=== PATIENT | male | born 1970 | race Caucasian/White ===

== ENCOUNTER 2024-11-19 17:53 | Emergency (ER) | payer OTHER, SELFPAY ==
[2024-11-19 17:58] VITALS: BP 179/76; PULSE 102; RESP 18; TEMP 36.9; O2SAT 97; BMI 28.5
--- NOTE | 2024-11-19 18:27 | ED.GENADULT ---
HPI - General Adult General Date Seen: 11/19/24 Chief complaint: Unspecified Complaint, Adult Stated complaint: Right tooth pain, swollen tongue nausea Time Seen by Provider: 11/19/24 18:13 History of Present Illness HPI narrative: 54-year-old male presents to the ER today with his friend with concern for dental infection from his right mandible and resulting submandibular and right cheek swelling. Patient is generally healthy. He does not have primary care and has not seen a doctor in years. He is not on any meds. He has no allergies. He does have a history of cavities and apparently had a crown or a cap on 1 of his right mandibular molars. That cap fell off last week and he started having gradual with the increasing pain in that right molar and then into the right mandible beginning about 5-7 days ago. For the past couple of days the pain has been spreading into his right cheek and underneath his chin worse on the right than on the left. Today he is also feeling like his tongue is being swollen and pushed upward. He says it hurts to swallow. He is not having any change in his voice. Although he told the triage nurse he is having trouble breathing, he is not really acutely dyspneic. He does not have a fever but does have body aches and headache. He has no history of diabetes or immunosuppression. No known facial trauma. He is not anticoagulated. Related Data Home Medications ?Medication ?Instructions ?Recorded ?Confirmed No Known Home Medications 11/19/24 11/19/24 Allergies Allergy/AdvReac Type Severity Reaction Status Date / Time No Known Drug Allergies Allergy Verified 11/19/24 19:17 Exam Narrative: Exam Narrative: Constitutional: Appears well-developed and well-nourished. Alert. Conversant. Non toxic. HENT: Head: Atraumatic. Nose: Nose normal. Mouth/Throat: Oral mucosa is clear and moist. no trismus but he does have limited mandibular its excursion and is only able to get about 2 fingers between his upper and lower incisors. Difficult to see his entire posterior oropharynx because the tongue is a little bit up in the mouth. I am able to see the supple in tissues under the tongue and they do not look obviously swollen. The gingival tissues did not show any rib clear drainable gingival abscess. He does have fillings and dental caries affecting all 3 of the molars on the right mandible, in particular the right mandibular wisdom tooth. He does have tenderness, swelling and firm induration of the skin on the right cheek around the angle of the mandible and the submandibular space but no definite fluctuance. He is less swollen and firm on the left.. Eyes: Conjunctivae normal. EOM normal. Pupils equal, round, and reactive to light. No scleral icterus. Neck: Normal range of motion. Neck supple. No tracheal deviation present. Cardiovascular: Normal rate, regular rhythm. No gallop. No friction rub. No murmur heard. Symmetric radial artery pulses Pulmonary/Chest: Effort normal. No stridor. No respiratory distress. No wheezes. No rales. No rhonchi . No tenderness. Abdominal: Soft.. No distension. No mass. No tenderness. No rebound. No guarding. Musculoskeletal: RUE: Normal range of motion. No tenderness. No deformity LUE: Normal range of motion. No tenderness. No deformity RLE: Normal range of motion. No edema. No tenderness. No deformity LLE: Normal range of motion. No edema. No tenderness. No deformity Lymph: No anterior or posterior cervical adenopathy. Because of soft tissue adipose tissue and swelling difficult to appreciate any submandibular lymphadenopathy. Neurological: Alert and oriented to person, place, and time. Normal strength. CN II-VII intact. No sensory deficit. GCS eye subscore is 4. GCS verbal subscore is 5. GCS motor subscore is 6. Normal coordination Skin: Skin is warm and dry. No rash noted. No pallor. Normal capillary refill. Psychiatric: Normal mood. Mildly anxious Const: Vital Signs, click to edit/add: Vital Signs - 24 hr 11/19/24 17:58 11/19/24 19:41 11/19/24 19:45 Temperature 98.4 F Pulse Rate 101 H 101 H Pulse Rate [Right Pulse Oximeter] 102 H Respiratory Rate 18 16 Blood Pressure [Ri ght Upper Arm] 179/76 H Pulse Oximetry 97 96 92 Oxygen Delivery Me thod Room Air Course Course ED Course: Recheck-labs came back with markedly abnormal CBC showing hemoglobin of 6.7 white count of 15.9, platelet count of 441. Labs also showed renal failure with BUN of 78 and a creatinine of 4.6. This prompted additional history. Patient has not seen a doctor probably in decades. He is not on any regular meds. He notes that he has had some dark colored, possibly bloody colored urine pretty much every day for the past year or so. No other problems with urination. He has also noted progressively worsening dyspnea on exertion for the past 2-3 months. He does not think he has had any black or bloody stools. No abdominal pain. Vital Signs Vital signs: Initial Vital Signs Temperature 98.4 F 11/19/24 17:58 Temperature Source Temporal Artery Scan 11/19/24 17:58 Pulse Rate 102 H 11/19/24 17:58 Pulse Rhythm Regular 11/19/24 17:58 Pulse Strength 3+ Normal 11/19/24 17:58 Respiratory Rate 18 11/19/24 17:58 Blood Pressure 179/76 H 11/19/24 17:58 Blood Pressure Mean 110 H 11/19/24 17:58 Blood Pressure Position Sitting 11/19/24 17:58 Pulse Oximetry 97 11/19/24 17:58 Oxygen Delivery Method Room Air 11/19/24 17:58 Vital Signs Temperature 98.4 F 11/19/24 17:58 Pulse Rate 102 H 11/19/24 17:58 Respiratory Rate 18 11/19/24 17:58 Blood Pressure 179/76 H 11/19/24 17:58 Pulse Oximetry 97 11/19/24 17:58 Oxygen Delivery Method Room Air 11/19/24 17:58 Temperature 98.4 F 11/19/24 17:58 Pulse Rate 101 H 11/19/24 19:45 Respiratory Rate 16 11/19/24 19:45 Blood Pressure 179/76 H 11/19/24 17:58 Pulse Oximetry 92 11/19/24 19:45 Oxygen Delivery Method Room Air 11/19/24 17:58 Medications Administered Medications: Generic Name Dose Route Start Last Admin Trade Name Freq PRN Reason Stop Dose Admin Hydromorphone HCl 0.5 mg 11/19/24 18:45 11/19/24 19:35 Hydromorphone 0.5 Mg/0.5 Ml Inj IVP 0.5 mg Q1H PRN Administration Pain Discontinued Medications Generic Name Dose Route Start Last Admin Trade Name Freq PRN Reason Stop Dose Admin Ampicillin Sodium/Sulbactam 100 mls @ 200 mls/hr 11/19/24 18:50 11/19/24 19:50 Sodium 3 gm/ Sodium Chloride IVPB 11/19/24 18:51 200 mls/hr ONCE ONE Administration Ondansetron HCl 4 mg 11/19/24 18:45 11/19/24 19:35 Ondansetron 2 Mg/Ml Inj IVP 11/19/24 18:46 4 mg ONCE ONE Administration Medical Decision Making MDM Narrative Medical decision making narrative: 54-year-old gentleman presenting to the ER today with concern initially for a right mandibular tooth infection with associated right facial and right submandibular tissue swelling and worsening pain. Presentation is consistent with an odontogenic infection likely from the right mandibular wisdom tooth. His face is a little bit large because of his body habitus adipose tissue but he definitely has right submandibular tenderness induration and swelling. He was started on IV Unasyn. CT scan of his neck soft tissue fortunately does not show any abscesses or drainable fluid collections. Presentation is concerning for an evolving Minesh's angina. At this point there is really not much swelling on the left and although he is feeling a little bit of upward pressure on his tongue, his airway is currently widely patent. At this point I do not think he needs immediate prophylactic intubation for airway protection. However he was started IV antibiotics. He is not febrile but he does have systemic symptoms of illness such as headache and body aches. Blood pressure is actually hypertensive. I think he will require hospitalization. At this point would recommend transfer to a facility that has ICU capabilities he needs airway management and availability of ENT/oral maxillofacial surgery in case he does have worsening abscesses under his jaw. Laboratory workup also shows leukocytosis and thrombo cytosis which are likely acute phase reactants from his infection. As a surprise he is found to be markedly anemic. Hemoglobin is 6.7. Denies any recent black or bloody stools. He does report progressively worsening dyspnea for past once with suggest this is probably a subacute chronic anemia. Based on his symptoms, I do think he likely will need a transfusion. However at this point, priority is to manage his facial/odontogenic infection. Will defer transfusion to receiving center. Labs also show renal failure with a BUN of 78 and a creatinine of 4.6. Fortunately potassium is normal. Lung sounds are clear. No signs of acute fluid overload or CHF from renal failure. Chronicity to the renal failure is not clear. He does report some abnormal colored urine for the past year so which could indicate that it is possibly chronic. Will need further workup at the receiving set. He has been taking a lot of Aleve lately. He says he has been taking 4-6 a leaves per dose several times per day for the past several days because of his dental and facial pain. Also had been on NSAIDs prior to that. I wonder if it could be contributing to possible upper GI bleed causing his anemia. Of note, the patient did receive IV contrast for his CT neck prior to us being aware of his renal failure. He received a L of crystalloid here in the ER to try to help prevent contrast nephropathy. Lab Data Labs: Lab Results 11/19/24 Range/Units 19:05 WBC 15.90 H (4.50-11.00) K/uL RBC 3.20 L (4.30-5.90) m/uL Hgb 6.7 L* (13.5-17.5) gm/dL Hct 22.3 L (37.0-53.0) % MCV 70 L (80-100) fL MCH 21 L (26-34) pg MCHC 30 L (32-36) gm/dL RDW Coeff of Michelle 17.5 H (11.5-15.5) % Plt Count 441 H (140-440) K/uL Neut % (Auto) 84.5 H (42.0-72.0) % Lymph % (Auto) 4.9 L (20-44) % [place] % (Auto) 8.4 (0.0-11.0) % Eos % (Auto) 1.1 (0.0-7.0) % Baso % (Auto) 0.2 (0.0-3.0) % Neut # (Auto) 13.40 H (1.7-7.0) K/uL Lymph # (Auto) 0.80 L (0.90-2.90) K/uL [place] # (Auto) 1.30 H (0.00-0.90) K/UL Eos # (Auto) 0.20 (0.00-0.50) K/uL Baso # (Auto) 0.00 (0.00-0.30) K/uL Abs Immat Gran (auto) 0.10 (0.00-0.30) K/uL Imm/Tot Granulo (auto) 0.9 % Sodium 140 (135-149) mmol/L Potassium 4.3 (3.6-5.1) mmol/L Chloride 107 (96-114) mmol/L Carbon Dioxide 17 L (20-32) mmol/L Anion Gap 16 H (7-15) mEq/L BUN 78 H (7-30) mg/dL Creatinine 4.6 H (0.5-1.5) mg/dL Estimated Creat Clear 20.62 Estimated GFR 15 ml/min Glucose 121 H (60-115) mg/dL Lactate 1.3 (0.5-1.9) mmol/L Calcium 8.9 (8.4-10.6) mg/dL Discharge Plan Discharge Prescriptions: No Action No Known Home Medications Follow Up/Referrals: Provider,Not a Local [Primary Care Provider] -
--- NOTE | 2024-11-19 18:45 | CRLHL7_ITS ---
For Patients: As a result of the Century Cures Act, medical imaging exams and procedure reports are released immediately into your electronic medical record. You may view this report before your referring provider. If you have questions, please contact your health care provider. Indication: Right mandibular toothache, sub mandibular and facial swelling. Technique: Contrast-enhanced CT of the neck with multiplanar reconstruction utilizing 100 cc Isovue 370 iodinated intravenous contrast. Comparison: None available. Findings: Asymmetric skin thickening of the right face and chin with diffuse infiltration of the underlying soft tissues. Streak artifact emanating from dental amalgam limits evaluation of adjacent structures. No convincing dental source of infection. No suspicious mucosal based vascular enhancement. No pathologically enlarged cervical lymph nodes. Normal parotid and submandibular glands. Unremarkable thyroid. The lung apices are clear. No aggressive osseous lesion is identified. The major vascular structures are within normal limits. The imaged intracranial structures and orbits are unremarkable. Impression: 1. Asymmetric skin thickening of the right face and chin with diffuse infiltration of the underlying soft tissues. 2. No discrete rim enhancing abscess. 3. No convincing dental source for infection, though evaluation is limited by streak artifact emanating from dental amalgam. Please note that all CT scans at this facility use dose modulation, iterative reconstruction, and/or weight-based dosing when appropriate to reduce radiation dose to as low as reasonably achievable. Dictated by Ced Alston MD @ 11/19/2024 8:00:16 PM (Electronically Signed)
[2024-11-19 19:15] LABS: Lactate* 1.3 mmol/L (0.5-1.9)
[2024-11-19 19:16] LABS: Basophils Percent Auto 0.2 % (0.0-3.0); Eosinophils Percent Auto 1.1 % (0.0-7.0); Hematocrit 22.3 % (37.0-53.0); Immature Granulocytes Pct Auto 0.9 %; Lymphocytes Percent Auto 4.9 % (20-44); Mean Corpuscular HGB Conc 30 gm/dL (32-36); Mean Corpuscular Hemoglobin 21 pg (26-34); Mean Corpuscular Volume 70 fL (80-100); Monocytes Percent Auto 8.4 % (0.0-11.0); Neutrophils Percent Auto 84.5 % (42.0-72.0); Platelet Count* 441 K/uL (140-440); RDW Coefficient of Variation % 17.5 % (11.5-15.5)
[2024-11-19 19:20] LABS: Hemoglobin* 6.7 gm/dL (13.5-17.5); Slide Review Reflex No
--- NOTE | 2024-11-19 19:22 | ED.NURSE ---
Lab called with a critical hemoglobin of 6.7. Doctor and primary nurse notified.
[2024-11-19 19:33] LABS: Chloride* 107 mmol/L (96-114); Potassium* 4.3 mmol/L (3.6-5.1); Sodium* 140 mmol/L (135-149)
[2024-11-19] MEDS: ONDANSETRON 2 MG/ML inj 4 MG IVP (19:35)
[2024-11-19] MEDS: HYDROmorphone 0.5 mg/0.5 ml inj IVP ×3 (19:35→21:34)
[2024-11-19 19:36] LABS: Anion Gap 16 mEq/L (7-15); Blood Urea Nitrogen* 78 mg/dL (7-30); Carbon Dioxide* 17 mmol/L (20-32); Creatinine* 4.6 mg/dL (0.5-1.5); Est. Creatinine Clearance* 20.62; Estimated Glomerular Filt Rate 15 ml/min
[2024-11-19 19:37] LABS: Calcium* 8.9 mg/dL (8.4-10.6); Glucose* 121 mg/dL (60-115)
[2024-11-19 19:41] VITALS: PULSE 101; O2SAT 96
[2024-11-19 19:45] VITALS: PULSE 101; RESP 16; O2SAT 92
[2024-11-19] MEDS: AMPICILLIN/SULBACTAM 3 GM in 0.9 % SODIUM CHLORIDE Mini-bag 100 ML IVPB (19:50)
[2024-11-19] MEDS: 0.9 % SODIUM CHLORIDE 1000 ml 1,000 ML IV (20:05)
[2024-11-19 20:59] LABS: Appearance Urine Cloudy (Clear); Bilirubin Urine Negative (Negative); Blood Urine 2+ (Negative); Color Urine Yellow (Yellow); Glucose Urine Negative (Negative); Ketones Urine Negative (Negative); Leukocyte Esterase Urine 3+ (Negative); Nitrite Urine Negative (Negative); Protein Urine 2+ (Negative); Specific Gravity Urine 1.015 (1.000-1.030); Urobilinogen Urine 0.2 (0.2-1.0)
[2024-11-19 21:13] LABS: WBC Urine >100 (0-5)
[2024-11-19 21:14] LABS: Bacteria Urine Moderate; Squamous Epithelial Cell Urine Few (None-Few)
[2024-11-19] MEDS: cefTRIAXone 1 GM in 0.9 % SODIUM CHLORIDE Mini-bag 100 ML IVPB (21:34)
--- OUTSIDE RECORDS SUMMARY | 2024-11-20 17:36 | XMS_ITS | Clinical Summary ---
Author Organization [facility] [employer] [facility] Address [address] [place] [id number] Care Team Providers Care Parts Facilitator Name Role Phone Unknown, Doctor Primary Care Provider Unavailabl e Allergies No known active allergies Medications No known medications Active Problems Problem Noted Date Diagnosed Date Venous insufficiency 02/11/2012 Social History Tobacco Use Types Packs/Day Years Used Date Smoking Tobacco: Never Smokeless Tobacco: Never Alcohol Use Standard Drinks/Week Comments Yes 0 (1 standard drink = 0.6 oz pur e alcohol) Sex and Gender Information Value Date Recorded Sex Assigned at Not on file Legal Sex 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 Gender Identity Not on file Sexual Orientation Not on file Obstetrics History Last Filed Vital Signs Vital Sign Reading Time Taken Comments Blood Pressure 118/82 03/29/2014 11:31 AM CDT Pulse 78 03/29/2014 11:31 AM CDT Temperature 36.5 C (97.7 F) 08/31/2013 8:30 PM CABINET ASSEMBLER Respiratory Rate 18 08/31/2013 8:45 PM CABINET ASSEMBLER Oxygen Saturation 95% 08/31/2013 8:45 PM CABINET ASSEMBLER Inhaled Oxygen Concentration - - Weight 102.5 kg (226 lb) 03/29/2014 11:31 AM CDT Height 182.9 cm (6') 08/31/2013 8:39 AM CABINET ASSEMBLER Body Mass Index 30.65 08/31/2013 8:39 AM CABINET ASSEMBLER Plan of Treatment Health Maintenance Due Date Last Done Comments Tdap 1983 Depression screening for age 12+ 1984 HIV for age 15-65 1987 BMI (ht and wt on same day) for age 18+ 1990 Hepatitis C screening for age 18-79 1990 Tetanus booster 1992 Colonoscopy through age 75 2017 Lipids for age 45-75 2017 Pneumococcal series for age 50+ (1 of 1 - PCV) 022 Zoster (shingles) series for age 50+ (1 of 2) 03/23/20 22 COVID-19 vaccine series ( - 2023- season) Influenza Vaccine (Season Ended) 2025 Medical Devices Implanted Type Area Supervisor Blood [employer]or [employer] Device Identifier Shelf Expiration Date Model / Serial / Lot Plate Hand Rt 1.7mm 6 Hole L-Plate - [id number] Implanted:Qty: 1 on 08/31/2013 at [facility] Right: [employer] [id number] / / Screw Hand 1.7x12mm [employer] Hand Slf Tppng - [id number] Implanted:Qty: 1 on 08/31/2013 at [facility] Right: [employer] [id number]# / / Screw Hand 1.7x6mm [employer] Hand Slf Tppng - [id number] Implanted:Qty: 1 on 08/31/2013 at [facility] Right: [employer] [id number]# / / Screw Hand 1.7x9mm [employer] Hand Slf Tppng - [id number] Implanted:Qty: 1 on 08/31/2013 at [facility] Right: [employer] [id number]# / / Screw Hand 1.7x13mm [employer] Hand Slf Tppng - [id number] Implanted:Qty: 1 on 08/31/2013 at [facility] Right: [employer] [id number]# / / Screw Hand 1.7x12mm [employer] Hand Slf Tppng Lock - [id number] Implanted:Qty: 1 on 08/31/2013 at [facility] Right: [employer] [id number]# / / Screw Hand 1.7x11mm [employer] Hand Slf [employer] Lock - [id number] Implanted:Qty: 1 on 08/31/2013 at [facility] Right: [employer] [id number]# / / Screw Hand 1.7x14mm [employer] Hand Slf [employer] Lock - [id number] Implanted:Qty: 1 on 08/31/2013 at [facility] Right: [employer] [id number]# / / Insurance [facility] Advance Directives * Full Code (Latest Code Status on File) Date Activated Date Inactivated Comments 08/31/2013 12:07 AM 09/01/2013 12:43 AM Care Teams Parts Facilitator Relationship Specialty Start Date End Date Unknown, Doctor . PCP - General 02/15/10
== END 2024-11-19 21:51 | disposition other institution (70) ==
PROVIDERS: Emergency Provider Emergency Medicine
DX: K04.7 Periapical abscess without sinus (principal)
CPT/HCPCS: 36415; 70491; 80048; 81001; 83605; 85025; 87086; 94761; 96365; 96366; 96375; 99284; J0295; J0696; J1171; J2405; J7030; Q9967

== ENCOUNTER 2024-11-19 21:40 | Outpatient (CLI) | payer OTHER, SELFPAY | END 2024-11-19 21:41 | disposition home or self-care (01) | LOC: AMB 11-21 12:16 | PROVIDERS: Visit Provider Student in an Organized Health Care Education/Training Program | DX: K08.9 Disorder of teeth and supporting structures, unspecified (principal) | CPT/HCPCS: A0425; A0433 ==

== ENCOUNTER 2024-12-07 14:10 | Outpatient (CLI) | payer MEDICAID, SELFPAY | END 2024-12-07 14:11 | disposition home or self-care (01) | LOC: AMB 12-08 12:40 | PROVIDERS: Visit Provider Family Medicine | DX: R07.89 Other chest pain (principal) | CPT/HCPCS: A0425; A0427 ==

== ENCOUNTER 2024-12-07 14:42 | Emergency (ER) | payer MEDICAID, SELFPAY ==
--- OUTSIDE RECORDS SUMMARY | 2024-11-19 22:36 | XMS_ITS | Encounter Summary ---
Author Organization [facility] Address [address] [place] [address] Phone Care Team Providers Care Refinish Technician Name Role Phone Unavailable Primary Care Provider Unavailabl e Reason for Visit * Reason Comments Dental Pain Hematuria Neck Problem * Auth/Cert (Routine) Specialty Diagnoses / Procedures Referred By Contbernardo t Referred To Contact MEDICINE CRITICAL CARE Diagnoses Elevated serum creatinine Neck swelling Anemia, unspecified type Hematuria, unspecified type Minesh angina tooth infection renal failure Justin Morris MD [address] [place] [address] [address] [place] [address] Phone: tel: fax: [facility] Medical ICU-3 [address] [facility] [address] [place] [address] Phone: tel: fax: Referral ID Status Reason Start Date Expiration Date Visits Re quested Visits Authorized [id number] 1 1 Encounter Details Date Type Department Care Team (Latest Contact Info) Description 11/19/2024 10:36 PM CDT - 11/23/2024 5:15 PM CDT Hospital Encounter [facility] Medical ICU-3 [address] [facility] [address] [place], [place] [address] Kelsie Tierney MD [address] [place], [place] [id number] Justin Morris MD [address] [place] [address] [address] [place], [place] [id number] Freda Clark MD [address] [place] [address] Neck swelling Discharge Disposition: Discharged to home or self care Social History Tobacco Use Types Packs/Day Years Used Date Smoking Tobacco: Never Passive Smoke Exposure: Never Smokeless Tobacco: Never Tobacco Cessation:Counseling Given: Not Answered Alcohol Use Standard Drinks/Week Comments Yes 0 (1 standard drink = 0.6 oz pur e alcohol) 1 beer/ month Humiliation, Afraid, Rape, a nd Kick questionnaire Answer Date Recorded Within the last year, have y ou been afraid of your partner or ex-partner? Patient unable to answer 11/20/2024 Within the last year, have y ou been humiliated or emotionally abused in other ways by your partner or ex-partner? Patient unable to answer 11/20/2024 Within the last year, have y ou been kicked, hit, slapped, or otherwise physically hurt by your partner or ex-partner? Patient unable to answer 11/20/2024 Within the last year, have y ou been raped or forced to have any kind of sexual activity by your partner or ex-partner? Patient unable to answer 11/20/2024 Overall Financial Resource Strain (CARDIA) Answe r Date Recorded How hard is it for you to pa y for the very basics like food, housing, medical care, and heating? Patient unable to answer 11/20/2024 Hunger Vital Sign Answer Date Recorded Within the past 12 months, y ou worried that your food would run out before you got the money to buy more. Patient unable to answer 11/20/2024 Within the past 12 months, t he food you bought just didn't last and you didn't have money to get more. Patient unable to answer 11/20/2024 PRAPARE - Transportation Answer Date Re corded In the past 12 months, has l ack of transportation kept you from medical appointments or from getting medications? Patient unable to answer 11/20/2024 In the past 12 months, has l ack of transportation kept you from meetings, work, or from getting things needed for daily living? Patient unable to answer 11/20/2024 Housing Stability Answer Date Recorded What is your housing situation today? 5 - Patien t unable to answer 11/20/2024 Sex and Gender Information Value Date Recorded Sex Assigned at Not on file Legal Sex Male 8:23 PM CDT Gender Identity Not on file Sexual Orientation Not on file documented as of this encounter Last Filed Vital Signs Vital Sign Reading Time Taken Comments Blood Pressure 184/145 11/23/2024 4:57 PM CDT Pulse 125 11/23/2024 1:00 PM CDT Temperature 36.5 C (97.7 F) 11/23/2024 4:00 PM CDT Respiratory Rate 24 11/23/2024 1:00 PM CDT Oxygen Saturation 94% 11/23/2024 1:00 PM CDT Inhaled Oxygen Concentration - - Weight 108.9 kg (240 lb 1.3 oz) 025 10:00 PM CDT Height 182.9 cm (6' 0.01) 11/20/2024 1:45 AM CD T Body Mass Index 32.55 11/20/2024 1:45 AM CDT documented in this encounter Discharge Summaries * Irena Casarez RN - 11/23/2024 5:28 PM CDT DISCHARGE NOTE D: Patient is being discharged. A: (As documented in the Discharge Planning Flowsheet) Discharge Instructions (AVS): Discharge clothing/valuables: Discharge medications: Home equipment status: Home equipment/supplies recommended: Final discharge destination: R: The patient and family understood the AVS. P: Support patient and family if they call back with questions. * Jourdan Naranjo MD - 11/23/2024 4:30 PM CDT MEDICINE DISCHARGE SUMMARY Dominick Lozoya : 1970 Sex: male Date of Admission: 11/19/2024 Date of Discharge: 11/23/2024 Disposition: Home/Self Care Primary Care Physician: No primary care provider on file. REASON FOR ADMISSION: Severe R mandibular cellulitis 2/2 odontogenic infection Concern for Minesh's angina BRIEF SUMMARY OF HOSPITALIZATION: Patient is a 54 y.o. male with unknown PMH admitted on 11/19/2024 with R neck swelling with c/f Minesh's angina and acute anemia requiring 3U RBCs. Extubated on 11/21, stable on NC and hemodynamically stable. OMFS following, no OR plans at this time, will continue medical mgmt. Discharged 11/23 with plans for outpatient follow up with OMFS and Urology. Patient will work on establishing care with a PCP closer to home ([place]). NOTE TO PCP: - Would repeat BMP to establish new Cr baseline. Would also obtain urine Pr/Cr ratio to check for ongoing proteinuria. If pt has persistent anemia or worsening Cr, would recommend referral to Nephrology - Monitor BP, likely has HTN and needs ongoing med mgmt For specifics, see recommendations by problem below. HOSPITAL COURSE BY PROBLEM: R mandible cellulitis 2/2 odontogenic infection, improving Concern for Minesh's Angina, improving Patient presented with 1 week of fever, right neck swelling and pain to OSH. Had CT neck which showed right-sided mandibular odontogenic infection tracking to the focal subcutaneous fat tissue and floor of the mouth concerning for Minesh angina but no apparent abscesses. Initially arrived to our EDon room air and appeared comfortable. Had nasopharyngoscopy that showed mild uvular and base of tongue edema but then was noted to desaturate when falling asleep this was intubated for airway protection. Otherwise, has leukocytosis, and elevated inflammatory markers but has been afebrile and hemodynamically stable during hospitalization. OMFS was consulted and recommended continuing antibiotics with no plan for interventions at this time. Extubated successfully on 11/21, breathing comfortably and stable on 3-4 L NC. - OMFS consulted, appreciate recs - s/p dental extraction on 11/23 - Follow up in clinic on 11/25 at 8AM - Abx: Augmentin BID for 7 days post discharge - Pain regimen: tylenol 975 mg TID Acute hypoxic respiratory failure, resolved Possible aspiration pneumonia/pneumonitis, resolved Likely RULA Patient was initially satting above 95% room air without tachypnea upon arrival to the ED but became hypoxic to the mid 80s while falling asleep thus was intubated due to concern of airway compromisefrom above. He had a witnessed episode of vomiting at OSH. Chest x-ray and CT chest showed possibleatelectasis with superimposed aspiration sequela; thus possible aspiration pneumonia/pneumonitis. Patient should be empirically covered with Unasyn. Patient still intermittently de-satting overnight but when awake has been stable with minimal oxygen requirements. Suspect patient likely has underlying RULA driving his hypoxia that was acutely worsened on admission in the setting of significant softtissue neck swelling. - Resp cx and legionella Ag unremarkable - Abx as above - Consider Sleep Center Referral as outpatient if pt amenable to CPAP Acute Kidney Injury, improving Suspect underlying CKD Low suspicion for MSSA UTI Patient presented with creatinine of 4.55 but unclear creatinine baseline., K has remained stable. Unable to obtain further history but patient only symptom per report is hematuria. Unclear if patient has been using nephrotoxic drugs such as NSAIDs. UA showed hematuria, positive leukocyte esterase and pyuria. Urine cx grew 10-50k MSSA. CT abdomen pelvis without signs of hydronephrosis or pyelonephritis but did show a left lower pole calyceal filling defect. Unclear if MSSA 2/2 prior colonization in the setting of possible TCC (gven filling defect on CT and chronic hematuria) vs acute bacteremia. Bcx NGTD. Urology following, plan for outpatient ureteroscopy for further evaluation. Obtained OSH records which did not show any evidence or concern for MSSA bacteremia, low suspicion at this time thus further work up with TTE not indicated. Patient should be covered for possible UTI with antibiotics from above. Suspect Acute Kidney Injury likely 2/2 prerenal etiology in the setting of acute illness but Cr improvement has plateaued since admission with robust UOP. Additionally patient continues to have metabolic acidosis without clear etiology and elevated Phos c/w CKD. Will continue to monitor but if new CKD IV, may benefit from outpatient nephrology referral for ongoing CKD care. - Recheck BMP as outpatient to evaluate for degree of CKD - Consider outpatient nephrology referral for CKD mgmt if worsening or eGFR < 20 Acute microcytic anemia requiring transfusion, stable Iron deficiency anemia Hematuria, chronic Patient presented with hemoglobin of 6.4, MCV 69. Per chart review, pt has had ongoing hematuria daily for the past 2-3 years. Took more naproxen recently due to worsening jaw/neck pain but denied any hematochezia/melena, hemoptysis or hematemesis. INR is 1.3 and patient is not known to be on bloodthinner. CT A/P this admission demonstrated possible L sided renal cast, unclear if this is may represent stone/calculus. Anemia studies were c/w iron deficiency anemia, repleted with IV iron. Etiology of acute anemia likely multifactorial in the setting of Acute Kidney Injury 2/2 NSAID use, underlying CKD, and possible blood loss anemia in the setting of ongoing hematuria and possible GIB from recent NSAID use. 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 - Start amlodipine 5 mg daily for now, up titrate as needed Methamphetamine use, recent Unclear hx of substance use, found to have UDS + for meth on admission. Pt amenable to seeing addiction medicine, provided resources but not interested in treatment at this time. Malnutrition Weight: 108.9 kg (240 lb 1.3 oz) Wt Change from Previous: 1.9 Kg Wt Change from Admit: 1.2 Kg % Wt Change from Adm: 1.11 % Long Eddy Body Wt (IBW) Male (kg): 77.62 kg CONSULTS: Addiction Medicine Urology OMFS PROCEDURES Dental Extraction Intubation PENDING TESTS RESULTS: None FOLLOW-UP: Future Appointments Date Time Provider Department Center 12/07/2024 10:00 AM Kaitlin Rubalcava APRN, COKE LOADER [facility] UROLOGY [facility] Special PHYSICAL EXAMINATION: BP 133/81 Pulse 92 Temp 36.5 ??C (97.7 ??F) (Axillary) Resp 19 Ht 1.829 m (6' 0.01) Wt 108.9 kg (240 lb 1.3 oz) SpO2 96% BMI 32.55 kg/m?? Estimated body mass index is 32.55 kg/m?? as calculated from the following: Height as of this encounter: 1.829 m (6' 0.01). Weight as of this encounter: 108.9 kg (240 lb 1.3 oz). Gen: Alert, interactive, NAD HEENT: Ongoing neck swelling R>L side, tender to palpation Neuro: Alert and oriented, answers questions appropriately, ambulating independently in hallway. CV: RRR, warm, no peripheral edema appreciated Pulm: CTAB Abd: soft ALLERGIES No Known Drug Allergies PLANNED DISCHARGE ORDERS: Medication List START taking these medications acetaminophen 325 mg tablet Commonly known as: TYLENOL Take 2 tablets (650 mg) by mouth every 6 hours as needed for Moderate Pain. amLODIPine 5 mg Tabs Commonly known as: NORVASC Take 1 tablet (5 mg) by mouth daily. amoxicillin-clavulanate 500-125 mg Tabs Commonly known as: AUGMENTIN Take 1 tablet by mouth twice daily for 14 doses. Start taking on: November 24, 2024 STOP taking these medications naproxen sodium 220 mg tablet Commonly known as: ALEVE Where to Get Your Medications These medications were sent to [facility] Discharge Pharmacy - [place] [id number] Hours: 26/01 acetaminophen 325 mg tablet amLODIPine 5 mg Tabs amoxicillin-clavulanate 500-125 mg Tabs Discharge Procedure Orders Why you were at the hospital: Order Comments: You were in the hospital severe tooth infection with neck swelling. When should I be concerned? Order Comments: Go to the Emergency Department or call 911 IF: -- your temperature is higher than 101.5 F. (taken by mouth) and lasts more than 12 hours -- you have a fever with shaking chills -- you develop worsening mouth pain or swelling Please keep the appointments that have already been made. Order Comments: -- Please keep the appointments that have already been made. -- The dental team (OMFS) will call you to schedule an appointment for follow up Future Appointments 11/25/24 8:00 AM [facility] OMFS (You will receive a from their manufacturing scheduler soon) 12/07/2024 10:00 AM Kaitlin Rubalcava APRN, C* [facility] UROLOGY [facility] Special Please schedule an appointment outside of [facility]: Order Comments: Please make an appointment to establish care with a Primary Care Provider within 2-4 week(s) of your discharge for follow up of basic labs, your kidney function. Up as tolerated activity level. Order Comments: UP TOLERATED -- Rest is an important part of healing. Save your energy by spreading out activities that make youtired. Rest as needed. -- Slowly increase your level of activity. Renal diet Order Comments: -- Avoid bananas, oranges, tomatoes, melons and potatoes. -- Limit all dairy foods to ?? cup or 4 ounces each day. -- Include a protein source with each meal. Best sources are: beef, pork, fish, chicken, turkey oreggs. -- Do not add salt to your food. Try herb and spice blends such as Mrs. Dash??. Limit foods canned and processed with salt. Choose fresh or frozen foods when you can. Discussed diagnosis and treatment plan with the patient. Patient verbalized understanding of condition and treatment plan. Planned readmission in the next 30 days: No Jourdan Naranjo MD 11/23/2024 16:50 Cosigned by Freda Clark MD at 11/23/2024 6:24 PM CDT documented in this encounter Medications at Time of Discharge amLODIPine (NORVASC) 5 mg oral TABS Take 1 tablet (5 mg) by mouth daily. 30 tablet 1 11/23/2024 5:09 PM CDT 11/23/2024 amoxicillin-clav ulanate (AUGMENTIN) 500-125 mg oral TABS Take 1 tablet by mouth twice daily for 14 doses. 14 tablet 11/23/2024 5:09 PM CDT 11/24/2024 12/01/2024 acetaminophen (TYLENOL) 325 mg oral tablet Take 2 tablets (650 mg) by mouth every 6 hours as needed for Moderate Pain. 90 tablet 11/23/2024 5:09 PM CDT 11/23/2024 12/06/2024 documented as of this encounter Progress Notes * Elio Spann MDIV - 11/23/2024 4:50 PM CDT SPIRITUAL CARE VISIT SUMMARY Dominick Lozoya : 1970 Sex: male LOS: 4 days Reason for visit: Follow Up Assessment: Pt/family uncertain/anxious/frustrated;Pt/family coping/relieved Intervention: Compassionate support Outcome: Gratitude expressed;Stress observed as lessened Notes: Pt is oriented and verbally interactive, seated on end of bed with parents present. Pt states he is preparing to discharge. All are relieved and grateful for care, recovery and now the opportunity to go home and return to life. Congratulations and encouragement provided and gratefully received. Plan: This unit sap ariba consultant to continue to monitor for pt/family support concerns. Spiritual Care Teamis available to support patient and family as needed via number [phone]. Elio Spann MDIV, 11/23/2024 4:50 PM Number: [phone] * Izabela Crawford OTR/Neela - 11/23/2024 2:05 PM CDT OT order received, chart review initiated. Pt w/ multiple tooth extractions performed this afternoon at [facility]. OT will attempted evaluation 11/24/24. SARAY Gagnon/Neela Pager: [phone] 15:06 11/23/24 * Chrissy Quesada - 11/23/2024 12:38 PM CDT 11/23/24 1237 Rapid Rounds Attendance Physician;Charge nurse;technical delivery manager;production manufacturing worker Expected Discharge Disposition Home Today we still await: Clinical stability (Has Tx orders from MICU to CARE) Chrissy Quesada RN Float Clinical Coordinator [email or web address] Available via [employer] * Jae Gross DDS - 11/23/2024 7:45 AM CDT S Progress Note Dominick Lozoya : 1970 Sex: male Assessment: 54 y/o M admitted 11/19/24 with right mandibular cellulitis likely associated with grossly carious tooth #30. No drainable fluid collection on CT. Also with anemia, hematuria, Acute Kidney Injury. Recommendations: - No acute surgical at this time - Continue IV Unasyn 3g q6h - HOB >30 - Peridex BID - Date/time Extraction of tooth #30 in OMFS clinic TBD once patient becomes more oriented Lan Gross DDS OMFS PGY1 Pager: [phone] Subjective: Patient did well overnight, no acute events. He has been recently extubated and is AAOx2. Denies uncontrolled pain. Objective: BP (!) 175/87 Pulse 81 Temp 37.1 ??C (98.7 ??F) (Axillary) Resp 20 Ht 1.829 m (6' 0.01) Wt 108.9 kg (240 lb 1.3 oz) SpO2 96% BMI 32.55 kg/m?? Physical Exam: General: WD/WN NAD Diaphorectic Neuro: CN V grossly intact bilaterally and CN VII grossly intact bilaterally HEENT: NC/AT, EOMI, PERRLA, edema that is indurated at right inferior border of the mandible. No significant erythema or draining extraoral fistula appreciable. Intraoral: oropharynx clear, uvula midline, grossly intact dentition, FOM NT/ND, swollen sublingualgland appreciable, poor OH, and grossly carious #30 with large enamel fracture & associated buccal vestibular edema. Cardiovascular: Warm and well-perfused Pulmonary: Breathing comfortably on room air Psych: Appropriate mood and affect Labs: Lab Results Component Value Date/Time WBC 20.60 (H) 11/23/2024 0510 RBC 3.56 (L) 11/23/2024 0510 HGB 7.9 (L) 11/23/2024 0510 HCT 25.5 (L) 11/23/2024 0510 PLT 338 11/23/2024 0510 MCV 71.6 (L) 11/23/2024 0510 MCH 22.2 (L) 11/23/2024 0510 MCHC 31.0 11/23/2024 0510 RDW 20.1 (H) 11/23/2024 0510 MPV 8.8 11/23/2024 0510 , Lab Results Component Value Date/Time NA 141 11/23/2024 0510 K 4.2 11/23/2024 0510 CHLORIDE 112 (H) 11/23/2024 0510 CO2 15 (L) 11/23/2024 0510 GLU 98 11/23/2024 0510 UN 68 (H) 11/23/2024 0510 CR 3.17 (H) 11/23/2024 0510 CA 8.2 (L) 11/23/2024 0510 MG 2.4 11/23/2024 0510 ALBUMIN 3.0 (L) 11/21/2024 0701 TPRO 7.1 11/21/2024 0701 ALP 75 11/21/2024 0701 ALT 13 11/21/2024 0701 AST 19 11/21/2024 0701 TBILI 0.3 11/21/2024 0701 Cosigned by Ceci Breen DDS at 12/01/2024 7:36 AM CDT * Elio Spann MDIV - 11/22/2024 3:52 PM CDT SPIRITUAL CARE VISIT SUMMARY Dominick Lozoya : 1970 Sex: male LOS: 3 days Reason for visit: Follow Up Assessment: Pt/family uncertain/anxious/frustrated Intervention: Compassionate support Outcome: Gratitude expressed;Stress observed as lessened Notes: Encounter with pt's parents who have arrived from [place], [place], are elderly with some mobility issues, and struggling to navigate the [facility] complex. Hospitality, orientation and welcoming presence provided, chair to sit at pt's bedside, reassurance and encouragement provided and gratefully received. Plan: This unit sap ariba consultant to continue to monitor for pt/family support concerns. Spiritual Care Teamis available to support patient and family as needed via number [phone]. Elio Spann MDIV, 11/22/2024 3:52 PM Number: [phone] * Kalyan Golden MD - 11/22/2024 8:46 AM CDT Urology Progress Note 11/22/2024 Subjective: No acute events overnight. Patient resting comfortably in bed when seen on morning rounds. Extubated. Exam BP 112/72 Pulse 55 Temp 35.9 ??C (96.6 ??F) (Axillary) Resp 18 Ht 1.829 m (6' 0.01) Wt 108.9 kg (240 lb 1.3 oz) SpO2 (!) 89% BMI 32.55 kg/m?? No acute distress Unlabored breathing, non rebreather mask Arnold catheter draining clear, yellow urine Labs Lab Results Component Value Date/Time CR 3.25 (H) 11/22/2024 04:52 AM CR 3.42 (H) 11/21/2024 07:01 AM CR 3.50 (H) 11/20/2024 07:09 PM CR 3.57 (H) 11/20/2024 05:11 AM WBC 14.70 (H) 11/22/2024 04:52 AM WBC 12.67 (H) 11/21/2024 07:01 AM WBC 10.47 (H) 11/20/2024 05:11 AM WBC 15.26 (H) 11/19/2024 10:45 PM HGB 7.8 (L) 11/22/2024 04:52 AM HGB 8.2 (L) 11/21/2024 07:01 AM HGB 7.7 (L) 11/20/2024 11:19 PM HGB 7.3 (L) 11/20/2024 02:09 PM Lab Results Component Value Date/Time URINECX (POS) 11/19/2024 11:30 PM 10,000 - 50,000 organisms/ml Methicillin sensitive Staphylococcus aureus (MSSA) isolated. Methicillin susceptible by PBP2a. Less than 10,000 organisms/ml mixed julio. No further work-up. Date 11/22/24 0700 - 11/23/24 0659 Shift 7329-0708 9619-7631 2423-2616 24 Hour Total INTAKE Shift Total OUTPUT Urine 200 200 Shift Total 200 200 Weight (kg) 108.9 108.9 108.9 108.9 UOP 2,225ml/8 hours Assessment/Plan 54 y.o. male with unknown PMHx admitted 11/19 for R neck swelling concerning for ludwigs angina. Urology consulted for patient reporting 1-2 years of hematuria without workup and microcytic anemia on presentation. Urine remains clear, yellow. CT findings are likely 2/2 filling defect, but there is some concern for TCC. Less likely blood clot or renal papillar necrosis. Patient will need diagnosticureteroscopy after discharge. There is no hydronephrosis or other urological pathology to explain creatinine. Cr does continue to improve. - Recommend continuing arnold catheter until patient is alert and ambulatory. Check PVR after removal. - Continue to trend creatinine. Recommend repeat non con CT if elevated to re- eval for hydronephrosis. - Follow up as scheduled for telephone visit to review upcoming surgery plan. - Will arrange for outpatient diagnosis ureteroscopy in the coming weeks. Urology will sign off at this time. Please call with questions or concerns. Seen and examined with Kaitlin Zaman, JUVENAL, COKE LOADER, 11/22/2024 8:46 AM This is a shared visit on today's date with the advanced practice provider. I have personally seen and examined the patient today. Problem: LLP filling defect I have reviewed HPI, vitals, labs and personally reviewed all imaging studies as noted above and agree with radiology reports unless otherwise stated. Summary assessment and plan: Dominick Lozoya is a 54 y.o. male with the above stated problem. Plan: - Sched for outpatient diagnostic URS Kalyan Golden MD, 11/22/2024 10:22 AM * Rowena Rojas RT - 11/21/2024 11:03 PM CDT Attempted to placed pt on Bipap for obstruction, Pt started thrashing immediately and stating that he is claustrophobic. Pt placed on 15 L non-re breather. Rowena Rojas RT, 11/21/2024 11:05 PM * Peri Hull RN - 11/21/2024 4:05 PM CDT Images from the original note were not included. . Care Management Follow-up Note Patient Name: Dominick Lozoya Date: 11/21/2024 Patient/Family Discharge Goals: Patient's Discharge Goal: MOLLY, intubated/sedated Family's Discharge Goal: MOLLY Discharge Destination Expected Discharge Date: Time: Potential Discharge within 24 Hours: Discharge plan: TBD Summary of pertinent information: Provider reached out inquiring about obtaining medical records from [facility] from 11/16/24. Spoke with Winnie from radiology . She stated there was only one image available from11/19 and she would push it over. She faxed the report over, it was forwarded to the team. Left for [facility] . Requested medical records from that visit befaxed to me at : [phone]. Will provide to the team once received. Peri Hull, RN Inpatient Clinical Coordinator [phone] Available by Peri Quiroz RN, 11/21/2024 4:05 PM * Elio Spann MDIV - 11/21/2024 2:15 PM CDT SPIRITUAL CARE VISIT SUMMARY Dominick Lozoya : 1970 Sex: male LOS: 2 days Reason for visit: Follow Up Assessment: Pt/family situation unknown/unknowable Intervention: Facilitate communication Outcome: Situation assessed Notes: Pt admitted to MICU w neck swelling and concern for Minesh's angina. Pt is not interactive, intubated;no family/friends present, in contact or known. Pt resides in [place] ([place] away). Pt has no known spiritual/orthodoxy preference/practice. Pt to remain on MICU tonight. Plan: This unit sap ariba consultant to continue to monitor for pt/family support concerns. Spiritual Care Teamis available to support patient and family as needed via number [phone]. Elio Spann MDIV, 11/21/2024 2:15 PM Number: [phone] * Freda Clark MD - 11/21/2024 2:04 PM CDT MEDICINE ICU PROGRESS NOTE - PGY 2 Dominick Lozoya : 1970 Sex: male Patient Summary: Patient is a 54 y.o. male with unknown PMH admitted on 11/19/2024 with R neck swelling and concern for Minesh angina. OMFS following, no OR plans at this time, will continue medical mgmt. Active problem list: Active Hospital Problems Diagnosis Neck swelling Anemia, unspecified type Hematuria, unspecified type Events of past 24 hours: - CT Neck with mildly increased soft tissue swelling compared to prior scan (No OR plans per OMFS) - Tolerating SBT off sedation but still not following commands - FTH MSSA in urine cx, working on clarifying if this is potentially from bacteremia Assessment and Plan: R neck swelling and pain with c/f Ludweg Angina requring intubation for concern for airway compromise Patient presented with 1 week of fever, right neck swelling and pain to OSH. Had CT neck which showed right-sided mandibular odontogenic infection tracking to the focal subcutaneous fat tissue and floor of the mouth concerning for Minesh angina but no apparent abscesses. Initially arrived to our EDon room air and appeared comfortable. Had nasopharyngoscopy that showed mild uvular and base of tongue edema but then was noted to desaturate when falling asleep this was intubated for airway protection. Has leukocytosis, and elevated inflammatory markers but has been afebrile during hospitalization. OMFS was consulted and recommended continuing antibiotics with no plan for interventions at this time. On exam, patient has right neck swelling without stridor and strong cuff leak, thus can likelybe extubated if okay from OMFS perspective. He is currently hemodynamically stable on minimal vent settings with Unasyn for antibiotics. Swelling appears to have worsened this AM so repeating CT neckto evaluate for abscess. - OMFS consulted, appreciate recs - No acute surgical intervention indicated at this time - Will consider having pt come to clinic for evaluation and possible tooth extraction pending possible extubation - HOB > 30 degrees for swelling - Abx: Unasyn 3 g q6h - Sedation: propofol ; RAAS goal 0 to -ve 1 - Daily SBT/SAT; has a cuff leak and on minimal vent settings - Pain regimen: tylenol 975 mg TID - S/p Decadron IV 8 mg Q8H x3 doses for possible airway edema Acute hypoxic respiratory failure Possible aspiration pneumonia/pneumonitis Possible RULA Patient was initially satting above 95% room air without tachypnea upon arrival to the ED but became hypoxic to the mid 80s while falling asleep thus was intubated due to concern of airway compromisefrom above. He had a witnessed episode of vomiting at OSH. Chest x-ray and CT chest showed possibleatelectasis with superimposed aspiration sequela; thus possible aspiration pneumonia/pneumonitis. Patient has been afebrile and currently on minimal vent settings (FiO2 of 30 and PEEP of 5). Patient should be empirically covered with Unasyn. - Resp cx and legionella Ag unremarkable - Abx as above which should cover aspiration pneumonia - Okay to extubate based on lung mechanics Acute Kidney Injury vs Acute on chronic kidney injury Possible MSSA UTI Patient presented with creatinine of 4.55 but unclear creatinine baseline., K has remained stable. Unable to obtain further history but patient only symptom per report is hematuria. Unclear if patient has been using nephrotoxic drugs such as NSAIDs. UA showed hematuria, positive leukocyte esterase and pyuria. Urine cx grew 10-50k MSSA. CT abdomen pelvis without signs of hydronephrosis or pyelonephritis but did show a left lower pole calyceal filling defect. Unclear if MSSA 2/2 prior colonization in the setting of possible TCC (gven filling defect on CT and chronic hematuria) vs acute bacteremia. Bcx NGTD here but unclear if pt grew MSSA on OSH Bcx. Urology following, plan for outpatient ureteroscopy for further evaluation. Will work on obtaining OSH records to clarify MSSA source as bacteremia would require further work up such as TTE to r/o endocarditis, etc. Patient should be covered for possible UTI with antibiotics from above. Suspect Acute Kidney Injury likely 2/2 prerenal etiology in the setting of acute illness, lower suspicion for ATN given robust urine output, we will continue to monitor. - Daily BMP - Avoid nephrotoxic agents - Close I/Os and monitoring - Abx as above - TTE and ID consult if MSSA UTI confirmed 2/2 bacteremia (CC and SW to work on obtaining OSH records on 520 AM) Acute microcytic anemia requiring transfusion Iron deficiency anemia Hematuria Patient presented with hemoglobin of 6.4, MCV 69. Patient reports ongoing hematuria for more than 1year but denies hematochezia/melena, hemoptysis or hematemesis; this does not appear to have been worked up in the outpatient setting so far. INR is 1.3 and patient is not known to be on blood thinner. Platelets elevated at 419. CT A/P this admission demonstrated possible L sided renal cast, unclear if this is may represent stone/calculus. Anemia studies were c/w iron deficiency anemia, given lowsuspicion for systemic infection, plan to replete with IV iron. - Transfuse if Hgb < 7 - Start Venofer 200 mcg daily x2 (Received x3 units of RBCs so should be replete with x2 additionalIV iron doses) - Urology consulted, appreciate recs - Plan for outpt ureteroscopy - Resumed VTE ppx, low suspicion for active bleeding High BP Pt with unknown PMH including HTN presented with initial BP 180/90. Could possibly be related to pain and distress vs underlying HTN. Currently normotensive on propofol. Will need to be evaulted postextubation for need of hypertensive if he is amenable. - Consider initiating antihypertensive meds when extubated ICU: DVT Prophylaxis: Resumed heparin GI Prophylaxis: famotidine Lines/dates: ETT, Arnold, PIV x3, OG Vitals: Vital Signs: Temp Av.4 ??C (97.5 ??F) Min: 36.3 ??C (97.3 ??F) Max: 36.6 ??C (97.9 ??F) Pulse Av.8 Min: 67 Max: 88 Resp Av.5 Min: 14 Max: 25 BP Min: 116/78 Max: 148/85 Intake/Output Summary (Last 24 hours) at 11/21/2024 1404 Last data filed at 11/21/2024 1200 Gross per 24 hour Intake 1802.24 ml Output 3185 ml Net -1382.76 ml Exam: Gen: intubated/sedated HEENT: Ongoing neck swelling R>L side, tender to palpation Neuro: Restless when weaning sedation, not following commands. CV: RRR, warm, no peripheral edema appreciated Pulm: CTAB Abd: soft Vent Settings: Ventilation Mode: AC;VC (Vol Ctrl) (11/21/24 0835) Resp: 23 (11/21/24 1300) Ventilator Rate: 20 breaths per minute (11/21/24 0838) Inspiratory Volume (mL): 550 mL (11/21/24837) PEEP (cmH2O): 5 cm (11/21/24837) Labs: I have reviewed today's laboratory results. Other Diagnostic Studies: I have independently viewed the radiology images. Checklist: (Remember to update daily in rounding navigator.) Jourdan Naranjo MD, 11/21/2024 2:04 PM Medicine Milestones Critical Care Staff note: Found to have a cuff leak today and was able to be extubated to nasal cannula after a successful spontaneous awakening trial. Patient continues to have tender and indurated right neck without major swelling and has strong cough. Will watch in the ICU overnight. Continues on Unasyn. Okay to stop Decadron. OMFS following peripherally and plans for future tooth extraction As possible renal cast with hematuria and elevated creatinine which has improved from yesterday. Making urine. Urology following peripherally Patient is in critical condition due to hypoxic respiratory failure, upper lip swelling. I personally spent 30 minutes of critical care time with this patient. The treatment and management included extubation, sedation, antibiotics, consults. Any time spent on separately billable procedures is not included in this time. I reviewed the resident's documentation on 11/21 and I agree with the resident's assessment and plan of care. 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 needed Decision Maker at Admission: Self Living Situation: Home Patient Identified Support System: None identified Services Receiving: Not known Complex Medical Needs: Other (see comment) Transportation Used for Discharge: TBD Safety Concerns: Other (see comment) Behavioral Health Concerns: None Patient Family Goals Patient's Discharge Goal: MOLLY, intubated/sedated Family's Discharge Goal: MOLLY Plan/Interventions Expected Discharge Disposition: Home or Self Care Patient Information Verification Verified demographic information, including SSN, Next of Kin, and Guardianship: Other (see comment) Verified PCP: Not known If post-acute placement is needed, have vaccination status needs been addressed?: Not applicable Risks for Readmission: None Summary of pertinent information: Chart review completed for completion of the coordination assessment given patient's current condition and no contacts entered per patient's wish.Admitted on 11/19 from OSH for toothache, jaw pain with concern for abscess. Patient expressed to not have contacts entered in chart. Has not been seen bymedical staff for over 20 years. Plan: Meet with patient when extubated and confirm chart information. Gather information on insurance (likely does not have - if so, notify Financial Counseling) Obtain emergency contacts or begin NOK search, depending on primary team if urgent to locate family. Coordinate with discharge planning pending medical stability and recommendations as identified. Erika Mccollum LGSW, 11/21/2024 10:38 AM * Kalyan Golden MD - 11/21/2024 7:43 AM CDT Urology Progress Note 11/21/2024 Subjective: Pt lying in bed comfortably when seen on morning rounds. Intubated/sedated, No acute urologic events overnight. Exam BP 143/74 Pulse 84 Temp 36.3 ??C (97.3 ??F) Resp 22 Ht 1.829 m (6' 0.01) Wt 108.9 kg (240 lb 1.3 oz) SpO2 95% BMI 32.55 kg/m?? No acute distress Unlabored breathing Arnold catheter draining yellow urine with small amount blood Labs Lab Results Component Value Date/Time CR 3.50 (H) 11/20/2024 07:09 PM CR 3.57 (H) 11/20/2024 05:11 AM CR 4.55 (H) 11/19/2024 10:45 PM WBC 12.67 (H) 11/21/2024 07:01 AM WBC 10.47 (H) 11/20/2024 05:11 AM WBC 15.26 (H) 11/19/2024 10:45 PM HGB 8.2 (L) 11/21/2024 07:01 AM HGB 7.7 (L) 11/20/2024 11:19 PM HGB 7.3 (L) 11/20/2024 02:09 PM HGB 6.5 (AA) 11/20/2024 08:21 AM UOP 1375 ml/8 hrs Assessment/Plan Dominick Lozoya is a 54 y.o. w unknown PMH admitted 11/19 for R neck swelling concerning for ludwigs angina. Urology consulted for patient reporting 1-2 years of hematuria without workup and microcyticanemia on presentation. Patient currently intubated and sedated in ICU, unable to obtain more history. On assessment, urine appears clear/yellow. CT findings are likely 2/2 filling defect. Some concern for TCC, will assess patient on 11/21, and once extubated will discuss ureteroscopy with patient. Less likely blood clot or renal papillar necrosis. No hydronephrosis or other urological pathology to explain creatinine. Recommendations: -continue arnold -trend creatinine, if elevated consider repeat CT to evaluate for hydronephrosis -plan for outpatient diagnostic ureteroscopy in coming weeks to further evaluate filling defect Urology will follow. Seen and examined with Edwina Parker, DIRECTOR NON PROFIT, COKE LOADER, 11/21/2024 7:43 AM This is a shared visit on today's date with the advanced practice provider. I have personally seen and examined the patient today. Problem: ureteral filling defect, no hydro I have reviewed HPI, vitals, labs and personally reviewed all imaging studies as noted above and agree with radiology reports unless otherwise stated. Summary assessment and plan: Dominick Lozoya is a 54 y.o. male with the above stated problem. Plan: - Trend creatinine - Reviewed CT - suspect filling defect, will need further evaluation with diagnostic ureteroscopy as an outpatient in coming weeks - No sign of hydronephrosis at this time, so no indication for acute intervention (stent) - Continue arnold - If Cr rises would repeat non-contrast CT to eval for development of hydronephrosis. Kalyan Golden MD, 11/21/2024 8:13 AM * Shyann Hernandez, RT - 11/21/2024 4:54 AM CDT RESPIRATORY VENT NOTE Vent Settings: AC/VC 550 mL, 20 breaths per minute 30%, PEEP 5 cm Weaning: No Breath Sounds: diminished, coarse Secretions: thin, cloudy, small Treatments: ventilator care Current ABG: Recent Labs 11/20/24 0020 11/20/24 0539 PHART 7.23* 7.42 [id number] 40 26* PO2ART 146* 137* [id number] 16* 17* [id number] 98 99 No changes made overnight. RT will continue to Monitor and provide support. Shyann Hernandez, RT, 11/21/2024 4:54 AM * Demond Monroy RT - 11/20/2024 5:17 PM CDT Respiratory Ventilator Note PRINCIPAL PROBLEM: Minesh angina Anemia, unspecified type Elevated serum creatinine Hematuria, unspecified type Neck swelling PATIENT INFORMATION Dominick Lozoya is a 54 y.o. male admitted on 11/19/2024 SHIFT REPORT/EVENTS: No changes. OXYGEN DELIVERY DEVICE $ Delivery Method (Oxygen Therapy): ventilator AIRWAY Endotracheal Tube: oral;endotracheal tube 7.5-Mahomet: 24@teeth Endotracheal Tube: oral;endotracheal tube 7.5-Cuff Status: Cuff inflated Endotracheal Tube: oral;endotracheal tube 7.5-ETT Securement: ETAD VENTILATOR SETTINGS: Vent Mode Vital Sync : A/C Vent Types Vital Sync : VC Inspiratory Volume (mL): 550 mL Exhaled Min Volume (mL): 11.2 mL Resp: 20 Ventilator Rate: 20 breaths per minute Oxygen Concentration (FiO2 %): 31 PEEP (cmH2O): 5 cm Waveform : RAMP Apnea Interval (sec): 20 sec Peak Press: 26 CM H2O Plateau Press: 18 CM H2O Compliance (mL/cm H2O): 61 mL/cm H2O P drive (cm H2O): 13 cm H2O VENTILATOR ALARM Low Min Volume (L): 5 L WEANING ASSESSMENTS: Weaning: No Breath Sounds: diminished Secretions: thin, cloudy, small Treatments: ventilator care Current ABG: Recent Labs 11/20/24 0020 11/20/24 0539 PHART 7.23* 7.42 [id number] 40 26* PO2ART 146* 137* [id number] 16* 17* [id number] 98 99 SKIN ASSESSMENT Endotracheal Tube: oral;endotracheal tube 7.5-Skin Assessment: Open area on lip BEDSIDE SAFETY Endotracheal Tube: oral;endotracheal tube 7.5-Safety Measures: manual resuscitator/mask/valve in room Will continue to monitor and provide ICU level support. Demond Monroy RT, 11/20/2024 5:17 PM * Justin Morris MD - 11/20/2024 12:39 PM CDT MEDICINE ICU PROGRESS NOTE - PGY 2 Dominick Lozoya : 1970 Sex: male Patient Summary: Patient is a 54 y.o. male with unknown PMH admitted on 11/19/2024 with R neck swelling and concern for Minesh angina. Active problem list: Active Hospital Problems Diagnosis Neck swelling Anemia, unspecified type Hematuria, unspecified type Events of past 24 hours: -Swelling appears to be worsening by visual exam; obtaining CT neck -Urology consulted for hematuria and renal cast Assessment and Plan: R neck swelling and pain with c/f Ludweg Angina requring intubation for concern for airway compromise Patient presented with 1 week of fever, right neck swelling and pain to OSH. Had CT neck which showed right-sided mandibular odontogenic infection tracking to the focal subcutaneous fat tissue and floor of the mouth concerning for Minesh angina but no apparent abscesses. Initially arrived to our EDon room air and appeared comfortable. Had nasopharyngoscopy that showed mild uvular and base of tongue edema but then was noted to desaturate when falling asleep this was intubated for airway protection. Has leukocytosis, and elevated inflammatory markers but has been afebrile during hospitalization. OMFS was consulted and recommended continuing antibiotics with no plan for interventions at this time. On exam, patient has right neck swelling without stridor and strong cuff leak, thus can likelybe extubated if okay from OMFS perspective. He is currently hemodynamically stable on minimal vent settings with Unasyn for antibiotics. Swelling appears to have worsened this AM so repeating CT neckto evaluate for abscess. - OMFS consulted, appreciate recs -Repeat CT neck with no contrast to evaluate swelling - Abx: Unasyn 3 g q6h - Sedation: propofol ; RAAS goal 0 to -ve 1 - Daily SBT/SAT; has a cuff leak and on minimal vent settings - Pain regimen: tylenol 975 mg TID Acute hypoxic respiratory failure Possible aspiration pneumonia/pneumonitis Possible RULA Patient was initially satting above 95% room air without tachypnea upon arrival to the ED but became hypoxic to the mid 80s while falling asleep thus was intubated due to concern of airway compromisefrom above. He had a witnessed episode of vomiting at OSH. Chest x-ray and CT chest showed possibleatelectasis with superimposed aspiration sequela; thus possible aspiration pneumonia/pneumonitis. Patient has been afebrile and currently on minimal vent settings (FiO2 of 30 and PEEP of 5). Patient should be empirically covered with Unasyn and will obtain respiratory cultures. - Wean down Oxygen requirements as tolerated - Follow up on respiratory culture - Abx as above which should cover aspiration pneumonia -Follow-up urine Legionella antigen - Okay to extubate based on lung mechanics Acute Kidney Injury vs Acute on chronic kidney injury Possible UTI Patient presented with creatinine of 4.55 but unclear creatinine baseline., K has remained stable. Unable to obtain further history but patient only symptom per report is hematuria. Unclear if patient has been using nephrotoxic drugs such as NSAIDs. UA showed hematuria, positive leukocyte esterase and pyuria but negative nitrites. CK WNL, so low concern for rhabdomyolysis. CT abdomen pelvis without signs of hydronephrosis or pyelonephritis. Suspect acute kidney injury versus acute on chronic kidney injury from anemia with possible underlying UTI. Patient should be covered for possible UTI with antibiotics from above. Reassuringly, his urine output is good and we will continue to monitor - Daily BMP - Avoid nephrotoxic agents - Close I/Os and monitoring - Follow up on Urine culture - Abx as above - Follow up on Urine studies Acute microcytic anemia requiring transfusion Iron deficiency anemia Hematuria Patient presented with hemoglobin of 6.4, MCV 69. Patient reports ongoing hematuria for more than 1year but denies hematochezia/melena, hemoptysis or hematemesis; this does not appear to have been worked up in the outpatient setting so far. INR is 1.3 and patient is not known to be on blood thinner. Platelets elevated at 419. CT A/P this admission demonstrated possible L sided renal cast, unclear if this is may represent stone/calculus. Anemia studies were c/w iron deficiency anemia. - BID hgb checks - Transfuse to goal Hgb >7 - Urology consulted, appreciate recs - OP colonoscopy - Follow-up on iron studies, B12, RBC folate and reticulocyte count - Hold Vte ppx High BP Pt with unknown PMH including HTN presented with initial BP 180/90. Could possibly be related to pain and distress vs underlying HTN. Currently normotensive on propofol. Will need to be evaulted postextubation for need of hypertensive if he is amenable. - Consider initiating antihypertensive meds when extubated ICU: DVT Prophylaxis: held for bleeding GI Prophylaxis: famotidine Lines/dates: ETT, Arnold's catheter, PIV x2 Vitals: Vital Signs: Temp Av.4 ??C (97.5 ??F) Min: 36.1 ??C (97 ??F) Max: 36.7 ??C (98.1 ??F) Pulse Av.9 Min: 74 Max: 111 Resp Av.4 Min: 11 Max: 28 BP Min: 121/64 Max: 187/96 Intake/Output Summary (Last 24 hours) at 11/20/2024 1240 Last data filed at 11/20/2024 1200 Gross per 24 hour Intake 1418 ml Output 2800 ml Net -1382 ml Exam: Gen: intubated/sedated HEENT: neck swelling R>L side Neuro: sedated CV: RRR, warm, peripheral edema appreciated Pulm: CTAB Abd: soft Vent Settings: Ventilation Mode: AC;VC (Vol Ctrl) (11/20/24 1046) Resp: 20 (11/20/24 1142) Ventilator Rate: 20 breaths per minute (11/20/24 1046) Inspiratory Volume (mL): 550 mL (11/20/24 1046) PEEP (cmH2O): 5 cm (11/20/24 1046) Labs: I have reviewed today's laboratory results. Other Diagnostic Studies: I have independently viewed the radiology images. MD Checklist: (Remember to update daily in rounding navigator.) Mateus Rice MD, 11/20/2024 12:40 PM FACULTY NOTE I saw and evaluated the patient on the date of the resident's note. I discussed with the resident and agree with the resident???s findings and plan documented in the resident???s note from above. Anyrevisions by me are documented. Justin Morris MD, 11/20/2024 4:47 PM * Robinson Hernandez MDIV - 11/20/2024 10:36 AM CDT SPIRITUAL CARE VISIT SUMMARY Dominick Lozoya : 1970 Sex: male LOS: 1 day Reason for visit: Referral Assessment: Pt/family situation unknown/unknowable Intervention: Facilitate communication Outcome: Situation assessed Notes: Initial visit with pt per admission to hospital via stab room. Pt is intubated. Consulted with pt's nurse who reports pt has had no visitors/phone calls. Left card in pt's room with [place] contactinfo for future visitors. No contacts listed in demos. Plan: Spiritual Care Team is available to support patient and family as needed via number [phone]. Robinson Hernandez MDIV, 11/20/2024 10:36 AM Number: [phone] * Flora Garcia DDS - 11/20/2024 9:07 AM CDT OMFS Progress Note 11/20/2024 Dominick Lozyoa : 1970 Sex: male ASSESSMENT: 54 y.o. male admitted on 11/19/2024 with right submandibular cellulitis, likely associated with tooth #30. No fluid collection on CT. Also with anemia, hematuria, and Acute Kidney Injury. PLAN: - Per report, swelling appears to be worse. Repeat CT Neck is recommended before considering extubation. - Pending possible extubation, we will consider having him come to our clinic for a dental radiograph and possible tooth extraction. - Continue Unasyn 3g q6h - HOB elevated >30 deg as able for swelling - Peridex rinse BID Please do not hesitate to contact the oral surgery resident on-call with questions. Flora Garcia, ENMA, 11/20/2024 9:08 AM Oral & Maxillofacial Surgery Resident SUBJECTIVE Interval History Intubated and sedated overnight. Hgb 5.2, received two units pRBC. Continues to have right submandibular swelling. Medications: Current Facility-Administered Medications Medication Dose Route Frequency Provider Last Rate Last Admin Vasques Agitation Sedation Scale (RASS) Goal Does not apply continuous Almasri, Talal N, MBBS propofol 10 mg/mL Infusion 1-80 mcg/kg/min (Order-Specific) Intravenous continuous Almasri, Talal N, MBBS 36 mL/hr at 11/20/24 0906 60 mcg/kg/min at 11/20/24 0906 And propofol (DIPRIVAN) 10 mg/mL BOLUS from infusion 50 mg 0.5 mg/kg (Order- Specific) Intravenous bolusfrom infusion Almasri, Talal N, MBBS ampicillin-sulbactam (UNASYN) 3 g in NaCl 0.9% 100 mL IVPB 3 g Intravenous q6h Almasri, Talal N, MBBS Infusion completed at 11/20/24 0847 acetaminophen (TYLENOL) tablet 975 mg 975 mg Oral tid Almasri, Talal N, MBBS 975 mg at 11/20/24 0741 dexmedetomidine (PRECEDEX) 400 mcg in NaCl 0.9% 100 mL infusion (premixed) 0.1- 1.5 mcg/kg/hr Intravenous continuous Almasri, Talal N, MBBS VTE prophylaxis contraindicated Does not apply protocol Almasri, Talal N, MBBS famotidine (PF) (PEPCID) 10 mg/mL injection 20 mg 20 mg IV Push q24h Almfrancori Talal N, MBBS 20 mg at 11/20/24 0102 Allergies: No Known Drug Allergies OBJECTIVE BP 128/67 Pulse 75 Temp 36.4 ??C (97.5 ??F) Resp 20 Ht 1.829 m (6' 0.01) Wt 107 kg (235 lb 14.3 oz) SpO2 98% BMI 31.99 kg/m?? Physical Exam: Constitutional: Intubated and sedated. HEENT: Firm edema at right inferior border of mandible. Overlying skin is of normal temperature andcolor. Edema at right mandibular buccal vestibule, firm. Tooth #30 with large fracture, missing coronal structure. Right FOM edema which is soft. Neck: Right submandibular edema. Cardiovascular: Warm, regular rate. Pulmonary: Intubated, on vent Neurologic: Sedated. Skin: Mildly diaphoretic. Labs: Lab Results Component Value Date/Time WBC 10.47 (H) 11/20/2024 0511 RBC 2.19 (L) 11/20/2024 0511 HGB 6.5 (AA) 11/20/2024 0821 HCT 15.6 (L) 11/20/2024 0511 PLT 337 11/20/2024 0511 MCV 71.2 (L) 11/20/2024 0511 MCH 21.5 (L) 11/20/2024 05 MCHC 30.1 (L) 11/20/2024 05 RDW 18.6 (H) 11/20/2024 05 MPV 8.6 11/20/2024 0511 , Lab Results Component Value Date/Time NA 139 11/20/2024 0511 K 4.3 11/20/2024 0511 CHLORIDE 111 (H) 11/20/2024 0511 CO2 15 (L) 11/20/2024 0511 GLU 99 11/20/2024 0511 UN 72 (H) 11/20/2024 0511 CR 3.57 (H) 11/20/2024 0511 CA 7.4 (L) 11/20/2024 05 MG 2.2 11/20/2024 0511 ALBUMIN 3.2 (L) 11/19/20242244 TPRO 7.3 11/19/20242244 ALP 65 11/19/20242244 ALT 11 11/19/2024 224 AST 15 11/19/20242244 TBILI 0.2 11/19/20242244 Cosigned by Ceci Breen DDS at 12/05/2024 2:21 PM CDT * Chivo Renee RT - 11/19/2024 11:20 PM CDT Pt orally intubated with 7.5 ETT initial ETT placement confirmed by + end tidal co2 and BS bilaterally. ETT secured at 24cm at teeth. Pt will be transported to [facility] ICU documented in this encounter H&P Notes * Justin Morris MD - 11/20/2024 2:07 AM CDT MEDICINE ICU ADMISSION - PGY 3 Dominick Lozoya : 1970 Sex: male Patient Summary: Patient is a 54 y.o. male with unknown PMH admitted on 11/19/2024 with R neck swelling and concern for Ledweg angina. Active problem list: Active Hospital Problems Diagnosis Neck swelling Anemia, unspecified type Hematuria, unspecified type Assessment and Plan: R neck swelling and pain with c/f Ludweg Angina requring intubation for concern for airway compromise Patient presented with 1 week of fever, right neck swelling and pain to OSH. Had CT neck which showed right-sided mandibular odontogenic infection tracking to the focal subcutaneous fat tissue and floor of the mouth concerning for Minesh angina but no apparent abscesses. Initially arrived to our EDon room air and appeared comfortable. Had nasopharyngoscopy that showed mild uvular and base of tongue edema but then was noted to desaturate when falling asleep this was intubated for airway protection. Has leukocytosis, and elevated inflammatory markers but has been afebrile during hospitalization. OMFS was consulted and recommended continuing antibiotics with no plan for interventions at this time. On exam, patient has right neck swelling without stridor and strong cuff leak, thus can likelybe extubated if okay from OMFS perspective. He is currently hemodynamically stable on minimal vent settings with Unasyn for antibiotics. - OMFS consulted, appreciate recs - Abx: Unasyn 3 g q6h - Sedation: propofol ; RAAS goal 0 to -ve 1 - Daily SBT/SAT; has a cuff leak and on minimal vent settings. Okay to extubate if neuroexam allowsit and okay from OMFS perspective - Pain regimen: tylenol 975 mg TID Acute hypoxic respiratory failure Possible aspiration pneumonia/pneumonitis Possible RULA Patient was initially satting above 95% room air without tachypnea upon arrival to the ED but became hypoxic to the mid 80s while falling asleep thus was intubated due to concern of airway compromisefrom above. He had a witnessed episode of vomiting at OSH. Chest x-ray and CT chest showed possibleatelectasis with superimposed aspiration sequela; thus possible aspiration pneumonia/pneumonitis. Patient has been afebrile and currently on minimal vent settings (FiO2 of 30 and PEEP of 5). Patient should be empirically covered with Unasyn and will obtain respiratory cultures. - Wean down Oxygen requirements as tolerated - Follow up on respiratory culture - Abx as above which should cover aspiration pneumonia -Follow-up urine Legionella antigen - Okay to extubate based on lung mechanics Acute microcytic anemia requiring transfusion Hematuria Patient presented with hemoglobin of 6.4, MCV 69. Patient reports ongoing hematuria for more than 1year but denies hematochezia/melena, hemoptysis or hematemesis. INR is 1.3 and patient is not knownto be on blood thinner. Platelets elevated at 419. Unclear if patient is a smoker but would likely b enefit from urology evaluation inpatient versus outpatient. He received transfusion with 1 unit of blood. Plan to obtain further iron studies and anemia workup. - Transfuse to goal Hgb >7 - Consider Urology consult IP vs OP referral - OP colonoscopy - Follow-up on iron studies, B12, RBC folate and reticulocyte count - Hold Vte ppx Acute Kidney Injury vs Acute on chronic kidney injury Possible UTI Patient presented with creatinine of 4.55 but unclear creatinine baseline. K WNL at 4.3 and bicarb of 15. Unable to obtain further history but patient only symptom per report is hematuria. Unclear ifpatient has been using nephrotoxic drugs such as NSAIDs. UA showed hematuria, positive leukocyte esterase and pyuria but negative nitrites. CK WNL, so low concern for rhabdomyolysis. CT abdomen pelvis without signs of hydronephrosis or pyelonephritis. Suspect acute kidney injury versus acute on chronic kidney injury from anemia with possible underlying UTI. Patient should be covered for possible UTI with antibiotics from above. Reassuringly, his urine output is good and we will continue to monitor - Daily BMP - Avoid nephrotoxic agents - Close I/Os and monitoring - Follow up on Urine culture - Abx as above - Follow up on Urine studies High BP Pt with unknown PMH including HTN presented with initial BP 180/90. Could possibly be related to pain and distress vs underlying HTN. Currently normotensive on propofol. Will need to be evaulted postextubation for need of hypertensive if he is amenable. - Consider antihypertensive if pt is hypertensive ICU: DVT Prophylaxis: C/I due to bleeding and possible procedure GI Prophylaxis: IV famotidine x2 Lines/dates: ETT, Arnold's catheter, PIV x2 Chief Complaint: R neck swelling with concern for Ludweg angina History of Present Illness: Patient is a 54 y.o. male with unknown PMH admitted on 11/19/2024 with R neck swelling and concern for Ledweg angina. Patient initially presented to an outside hospital complaining of 1 week of right neck swelling, pain and fever with CT showing concern of low-grade angina thus transferred to [facility] for further evaluation. Received 1 L of fluid, ampicillin and ceftriaxone at outside hospital. ED course: Patient initially hypertensive but otherwise afebrile, normal heart rate and on room airsatting well. Underwent nasopharyngoscopy in the ED that showed mild uvular edema, but became hypoxic thus intubated for airway protection. Hemoglobin is low at 6.4 thus was transfused. Has creatinine of 4.55. Lactate WNL. L FTs unremarkable CT CAP with possible aspiration pneumonia/pneumonitis butotherwise unremarkable Medical History: Unable to obtain from family/other source and the patient being intubated Unable to obtain from family/other source and the patient being intubated Psychosocial History: Unable to obtain history from family/other source and the patient condition: intubated. Family History: Unable to obtain history from family/other source and the patient condition: intubated. Medications: Medications Prior to Admission Medication Sig naproxen sodium (ALEVE) 220 mg oral tablet Take 1 tablet (220 mg) by mouth every 12 hours as needed(pain). Allergies: No Known Drug Allergies Review of systems: Unable to obtain from family/other source and the patient being intubated Physical Exam: Physical Exam Vitals reviewed. Constitutional: Interventions: He is sedated and intubated. HENT: Head: Normocephalic and atraumatic. Eyes: Extraocular Movements: Extraocular movements intact. Pupils: Pupils are equal, round, and reactive to light. Neck: Trachea: Trachea normal. Comments: R neck swelling without overlying skin changes Cardiovascular: Rate and Rhythm: Normal rate and regular rhythm. Pulses: Normal pulses. Heart sounds: Normal heart sounds. No murmur heard. Pulmonary: Effort: Pulmonary effort is normal. No respiratory distress. He is intubated. Breath sounds: Normal breath sounds. No wheezing. Abdominal: General: Abdomen is flat. Bowel sounds are normal. Palpations: Abdomen is soft. Tenderness: There is no abdominal tenderness. Musculoskeletal: Cervical back: Edema present. Right lower leg: No edema. Left lower leg: No edema. Neurological: Comments: Intubated and sedated. No clonus while pt is sedated Psychiatric: Comments: Intubated and sedated. Intake/Output Summary (Last 24 hours) at 11/20/2024 0208 Last data filed at 11/20/2024 0000 Gross per 24 hour Intake -- Output 1000 ml Net -1000 ml Estimated body mass index is 31.99 kg/m?? as calculated from the following: Height as of this encounter: 1.829 m (6' 0.01). Weight as of this encounter: 107 kg (235 lb 14.3 oz). Vent Settings: Ventilation Mode: AC;VC (Vol Ctrl) (11/20/243) Resp: 15 (11/20/24 0128) Ventilator Rate: 15 breaths per minute (11/20/243) Inspiratory Volume (mL): 550 mL (11/20/243) PEEP (cmH2O): 8 cm (11/20/243) Labs: I have reviewed all the admission laboratory results. I have reviewed today's laboratory results. Other Diagnostic Studies: I have independently viewed the radiology images. I have independently viewed the EKG. Primary care physician: No primary care provider on file. Attending Physician: Justin Morris MD Almasri, Talal N, MBBS, 11/20/2024 2:08 AM FACULTY NOTE I saw and evaluated the patient on the date of the resident's note. I discussed with the resident and agree with the resident???s findings and plan documented in the resident???s note from above. Anyrevisions by me are documented. #1. 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 Since that time his swelling submandibularly has increased significantly per the resident. We are treating with Unasyn. I think it would be good to have OMFS come back and reevaluate him given the progression. I would not extubate him todayuntil things start to improve. Role of glucocorticoids is unclear we can ask OMFS. Unless they are contraindicated I would favor a short course as long as he is being treated with antibiotics. #2. Renal insufficiency acute versus chronic versus acute on chronic-urine output has been excellent and creatinine is coming down. #3. History of hematuria and iron deficiency anemia-this is longstanding. He definitely needs a workup. Urology has been consulted but it is not emergent. Patient is in critical condition due to acute respiratory failure, upper airway obstruction, Ludewig's angina, acute renal failure. I personally spent 30 minutes of critical care time with this patient. The treatment and management included ventilator, antibiotic, continuous sedative management. Any time spent on separately billable procedures is not included in this time. I reviewed the resident's documentation on today and I agree with the resident's assessment and plan of care. Justin Morris MD, 11/20/2024 4:28 PM documented in this encounter Procedure Notes * Melissa Collins MD - 11/19/2024 11:42 PM CDTAssociated Order(s): Nasopharyngoscopy Nasopharyngoscopy Performed by: Melissa Collnis MD Authorized by: Kelsie Tierney MD Consent: Consent obtained: Verbal Consent given by: Patient Procedure details: Indications: assessment of airway Medication: None Instrument: flexible fiberoptic nasal endoscope Scope location: left nare Mouth: Oropharynx: Comment: mild uvula edema Vallecula: no inflammation Base of tongue: Normal: edema. Epiglottis: no inflammation Throat: Right hypopharynx: normal Left hypopharynx: normal Pyriform sinus: normal False vocal cords: normal True vocal cords: normal Post-procedure details: Patient tolerance of procedure: Tolerated well, no immediate complications Melissa Collins MD, 11/19/2024 11:42 PM Cosigned by Kelsie Tierney MD at 11/20/2024 2:59 PM CDT Associated attestation - Kelsie Tierney MD - 11/20/2024 2:59 PM CDT I was present for the entire procedure. Kelsie Tierney MD, 11/20/2024 2:59 PM * Melissa Collins MD - 11/19/2024 11:41 PM CDTAssociated Order(s): Intubation Intubation Performed by: Melissa Collins MD Authorized by: Kelsie Tierney MD Intubation Location: ED Consent: Consent obtained: Emergent situation Pre-procedure details: Indications: airway obstruction Patient status: Awake Look externally: large tongue Obstruction: edema Pharmacologic strategy: RSI Induction agents: Etomidate Paralytics: Succinylcholine Procedure details: Preoxygenation: Nonrebreather mask CPR in progress: no Number of attempts: 2 Successful intubation attempt details: Intubation method: Oral Intubation technique: video assisted Laryngoscope blade: Mac 4 Bougie used: yes Grade view: I Tube size (mm): 7.5 Tube type: Cuffed Tube visualized through cords: yes First unsuccessful intubation attempt details: Intubation method: Oral Intubation technique: Video assisted Laryngoscope blade: Mac 4 Grade view: III Placement assessment: Tube secured with: ETT riojas Placement verification: CXR verification and waveform ETCO2 CXR findings: Appropriate position Post-procedure details: Procedure completion: Tolerated well, no immediate complications Complications comment: Small lip laceration; possibly chipped front left tooth Melissa Collins MD, 11/19/2024 11:41 PM Cosigned by Kelsie Tierney MD at 11/20/2024 2:59 PM CDT Associated attestation - Kelsie Tierney MD - 11/20/2024 2:59 PM CDT I was present for the entire procedure. Kelsie Tierney MD, 11/20/2024 2:59 PM * Kelsie Tierney MD - 11/19/2024 11:15 PM CDTAssociated Order(s): NG/OG Tube NG/OG Tube Performed by: Melissa Collins MD Authorized by: Kelsie Tierney MD Consent: The procedure was performed in an emergent situation Pre Procedure Diagnosis: Minesh's angina Post Procedure Diagnosis: Minesh's angina No complications. Confirmed by CXR. The estimated blood loss during this procedure was: 0mL Kelsie Tierney MD, 11/19/2024 11:15 PM documented in this encounter Consult Notes * Kaitlin Cordova, PharmD - 11/23/2024 4:51 PM CDTAssociated Order(s): DISCHARGE MED REC FINAL REVIEW BY PHARMACY PHARMACY DISCHARGE NOTE Dominick Lozoya : 1970 Sex: male Pharmacy service was consulted for review of patient's discharge medications. 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 Changes have been made and medication list updated and complete. Please page with any questions. Planned discharge medications are: Medication List Medications Indications acetaminophen 325 mg tablet Commonly known as: TYLENOL Take 2 tablets (650 mg) by mouth every 6 hours as needed for Moderate Pain. amLODIPine 5 mg Tabs Commonly known as: NORVASC Take 1 tablet (5 mg) by mouth daily. amoxicillin-clavulanate 500-125 mg Tabs Commonly known as: AUGMENTIN Take 1 tablet by mouth twice daily for 14 doses. Start taking on: November 24, 2024 Kaitlin Cordova PharmD 11/23/2024 16:51 For questions regarding this note, please contact pharmacist on service at [facility] ([facility]) or [phone]. If no response within needed timeframe, please contact central pharmacy via phone at [phone]. * Olga Jeffery PA-C - 11/23/2024 3:57 PM CDTAssociated Order(s): CONSULT TO ADDICTION MEDICINE PHYSICIAN/ADVANCED PRACTICE PROVIDER Addiction physician consult completed on 11/23/2024 Olga Jeffery PA-C, 11/23/2024 3:57 PM * Kalyan Golden MD - 11/20/2024 9:48 AM CDT UROLOGY CONSULT Name: Dominick Lozoya Date of : 1970 We were asked to see Dominick Lozoya for evaluation and treatment of the following chief complaint. Chief Complaint: Hematuria for unknown period of time with critically low Hbg History is obtained from: Chart review History of Present Illness: Dominick Lozoya is a 54 y.o. w unknown PMH admitted 11/19 for R neck swelling concerning for ludwigs angina. Unable to obtain hx as patient is intubated. Per chart, patient reported having ongoing hematuria for past 1-2 years, has not seen physician in over 20 years, but denies any hematochezia, melena, hemoptysis, hematemesis. Unclear smoking hx. Unclear if patient has used nephrotoxic agents in past. Here was found to have microcytic anemia with Hbg 6.4, creatinine 4.55 but unclear baseline. CTshows left lower pole calyceal nonopacification extending to the pelvis, potentially a renal cast, though nonspecific. Primary team is worried about some component of obstructive uropathy. Currently his arnold has yellow urine output. Past Medical History: No past medical history on file. Unable to obtain 2/2 intubated/sedated Past Surgical History: No past surgical history on file. Unable to obtain 2/2 intubated/sedated Social History: Unable to obtain 2/2 intubated/sedated Social History Tobacco Use Smoking status: Never Passive exposure: Never Smokeless tobacco: Never Substance Use Topics Alcohol use: Yes Comment: 1 beer/ month Family History: No family history on file. Unable to obtain 2/2 intubated/sedated Allergies: No Known Drug Allergies Unable to obtain 2/2 intubated/sedated Medications: Current Facility-Administered Medications Medication Route Frequency Vasques Agitation Sedation Scale (RASS) Goal Does not apply continuous propofol 10 mg/mL Infusion Intravenous continuous And propofol (DIPRIVAN) 10 mg/mL BOLUS from infusion 50 mg Intravenous bolus from infusion ampicillin-sulbactam (UNASYN) 3 g in NaCl 0.9% 100 mL IVPB Intravenous q6h acetaminophen (TYLENOL) tablet 975 mg Oral tid dexmedetomidine (PRECEDEX) 400 mcg in NaCl 0.9% 100 mL infusion (premixed) Intravenous continuous VTE prophylaxis contraindicated Does not apply protocol famotidine (PF) (PEPCID) 10 mg/mL injection 20 mg IV Push q24h Review of Systems: Unable to obtain 2/2 intubated/sedated Physical Exam: Blood pressure 132/66, pulse 80, temperature 36.5 ??C (97.7 ??F), resp. rate 20, height 1.829 m (6'0.01), weight 107 kg (235 lb 14.3 oz), SpO2 99%. GEN: Intubated and sedated CV: RRR PULM: on vent : Arnold catheter in place with yellow/clear urine output. Labs and Imaging: All laboratory data reviewed: Recent Labs 11/19/24 2245 11/20/24 0437 11/20/24 0511 11/20/24 0821 HGB 6.0* 6.4* 5.2* 4.7* 6.5* WBC 15.26* -- 10.47* -- PLT 419* -- 337 -- Recent Labs 11/19/24 2245 11/20/24 0511 NA 141 139 K 4.3 4.3 CHLORIDE 110* 111* BICARB 15* -- UN 80* 72* CR 4.55* 3.57* GLU 117* 99 CA -- 7.4* MG -- 2.2 PO4 -- 4.2 Recent Labs 11/19/24 2330 COLOR YELLOW APPEAR TURBID* GLUUR NEGATIVE BLOODUA LARGE* PHUR 6.0 PROTEINUR 50* NITRITE NEGATIVE LET LARGE* WBCUR >50* RBCUR >20* I independently reviewed the images from the CT C/A/P (11/19/24) and noted LLP filling defect otherwise agree with radiology interpretation as follows: CT scan of abdomen: - 1. Moderate bilateral dependent streaky atelectasis and mild perivascular groundglass, with possible superimposed aspiration sequela, with noted recent vomiting. Atypical infection is not entirely excluded. 2. There is left lower pole calyceal contrast nonopacification extending to the pelvis, potentially a renal cast, though nonspecific. CT urogram would provide further characterization. 3. No evidence of mediastinal tracking infection with known Minesh angina. 4. Colonic diverticulosis without evidence of acute diverticulitis. Impression and Plan: Impression: Dominick Lozoya is a 54 y.o. w unknown PMH admitted 11/19 for R neck swelling concerning for ludwigs angina. Urology consulted for patient reporting 1-2 years of hematuria without workup and microcyticanemia on presentation. Patient currently intubated and sedated in ICU, unable to obtain more history. On assessment, urine appears clear/yellow. CT findings are likely 2/2 filling defect. Some concern for TCC, will assess patient on 11/21, and once extubated will discuss ureteroscopy with patient. Less likely blood clot or renal papillar necrosis. No hydronephrosis or other urological pathology to explain creatinine. Plan: - Trend creatinine - Reviewed CT - suspect filling defect, will need further evaluation with diagnostic ureteroscopy as an outpatient in coming weeks - No sign of hydronephrosis at this time, so no indication for acute intervention (stent) - Continue arnold - If Cr rises would repeat non-contrast CT to eval for development of hydronephrosis. This patient's exam findings, labs and imaging were discussed with urology staff surgeon, Dr. Golden, who developed the treatment plan Kalyan Nguyen MD, 11/20/2024 10:27 AM PGY-1 Urology Service FACULTY NOTE I saw and evaluated the patient today, 11/21/2024. I discussed with the resident and agree with the resident???s findings and plan documented in the resident???s note from above. I reviewed all imaging tests personally and concur with radiologist read unless otherwise indicated. Any revisions by me are documented. Kalyan Golden MD, 11/21/2024 8:12 AM documented in this encounter ED Notes * Jose Mckinney RN - 11/20/2024 12:04 AM CDT ED derrick car operator Note: Spoke with pt prior to intubation. Declined this technical writer and editor's offer to contact friends or family. Did not want an emergency contact added to chart at that time. * Celia Green RN - 11/19/2024 10:36 PM CDT BIBA from OSH with concern for dental abscess/ Minesh's angina along with blood in urine on and off. Pt complaint of right sided pain to head and neck which he rates at a 5/10. Pt moved to ED cot, full athletic monitor applied, lab specimens obtained and sent. Pt has received 25 mcg Fentanyl, 0.5 mgAtivan, 4 mg Zofran and 1 liter NS GLASS EMBOSSER at this facility. * Sherine Gaines RN - 11/19/2024 8:20 PM CDT Report received by Carmencita YOUNG at [facility]. Pt has not been seen by medical staff in more than 20 years. He arrives to ED after one week of left side toothache. Now left side jaw pain. Apparent abscess per staff from CT neck. Patient vomited upon arrival to [facility] ED. He reports peeing blood off and on for 2 years. HTN noted upon exam. Did ask if patient could get abd/pelvis CT due decreased hgb and urinating blood. Will arrive via ground. Update: Pt did not get CT abd/pelvis. UTI identified. Pt has left via ground. Concerned about sepsis. ABNORMAL LABS: Hemoglobin: 6.7 Creatinine: 4.0. Access: 20g LAC Medications: Contrast 1L of fluids due to creatinine level and the use of contrast Ampicillin Dilaudid Zofran Rocephin 1g Upon clarification with Dr. Lozano and STAB placement decision, what was not mentioned patient has Minesh's Angina and possibility of having airway compromise. documented in this encounter Miscellaneous Notes * Nursing Assessment - Irena Casarez RN - 11/23/2024 5:01 PM CDT Nursing Assessment Head to Toe Head to Toe Assessment Shift Summary Shift Summary Neurologic/Cognitive Within Defined Limits HEENT Assessment Within Defined Limits except for: Neck Symptoms: Swelling, localized Comments: S/p dental procedure, packed with gauze. Cardiac Assessment Within Defined Limits except for: Wheel Buffer - no Pacemaker: Pacemaker: No Comments: Pt disconnect for frequent ambulation. Respiratory Assessment Within Defined Limits except for: Respiratory Assessment: Respirations: Shallow and dyspnea on exertion Breath Sounds Normal: Yes Neurovascular Assessment Within Defined Limits except for: Gastrointestinal Assessment Within Defined Limits except for: Abdominal appearance: Rounded and obese Stool (unmeasured): 1 (11/23/24 1100) Stool Amount: moderate (11/23/24 1100) Stool Color: brown (11/23/24 1100) Genitourinary Assessment Within Defined Limits except for: Voiding: Urinary catheter in place Musculoskeletal Assessment Within Defined Limits except for: Integumentary Within Defined Limits Patient Lines/Drains/Airways Status Active LDAs Name Placement date Placement time Site Days Peripheral IV 11/19/24 20 gauge;1 1/4 in length Anterior;Left Upper Arm 11/19/24 2234 -- 3 Peripheral IV 11/20/24 1 1/4 in length;18 gauge Anterior;Left Forearm 11/20/24 0138 -- 3 Psychosocial Within Defined Limits Comments: Mom and dad present * Interval Note Provider - Kimberlee Persaud DDS - 11/23/2024 2:55 PM CDT [facility] Brief Note: Patient was transferred to OMFS clinic for Extraction of teeth #30, 31, and 32 under local anesthetic. Purulence encountered upon extraction of tooth #31 and subperiosteal dissection below the inferior border of the mandible. The surgical site was left open, intraorally, to drain. No surgical drains placed. Recs: - Continue IV antibiotics while inpatient; transition to 7 days of Augmentin 875/125 PO upon discharge. - Okay for diet, up to level 6. - Warm compress to right mandible, no ice. - No straws/spitting. - FS will continue to follow while inpatient, will coordinate follow-up if patient discharges. * Nursing Assessment - Kayla Lucas RN - 11/23/2024 2:53 PM CDT Nursing Assessment Head to Toe Head to Toe Assessment Shift Summary Pt A&O x4, makes needs known, able to walk and move with minimal assistance. NSR, BP systolics on the higher sides in the 160s-180s, aware. 1 BM. Went to dental procedure today since 1240. Continue to monitor and follow plans of cares. Neurologic/Cognitive Within Defined Limits HEENT Assessment Within Defined Limits except for: Neck Symptoms: Swelling, localized Cardiac Assessment Within Defined Limits except for: Wheel Buffer - bedside telemetry Lead Monitored: Lead II ECG Rhythm: normal sinus rhythm Respiratory Within defined limits Neurovascular Within Defined Limits Gastrointestinal Within Defined Limits Stool (unmeasured): 1 (11/23/24 1100) Stool Amount: moderate (11/23/24 1100) Stool Color: brown (11/23/24 1100) Genitourinary Assessment Within Defined Limits except for: Voiding: Urinary catheter in place Musculoskeletal Assessment Within Defined Limits except for: Musculoskeletal Assessment: General Mobility: Generalized weakness and mildly impaired Integumentary Within Defined Limits Patient Lines/Drains/Airways Status Active LDAs Name Placement date Placement time Site Days Peripheral IV 11/19/24 20 gauge;1 1/4 in length Anterior;Left Upper Arm 11/19/24 2234 -- 3 Peripheral IV 11/20/24 1 1/4 in length;18 gauge Anterior;Left Forearm 11/20/24 0138 -- 3 Psychosocial Within Defined Limits * Addiction Medicine Consult - Olga Jeffery PA-C - 11/23/2024 1:15 PM CDT ADDICTION MEDICINE PROVIDER CONSULT Dominick Lozoya : 1970 Sex: male DISCLOSURE OF THIS MATERIAL IS PROHIBITED BY LAW. Do not copy this information into the medical record. REASON FOR CONSULT: I was asked to see Dominick Lozoya by Freda Clark regarding methamphetamine use disorder Addiction Medicine Problem List: Methamphetamine use disorder moderate History of alcohol use disorder, moderate to severe, in sustained remission R mandible cellulitis 2/2 odontogenic infection, improving Concern for Minesh's Angina, improving Acute hypoxic respiratory failure, improving Possible aspiration pneumonia/pneumonitis, improving Likely RULA Acute Kidney Injury, improving Suspect underlying CKD Low suspicion for MSSA UTI Recommendations: Patient declines pharmacotherapy to assist with methamphetamine abstinence efforts. Patient denies any current problematic alcohol use. Patient believes he has enough negative consequences from his methamphetamine use that he will not be using it again in the future. He is informed if anything changes he has the ability to contact addiction medicine either in [facility] or at [facility]. If anything changes during this admission, please read page addiction medicine. Prescribe naloxone nasal spray at the time of discharge Discussion: Moderate/Severe methamphetamine use disorder is a chronic, often lifelong condition with an acute exacerbation causing/complicating this hospital admission Patient has a history of alcohol use disorder in sustained abstinence per his report. He does use alcohol occasionally but never to excess. His methamphetamine use initiated 2 years ago and has been episodic since then. He reports his first exposure was in a partying situation. He generally uses it for pain relief. He recognizes the negative outcomes and is very motivated for cessation. He doesnot believe he would require any pharmacotherapy to assist with physiological adaptation from use of chronic methamphetamines. Social Determinants of Health impacting care: This patient experiences significant social stressors, leading to increased risk of ongoing or return to use I discussed the plan of care with MICU a team PDMP reviewed: [employer] reviewed. No controlled substance prescriptions in the past 12 months. Care Everywhere reviewed. ED Visits/Hospitalizations related to substance use disorder: Minimal records, some interactions with primary care and surgery between 2009- 2013, then nothing until this admission. HPI: Patient is a 54 y.o. male with unknown PMH admitted on 11/19/2024 with R neck swelling with c/f Minesh's angina and acute anemia requiring 3U RBCs. Extubated on 11/21, stable on NC and hemodynamically stable. UDS is positive for methamphetamines. Patient endorses use of methamphetamines ongoing for approximately 2 years. He reports he uses themintermittently when he is experiencing pain. He describes an episode as smoking less than 1 g. He endorses a binge episode that lasted up to a week prior to this admission. He is a bit hesitant to share any more information. He denies any historical use of stimulants such as cocaine or illicit prescription stimulants. He reports a history of alcohol use disorder with 2 DUIs. His current alcohol use pattern is occasional. He has attended chemical dependency treatment twice as it was court mandated following the DUIs. His last treatment was about 10 years ago and he does not have strong impulses to drink and reportedly is absent for months at a time. He has never been on pharmacotherapy to assist with abstinence. Patient denies any history of alcohol withdrawal seizures or hallucinations. He cannot recall the last time he had a drink. Patient denies any misuse of prescription opioids or benzodiazepines, any illicit opioids use, deliberately. He is made aware of fentanyl generally being laced in methamphetamine. Patient denies marijuana use or residential designer drugs. He additionally denies any tobacco use. Patient denies family history of substance use issues. Patient is currently denying any washout/withdrawal. He specifically denies any opioid withdrawal symptoms but recognizes that washout symptoms from methamphetamine binges. DSM-5 criteria for substance use disorder: Meets at least 2 of the 11 criteria in the past 12 months including but not limited to Continuing to use substance despite consequences Recurrent use of substance in physically hazardous situations Continued use despite personal problems exacerbated substance use Use despite acknowledgment of physical or psychological difficulties from using substance Craving or a strong desire to use substance Substance-related Medications: Current: NONE Previous: NONE Review of systems: (1 = problem pertinent; 2-9 = extended; 10 or more = complete) Complete review of systems done as noted below and/or in the History of Present Illness. All other systems negative. Medical/Surgical History: No past medical history on file. No past surgical history on file. Family History: No family history on file. Family history of seizures: No Family history of substance use disorders No CIWA Nausea/Vomitin - None Anxiety: 2 Paroxysmal Sweats: 2 Tactile Disturbances: 0 - None Visual Disturbances: 0 - Not present Tremors: 0 - No tremor Agitation: 1 - Somewhat normal activity Orientation and Clouding of sensorium: 0 - Oriented Auditory Disturbances: 0 - Not present Headache: 0 - Not present Total Score: 5 Absent or Minimal Withdrawal COWS Resting Pulse: 1 pt: 81-100 Sweatin pts: flushed/observable moistness on face Restlessness: 3 pts: frequent shifting or extraneous movements of legs/arms Pupils: 0 pts: Pinned or normal size for room light, Aches/pains: 0 pts: Not present Runny Nose/Tearin pts: Not Present GI upset last 1/2 hr: 0 pts: No GI symptoms Tremor Outstretched hands: 0 pts: No Tremor Yawning (Observed): 0 pts: No Yawning Anxiety/Irritability: 0 pts: None Gooseflesh Skin: 0 pts: None, skin is smooth Total Score: 6 Mild Withdrawal Physical Exam: BP 133/81 Pulse 92 Temp 36.8 ??C (98.2 ??F) (Axillary) Resp 19 Ht 1.829 m (6' 0.01) Wt 108.9 kg (240 lb 1.3 oz) SpO2 96% BMI 32.55 kg/m?? Estimated body mass index is 32.55 kg/m?? as calculated from the following: Height as of this encounter: 1.829 m (6' 0.01). Weight as of this encounter: 108.9 kg (240 lb 1.3 oz). Physical Exam Vitals reviewed. Constitutional: Appearance: He is obese. HENT: Head: Normocephalic and atraumatic. Right Ear: External ear normal. Left Ear: External ear normal. Nose: Nose normal. Mouth/Throat: Mouth: Mucous membranes are dry. Comments: Submandibular swelling on the right Eyes: Extraocular Movements: Extraocular movements intact. Conjunctiva/sclera: Conjunctivae normal. Pupils: Pupils are equal, round, and reactive to light. Cardiovascular: Rate and Rhythm: Normal rate. Pulmonary: Effort: Pulmonary effort is normal. Abdominal: Palpations: Abdomen is soft. Musculoskeletal: General: Normal range of motion. Cervical back: Normal range of motion. Skin: General: Skin is warm and dry. Neurological: General: No focal deficit present. Mental Status: He is alert and oriented to person, place, and time. Psychiatric: Mood and Affect: Mood normal. Behavior: Behavior normal. Labs: I have reviewed the admission and today's laboratory results in the Epic record I reviewed the basic metabolic panel: Cr elevated to 3.17 with eGFR of 23, low Ca of 8.2 and elev Cl of 112 I reviewed the liver function tests: wnl I reviewed the CBC:hgb low at 7.9 and elev WBC at 21 I reviewed the UDS which shows methamphetamines CMP Lab Results Component Value Date/Time NA 141 11/23/2024 0510 K 4.2 11/23/2024 0510 CHLORIDE 112 (H) 11/23/2024 0510 CO2 15 (L) 11/23/2024 0510 GLU 98 11/23/2024 0510 UN 68 (H) 11/23/2024 0510 CR 3.17 (H) 11/23/2024 0510 CA 8.2 (L) 11/23/2024 0510 ALBUMIN 3.0 (L) 11/21/2024 0701 TPRO 7.1 11/21/2024 0701 ALP 75 11/21/2024 0701 ALT 13 11/21/2024 0701 AST 19 11/21/2024 0701 TBILI 0.3 11/21/2024 0701 Urine Drug Screen Lab Results Component Value Date/Time ACETUR NEG 11/19/2024 2330 AMPHETAMINE POS 11/19/2024 2330 BARBITURATE NEG 11/19/2024 2330 BENZUR NEG 11/19/2024 2330 COCAINEUR NEG 11/19/2024 2330 COMMENTUR 11/19/2024 2330 Amphetamine, Methamphetamine, Naproxen and Ondansetron present. ETOH Negative 11/19/2024 2245 LSDUR NEG 11/19/2024 2330 METHUR NEG 11/19/2024 2330 OPIUR NEG 11/19/2024 2330 OXYCODUR NEG 11/19/2024 2330 PCPUR NEG 11/19/2024 2330 PROPOX NEG 11/19/2024 2330 SALUR NEG 11/19/2024 2330 Other Diagnostic Studies: I reviewed the patient's EKG sinus rhythm I reviewed the patient's chest radiograph bi-basilar opacities Primary care physician: No primary care provider on file. Total time spent on this encounter, on the date of service including pre-visit review of separatelyobtained history, [id number] interaction performing medically appropriate physical exam, patient counseling/education, interpretation of diagnostic results, care coordination and documentation was 60 minutes. Olga Jeffery PA-C 11/23/2024 13:15 DISCLOSURE OF THIS MATERIAL IS PROHIBITED BY LAW. 42 CFR part 2 prohibits disclosure of these records. This section of the Code of Federal Regulation prohibits you from making disclosure of this information unless disclosure is expressly permitted by the written consent of the person to whom it pertains or has otherwise permitted by 42 CFR, Part 2. A general authorization for the release of medical or other information is NOT sufficient for this purpose. 42 CFR , Part 2 restricts any use of theinformation to criminally investigate or prosecute any alcohol and/or drug abuse by the client. * Nursing Assessment - Kayla Lucas RN - 11/23/2024 8:11 AM CDT Nursing Assessment Head to Toe Head to Toe Assessment Shift Summary Shift Summary Neurologic/Cognitive Within Defined Limits HEENT Assessment Within Defined Limits except for: Neck Symptoms: Swelling, localized Cardiac Assessment Within Defined Limits except for: Wheel Buffer - bedside telemetry Lead Monitored: Lead II ECG Rhythm: normal sinus rhythm Respiratory Within defined limits Neurovascular Within Defined Limits Gastrointestinal Within Defined Limits Genitourinary Assessment Within Defined Limits except for: Voiding: Urinary catheter in place Musculoskeletal Assessment Within Defined Limits except for: Musculoskeletal Assessment: General Mobility: Generalized weakness and mildly impaired Integumentary Within Defined Limits Patient Lines/Drains/Airways Status Active LDAs Name Placement date Placement time Site Days Peripheral IV 11/19/24 20 gauge;1 1/4 in length Anterior;Left Upper Arm 11/19/24 2234 -- 3 Peripheral IV 11/20/24 1 1/4 in length;18 gauge Anterior;Left Forearm 11/20/24 0138 -- 3 Urinary Catheter ICU unstable hemodynamics 11/19/24 2319 -- 3 Psychosocial Within Defined Limits * Transfer - Freda Clark MD - 11/23/2024 7:43 AM CDT MICU TRANSFER NOTE Dominick Lozoya : 1970 Sex: male Date of Admission:11/19/2024 Date of Transfer: 11/22/2024 Level of care needed:floor with remote telemetry CODE STATUS: Full Code ADMISSION DIAGNOSES: 1. R mandible cellulitis 2/2 dental neena 2. Concern for Minesh's angina 3. AHRF 4. Acute Kidney Injury vs Acute on chronic kidney injury 5. Acute microcytic anemia (multifactorial) TRANSFER DIAGNOSES: 1. R mandible cellulitis 2/2 dental neena, improving 2. AHRF 2/2 possible aspiration PNA, improving 3. Likely RULA 4. Acute Kidney Injury vs Acute on chronic kidney injury, improving 5. Acute microcytic anemia (multifactorial), improving 6. Possible MSSA UTI 7. Chronic Hematuria PROCEDURES Intubation DL CONSULTS Urology OMFS BRIEF SUMMARY OF HOSPITAL COURSE: (max 4-5 lines) Patient is a 54 y.o. male with unknown PMH admitted on 11/19/2024 with R neck swelling with c/f Minesh's angina and acute anemia requiring 3U RBCs. Extubated on 11/21, stable on NC and hemodynamically stable. OMFS following, no OR plans at this time, will continue medical mgmt. Possible discharge in 1-2 days pending clinical course and PT/OT clearance. HOSPITAL COURSE BY PROBLEM: R mandible cellulitis 2/2 odontogenic infection, improving Concern for Minesh's Angina, improving Patient presented with 1 week of fever, right neck swelling and pain to OSH. Had CT neck which showed right-sided mandibular odontogenic infection tracking to the focal subcutaneous fat tissue and floor of the mouth concerning for Minesh angina but no apparent abscesses. Initially arrived to our EDon room air and appeared comfortable. Had nasopharyngoscopy that showed mild uvular and base of tongue edema but then was noted to desaturate when falling asleep this was intubated for airway protection. Otherwise, has leukocytosis, and elevated inflammatory markers but has been afebrile and hemodynamically stable during hospitalization. OMFS was consulted and recommended continuing antibiotics with no plan for interventions at this time. Extubated successfully on 11/21, breathing comfortably and stable on 3-4 L NC. - OMFS consulted, appreciate recs - No acute surgical intervention indicated at this time - Plan for dental extraction at 1pm today in clinic - HOB > 30 degrees for swelling - Abx: Unasyn 3 g q6h, likely can transition to augmentin prior to dc - Pain regimen: tylenol 975 mg TID - S/p Decadron IV 8 mg Q8H x3 doses for possible airway edema Acute hypoxic respiratory failure, resolved Possible aspiration pneumonia/pneumonitis, improving Likely RULA Patient was initially satting above 95% room air without tachypnea upon arrival to the ED but became hypoxic to the mid 80s while falling asleep thus was intubated due to concern of airway compromisefrom above. He had a witnessed episode of vomiting at OSH. Chest x-ray and CT chest showed possibleatelectasis with superimposed aspiration sequela; thus possible aspiration pneumonia/pneumonitis. Patient should be empirically covered with Unasyn. Patient still intermittently de-satting overnight but when awake has been stable with minimal oxygen requirements. Suspect patient likely has underlying RULA driving his hypoxia that was acutely worsened on admission in the setting of significant softtissue neck swelling. - Resp cx and legionella Ag unremarkable - Abx as above which should cover aspiration pneumonia - Recommend Sleep Center Referral as outpatient Acute Kidney Injury, improving Suspect underlying CKD Low suspicion for MSSA UTI Patient presented with creatinine of 4.55 but unclear creatinine baseline., K has remained stable. Unable to obtain further history but patient only symptom per report is hematuria. Unclear if patient has been using nephrotoxic drugs such as NSAIDs. UA showed hematuria, positive leukocyte esterase and pyuria. Urine cx grew 10-50k MSSA. CT abdomen pelvis without signs of hydronephrosis or pyelonephritis but did show a left lower pole calyceal filling defect. Unclear if MSSA 2/2 prior colonization in the setting of possible TCC (gven filling defect on CT and chronic hematuria) vs acute bacteremia. Bcx NGTD. Urology following, plan for outpatient ureteroscopy for further evaluation. Obtained OSH records which did not show any evidence or concern for MSSA bacteremia, low suspicion at this time thus further work up with TTE not indicated. Patient should be covered for possible UTI with antibiotics from above. Suspect Acute Kidney Injury likely 2/2 prerenal etiology in the setting of acute illness but Cr improvement has plateaued since admission with robust UOP. Additionally patient continues to have metabolic acidosis without clear etiology and elevated Phos c/w CKD. Will continue to monitor but if new CKD IV, may benefit from outpatient nephrology referral for ongoing CKD care. - Daily BMP - Avoid nephrotoxic agents - Close I/Os and monitoring - Abx as above - Consider outpatient nephrology referral for CKD mgmt pending clinical improvement Acute microcytic anemia requiring transfusion, stable Iron deficiency anemia Hematuria, chronic Patient presented with hemoglobin of 6.4, MCV 69. Per chart review, pt has had ongoing hematuria daily for the past 2-3 years. Took more naproxen recently due to worsening jaw/neck pain but denied any hematochezia/melena, hemoptysis or hematemesis. INR is 1.3 and patient is not known to be on bloodthinner. CT A/P this admission demonstrated possible L sided renal cast, unclear if this is may represent stone/calculus. Anemia studies were c/w iron deficiency anemia, repleted with IV iron. Etiology of acute anemia likely multifactorial in the setting of Acute Kidney Injury 2/2 NSAID use, underlying CKD, and possible blood loss anemia in the setting of ongoing hematuria and possible GIB from recent NSAID use. - Transfuse if Hgb < 7 - s/p Venofer 200 mcg daily x2 (Received x3 units of RBCs so should be replete with x2 additional IV iron doses) - Urology consulted, appreciate recs - Plan for outpt ureteroscopy - Resumed VTE ppx, low suspicion for active bleeding at this time - Consider starting EPO analog inpatient vs outpatient pending Hgb trend HTN, likely Likely has underlying HTN, not on any anti-hypertensive meds [employer]. - Start amlodipine 5 mg daily for now, up titrate as needed Methamphetamine use, recent Unclear hx of substance use, found to have UDS + for meth on admission. Pt amenable to seeing addiction medicine for help with resources to reach sobriety. - Addiction Medicine consulted, recs pending PENDING TESTS RESULTS/RECOMMENDED FOLLOW UP: - Follow up with OMFS once patient more awake for possible dental extraction - Follow up with Urology as outpatient for diagnostic ureteroscopy - Sleep center referral as outpatient - Nephrology consult inpatient vs outpatient referral pending renal recovery DIET: Renal IV Fluids: none Antibiotic indications and stop dates: 1. Unasyn (odontogenic infection) Indwelling lines PIV x3 Arnold:yes strict I&O PPI/H2RA: [place] of family member contacted No family contact provided Family meeting held:no [employer] NEEDED - no PHYSICAL EXAMINATION: Most recent Vital Signs and Weight: BP (!) 175/87 Pulse 81 Temp 37.1 ??C (98.7 ??F) (Axillary) Resp 20 Ht 1.829 m (6' 0.01) Wt 108.9 kg (240 lb 1.3 oz) SpO2 96% BMI 32.55 kg/m?? Gen: Alert, interactive, NAD HEENT: Ongoing neck swelling R>L side, tender to palpation Neuro: Alert and oriented, answers questions appropriately. CV: RRR, warm, no peripheral edema appreciated Pulm: CTAB Abd: soft ALLERGY: No Known Drug Allergies MEDICATIONS AT TRANSFER: Scheduled Medications Current Facility-Administered Medications Medication Frequency ampicillin-sulbactam (UNASYN) 3 g in NaCl 0.9% 100 mL IVPB q 8h heparin 5000 UNIT/0.5ML injection 5,000 UNITS q 8h acetaminophen (TYLENOL) tablet 975 mg tid chlorhexidine (PERIDEX) 0.12% solution 15 mL bid IV Fluids/Medications Current Facility-Administered Medications Medication Frequency dexmedetomidine (PRECEDEX) 400 mcg in NaCl 0.9% 100 mL infusion (premixed) continuous PRN Medications Current Facility-Administered Medications Medication Frequency haloperidol lactate (HALDOL) 5 mg/mL injection 2 mg q4h prn HYDROmorphone PF (DILAUDID) 1 mg/mL injection 0.5 mg q4h prn Jourdan Naranjo MD, 11/23/2024 7:43 AM I Freda Clark MD, saw the patient with the resident and performed, or re- performed, the physical exam and medical decision-making and have verified the accuracy of all the resident documentationand edited as necessary. Freda Clark MD, 11/23/2024 6:18 PM * Nursing Assessment - Irena Casarez, RN - 11/23/2024 6:15 AM CDT Nursing Assessment Head to Toe Head to Toe Assessment Shift Summary Pt. A&Ox4 on RA, communicating needs appropriately. Denies any pain. Requested to ambulate the halls twice over the past 12 hours with success. Continue with POC. Irena Casarez, RN, 11/23/2024 6:15 AM Neurologic/Cognitive Within Defined Limits HEENT Assessment Within Defined Limits except for: Neck Symptoms: Swelling, localized Cardiac Assessment Within Defined Limits except for: Wheel Buffer - bedside telemetry ECG Rhythm: normal sinus rhythm OH Interval (sec): 0.16 QRS Interval (sec): 0.07 QT Interval: 0.38 QTc Interval: 0.45 ST Segment (mm): Normal T-Wave: Normal Pacemaker: Pacemaker: No Respiratory Assessment Within Defined Limits except for: Respiratory Assessment: Respirations: Shallow and dyspnea on exertion Breath Sounds Normal: Yes Neurovascular Assessment Within Defined Limits except for: Gastrointestinal Assessment Within Defined Limits except for: Abdominal appearance: Rounded and obese Genitourinary Assessment Within Defined Limits except for: Voiding: Urinary catheter in place Musculoskeletal Assessment Within Defined Limits except for: Integumentary Within Defined Limits Patient Lines/Drains/Airways Status Active LDAs Name Placement date Placement time Site Days Peripheral IV 11/19/24 20 gauge;1 1/4 in length Anterior;Left Upper Arm 11/19/244 -- 3 Peripheral IV 11/20/24 1 1/4 in length;18 gauge Anterior;Left Forearm 11/20/24 0138 -- 3 Urinary Catheter ICU unstable hemodynamics 11/19/24 2319 -- 3 Psychosocial Within Defined Limits * Nursing Assessment - Irena Casarez RN - 11/22/2024 11:25 PM CDT Nursing Assessment Head to Toe Head to Toe Assessment Shift Summary Shift Summary Neurologic/Cognitive Within Defined Limits HEENT Assessment Within Defined Limits except for: Neck Symptoms: Swelling, localized Cardiac Assessment Within Defined Limits except for: Wheel Buffer - bedside telemetry ECG Rhythm: normal sinus rhythm OH Interval (sec): 0.16 QRS Interval (sec): 0.07 QT Interval: 0.38 QTc Interval: 0.45 ST Segment (mm): Normal T-Wave: Normal Pacemaker: Pacemaker: No Respiratory Assessment Within Defined Limits except for: Respiratory Assessment: Respirations: Shallow and dyspnea on exertion Breath Sounds Normal: Yes Neurovascular Assessment Within Defined Limits except for: Gastrointestinal Assessment Within Defined Limits except for: Abdominal appearance: Rounded and obese Genitourinary Assessment Within Defined Limits except for: Voiding: Urinary catheter in place Musculoskeletal Assessment Within Defined Limits except for: Integumentary Within Defined Limits Patient Lines/Drains/Airways Status Active LDAs Name Placement date Placement time Site Days Peripheral IV 11/19/24 20 gauge;1 1/4 in length Anterior;Left Upper Arm 11/19/242233 -- 2 Peripheral IV 11/19/24 18 gauge Posterior;Right Hand 11/19/242240 -- 2 Peripheral IV 11/20/24 1 1/4 in length;18 gauge Anterior;Left Forearm 11/20/24 0138 -- 2 Urinary Catheter ICU unstable hemodynamics 11/19/24 2319 -- 2 Psychosocial Within Defined Limits * Nursing Assessment - Irena Casarez RN - 11/22/2024 8:18 PM CDT Nursing Assessment Head to Toe Head to Toe Assessment Shift Summary Shift Summary Neurologic/Cognitive Within Defined Limits HEENT Assessment Within Defined Limits except for: Neck Symptoms: Swelling, localized Cardiac Assessment Within Defined Limits except for: Wheel Buffer - bedside telemetry ECG Rhythm: normal sinus rhythm OH Interval (sec): 0.16 QRS Interval (sec): 0.07 QT Interval: 0.38 QTc Interval: 0.45 ST Segment (mm): Normal T-Wave: Normal Pacemaker: Pacemaker: No Respiratory Assessment Within Defined Limits except for: Respiratory Assessment: Respirations: Shallow and dyspnea on exertion Breath Sounds Normal: Yes Neurovascular Assessment Within Defined Limits except for: Gastrointestinal Assessment Within Defined Limits except for: Abdominal appearance: Rounded and obese Genitourinary Assessment Within Defined Limits except for: Voiding: Urinary catheter in place Musculoskeletal Assessment Within Defined Limits except for: Integumentary Within Defined Limits Patient Lines/Drains/Airways Status Active LDAs Name Placement date Placement time Site Days Peripheral IV 11/19/24 20 gauge;1 1/4 in length Anterior;Left Upper Arm 11/19/242233 -- 2 Peripheral IV 11/19/24 18 gauge Posterior;Right Hand 11/19/242240 -- 2 Peripheral IV 11/20/24 1 1/4 in length;18 gauge Anterior;Left Forearm 11/20/24137 -- 2 Urinary Catheter ICU unstable hemodynamics 11/19/249 -- 2 Psychosocial Within Defined Limits * Nursing Assessment - Danny Fong, RN - 11/22/2024 4:00 PM CDT Nursing Assessment Head to Toe Head to Toe Assessment Shift Summary Shift Summary Pt Alert to self and place. Able to make needs known. Precedex weaned off this AM and restraints removed. Pt calm and cooperative this shift. O2 weaned off, pt satting 90s on RA, occasionally drops to 89% when asleep but quickly returns to 90s. CARE bed orders placed pending bed availability. Pt complaining of headache, MD notified and ordered scheduled tylenol be given early for pain. Pt up and ambulated around room with assist of 1, O2 dropped to 87% while ambulating. Neurologic/Cognitive Assessment Within Defined Limits except for: Level of Consciousness: Lethargic Orientation: disoriented to time and disoriented to situation HEENT Within Defined Limits Cardiac Assessment Within Defined Limits except for: Wheel Buffer - bedside telemetry Lead Monitored: Lead II ECG Rhythm: normal sinus rhythm ST Segment (mm): Normal T-Wave: Normal Respiratory Within defined limits Neurovascular Within Defined Limits Gastrointestinal Within Defined Limits Genitourinary Assessment Within Defined Limits except for: Voiding: Urinary catheter in place Urine characteristics: , vida Musculoskeletal Within Defined Limits Integumentary Assessment Within Defined Limits except for: Skin Assessment Integrity - see Avatar LDA documentation Patient Lines/Drains/Airways Status Active LDAs Name Placement date Placement time Site Days Peripheral IV 11/19/24 20 gauge;1 1/4 in length Anterior;Left Upper Arm 11/19/244 -- 2 Peripheral IV 11/19/24 18 gauge Posterior;Right Hand 11/19/24 2241 -- 2 Peripheral IV 11/20/24 1 1/4 in length;18 gauge Anterior;Left Forearm 11/20/248 -- 2 Urinary Catheter ICU unstable hemodynamics 11/19/249 -- 2 Psychosocial Within Defined Limits Danny Fong RN, 11/22/2024 4:12 PM * Nursing Assessment - Danny Fong RN - 11/22/2024 12:00 PM CDT Nursing Assessment Head to Toe Head to Toe Assessment Shift Summary Shift Summary Neurologic/Cognitive Assessment Within Defined Limits except for: Level of Consciousness: Lethargic Orientation: disoriented to time and disoriented to situation HEENT Within Defined Limits Cardiac Assessment Within Defined Limits except for: Wheel Buffer - bedside telemetry Lead Monitored: Lead II ECG Rhythm: normal sinus rhythm and sinus bradycardia ST Segment (mm): Normal T-Wave: Normal Respiratory Within defined limits Neurovascular Within Defined Limits Gastrointestinal Within Defined Limits Genitourinary Assessment Within Defined Limits except for: Voiding: Urinary catheter in place Urine characteristics: , vida Musculoskeletal Within Defined Limits Integumentary Assessment Within Defined Limits except for: Skin Assessment Integrity - see Avatar LDA documentation Patient Lines/Drains/Airways Status Active LDAs Name Placement date Placement time Site Days Peripheral IV 11/19/24 20 gauge;1 1/4 in length Anterior;Left Upper Arm 11/19/24 2234 -- 2 Peripheral IV 11/19/24 18 gauge Posterior;Right Hand 11/19/24 2241 -- 2 Peripheral IV 11/20/24 1 1/4 in length;18 gauge Anterior;Left Forearm 11/20/24 0138 -- 2 Urinary Catheter ICU unstable hemodynamics 11/19/24 2319 -- 2 Psychosocial Within Defined Limits Danny Fong RN, 11/22/2024 12:18 PM * Transfer - Freda Clark MD - 11/22/2024 10:37 AM CDT MICU TRANSFER NOTE Dominick Lozoya : 1970 Sex: male Date of Admission:11/19/2024 Date of Transfer: 11/22/2024 Level of care needed:floor with remote telemetry CODE STATUS: Full Code ADMISSION DIAGNOSES: 1. R mandible cellulitis 2/2 dental neena 2. Concern for Minesh's angina 3. AHRF 4. Acute Kidney Injury vs Acute on chronic kidney injury 5. Acute microcytic anemia (multifactorial) TRANSFER DIAGNOSES: 1. R mandible cellulitis 2/2 dental neena, improving 2. AHRF 2/2 possible aspiration PNA, improving 3. Likely RULA 4. Acute Kidney Injury vs Acute on chronic kidney injury, improving 5. Acute microcytic anemia (multifactorial), improving 6. Possible MSSA UTI 7. Chronic Hematuria PROCEDURES Intubation DL CONSULTS Urology OMFS BRIEF SUMMARY OF HOSPITAL COURSE: (max 4-5 lines) Patient is a 54 y.o. male with unknown PMH admitted on 11/19/2024 with R neck swelling with c/f Minesh's angina and acute anemia requiring 3U RBCs. Extubated on 11/21, stable on NC and hemodynamically stable. OMFS following, no OR plans at this time, will continue medical mgmt. HOSPITAL COURSE BY PROBLEM: R mandible cellulitis 2/2 odontogenic infection, improving Concern for Minesh's Angina, improving Patient presented with 1 week of fever, right neck swelling and pain to OSH. Had CT neck which showed right-sided mandibular odontogenic infection tracking to the focal subcutaneous fat tissue and floor of the mouth concerning for Minesh angina but no apparent abscesses. Initially arrived to our EDon room air and appeared comfortable. Had nasopharyngoscopy that showed mild uvular and base of tongue edema but then was noted to desaturate when falling asleep this was intubated for airway protection. Otherwise, has leukocytosis, and elevated inflammatory markers but has been afebrile and hemodynamically stable during hospitalization. OMFS was consulted and recommended continuing antibiotics with no plan for interventions at this time. Extubated successfully on 11/21, breathing comfortably and stable on 3-4 L NC. - OMFS consulted, appreciate recs - No acute surgical intervention indicated at this time - Page OMFS resident once patient more alert and suitable for dental extraction in clinic - HOB > 30 degrees for swelling - Abx: Unasyn 3 g q6h - Pain regimen: tylenol 975 mg TID , IV Dilaudid 0.5 mg Q4H PRN - S/p Decadron IV 8 mg Q8H x3 doses for possible airway edema Acute hypoxic respiratory failure, improving Possible aspiration pneumonia/pneumonitis, improving Likely RULA Patient was initially satting above 95% room air without tachypnea upon arrival to the ED but became hypoxic to the mid 80s while falling asleep thus was intubated due to concern of airway compromisefrom above. He had a witnessed episode of vomiting at OSH. Chest x-ray and CT chest showed possibleatelectasis with superimposed aspiration sequela; thus possible aspiration pneumonia/pneumonitis. Patient should be empirically covered with Unasyn. Patient still intermittently de-satting overnight but when awake has been stable with minimal oxygen requirements. Suspect patient likely has underlying RULA driving his hypoxia that was acutely worsened on admission in the setting of significant softtissue neck swelling. - Resp cx and legionella Ag unremarkable - Abx as above which should cover aspiration pneumonia - Recommend [facility] Referral as outpatient Acute Kidney Injury, improving Suspect underlying CKD Low suspicion for MSSA UTI Patient presented with creatinine of 4.55 but unclear creatinine baseline., K has remained stable. Unable to obtain further history but patient only symptom per report is hematuria. Unclear if patient has been using nephrotoxic drugs such as NSAIDs. UA showed hematuria, positive leukocyte esterase and pyuria. Urine cx grew 10-50k MSSA. CT abdomen pelvis without signs of hydronephrosis or pyelonephritis but did show a left lower pole calyceal filling defect. Unclear if MSSA 2/2 prior colonization in the setting of possible TCC (gven filling defect on CT and chronic hematuria) vs acute bacteremia. Bcx NGTD. Urology following, plan for outpatient ureteroscopy for further evaluation. Obtained OSH records which did not show any evidence or concern for MSSA bacteremia, low suspicion at this time thus further work up with TTE not indicated. Patient should be covered for possible UTI with antibiotics from above. Suspect Acute Kidney Injury likely 2/2 prerenal etiology in the setting of acute illness but Cr improvement has plateaued since admission with robust UOP. Additionally patient continues to have metabolic acidosis without clear etiology and elevated Phos c/w CKD. Will continue to monitor but if new CKD IV, may benefit from outpatient nephrology referral for ongoing CKD care. - Daily BMP - Avoid nephrotoxic agents - Close I/Os and monitoring - Abx as above - Consider outpatient nephrology referral for CKD mgmt pending clinical improvement Acute microcytic anemia requiring transfusion Iron deficiency anemia Hematuria Patient presented with hemoglobin of 6.4, MCV 69. Per chart review, pt has had ongoing hematuria daily for the past 2-3 years. Took more naproxen recently due to worsening jaw/neck pain but denied any hematochezia/melena, hemoptysis or hematemesis. INR is 1.3 and patient is not known to be on bloodthinner. CT A/P this admission demonstrated possible L sided renal cast, unclear if this is may represent stone/calculus. Anemia studies were c/w iron deficiency anemia, repleted with IV iron. Etiology of acute anemia likely multifactorial in the setting of Acute Kidney Injury 2/2 NSAID use, underlying CKD, and possible blood loss anemia in the setting of ongoing hematuria and possible GIB from recent NSAID use. - Transfuse if Hgb < 7 - Continue Venofer 200 mcg daily x2 (Received x3 units of RBCs so should be replete with x2 additional IV iron doses) - Urology consulted, appreciate recs - Plan for outpt ureteroscopy - Resumed VTE ppx, low suspicion for active bleeding at this time - Consider starting EPO analog inpatient vs outpatient pending Hgb trend High BP Pt with unknown PMH including HTN presented with initial BP 180/90. Could possibly be related to pain and distress vs underlying HTN. Currently normotensive on propofol. Will need to be evaulted postextubation for need of hypertensive if he is amenable. - Consider initiating antihypertensive meds when extubated PENDING TESTS RESULTS/RECOMMENDED FOLLOW UP: - Follow up with OMFS once patient more awake for possible dental extraction - Follow up with Urology as outpatient for diagnostic ureteroscopy - [facility] center referral as outpatient - Nephrology consult inpatient vs outpatient referral pending renal recovery - Remove arnold once patient more awake and ambulatory DIET: Renal IV Fluids: none Antibiotic indications and stop dates: 1. Unasyn (odontogenic infection) Indwelling lines PIV x3 Arnold:yes strict I&O PPI/H2RA: [place] of family member contacted No family contact provided Family meeting held:no [employer] NEEDED - no PHYSICAL EXAMINATION: Most recent Vital Signs and Weight: BP 114/88 Pulse 50 Temp 35.9 ??C (96.6 ??F) (Axillary) Resp 14 Ht 1.829 m (6' 0.01) Wt 108.9 kg (240 lb 1.3 oz) SpO2 100% BMI 32.55 kg/m?? Gen: Somnolent, minimally interactive, NAD HEENT: Ongoing neck swelling R>L side, tender to palpation Neuro: Alert, oriented to self, intermittently nods to questions appropriately. CV: RRR, warm, no peripheral edema appreciated Pulm: CTAB Abd: soft ALLERGY: No Known Drug Allergies MEDICATIONS AT TRANSFER: Scheduled Medications Current Facility-Administered Medications Medication Frequency famotidine (PEPCID) tablet 20 mg bid ampicillin-sulbactam (UNASYN) 3 g in NaCl 0.9% 100 mL IVPB q 8h heparin 5000 UNIT/0.5ML injection 5,000 UNITS q 8h thiamine (VITAMIN B1) 500 mg in 50mL NS IVPB tid And [START ON 11/24/2024] thiamine (VITAMIN B1) 250 mg in NaCl 0.9% 50 mL IVPB daily And [START ON 11/24/2024] multivitamin + minerals (CEROVITE SENIOR) 1 tablet daily acetaminophen (TYLENOL) tablet 975 mg tid chlorhexidine (PERIDEX) 0.12% solution 15 mL bid IV Fluids/Medications Current Facility-Administered Medications Medication Frequency dexmedetomidine (PRECEDEX) 400 mcg in NaCl 0.9% 100 mL infusion (premixed) continuous PRN Medications Current Facility-Administered Medications Medication Frequency OLANZapine (ZyPREXA) injection 5 mg q2h prn HYDROmorphone PF (DILAUDID) 1 mg/mL injection 1 mg q4h prn diazePAM (VALIUM) tablet 10 mg q1h prn diazePAM (VALIUM) 5 mg/mL injection 10 mg q5 min prn Jourdan Naranjo MD, 11/22/2024 10:37 AM I Freda Clark MD, saw the patient with the resident and performed, or re- performed, the physical exam and medical decision-making and have verified the accuracy of all the resident documentationand edited as necessary. Freda Clark MD, 11/22/2024 3:13 PM * Nursing Assessment - Danny Fong RN - 11/22/2024 8:00 AM CDT Nursing Assessment Head to Toe Head to Toe Assessment Shift Summary Shift Summary Neurologic/Cognitive Assessment Within Defined Limits except for: Level of Consciousness: Lethargic and sedated Orientation: disoriented to time and disoriented to situation HEENT Within Defined Limits Cardiac Assessment Within Defined Limits except for: Wheel Buffer - bedside telemetry Lead Monitored: Lead II ECG Rhythm: normal sinus rhythm and sinus bradycardia ST Segment (mm): Normal T-Wave: Normal Respiratory Within defined limits Comments: Nasal cannula Neurovascular Within Defined Limits Gastrointestinal Within Defined Limits Genitourinary Assessment Within Defined Limits except for: Voiding: Urinary catheter in place Urine characteristics: , vida Musculoskeletal Within Defined Limits Integumentary Assessment Within Defined Limits except for: Skin Assessment Integrity - see Avatar LDA documentation Patient Lines/Drains/Airways Status Active LDAs Name Placement date Placement time Site Days Peripheral IV 11/19/24 20 gauge;1 1/4 in length Anterior;Left Upper Arm 11/19/24 2234 -- 2 Peripheral IV 11/19/24 18 gauge Posterior;Right Hand 11/19/24 2241 -- 2 Peripheral IV 11/20/24 1 1/4 in length;18 gauge Anterior;Left Forearm 11/20/24 0138 -- 2 Urinary Catheter ICU unstable hemodynamics 11/19/24 2319 -- 2 Psychosocial Within Defined Limits Danny Fong RN, 11/22/2024 8:33 AM * Nursing Assessment - Juanita Li RN - 11/22/2024 5:59 AM CDT Nursing Assessment Head to Toe Head to Toe Assessment Shift Summary Shift Summary Pt's A&Ox4. Agitated, restless, was begging to get restraints off. PRN Zyprexa administered, Dex increased, which helped patient settle down and get some sleep. Neurologic/Cognitive Assessment Within Defined Limits except for: Cognition: poor judgement/safety awareness Level of Consciousness: Confused Arousal Level: Arouses to voice Speech: Illogical Mood/Behavior: Restless and agitated HEENT HEENT Cardiac Assessment Within Defined Limits except for: Wheel Buffer - bedside telemetry ECG Rhythm: normal sinus rhythm Respiratory Assessment Within Defined Limits except for: Respiratory Assessment: Respirations: Shallow Neurovascular Within Defined Limits Gastrointestinal Assessment Within Defined Limits except for: Abdominal appearance: Rounded Genitourinary Assessment Within Defined Limits except for: Voiding: Urinary catheter in place Musculoskeletal Within Defined Limits Integumentary Assessment Within Defined Limits except for: Skin Assessment Integrity - see Avatar LDA documentation Patient Lines/Drains/Airways Status Active LDAs Name Placement date Placement time Site Days Peripheral IV 11/19/24 20 gauge;1 1/4 in length Anterior;Left Upper Arm 11/19/242233 -- 2 Peripheral IV 11/19/24 18 gauge Posterior;Right Hand 11/19/242240 -- 2 Peripheral IV 11/20/24 1 1/4 in length;18 gauge Anterior;Left Forearm 11/20/24 0138 -- 2 Urinary Catheter ICU unstable hemodynamics 11/19/249 -- 2 Psychosocial Assessment Within Defined Limits except for: Psychosocial Assessment: Family Behavior: not present * Nursing Assessment - Juanita Li RN - 11/22/2024 12:00 AM CDT Nursing Assessment Head to Toe Head to Toe Assessment Shift Summary Shift Summary Neurologic/Cognitive Assessment Within Defined Limits except for: Cognition: poor judgement/safety awareness Level of Consciousness: Confused Arousal Level: Arouses to voice Speech: Illogical Mood/Behavior: Restless and agitated HEENT HEENT Cardiac Assessment Within Defined Limits except for: Wheel Buffer - bedside telemetry ECG Rhythm: normal sinus rhythm Respiratory Assessment Within Defined Limits except for: Respiratory Assessment: Respirations: Shallow Neurovascular Within Defined Limits Gastrointestinal Assessment Within Defined Limits except for: Abdominal appearance: Rounded Genitourinary Assessment Within Defined Limits except for: Voiding: Urinary catheter in place Musculoskeletal Within Defined Limits Integumentary Assessment Within Defined Limits except for: Skin Assessment Integrity - see Avatar LDA documentation Patient Lines/Drains/Airways Status Active LDAs Name Placement date Placement time Site Days Peripheral IV 11/19/24 20 gauge;1 1/4 in length Anterior;Left Upper Arm 11/19/242233 -- 2 Peripheral IV 11/19/24 18 gauge Posterior;Right Hand 11/19/242240 -- 2 Peripheral IV 11/20/24 1 1/4 in length;18 gauge Anterior;Left Forearm 11/20/24 0138 -- 2 Urinary Catheter ICU unstable hemodynamics 11/19/24 2319 -- 2 Psychosocial Assessment Within Defined Limits except for: Psychosocial Assessment: Family Behavior: not present * Nursing Assessment - Tyree Scott RN - 11/21/2024 10:53 PM CDT Nursing Assessment Head to Toe Head to Toe Assessment Shift Summary Shift Summary At the start of the shift, pt extubated to 2L nasal cannula sating >90%. Pt agitated/restless PRN Zyprexa administered. At 2030, pt agitated again, complaining of headache,slight left facial droopnoted MD notified. Neuro assessment done, no deficits noted. Pt continued to be restless/agitated, h ypertensive, per MD SBP<220. One time IV valium administered with no improvement, pt attempted to get out of bed, 4 RNs at bedside placed pt on 4 point restraint for pt safety and started on precedex. Now on [id number] mask on 15L. Pt refused CPAP stating he is claustrophobic. Continue to monitor. Tyree Scott RN, 11/21/2024 11:05 PM Neurologic/Cognitive Assessment Within Defined Limits except for: Arousal Level: Arouses to voice Mood/Behavior: Calm Motor Response: All Extremities - purposeful/movement localizing HEENT Within Defined Limits Cardiac Assessment Within Defined Limits except for: Wheel Buffer - bedside telemetry ECG Rhythm: normal sinus rhythm Pacemaker: Pacemaker: No Respiratory Within defined limits Comments: Extubated to 2L of nasal cannula Neurovascular Within Defined Limits Gastrointestinal Within Defined Limits Genitourinary Assessment Within Defined Limits except for: Voiding: Urinary catheter in place Musculoskeletal Assessment Within Defined Limits except for: Musculoskeletal Assessment: General Mobility: Generalized weakness Integumentary Within Defined Limits Patient Lines/Drains/Airways Status Active LDAs Name Placement date Placement time Site Days Peripheral IV 11/19/24 20 gauge;1 1/4 in length Anterior;Left Upper Arm 11/19/244 -- 2 Peripheral IV 11/19/24 18 gauge Posterior;Right Hand 11/19/241 -- 2 Peripheral IV 11/20/24 1 1/4 in length;18 gauge Anterior;Left Forearm 11/20/24 0138 -- 1 Urinary Catheter ICU unstable hemodynamics 11/19/24 2319 -- 1 Psychosocial Assessment Within Defined Limits except for: Psychosocial Assessment: Family Behavior: not present * Interval Note Provider - Cristofer Perez MD - 11/21/2024 10:40 PM CDT Patient became aggressive, almost hit staff around 2220. Unclear what provoked him. He is asking for his parents, very labile between aggression and tearful. Prior to this he was having shivers/tremors, would wake to voice and talk. Neuro exam was intact. Could not assess tongue. He was extubated around 1500. Primary team suspected alcohol withdrawal but gave him zyprexa and held off on additional valium to not oversedate him. Notably, prior to his explosive episode I did examine his pupils which were pinpoint. He has been here since 11/19, and only extubated today. No opioids given per sep. His RR is in 20s. Temp was normal. Placed him back on precedex for presumed Alcohol withdrawal. Ordered alcohol withdrawal order set w/ diazepam. Added on LFT. Placed on restraints, will monitor. Cristofer Perez MD, 11/21/2024 10:46 PM * Nursing Assessment - Tyree Scott RN - 11/21/2024 3:44 PM CDT Nursing Assessment Head to Toe Head to Toe Assessment Shift Summary Shift Summary Neurologic/Cognitive Assessment Within Defined Limits except for: Arousal Level: Arouses to voice Mood/Behavior: Calm Motor Response: All Extremities - purposeful/movement localizing HEENT Within Defined Limits Cardiac Assessment Within Defined Limits except for: Wheel Buffer - bedside telemetry ECG Rhythm: normal sinus rhythm Pacemaker: Pacemaker: No Respiratory Within defined limits Comments: Extubated to 2L of nasal cannula Neurovascular Within Defined Limits Gastrointestinal Within Defined Limits Genitourinary Assessment Within Defined Limits except for: Voiding: Urinary catheter in place Musculoskeletal Assessment Within Defined Limits except for: Musculoskeletal Assessment: General Mobility: Generalized weakness Integumentary Within Defined Limits Patient Lines/Drains/Airways Status Active LDAs Name Placement date Placement time Site Days Peripheral IV 11/19/24 20 gauge;1 1/4 in length Anterior;Left Upper Arm 11/19/24 2234 -- 1 Peripheral IV 11/19/24 18 gauge Posterior;Right Hand 11/19/24 2241 -- 1 Peripheral IV 11/20/24 1 1/4 in length;18 gauge Anterior;Left Forearm 11/20/24 0138 -- 1 Urinary Catheter ICU unstable hemodynamics 11/19/24 2319 -- 1 Psychosocial Assessment Within Defined Limits except for: Psychosocial Assessment: Family Behavior: not present * Nursing Assessment - Danny Fong RN - 11/21/2024 12:00 PM CDT Nursing Assessment Head to Toe Head to Toe Assessment Shift Summary Shift Summary Pt sedated, on the ventilator. Propofol weaned, pt becoming agitated with lower propofol rates, kicking legs off the bed and attempting to sit up, not following directions. Precedex started and PRN meds given for pt and staff protection. SBT performed x7 hrs. Plan to extubate pt once sedation can be safely weaned. Neurologic/Cognitive Assessment Within Defined Limits except for: Arousal Level: Arouses to pain Speech: Unable to speak, endotracheal tube Motor Response: All Extremities - withdraws and medically sedated HEENT HEENT Cardiac Assessment Within Defined Limits except for: Wheel Buffer - bedside telemetry Lead Monitored: Lead II ECG Rhythm: normal sinus rhythm Pacemaker: Pacemaker: No Respiratory Assessment Within Defined Limits except for: Respiratory Assessment: Respirations: Mechanical device Mechanical Device: Continuous; Ventilator Breath Sounds Normal: Yes Neurovascular Within Defined Limits Gastrointestinal Within Defined Limits Genitourinary Assessment Within Defined Limits except for: Voiding: Urinary catheter in place Urine characteristics: , vida Musculoskeletal Within Defined Limits Integumentary Assessment Within Defined Limits except for: Skin Assessment Integrity - see Avatar LDA documentation Patient Lines/Drains/Airways Status Active LDAs Name Placement date Placement time Site Days Peripheral IV 11/19/24 20 gauge;1 1/4 in length Anterior;Left Upper Arm 11/19/242233 -- 1 Peripheral IV 11/19/24 18 gauge Posterior;Right Hand 11/19/242240 -- 1 Peripheral IV 11/20/24 1 1/4 in length;18 gauge Anterior;Left Forearm 11/20/24 0138 -- 1 Naso/Oral Gastric Suction Tube Orogastric 11/19/240 -- 1 Endotracheal Tube: oral;endotracheal tube 7.5 11/19/24 -- -- 2 Urinary Catheter ICU unstable hemodynamics 11/19/24 2319 -- 1 Psychosocial Within Defined Limits Danny Fong RN, 11/21/2024 12:04 PM * Nursing Assessment - Danny Fong RN - 11/21/2024 8:00 AM CDT Nursing Assessment Head to Toe Head to Toe Assessment Shift Summary Shift Summary Neurologic/Cognitive Assessment Within Defined Limits except for: Arousal Level: Arouses to pain Speech: Unable to speak, endotracheal tube Motor Response: All Extremities - withdraws and medically sedated HEENT HEENT Cardiac Assessment Within Defined Limits except for: Wheel Buffer - bedside telemetry Lead Monitored: Lead II ECG Rhythm: normal sinus rhythm Pacemaker: Pacemaker: No Respiratory Assessment Within Defined Limits except for: Respiratory Assessment: Respirations: Mechanical device Mechanical Device: Continuous; Ventilator Breath Sounds Normal: Yes Neurovascular Within Defined Limits Gastrointestinal Within Defined Limits Genitourinary Assessment Within Defined Limits except for: Voiding: Urinary catheter in place Urine characteristics: , vida Musculoskeletal Within Defined Limits Integumentary Assessment Within Defined Limits except for: Skin Assessment Integrity - see Avatar LDA documentation Patient Lines/Drains/Airways Status Active LDAs Name Placement date Placement time Site Days Peripheral IV 11/19/24 20 gauge;1 1/4 in length Anterior;Left Upper Arm 11/19/242233 -- 1 Peripheral IV 11/19/24 18 gauge Posterior;Right Hand 11/19/242240 -- 1 Peripheral IV 11/20/24 1 1/4 in length;18 gauge Anterior;Left Forearm 11/20/24 0138 -- 1 Naso/Oral Gastric Suction Tube Orogastric 11/19/24 2200 -- 1 Endotracheal Tube: oral;endotracheal tube 7.5 11/19/24 -- -- 2 Urinary Catheter ICU unstable hemodynamics 11/19/24 2319 -- 1 Psychosocial Within Defined Limits Danny Fong RN, 11/21/2024 9:32 AM * Nursing Assessment - Charlotte Enriquez RN - 11/21/2024 4:00 AM CDT Nursing Assessment Head to Toe Head to Toe Assessment Shift Summary Shift Summary Pt. Intubated and sedated. Purposeful motor response. VSS. NSR, sinus tach. Afebrile. O2 desaturations while laying flat. Minimal secretions. Arnold with blood tinged output, urology aware. No BM. Charlotte Enriquez RN, 11/21/2024 7:39 AM Neurologic/Cognitive Assessment Within Defined Limits except for: Motor Response: All Extremities - purposeful/movement localizing LUE - purposeful/movement localizing RUE - purposeful/movement localizing LLE - purposeful/movement localizing RLE - purposeful/movement localizing HEENT Assessment Within Defined Limits except for: Neck Symptoms: Swelling, localized Cardiac Assessment Within Defined Limits except for: Wheel Buffer - bedside telemetry Lead Monitored: Lead II ECG Rhythm: normal sinus rhythm OH Interval (sec): 0.23 QRS Interval (sec): 0.12 QT Interval: 0.44 QTc Interval: 0.51 Pacemaker: Pacemaker: No Respiratory Assessment Within Defined Limits except for: Respiratory Assessment: Respirations: Mechanical device Mechanical Device: Continuous; Ventilator Breath Sounds Normal: Breath sounds normal: No Sputum: Sputum is Present Amount: Scant Neurovascular Within Defined Limits Neurovascular LUE Radial Pulse: 3+ Neurovascular RUE Radial Pulse: 3+ Neurovascular LLE Pedal Pulse: 3+ Neurovascular RLE Pedal Pulse: 3+ Gastrointestinal Assessment Within Defined Limits except for: Abdominal appearance: Obese Genitourinary Assessment Within Defined Limits except for: Voiding: Urinary catheter in place Urine characteristics: , sediment and red Musculoskeletal Assessment Within Defined Limits except for: Musculoskeletal Assessment: General Mobility: Generalized weakness Range of Motion: General - unable to assess Integumentary Assessment Within Defined Limits except for: Skin Assessment Integrity - see Avatar LDA documentation Patient Lines/Drains/Airways Status Active LDAs Name Placement date Placement time Site Days Peripheral IV 11/19/24 20 gauge;1 1/4 in length Anterior;Left Upper Arm 11/19/24 2234 -- 1 Peripheral IV 11/19/24 18 gauge Posterior;Right Hand 11/19/24 2241 -- 1 Peripheral IV 11/20/24 1 1/4 in length;18 gauge Anterior;Left Forearm 11/20/24 0138 -- 1 Naso/Oral Gastric Suction Tube Orogastric 11/19/24 2200 -- 1 Endotracheal Tube: oral;endotracheal tube 7.5 11/19/24 -- -- 2 Urinary Catheter ICU unstable hemodynamics 11/19/24 2319 -- 1 Psychosocial Assessment Within Defined Limits except for: Psychosocial Assessment: Family Behavior: not present * Nursing Assessment - Charlotte Enriquez RN - 11/21/2024 12:00 AM CDT Nursing Assessment Head to Toe Head to Toe Assessment Shift Summary Shift Summary Neurologic/Cognitive Assessment Within Defined Limits except for: Motor Response: All Extremities - withdraws and medically sedated HEENT Assessment Within Defined Limits except for: Neck Symptoms: Swelling, localized Cardiac Assessment Within Defined Limits except for: Wheel Buffer - bedside telemetry Lead Monitored: Lead II ECG Rhythm: normal sinus rhythm Pacemaker: Pacemaker: No Respiratory Assessment Within Defined Limits except for: Respiratory Assessment: Respirations: Mechanical device Mechanical Device: Continuous; Ventilator Breath Sounds Normal: Breath sounds normal: No Sputum: Sputum is Present Amount: Scant Neurovascular Within Defined Limits Neurovascular LUE Radial Pulse: 3+ Neurovascular RUE Radial Pulse: 3+ Neurovascular LLE Pedal Pulse: 3+ Neurovascular RLE Pedal Pulse: 3+ Gastrointestinal Assessment Within Defined Limits except for: Abdominal appearance: Obese Genitourinary Assessment Within Defined Limits except for: Voiding: Urinary catheter in place Urine characteristics: , sediment and red Musculoskeletal Assessment Within Defined Limits except for: Musculoskeletal Assessment: General Mobility: Generalized weakness Range of Motion: General - unable to assess Integumentary Assessment Within Defined Limits except for: Skin Assessment Integrity - see Avatar LDA documentation Patient Lines/Drains/Airways Status Active LDAs Name Placement date Placement time Site Days Peripheral IV 11/19/24 20 gauge;1 1/4 in length Anterior;Left Upper Arm 11/19/24 2234 -- 1 Peripheral IV 11/19/24 18 gauge Posterior;Right Hand 11/19/24 2241 -- 1 Peripheral IV 11/20/24 1 1/4 in length;18 gauge Anterior;Left Forearm 11/20/24 0138 -- 1 Naso/Oral Gastric Suction Tube Orogastric 11/19/240 -- 1 Endotracheal Tube: oral;endotracheal tube 7.5 11/19/24 -- -- 2 Urinary Catheter ICU unstable hemodynamics 11/19/24 2319 -- 1 Psychosocial Assessment Within Defined Limits except for: Psychosocial Assessment: Family Behavior: not present * Nursing Assessment - Charlotte Enriquez RN - 11/20/2024 8:00 PM CDT Nursing Assessment Head to Toe Head to Toe Assessment Shift Summary Shift Summary Neurologic/Cognitive Assessment Within Defined Limits except for: Motor Response: All Extremities - withdraws and medically sedated HEENT Assessment Within Defined Limits except for: Neck Symptoms: Swelling, localized Cardiac Assessment Within Defined Limits except for: Wheel Buffer - bedside telemetry Lead Monitored: Lead II ECG Rhythm: normal sinus rhythm Pacemaker: Pacemaker: No Respiratory Assessment Within Defined Limits except for: Respiratory Assessment: Respirations: Mechanical device Mechanical Device: Continuous; Ventilator Breath Sounds Normal: Breath sounds normal: No Sputum: Sputum is Present Amount: Scant Neurovascular Within Defined Limits Neurovascular LUE Radial Pulse: 3+ Neurovascular RUE Radial Pulse: 3+ Neurovascular LLE Pedal Pulse: 3+ Neurovascular RLE Pedal Pulse: 3+ Gastrointestinal Assessment Within Defined Limits except for: Abdominal appearance: Obese Genitourinary Assessment Within Defined Limits except for: Voiding: Urinary catheter in place Urine characteristics: , sediment and red Musculoskeletal Assessment Within Defined Limits except for: Musculoskeletal Assessment: General Mobility: Generalized weakness Range of Motion: General - unable to assess Integumentary Assessment Within Defined Limits except for: Skin Assessment Integrity - see Avatar LDA documentation Patient Lines/Drains/Airways Status Active LDAs Name Placement date Placement time Site Days Peripheral IV 11/19/24 20 gauge;1 1/4 in length Anterior;Left Upper Arm 11/19/24 2234 -- less than 1 Peripheral IV 11/19/24 18 gauge Posterior;Right Hand 11/19/24 2241 -- less than 1 Peripheral IV 11/20/24 1 1/4 in length;18 gauge Anterior;Left Forearm 11/20/24 0138 -- less than 1 Naso/Oral Gastric Suction Tube Orogastric 11/19/24 2200 -- less than 1 Endotracheal Tube: oral;endotracheal tube 7.5 11/19/24 -- -- 1 Urinary Catheter ICU unstable hemodynamics 11/19/24 2319 -- less than 1 Psychosocial Assessment Within Defined Limits except for: Psychosocial Assessment: Family Behavior: not present * Nursing Assessment - Mateusz Mckinney RN - 11/20/2024 4:47 PM CDT Nursing Assessment Head to Toe Head to Toe Assessment Shift Summary Shift Summary Neurologic/Cognitive Assessment Within Defined Limits except for: Level of Consciousness: Sedated Speech: Unable to speak, endotracheal tube Motor Response: All Extremities - withdraws HEENT Assessment Within Defined Limits except for: Comments: ETT + OG Cardiac Assessment Within Defined Limits except for: Wheel Buffer - bedside telemetry Lead Monitored: Lead II ECG Rhythm: normal sinus rhythm Pacemaker: Pacemaker: No Respiratory Assessment Within Defined Limits except for: Respiratory Assessment: Respirations: Mechanical device; Ventilator Breath Sounds Normal: Breath sounds normal: No Breath Sounds Assessment: Diminished Anterior LLL Neurovascular Within Defined Limits Gastrointestinal Within Defined Limits Genitourinary Assessment Within Defined Limits except for: Voiding: Urinary catheter in place Musculoskeletal Assessment Within Defined Limits except for: Musculoskeletal Assessment: General Mobility: Mildly impaired Comments: Restrained + Sedated Integumentary Within Defined Limits Patient Lines/Drains/Airways Status Active LDAs Name Placement date Placement time Site Days Peripheral IV 11/19/24 20 gauge;1 1/4 in length Anterior;Left Upper Arm 11/19/242233 -- less than 1 Peripheral IV 11/19/24 18 gauge Posterior;Right Hand 11/19/24 224 -- less than 1 Peripheral IV 11/20/24 1 1/4 in length;18 gauge Anterior;Left Forearm 11/20/24 0138 -- less than 1 Endotracheal Tube: oral;endotracheal tube 7.5 11/19/24 -- -- 1 Urinary Catheter ICU unstable hemodynamics 11/19/24 2319 -- less than 1 Psychosocial Within Defined Limits * Nursing Assessment - Kayla Lucas RN - 11/20/2024 3:00 PM CDT Nursing Assessment Head to Toe Head to Toe Assessment Shift Summary Pt remains intubated/sedated, withdraws but doesn't follow commands with sedation. Weaning off of sedation held off due to CT and awaiting readings of the scan. 1 unit of blood given. Continue to monitor and follow plans of cares. Neurologic/Cognitive Assessment Within Defined Limits except for: Cognition: poor attention/concentration Level of Consciousness: Obtunded Arousal Level: Arouses to repeated/vigorous stimulation Speech: Unable to speak, endotracheal tube Motor Response: All Extremities - medically sedated HEENT Within Defined Limits Cardiac Assessment Within Defined Limits except for: Wheel Buffer - bedside telemetry Lead Monitored: Lead II ECG Rhythm: normal sinus rhythm Respiratory Assessment Within Defined Limits except for: Respiratory Assessment: Mechanical Device: Continuous; Ventilator Breath Sounds Normal: Yes Cough: Present Frequency: Intermittent Sputum: Sputum is Present Amount: Small Color: Clear and white Consistency: Thin Neurovascular Within Defined Limits Gastrointestinal Within Defined Limits Genitourinary Assessment Within Defined Limits except for: Voiding: Urinary catheter in place Musculoskeletal Assessment Within Defined Limits except for: Musculoskeletal Assessment: General Mobility: Generalized weakness and moderately impaired Integumentary Within Defined Limits Patient Lines/Drains/Airways Status Active LDAs Name Placement date Placement time Site Days Peripheral IV 11/19/24 20 gauge;1 1/4 in length Anterior;Left Upper Arm 11/19/242233 -- less than 1 Peripheral IV 11/19/24 18 gauge Posterior;Right Hand 11/19/242240 -- less than 1 Peripheral IV 11/20/24 1 1/4 in length;18 gauge Anterior;Left Forearm 11/20/24 0138 -- less than 1 Endotracheal Tube: oral;endotracheal tube 7.5 11/19/24 -- -- 1 Urinary Catheter ICU unstable hemodynamics 11/19/24 2319 -- less than 1 Psychosocial Within Defined Limits * Nursing Assessment - Kayla Lucas RN - 11/20/2024 8:54 AM CDT Nursing Assessment Head to Toe Head to Toe Assessment Shift Summary Shift Summary Neurologic/Cognitive Assessment Within Defined Limits except for: Cognition: poor attention/concentration Level of Consciousness: Obtunded Arousal Level: Arouses to repeated/vigorous stimulation Speech: Unable to speak, endotracheal tube Motor Response: All Extremities - medically sedated HEENT Within Defined Limits Cardiac Assessment Within Defined Limits except for: Wheel Buffer - bedside telemetry Lead Monitored: Lead II ECG Rhythm: normal sinus rhythm Respiratory Assessment Within Defined Limits except for: Respiratory Assessment: Mechanical Device: Continuous; Ventilator Breath Sounds Normal: Yes Cough: Present Frequency: Intermittent Sputum: Sputum is Present Amount: Small Color: Clear and white Consistency: Thin Neurovascular Within Defined Limits Gastrointestinal Within Defined Limits Genitourinary Assessment Within Defined Limits except for: Voiding: Urinary catheter in place Musculoskeletal Assessment Within Defined Limits except for: Musculoskeletal Assessment: General Mobility: Generalized weakness and moderately impaired Integumentary Within Defined Limits Patient Lines/Drains/Airways Status Active LDAs Name Placement date Placement time Site Days Peripheral IV 11/19/24 20 gauge;1 1/4 in length Anterior;Left Upper Arm 11/19/24 2234 -- less than 1 Peripheral IV 11/19/24 18 gauge Posterior;Right Hand 11/19/24 2241 -- less than 1 Peripheral IV 11/20/24 1 1/4 in length;18 gauge Anterior;Left Forearm 11/20/24 0138 -- less than 1 Endotracheal Tube: oral;endotracheal tube 7.5 11/19/24 -- -- 1 Urinary Catheter ICU unstable hemodynamics 11/19/24 2319 -- less than 1 Psychosocial Within Defined Limits * Nursing Assessment - Chalrotte Enriquez RN - 11/20/2024 4:09 AM CDT Nursing Assessment Head to Toe Head to Toe Assessment Shift Summary Shift Summary Pt. Arrived intubated and sedated with propofol. Withdraws to pain, PEERL +1. Unable to get good O2 pleath / sats. Bagged patient until able to get accurate reading. FiO2 50%, PEEP 8. ETT tube adjusted by RT. After adjustment, maintaining O2 saturations > 90%. Slowly weaning O2 needs overnight. Received 1 unit PRBC for Hgb of 6.0. Recheck of 5.2. MD aware of critical result. Started second unit of PRBC. MD aware of downtrending lab. Stable BP. No blood seen in urine, no stool overnight. Additional PIV placed via ultrasound. Charlotte Enriquez RN, 11/20/2024 4:09 AM Neurologic/Cognitive Assessment Within Defined Limits except for: Motor Response: All Extremities - withdraws and medically sedated HEENT Assessment Within Defined Limits except for: Neck Symptoms: Swelling, localized Cardiac Assessment Within Defined Limits except for: Wheel Buffer - bedside telemetry Lead Monitored: Lead II ECG Rhythm: normal sinus rhythm OH Interval (sec): 0.19 QRS Interval (sec): 0.13 QT Interval: 0.38 QTc Interval: 0.46 Pacemaker: Pacemaker: No Respiratory Assessment Within Defined Limits except for: Respiratory Assessment: Respirations: Mechanical device Mechanical Device: Continuous; Ventilator Breath Sounds Normal: Breath sounds normal: No Sputum: Sputum is Present Amount: Scant Neurovascular Within Defined Limits Neurovascular LUE Radial Pulse: 3+ Neurovascular RUE Radial Pulse: 3+ Neurovascular LLE Pedal Pulse: 3+ Neurovascular RLE Pedal Pulse: 3+ Gastrointestinal Assessment Within Defined Limits except for: Abdominal appearance: Taut Genitourinary Assessment Within Defined Limits except for: Voiding: Urinary catheter in place Urine characteristics: , cloudy Musculoskeletal Assessment Within Defined Limits except for: Musculoskeletal Assessment: General Mobility: Generalized weakness Range of Motion: General - unable to assess Integumentary Assessment Within Defined Limits except for: Skin Assessment Integrity - see Avatar LDA documentation Patient Lines/Drains/Airways Status Active LDAs Name Placement date Placement time Site Days Peripheral IV 11/19/24 20 gauge;1 1/4 in length Anterior;Left Upper Arm 11/19/24 2234 -- less than 1 Peripheral IV 11/19/24 18 gauge Posterior;Right Hand 11/19/24 2241 -- less than 1 Peripheral IV 11/20/24 1 1/4 in length;18 gauge Anterior;Left Forearm 11/20/24 0138 -- less than 1 Endotracheal Tube: oral;endotracheal tube 7.5 11/19/24 -- -- 1 Urinary Catheter ICU unstable hemodynamics 11/19/24 2319 -- less than 1 Psychosocial Assessment Within Defined Limits except for: Psychosocial Assessment: Family Behavior: not present * Nursing Assessment - Charlotte Enriquez RN - 11/20/2024 4:00 AM CDT Nursing Assessment Head to Toe Head to Toe Assessment Shift Summary Shift Summary Neurologic/Cognitive Assessment Within Defined Limits except for: Motor Response: All Extremities - withdraws and medically sedated HEENT Assessment Within Defined Limits except for: Neck Symptoms: Swelling, localized Cardiac Assessment Within Defined Limits except for: Wheel Buffer - bedside telemetry Lead Monitored: Lead II ECG Rhythm: normal sinus rhythm Pacemaker: Pacemaker: No Respiratory Assessment Within Defined Limits except for: Respiratory Assessment: Respirations: Mechanical device Mechanical Device: Continuous; Ventilator Breath Sounds Normal: Breath sounds normal: No Sputum: Sputum is Present Amount: Scant Neurovascular Within Defined Limits Neurovascular LUE Radial Pulse: 3+ Neurovascular RUE Radial Pulse: 3+ Neurovascular LLE Pedal Pulse: 3+ Neurovascular RLE Pedal Pulse: 3+ Gastrointestinal Assessment Within Defined Limits except for: Abdominal appearance: Taut Genitourinary Assessment Within Defined Limits except for: Voiding: Urinary catheter in place Urine characteristics: , cloudy Musculoskeletal Assessment Within Defined Limits except for: Musculoskeletal Assessment: General Mobility: Generalized weakness Range of Motion: General - unable to assess Integumentary Assessment Within Defined Limits except for: Skin Assessment Integrity - see Avatar LDA documentation Patient Lines/Drains/Airways Status Active LDAs Name Placement date Placement time Site Days Peripheral IV 11/19/24 20 gauge;1 1/4 in length Anterior;Left Upper Arm 11/19/24 2234 -- less than 1 Peripheral IV 11/19/24 18 gauge Posterior;Right Hand 11/19/24 2241 -- less than 1 Peripheral IV 11/20/24 1 1/4 in length;18 gauge Anterior;Left Forearm 11/20/24 0138 -- less than 1 Endotracheal Tube: oral;endotracheal tube 7.5 11/19/24 -- -- 1 Urinary Catheter ICU unstable hemodynamics 11/19/24 2319 -- less than 1 Psychosocial Assessment Within Defined Limits except for: Psychosocial Assessment: Family Behavior: not present * Nursing Assessment - Charlotte Enriquez RN - 11/20/2024 12:00 AM CDT NURSING ADMISSION NOTE Dominick Lozoya : 1970 SEX: male D: Dominick Lozoya was admitted to MICU 3 [id number] from ED at 0000 for Minesh angina Anemia, unspecified type Elevated serum creatinine Hematuria, unspecified type Neck swelling. Patient: Intubated. Skin: Normal in appearance without lesions, rash or lacerations.Pain: MOLLY, sedated. BP 128/65 Pulse 81 Temp 36.4 ??C (97.5 ??F) Resp 22 Ht 1.829 m (6' 0.01) Wt 107 kg (235 lb 14.3 oz) SpO2 100% BMI 31.99 kg/m?? A: Pt oriented to unit, room, and use of call light. Routine admit screens completed. Patient on remote telemetry. R:PATIENT AND/OR FAMILY: patient was not able to verbalize understanding of unit policy and plan ofcare. Questions answered. Learning considerations: Other Intubated, sedated. P: Implement orders as received. Will continue to monitor, follow plan of care, and notify providerand/or team as needed. Charlotte Enriquez RN, 11/20/2024 4:04 AM Patient Belonging 11/20/2024 0140 Medications brought in by patient?: None Upon admission, a Four Eyes Skin Inspection was completed with Gustavo Baeza RN (Name & Title). Skininjuries were not present, and skin breakdown needing further assessment will be added to Avatar. Will implement interventions from Skin INJURY Bundle as appropriate. Charlotte Enriquez RN, 11/20/2024 4:06 AM * ED Stabilization Note - Melissa Collins MD - 11/19/2024 11:44 PM CDT Emergency Medicine Stabilization Room Note Dominick Lozoya 1970 Sex: male Patient Arrival Date and Time: 11/19/2024 10:36 [address] Tierney Stabilization Resident Melissa Collins MD, 11/19/2024 11:44 PM Pre-Hospital Events Dominick Lozoya is a 54 y.o. male presents to the stabilization room as a transfer from an outside hospital with concern for neck abscess and possible Ludwigs. Patient reports a few days of symptoms prior to this. Reports he feels like his tongue swelling is getting worse and feels like his voice ismuffled. No difficulty breathing. Patient also reports two years of hematuria with no urinary symptoms and no bleeding elsewhere. Hasnot been evaluated for this. Denies AC use. Does not know if he has any other medical problems including renal disease or diabetes. Patient received Unasyn and 1L IVF at the outside hospital. Review of additional history is limited due to patient's acute illness Primary Survey Airway: Somewhat patent, protecting Breathing: Non-labored, symmetric chest rise Circulation: Skin warm. Radial pulses. Disability: GCS 15 Exposure: Clothing removed. Vital Signs BP 151/78 Pulse 91 Temp 36.7 ??C (98.1 ??F) (Oral) Resp 11 Wt 107.7 kg (237 lb 7 oz) PaS627% Please seen flowsheet for additional vitals. Secondary Survey General: In no acute distress Head: Atraumatic. Eyes: Normal conjunctiva and sclera. HENT: Moist membranes. Tongue swollen and floor of mouth elevated but soft. Mild uvular edema. Mildmuffled voice. Right submandibular erythema. No tonsillar exudates. No pain with tracheal rocking. Neck supple. Neck: Supple. Trachea midline. Cardio: Regular rate and rhythm. Appears well-perfused. No peripheral edema. Pulm: See primary survey GI: Soft, non-tender, non-distended. : Normal external genitalia MSK: No contractures, deformities or cyanosis. Neuro: EOMI. Moving all extremities spontaneously. Face symmetric. Normal speech. Skin: No rashes, lesions or bruising. Skin warm/dry Psych: Exam limited d/t acuity of patient's condition Review of Systems Review of systems limited by patient's acute illness Code Status I am unaware of any advanced directive wishes of this patient prior to treatment of this patient. Procedures I performed the following procedures: Adult Medical Resuscitation Stabilization Room Events / Medical Decision Making / Disposition Dominick Lozoya is a 54 y.o. male presenting as a transfer from an outside hospital with concern forpossible Minesh's angina. As the patient arrived to the stabilization room, report was taken from EMS. Patient transferred to STAB cart. Primary survey completed while patient placed on oximetry, cardiac monitoring, and cuff blood pressure monitoring. Intravenous access established and initial blood tests sent. Secondary survey completed Patient protecting his airway on arrival although voice was muffled and patient was desatting to the mid-80s when sleeping- while there may be a component of RULA, concern that his swelling is causingsignificant obstruction; discussed plan for intubation with patient who was amenable. Nasopharyngoscopy performed to ensure safety of oral approach. Bedside US with grossly preserved EF. CXR confirmed ETT placement and was otherwise unremarkable Labs notable for Hgb 6-likely secondary to his chronic hematuria. Ct also 4.5- unknown baseline given patient does not utilize the healthcare system much, but could suspect decreased PO intake with current infection. Given another liter of fluids. OMFS was consulted with plan for repeat CT neck as outside imaging unable to be seen. Plan to admit patient to MICU Report was called to the admitting team. Patient was transferred to their inpatient bed without complication from CT Clinical Impression 1. Minesh angina 2. Anemia, unspecified type 3. Elevated serum creatinine 4. Hematuria, unspecified type Disposition MICU Melissa Collins MD, 11/19/2024 11:44 PM Emergency Medicine Resident, PGY-3 * ED Faculty Note - Kelsie Tierney MD - 11/19/2024 10:37 PM CDT Images from the original note were not included. ED Faculty Attestation and Note Dominick Lozoya : 1970 Sex: male Patient Arrival Date and Time: 11/19/2024 10:36 PM FACULTY ATTESTATION IKelsie MD, personally saw the patient, performed critical or suarez portions of the service, and discussed the care with the resident HPI / PERTINENT EXAM Dominick Lozoya presented to the emergency department for evaluation of dental infection. Per OSH, the patient has not been seen by medical staff in more than 20 years. He arrived to their ED after one week of right side toothache. Apparent abscess per staff from CT neck. Patient vomited upon arrival to [facility], no emesis since that time. He reports peeing blood off and on for 2 years and was found to have a HGB of 6.7, has not received any pRBC. They also noted that UTI was identified. The patient has had some intermittent suprapubic abdominal pain for the past several months, without any unilateral lower abdominal pain or flank pain. At OSH found to have creatinine of 4.0 without known baseline since he does not doctor regularly. He was given Unasyn and ceftriaxone prior to transfer. Pertinent exam findings: BP 187/96 Pulse (!) 107 Temp 36.7 ??C (98.1 ??F) (Oral) Resp (!) 28 Wt 107.7 kg (237 lb 7 oz) SpO2 (!) 91% Airway: Patent, protecting Breathing: Non-labored, symmetric chest rise Circulation: Skin warm. Radial pulses strong. Disability: GCS 15 (4 - Opens eyes spontaneously; 5 - Oriented, converses normally; 6 - Obeys commands) Exposure: Clothing removed. Pertinent secondary exam findings: TTP right lower submandibular space, with woody feeling that does not cross the midline. Floor of the mouth is elevated but soft. No stridor or respiratory distress. Normal phonation of the voice. ED COURSE / MDM Current labs and images reviewed and interpreted: ED Course as of 11/19/24 2324 Sat November 19, 2024 2245 s/p Unasyn and ceftriaxone at OSH 2300 PH Rio: 7.34 2300 PCO2 Rio(!): 29 2300 Bicarb Rio(!): 15 2300 ED INR(!): 1.3 2305 Hgb(!!): 6.4 2305 Lactate: 1.2 2305 Creatinine(!): 4.55 2305 Glucose(!): 117 2305 Sodium: 141 2305 Potassium: 4.3 Summary of patient's ED course: Several acute and possible chronic medical conditions going on at this time. In regard to his Minesh's, CREAM DIPPER scope with normal vocal cords with full space at the base ofthe tongue; given he was quite anxious and with anxiolysis and analgesia he was sleeping and then likely has component of RULA plus obstruction given his dental infection, intubated for airway protection. CT neck and CAP obtained for further evaluation of both his Minesh's and hematuria with elevated creatinine and anemia, results pending at the time of admission to the MICU. Critical Care Time: Upon my evaluation, this patient had a high probability of imminent life or limb-threatening deterioration due to airway compromise and anemia requiring blood transfusion, which required my highest level of preparedness to intervene emergently, and I spent this critical care time directly and personally managing the patient. I have personally provided 65 minutes of critical care time exclusive of time spent on separately billable procedures, treating other patients, or teaching time. Time includes obtaining history, examining the patient, ordering and review of studies, fluid resuscitation, pharmacotherapy including (see MAR), ventilator management, blood transfusion, pulse oximetry, review of laboratory data, interpretation of radiology studies, ECG interpretation, frequent reassessment, monitoring for potential decompensation, discussion with consultants, and admission. This critical care time was performed to assess and manage the high probability of imminent deterioration that could result in respiratory failure, cardiac faliure, and Trauma Team: Not activated. IMPRESSION / DISPOSITION 1. Minesh angina 2. Anemia, unspecified type 3. Elevated serum creatinine 4. Hematuria, unspecified type The patient was admitted into the care of the MICU team, in stable condition. Kelsie Tierney MD Physician, Emergency Department 11/19/2024 22:37 documented in this encounter Plan of Treatment Upcoming Encounters Date Type Department Care Team (Late st Contact Info) Description 12/08/2024 8:30 AM CDT Office [facility] [address] [address] 15, [facility] [address] [place] [address] Scheduled Discharge Disposition: Discharged to home or self care Scheduled Procedures Name Priority Associated Diagnoses Date/Ti me URETEROSCOPY, FLEXIBLE Semi-Urgent (< 2 wks) Renal mass, left documented as of this encounter Procedures Procedure Name Priority Date/Time Associated Diagnosis Comments DEN XRAY DIG AND PANOREX Routine 025 1:57 PM CDT Encounter for dental examination DEN XRAY DIG AND PANOREX Routine 025 1:17 PM CDT Encounter for dental examination POC GLUCOSE Routine 11/23/2024 12:07 PM CDT POC GLUCOSE Routine 11/23/2024 5:36 AM CDT PC LAB MAGNESIUM Routine 11/23/2024 5:10 AM CDT PC LAB PHOSPHOROUS SERUM Routine 025 5:10 AM CDT PC LAB CBC W/DIFF & PLT Routine 11/24/19 5:10 AM CDT PC LAB BASIC METABOLIC PANEL Routine 11/23/2024 5:10 AM CDT TC LAB BLOOD DRAW BY VENIPUNCTURE Routine 11/23/2024 5:10 AM CDT POC GLUCOSE Routine 11/23/2024 12:11 AM CDT POC GLUCOSE Routine 11/22/2024 5:59 PM CDT POC GLUCOSE Routine 11/22/2024 11:06 AM CDT PC LAB MB MRSA SURVEILLANCE SCREEN Routine 11/22/2024 9:46 AM CDT PC LAB BLOOD GASES Routine 11/22/2024 6: 45 AM CDT POC GLUCOSE Routine 11/22/2024 5:55 AM CDT PC LAB MAGNESIUM Routine 11/22/2024 4:52 AM CDT PC LAB PHOSPHOROUS SERUM Routine 025 4:52 AM CDT TC LAB BLOOD DRAW BY VENIPUNCTURE Routine 11/22/2024 4:52 AM CDT PC LAB BASIC METABOLIC PANEL Routine 11/22/2024 4:52 AM CDT POC GLUCOSE Routine 11/21/2024 11:51 PM CDT EKG ADULT (12-LEAD) Routine 11/21/2024 9 :22 PM CDT POC GLUCOSE Routine 11/21/2024 6:11 PM CDT POC GLUCOSE Routine 11/21/2024 12:05 PM CDT PC LAB BLOOD GASES Routine 11/21/2024 7: 02 AM CDT PC LAB MAGNESIUM Routine 11/21/2024 7:01 AM CDT PC LAB PHOSPHOROUS SERUM Routine 025 7:01 AM CDT TC LAB BLOOD DRAW BY VENIPUNCTURE Routine 11/21/2024 7:01 AM CDT PC LAB BASIC METABOLIC PANEL Routine 11/21/2024 7:01 AM CDT PANEL HEPATIC FUNCTION Routine 7:01 AM CDT PC LAB HEMOGLOBIN; GLYCOSYLATED (A1C) Routine 11/21/2024 7:01 AM CDT POC GLUCOSE Routine 11/21/2024 6:07 AM CDT POC GLUCOSE Routine 11/20/2024 11:46 PM CDT POTASSIUM Timed 11/20/2024 11:19 PM CDT HEMOGLOBIN Timed 11/20/2024 11:19 PM CDT PANEL BASIC METABOLIC (BMP) Timed 11/20/2024 7:09 PM CDT MAGNESIUM Timed 11/20/2024 7:09 PM CDT POC GLUCOSE Routine 11/20/2024 6:08 PM CDT HEMOGLOBIN Timed 11/20/2024 2:09 PM CDT POC GLUCOSE Routine 11/20/2024 11:[address] NECK WITH IV CONTRAST Today 025 10:45 AM CDT TRANSFUSE RED BLOOD CELLS (BLOOD ADMIN) Routine 11/20/2024 9:19 AM CDT RED BLOOD CELLS LEUKOCYTE REDUCED ADULT (BLOOD ADMIN) Routine 11/20/2024 9:11 AM CDT HEMOGLOBIN Timed 11/20/2024 8:21 AM CDT POC GLUCOSE Routine 11/20/2024 6:35 AM CDT TRANSFUSE RED BLOOD CELLS (BLOOD ADMIN) Routine 11/20/2024 5:44 AM CDT PC LAB BLOOD GASES Routine 11/20/2024 5: 39 AM CDT RED BLOOD CELLS LEUKOCYTE REDUCED ADULT (BLOOD ADMIN) Routine 11/20/2024 5:38 AM CDT PC LAB MAGNESIUM Routine 11/20/2024 5:11 AM CDT PC LAB LACTATE (LACTIC ACID) Routine 11/20/2024 5:11 AM CDT PC LAB PHOSPHOROUS SERUM Routine 025 5:11 AM CDT PC LAB CBC W/DIFF & PLT Routine 11/21/19 25 5:11 AM CDT PC LAB BASIC METABOLIC PANEL Routine 11/20/2024 5:11 AM CDT PC LAB CYSTATIN C Routine 11/20/2024 5:1 1 AM CDT RBC FOLATE Routine 11/20/2024 5:11 AM CDT TRANSFERRIN (INCLUDES TIBC) Routine 11/20/2024 5:11 AM CDT IRON Routine 11/20/2024 5:11 AM CDT FERRITIN Routine 11/20/2024 5:11 AM CDT PC LAB CULTURE, BACTERIAL; BLOOD, AEROBIC AND ANAEROBIC STAT 11/20/2024 5:11 AM CDT VITAMIN B12 Routine 11/20/2024 5:11 AM CDT HEMOGLOBIN Timed 11/20/2024 4:37 AM CDT PC LAB SMEAR, PRIMARY SOURCE; GRAM OR GIEMSA Routine 11/20/2024 3:14 AM CDT PC TROPONIN QUANTITATIVE Timed 025 1:02 AM CDT PC LAB MB MRSA SURVEILLANCE SCREEN Routine 11/20/2024 1:02 AM CDT TRANSFERRIN (INCLUDES TIBC) Routine 11/20/2024 1:02 AM CDT RETIC COUNT Routine 11/20/2024 1:02 AM CDT IRON Routine 11/20/2024 1:02 AM CDT FERRITIN Routine 11/20/2024 1:02 AM CDT CK, TOTAL Routine 11/20/2024 1:02 AM CDT VITAMIN B12 Routine 11/20/2024 1:02 AM CDT TRANSFUSE RED BLOOD CELLS (BLOOD ADMIN) STAT 11/20/2024 12:32 AM CDT RED BLOOD CELLS LEUKOCYTE REDUCED ADULT (BLOOD ADMIN) STAT 11/20/2024 12:26 AM CDT PC LAB BLOOD GASES STAT 11/20/2024 12 :[address] OUTSIDE READ SPINE CERVICAL/NECK Routine 11/20/2024 12:[address] CHEST/ABD/PELVIS W/IV CONT STAT 11/19/2024 11:46 PM CDT NASOPHARYNGOSCOPY Routine 11/19/2024 11: 42 PM CDT PF INSERT EMERGENCY ENDOTRACH AIRWAY Routine 11/19/2024 11:41 PM CDT PC LAB LEGIONELLA PNEUMOPHILA ANTIGEN Routine 11/19/2024 11:30 PM CDT PC LAB PROTEIN, TOTAL, URINE Routine 11/19/2024 11:30 PM CDT URINE DRUG SCREEN Routine 11/19/2024 11: 30 PM CDT URINE CULTURE STAT 11/19/2024 11:30 PM CDT PC LAB URINALYSIS , BY DIPSTICK, AUTOMATED WITH MICROSCOPY STAT 11/19/2024 11:30 PM CDT PC LAB SODIUM; URINE Routine 11/19/2024 11:30 PM CDT XR CHEST 1 VIEW AP OR PA* STAT 2024 11:24 PM CDT ED EKG (12-LEAD) Routine 11/19/2024 11:2 2 PM CDT NG/OG TUBE Routine 11/19/2024 11:15 PM CDT PC LAB CULTURE, BACTERIAL; BLOOD, AEROBIC AND ANAEROBIC STAT 11/19/2024 10:52 PM CDT PC LAB ED INR STAT 11/19/2024 10:45 PM CDT PC LAB PROCALCITONIN Routine 11/19/2024 10:45 PM CDT TC LAB BLOOD DRAW BY VENIPUNCTURE Routine 11/19/2024 10:45 PM CDT PC LAB HIV-1 ANTIGENS, WITH HIV-1 AND HIV-2 ANTIBODIES, SINGLE RESULT Routine 11/19/2024 10:45 PM CDT PC TROPONIN QUANTITATIVE STAT 025 10:45 PM CDT PC LAB ELECTROLYTE PANEL STAT 025 10:45 PM CDT PC LAB CBC W/DIFF & PLT STAT 11/20/19 25 10:45 PM CDT TC LAB ER STAT TOTAL HGB STAT 05/17/2 025 10:45 PM CDT BUN (UREA NITROGEN) Routine 11/19/2024 1 0:45 PM CDT PANEL HEPATIC FUNCTION STAT 10:45 PM CDT PC LAB LACTATE (LACTIC ACID) STAT 11/19/2024 10:45 PM CDT PC LAB BLOOD GASES STAT 11/19/2024 10 :45 PM CDT FIBRINOGEN STAT 11/19/2024 10:45 PM CDT ETHANOL (ETOH) LEVEL, BLOOD STAT 11/19/2024 10:45 PM CDT C-REACTIVE PROTEIN Routine 11/19/2024 10 :45 PM CDT PC LAB ANTIBODY SCREEN, RBC STAT 11/19/2024 10:45 PM CDT PC LAB THROMBOPLASTIN TIME, PARTIAL PTT STAT 11/19/2024 10:45 PM CDT PC LAB RH TYPE GEL STAT 11/19/2024 10 :45 PM CDT ED US CRITICAL CARE STAT 11/19/2024 1 0:37 PM CDT documented in this encounter Results * DEN XRAY DIG AND PANOREX (11/23/2024 1:57 PM CDT) Narrative User, [id number] - 11/23/2024 1:57 PM CDT This dental x-ray was obtained to evaluate and treat. Please look in Chart Review under Notes/Trans tab for the Procedure Notes for this visit. Gentry Bob DDS DENTAL XRAY Final R esult * DEN XRAY DIG AND PANOREX (11/23/2024 1:17 PM CDT) Narrative User, [email or web address] - 11/23/2024 1:17 PM CDT This dental x-ray was obtained to evaluate and treat. Please look in Chart Review under Notes/Trans tab for the Procedure Notes for this visit. Gentry Bob DDS DENTAL XRAY Final R esult * (ABNORMAL) POC GLUCOSE (11/23/2024 12:07 PM CDT) POC Glucose 112(H) 70 - 100 mg/dL [facility] Blood 11/23/2024 12:0 7 PM CDT Kelsie Tierney MD LABORATORY Final Result Performing Organization Address City/[facility]/ZIP Co de Phone Number [facility] [place] [address], [place] * POC GLUCOSE (11/23/2024 5:36 AM CDT) POC Glucose 93 70 - 100 mg/dL [facility] Blood 11/23/2024 5:36 AM CDT Kelsie Tierney MD LABORATORY Final Result Performing Organization Address City/[facility]/ZIP Co de Phone Number [facility] POINT [address] [address], [place] * ICU PHOSPHORUS (11/23/2024 5:10 AM CDT) Phosphorus 4.5 2.5 - 4.5 mg/dL [facility] Blood 11/23/2024 5:10 AM CDT 11/23/2024 5:22 AM CDT Justin Morris MD LABORATORY Final Result [facility] [address] [address] * (ABNORMAL) ICU PANEL BASIC METABOLIC (BMP) (11/23/2024 5:10 AM CDT) CO2 15(L) 22 - 30 mmol/L [facility] Glucose 98 70 - 100 mg/dL [facility] BUN 68(H) 6 - 20 mg/dL [facility] Creatinine 3.17(H) 0.70 - 1.25 mg/dL [facility] Calcium 8.2(L) 8.6 - 10.0 mg/dL [facility] Sodium 141 135 - 148 mmol/L [facility] Potassium 4.2 3.5 - 5.3 mmol/L [facility] Chloride 112(H) 92 - 108 mmol/L [facility] eGFR (2020 CKD-EPI) 23(L) >=60 ml/min/1.7 3m2 [facility] Comment: The estimated glomerular filtration rate (eGFR) was calculated using the CKD-EPI 2020 creatinine equation, which does not include race as a factor. This equation is validated in individuals 18 years of age and older, and eGFR is normalized to a body surface area of 1.73m^2. AnGap 14 8 - 16 mmol/L [facility] Blood 11/23/2024 5:1 0 AM CDT 11/23/2024 5:22 AM CDT Justin Morris MD LABORATORY Final Result [facility] [address] [address] * ICU MAGNESIUM (11/23/2024 5:10 AM CDT) Pathologist [facility] Magnesium 2.4 1.6 - 2.6 mg/dL [facility] Blood 11/23/2024 5:10 AM CDT 11/23/2024 5:22 AM CDT Justin Morris MD LABORATORY Final Result [facility] [address] [address] * (ABNORMAL) ICU CBC WITH PLTS/AUTO DIFF (11/23/2024 5:10 AM CDT) Pathologist [facility] WBC 20.60(H) 4.00 - 10.00 k/cmm [facility] RBC 3.56(L) 4.60 - 6.00 m/cmm [facility] Hgb 7.9(L) 13.1 - 17.5 g/dL [facility] Hematocrit 25.5(L) 40.0 - 51.0 % [facility] MCV 71.6(L) 80.0 - 100.0 fL [facility] MCH 22.2(L) 25.0 - 32.0 pg [facility] MCHC 31.0 31.0 - 36.0 g/dL [facility] RDW 20.1(H) 11.5 - 14.5 % [facility] Plt 338 150 - 400 k/cmm [facility] MPV 8.8 6.5 - 12.5 fL [facility] Automated Abs Neutrophil 15.24(H) 1.70 - 6.50 k/cmm [facility] Comment:Preliminary ANC, Fin al Result to Follow Abs Immature Granulocyte 0.94(H) 0.00 - 0.09 k/cmm [facility] Comment:The Immature Granulo cyte Absolute count contains metamyelocytes and myelocytes. Abs Neutrophil 15.24(H) 1.70 - 6.50 k/cmm [facility] Abs Lymphocyte 2.47 0.80 - 4.00 k/cmm [facility] Abs Monocyte 1.85(H) 0.20 - 1.00 k/cmm [facility] Abs Eosinophil 0.03 0.00 - 0.60 k/cmm [facility] Abs Basophil 0.07 0.00 - 0.20 k/cmm [facility] Blood 11/23/2024 5:10 AM CDT 11/23/2024 5:22 AM CDT us Justin Morris MD LABORATORY Edited Resul t - Final [facility] [address] [place] [phone] * (ABNORMAL) CYSTATIN C (11/23/2024 5:10 AM CDT) Cystatin C 2.57(H) 0.61 - 0.95 mg/L [facility] eGFR by Cystatin C 23(L) >=60 ml/min/1.7 3m2 [facility] Comment: Estimated GFR calculated using the CKD-EPI Cystatin C (2012) equation. Stage Description eGFR Range 1.......Normal or increased eGFR.......90 or Greater 2.......Mildly decreased eGFR..........60-89 3.......Moderately decreased eGFR......30-59 4.......Severely decreased eGFR........15-29 5.......Kidney Failure.................Less than 15 Blood 11/23/2024 5:10 AM CDT 11/23/2024 7:17 AM CDT Freda Clark MD LABORATORY Final Result Performing Organization Address City/[facility]/ZIP Co de Phone Number [facility] [address] [address] * POC GLUCOSE (11/23/2024 12:11 AM CDT) POC Glucose 98 70 - 100 mg/dL [facility] Blood 11/23/2024 12:1 1 AM CDT Kelsie Tierney MD LABORATORY Final Result Performing Organization Address City/[facility] Co de Phone Number [facility] [address] [place] [phone], [place] * (ABNORMAL) POC GLUCOSE (11/22/2024 5:59 PM CDT) POC Glucose 163(H) 70 - 100 mg/dL [facility] Blood 11/22/2024 5:59 PM CDT Kelsie Tierney MD LABORATORY Final Result Performing Organization Address City/[facility]/ZIP Co de Phone Number [facility] [address] [place] [phone], [place] * (ABNORMAL) POC GLUCOSE (11/22/2024 11:06 AM CDT) POC Glucose 128(H) 70 - 100 mg/dL [facility] Blood 11/22/2024 11:0 6 AM CDT Kelsie Tierney MD LABORATORY Final Result Performing Organization Address City/[facility]/ZIP Co de Phone Number [facility] [address] [place] [address] * MRSA SURVEILLANCE SCREEN (11/22/2024 9:46 AM CDT) Pathologist [facility] Final Report No MRSA isolated. [facility] Swab NASAL STRUCTURE / Unknown 11/22/2024 9:46 AM CDT 11/22/2024 11:59 AM CDT Narrative [facility] - 11/24/2024 10:47 AM CDT Weekly Monitoring while in ICU - Discontinue MRSA order if patient becomes positive or is no longer in ICU. Kelsie Tierney MD LAB MICROBIOLOGY Final Result Performing Organization Address [facility] Co de Phone Number [facility] [address] [address] * (ABNORMAL) ICU BLOOD GAS (11/22/2024 6:45 AM CDT) PH Art 7.33(L) 7.35 - 7.45 [facility] PCO2 Art 31(L) 35 - 45 mmHG [facility] PO2 Art 260(H) 80 - 100 mmHG [facility] Bicarb Art 16(L) 22 - 26 mEq/L [facility] O2 Sat Art 99 96 - 99 % [facility] Base Exc Art -8.3 -10.0 - 2.0 mmol/L [facility] Blood Arterial 11/22/2024 6: 45 AM CDT 11/22/2024 6:58 AM CDT Justin Morris MD LABORATORY Final Result Performing Organization Address City/[facility]/ZIP Co de Phone Number [facility] [address] [address] * (ABNORMAL) POC GLUCOSE (11/22/2024 5:55 AM CDT) [facility] POC Glucose 154(H) 70 - 100 mg/dL [facility] Blood 11/22/2024 5:55 AM CDT Kelsie Tierney MD LABORATORY Final Result Performing Organization Address [facility]/ZIP Co de Phone Number [facility] [address] [place] [phone], * (ABNORMAL) ICU PHOSPHORUS (11/22/2024 4:52 AM CDT) [facility] Phosphorus 7.3(H) 2.5 - 4.5 mg/dL [facility] Blood 11/22/2024 4:52 AM CDT 11/22/2024 5:38 AM CDT Justin Morris MD LABORATORY Final Result Performing Organization Address [facility] Co de Phone Number [facility] [address] [address] * (ABNORMAL) ICU PANEL BASIC METABOLIC (BMP) (11/22/2024 4:52 AM CDT) [facility] Sodium 145 135 - 148 mmol/L [facility] Potassium 4.9 3.5 - 5.3 mmol/L [facility] Chloride 116(H) 92 - 108 mmol/L [facility] CO2 16(L) 22 - 30 mmol/L [facility] AnGap 13 8 - 16 mmol/L [facility] Glucose 160(H) 70 - 100 mg/dL [facility] BUN 64(H) 6 - 20 mg/dL [facility] Creatinine 3.25(H) 0.70 - 1.25 mg/dL [facility] Calcium 8.7 8.6 - 10.0 mg/dL [facility] eGFR (2020 CKD-EPI) 22(L) >=60 ml/min/1.7 3m2 [facility] Comment: The estimated glomerular filtration rate (eGFR) was calculated using the CKD-EPI 2020 creatinine equation, which does not include race as a factor. This equation is validated in individuals 18 years of age and older, and eGFR is normalized to a body surface area of 1.73m^2. Blood 11/22/2024 4:52 AM CDT 11/22/2024 5:38 AM CDT Justin Morris MD LABORATORY Edited Resul t - Final Performing Organization Address [facility] Co de Phone Number [facility] [place] [phone] * ICU MAGNESIUM (11/22/2024 4:52 AM CDT) Magnesium 2.5 1.6 - 2.6 mg/dL [facility] Blood 11/22/2024 4:52 AM CDT 11/22/2024 5:38 AM CDT Justin Morris MD LABORATORY Final Result Performing Organization Address [facility] de Phone Number THE [facility] [place] [id number] * (ABNORMAL) ICU CBC WITH PLTS/AUTO DIFF (11/22/2024 4:52 AM CDT) WBC 14.70(H) 4.00 - 10.00 k/cmm [facility] RBC 3.47(L) 4.60 - 6.00 m/cmm [facility] Hgb 7.8(L) 13.1 - 17.5 g/dL [facility] Hematocrit 25.4(L) 40.0 - 51.0 % [facility] MCV 73.2(L) 80.0 - 100.0 fL [facility] MCH 22.5(L) 25.0 - 32.0 pg [facility] MCHC 30.7(L) 31.0 - 36.0 g/dL [facility] RDW 19.7(H) 11.5 - 14.5 % [facility] Plt 288 150 - 400 k/cmm [facility] MPV 9.2 6.5 - 12.5 fL [facility] Automated Abs Neutrophil 12.96(H) 1.70 - 6.50 k/cmm [facility] Comment:Preliminary ANC, Fin al Result to Follow Abs Immature Granulocyte 0.20(H) 0.00 - 0.09 k/cmm [facility] Comment:The Immature Granulo cyte Absolute count contains metamyelocytes and myelocytes. Abs Neutrophil 12.96(H) 1.70 - 6.50 k/cmm [facility] Abs Lymphocyte 0.98 0.80 - 4.00 k/cmm [facility] Abs Monocyte 0.54 0.20 - 1.00 k/cmm [facility] Abs Eosinophil 0.00 0.00 - 0.60 k/cmm [facility] Abs Basophil 0.02 0.00 - 0.20 k/cmm [facility] Blood 11/22/2024 4:52 AM CDT 11/22/2024 5:38 AM CDT Justin Morris MD LABORATORY Edited Resul t - Final Performing Organization Address City/[facility]/ZIP Co de Phone Number [facility] [place] [address] * (ABNORMAL) POC GLUCOSE (11/21/2024 11:51 PM CDT) POC Glucose 141(H) 70 - 100 mg/dL [facility] Blood 11/21/2024 11:5 1 PM CDT us Kelsie Tierney MD LABORATORY Final Result Performing Organization Address City/[facility]/ZIP Co de Phone Number [facility] [address] [place] [address], * EKG ADULT (12-LEAD) (11/21/2024 9:22 PM CDT) 11/21/2024 9:22 PM CDT Impressions [facility] CVIS EKG ORDERS - 11/21/2024 9:22 PM CDT Technically Poor Quality. BASELINE ARTIFACT. SINUS RHYTHM POSSIBLE LEFT ATRIAL ENLARGEMENT [-0.1mV P-WAVE IN V1/V2] NONSPECIFIC T-WAVE ABNORMALITY ABNORMAL ECG WARNING: DATA QUALITY MAY AFFECT INTERPRETATION Compared with: 11/19/2024 11:22 PM Comparison Summary: Significant artifact prevents interpretation of V4-V6 P-R Interval 176 ms QRS Interval 104 ms QT Interval 388 ms QTC Interval 435 ms P Wilburn -1 QRS Wilburn 58 T Wave Wilburn -19 Narrative Procedure Note Mickey Jenkins III, MD - 11/22/2024 IMPRESSION Technically Poor Quality. BASELINE ARTIFACT. SINUS RHYTHM POSSIBLE LEFT ATRIAL ENLARGEMENT [-0.1mV P-WAVE IN V1/V2] NONSPECIFIC T-WAVE ABNORMALITY ABNORMAL ECG WARNING: DATA QUALITY MAY AFFECT INTERPRETATION Compared with: 11/19/2024 11:22 PM Comparison Summary: Significant artifact prevents interpretation ofV4-V6 P-R Interval 176 ms QRS Interval 104 ms QT Interval 388 ms QTC Interval 435 ms P Wilburn -1 QRS Wilburn 58 T Wave Wilburn -19 us Justin Morris MD EKG Final Result Performing Organization Address [facility] Co de Phone Number [facility] CVIS EKG ORDERS * (ABNORMAL) POC GLUCOSE (11/21/2024 6:11 PM CDT) POC Glucose 130(H) 70 - 100 mg/dL [facility] Blood 11/21/2024 6:11 PM CDT us Kelsie Tierney MD LABORATORY Final Result Performing Organization Address [facility]/ZIP Co de Phone Number [facility] [address] [place] [address], [place] * (ABNORMAL) POC GLUCOSE (11/21/2024 12:05 PM CDT) POC Glucose 155(H) 70 - 100 mg/dL [facility] Blood 11/21/2024 12:0 5 PM CDT Kelsie Tierney MD LABORATORY Final Result Performing Organization Address [facility] Co de Phone Number [facility] [address] [place] [address], [place] * (ABNORMAL) BLOOD GASES (11/21/2024 7:02 AM CDT) PH Rio 7.27(L) 7.32 - 7.42 [facility] PCO2 Rio 40(L) 41 - 51 mmHG [facility] PO2 Rio 68(H) 25 - 40 mmHG [facility] Bicarb Rio 18(L) 24 - 28 mEq/L [facility] O2 Sat Rio 87 % [facility] Base Exc Rio -8.2 -10.0 - 2.0 mmol/L [facility] Blood Venous 11/21/2024 7:02 AM CDT 11/21/2024 7:24 AM CDT Justin Morris MD LABORATORY Final Result Performing Organization Address [facility] de Phone Number [facility] [address] [address] * (ABNORMAL) PANEL HEPATIC FUNCTION (11/21/2024 7:01 AM CDT) Pathologist [facility] Total Protein 7.1 6.4 - 8.3 g/dL [facility] Albumin 3.0(L) 3.8 - 5.1 g/dL [facility] Bili Total 0.3 <=1.2 mg/dL [facility] Bili Direct 0.2 <=0.3 mg/dL [facility] Alk Phos 75 40 - 129 IU/L [facility] Comment:No reference range e stablished for patients <18 years old. ALT (SGPT) 13 <=41 IU/L [facility] AST(SGOT) 19 5 - 40 IU/L [facility] Blood 11/21/2024 7:01 AM CDT 11/21/2024 11:23 PM CDT Justin Morris MD LABORATORY Final Result Performing Organization Address City/[facility] Co de Phone Number [facility] [address] [address] * (ABNORMAL) GLYCOSYLATED HGB - A1C (11/21/2024 7:01 AM CDT) Hemoglobin A1C 6.2(H) 4.0 - 5.6 % [facility] Comment: Increased risk for diabetes (prediabetes): 5.7-6.4% Diabetes >=6.5% In the absence of unequivocal hyperglycemia, diagnosis requires two abnormal test results (i.e. HbA1c and glucose) or two abnormal results from specimens collected at two different timepoints. The presence of some hemoglobin variants or red cell disorders may interfere with the measurement of hemoglobin A1c (HbA1c). Estimated Average Glucose 131(H) 68 - 114 mg/dL [facility] Comment: The estimated Average Glucose (eAG) was calculated using an equation derived from a study of 507 adults with type 1, type 2, or no diabetes. Minority populations were underrepresented and children were not included. The eAG is not equivalent to a fasting glucose concentration. Blood 11/21/2024 7:01 AM CDT 11/21/2024 7:25 AM CDT Justin Morris MD LABORATORY Final Result Performing Organization Address City/[facility]/ZIP Co de Phone Number [facility] [address] [address] * ICU PHOSPHORUS (11/21/2024 7:01 AM CDT) Phosphorus 4.3 2.5 - 4.5 mg/dL [facility] Blood 11/21/2024 7:01 AM CDT 11/21/2024 7:25 AM CDT Justin Morris MD LABORATORY Final Result Performing Organization Address City/[facility]/ZIP Co de Phone Number [facility] [address] [address] * (ABNORMAL) ICU PANEL BASIC METABOLIC (BMP) (11/21/2024 7:01 AM CDT) Sodium 142 135 - 148 mmol/L [facility] Potassium 4.4 3.5 - 5.3 mmol/L [facility] Chloride 113(H) 92 - 108 mmol/L [facility] CO2 17(L) 22 - 30 mmol/L [facility] AnGap 12 8 - 16 mmol/L [facility] Glucose 153(H) 70 - 100 mg/dL [facility] BUN 61(H) 6 - 20 mg/dL [facility] Creatinine 3.42(H) 0.70 - 1.25 mg/dL [facility] Calcium 8.8 8.6 - 10.0 mg/dL [facility] eGFR (2020 CKD-EPI) 21(L) >=60 ml/min/1.7 3m2 [facility] Comment: The estimated glomerular filtration rate (eGFR) was calculated using the CKD-EPI 2020 creatinine equation, which does not include race as a factor. This equation is validated in individuals 18 years of age and older, and eGFR is normalized to a body surface area of 1.73m^2. Blood 11/21/2024 7:01 AM CDT 11/21/2024 7:25 AM CDT us Justin Morris MD LABORATORY Edited Resul t - Final Performing Organization Address City/[facility]/ZIP Co de Phone Number [address] [address] * ICU MAGNESIUM (11/21/2024 7:01 AM CDT) Magnesium 2.3 1.6 - 2.6 mg/dL [facility] Blood 11/21/2024 7:01 AM CDT 11/21/2024 7:25 AM CDT us Justin Morris MD LABORATORY Final Result Performing Organization Address [facility] Co de Phone Number [facility] [address] [address] * (ABNORMAL) ICU CBC WITH PLTS/AUTO DIFF (11/21/2024 7:01 AM CDT) WBC 12.67(H) 4.00 - 10.00 k/cmm [facility] RBC 3.60(L) 4.60 - 6.00 m/cmm [facility] Hgb 8.2(L) 13.1 - 17.5 g/dL [facility] Hematocrit 26.0(L) 40.0 - 51.0 % [facility] MCV 72.2(L) 80.0 - 100.0 fL [facility] MCH 22.8(L) 25.0 - 32.0 pg [facility] MCHC 31.5 31.0 - 36.0 g/dL [facility] RDW 19.2(H) 11.5 - 14.5 % [facility] Plt 312 150 - 400 k/cmm [facility] MPV 8.9 6.5 - 12.5 fL [facility] Automated Abs Neutrophil 11.62(H) 1.70 - 6.50 k/cmm [facility] Comment:Preliminary ANC, Fin al Result to Follow Abs Immature Granulocyte 0.09 0.00 - 0.09 k/cmm [facility] Comment:The Immature Granulo cyte Absolute count contains metamyelocytes and myelocytes. Abs Neutrophil 11.62(H) 1.70 - 6.50 k/cmm [facility] Abs Lymphocyte 0.74(L) 0.80 - 4.00 k/cmm [facility] Abs Monocyte 0.20 0.20 - 1.00 k/cmm [facility] Abs Eosinophil 0.00 0.00 - 0.60 k/cmm [facility] Abs Basophil 0.02 0.00 - 0.20 k/cmm [facility] Blood 11/21/2024 7:01 AM CDT 11/21/2024 7:25 AM CDT us Justin Morris MD LABORATORY Edited Resul t - Final Performing Organization Address [facility]/ZIP Co de Phone Number [facility] [place] [address] * (ABNORMAL) POC GLUCOSE (11/21/2024 6:07 AM CDT) POC Glucose 142(H) 70 - 100 mg/dL [facility] Blood 11/21/2024 6:07 AM CDT us Kelsie Tierney MD LABORATORY Final Result Performing Organization Address City/[facility]/ZIP Co de Phone Number [facility] [address] [place] [address], * POC GLUCOSE (11/20/2024 11:46 PM CDT) POC Glucose 93 70 - 100 mg/dL [facility] Blood 11/20/2024 11:4 6 PM CDT Kelsie Tierney MD LABORATORY Final Result Performing Organization Address City/[facility]/ZIP Co de Phone Number [facility] [address] [place] [address], [place] * POTASSIUM (11/20/2024 11:19 PM CDT) Potassium 4.8 3.5 - 5.3 mmol/L [facility] Blood 11/20/2024 11:1 9 PM CDT 11/20/2024 11:23 PM CDT Justin Morris MD LABORATORY Final Result Performing Organization Address [facility] Co de Phone Number [facility] [address] [address] * (ABNORMAL) HEMOGLOBIN (11/20/2024 11:19 PM CDT) Hgb 7.7(L) 13.1 - 17.5 g/dL [facility] Blood 11/20/2024 11:1 9 PM CDT 11/20/2024 11:23 PM CDT Justin Morris MD LABORATORY Final Result Performing Organization Address City/[facility]/ZIP Co de Phone Number [facility] [address] [address] * MAGNESIUM (11/20/2024 7:09 PM CDT) Magnesium 2.3 1.6 - 2.6 mg/dL [facility] Blood 11/20/2024 7:09 PM CDT 11/20/2024 7:17 PM CDT Justin Morris MD LABORATORY Final Result [facility] [address] [address] * (ABNORMAL) PANEL BASIC METABOLIC (BMP) (11/20/2024 7:09 PM CDT) Sodium 140 135 - 148 mmol/L [facility] Potassium 4.4 3.5 - 5.3 mmol/L [facility] Chloride 113(H) 92 - 108 mmol/L [facility] CO2 16(L) 22 - 30 mmol/L [facility] Glucose 88 70 - 100 mg/dL [facility] BUN 67(H) 6 - 20 mg/dL [facility] Creatinine 3.50(H) 0.70 - 1.25 mg/dL [facility] Calcium 8.3(L) 8.6 - 10.0 mg/dL [facility] AnGap 11 8 - 16 mmol/L [facility] eGFR (2020 CKD-EPI) 20(L) >=60 ml/min/1.7 3m2 [facility] Comment: The estimated glomerular filtration rate (eGFR) was calculated using the CKD-EPI 2020 creatinine equation, which does not include race as a factor. This equation is validated in individuals 18 years of age and older, and eGFR is normalized to a body surface area of 1.73m^2. Blood 11/20/2024 7:09 PM CDT 11/20/2024 7:17 PM CDT us Justin Morris MD LABORATORY Edited Resul t - Final Performing Organization Address [facility] Co de Phone Number [facility] [address] [address] * POC GLUCOSE (11/20/2024 6:08 PM CDT) POC Glucose 73 70 - 100 mg/dL [facility] Blood 11/20/2024 6:08 PM CDT us Kelsie Tierney MD LABORATORY Final Result Performing Organization Address [facility] Co de Phone Number [facility] [address] [place] [address], [place] * (ABNORMAL) HEMOGLOBIN (11/20/2024 2:09 PM CDT) Hgb 7.3(L) 13.1 - 17.5 g/dL [facility] Blood 11/20/2024 2:09 PM CDT 11/20/2024 2:12 PM CDT us Justin Morris MD LABORATORY Final Result Performing Organization Address City/[facility]/ZIP Co de Phone Number [facility] [address] [place] [id number] * POC GLUCOSE (11/20/2024 11:43 AM CDT) POC Glucose 96 70 - 100 mg/dL [facility] Blood 11/20/2024 11:4 3 AM CDT Kelsie Tierney MD LABORATORY Final Result Performing Organization Address [facility]/ZIP Co de Phone Number [facility] [address] [place] [address], [place] * TRANSFUSE RED BLOOD CELLS (BLOOD ADMIN) (11/20/2024 11:42 AM CDT) us Justin Morris MD BLOOD TRANSFUSION ORDERABLES (BLOOD ADMIN) Final Result * TRANSFUSE RED BLOOD CELLS (BLOOD ADMIN) (11/20/2024 11:42 AM CDT) us Justin Morris MD BLOOD TRANSFUSION ORDERABLES (BLOOD ADMIN) Final Result * CT NECK WITH IV CONTRAST (11/20/2024 10:45 AM CDT) Anatomical Region Laterality Modality Cervical Spine Computed Tomogra phy 11/20/2024 10:5 1 AM CDT Impressions 11/29/2024 12:11 PM CDT Impression: 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 This appears minimally increased compared to previous day exam, findings remain concerning for early Minesh angina. No appreciable soft tissue abscess. I have personally reviewed the image(s) and initial interpretation, and I agree with the findings as documented by the resident/fellow. Reading Radiologist: Edy Gutierrez Reading Resident: Richmond Avilez 11/29/2024 12:11 PM CDT Exam: CT neck with contrast, 11/20/2024 Indication: Neck mass, nonpulsatile minesh angina, interval CT Comparison: CT neck 11/19/2024 Dose Total DLP = 740.4 mGy.cm. Technique: Thin section axial images were obtained from the skull base down to the lung apex with 3mm slice thickness reconstruction. Coronal and sagittal reconstructions were performed. The examination was reviewed in soft tissue, bone, and lung windows. Findings: Moderate inflammation prominently the right side of the mandible with inflammatory extension into the soft tissues deep to the mandibular ramus. There is mild inflammation anterior neck soft tissues. Inflammatory extension along the inferior right neck soft tissues and trace along the left neck soft tissues, as well as tracking into the floor of the mouth, which appears stable to slightly increased compared to prior exam. Trace left inferior maxillary sinus mucosal thickening, otherwise the nasal sinuses are relatively clear. Clear mastoid air cells. Endotracheal and enteric tubes are present. Grossly normal orbits. Lung apices demonstrate posterior predominant platelike atelectasis and biapical scarring. No pneumothorax or focal consolidative opacity. Grossly normal thyroid. Scattered punctate tonsillar phleboliths are present. No major salivary gland abnormality. Numerous bilateral cervical lymph nodes, stable, likely reactive. Limited evaluation of the cervical vertebrae demonstrates multilevel neural foraminal stenosis, most significant at C3-C6 on the right where there is multilevel moderate stenosis. No significant spinal canal stenosis at any level. Procedure Note Edy Gutierrez MD - 11/29/2024 Exam: CT neck with contrast, 11/20/2024 Indication: Neck mass, nonpulsatile minesh angina, interval CT Comparison: CT neck 11/19/2024 Dose Total DLP = 740.4 mGy.cm. Technique: Thin section axial images were obtained from the skull basedown to the lung apex with 3mm slice thickness reconstruction. Coronal andsagittal reconstructions were performed. The examination was reviewed insoft tissue, bone, and lung windows. Findings: Moderate inflammation prominently the right side of the mandible withinflammatory extension into the soft tissues deep to the mandibular ramus.There is mild inflammation anterior neck soft tissues. Inflammatoryextension along the inferior right neck soft tissues and trace along theleft neck soft tissues, as well as tracking into the floor of the mouth,which appears stable to slightly increased compared to prior exam. Trace left inferior maxillary sinus mucosal thickening, otherwise thenasal sinuses are relatively clear. Clear mastoid air cells. Endotrachealand enteric tubes are present. Grossly normal orbits. Lung apices demonstrate posterior predominantplatelike atelectasis and biapical scarring. No pneumothorax or focalconsolidative opacity. Grossly normal thyroid. Scattered punctatetonsillar phleboliths are present. No major salivary gland abnormality.Numerous bilateral cervical lymph nodes, stable, likely reactive. Limited evaluation of the cervical vertebrae demonstrates multilevelneural foraminal stenosis, most significant at C3-C6 on the right wherethere is multilevel moderate stenosis. No significant spinal canalstenosis at any level. IMPRESSION Impression: Findings are suggestive of ongoing right-sided mandibular odontogenicinfection, with tracking into the simultaneous tissues as well as softtissues of the floor the mouth. This appears minimally increased comparedto previous day exam, findings remain concerning for early Minesh angina.No appreciable soft tissue abscess. I have personally reviewed the image(s) and initial interpretation, and Iagree with the findings as documented by the resident/fellow. Reading Radiologist: Edy Gutierrez Reading Resident: Richmond Avilez Justin Morris MD RAD CT NEURO Final Result * TRANSFUSE RED BLOOD CELLS (BLOOD ADMIN) (11/20/2024 9:24 AM CDT) Justin Morris MD BLOOD TRANSFUSION ORDERABLES (BLOOD ADMIN) Final Result * TRANSFUSE RED BLOOD CELLS (BLOOD ADMIN) (11/20/2024 9:24 AM CDT) Justin Morris MD BLOOD TRANSFUSION ORDERABLES (BLOOD ADMIN) Final Result * RED BLOOD CELLS LEUKOCYTE REDUCED ADULT (BLOOD ADMIN) (11/20/2024 9:11 AM CDT) Unit Number [id number] [facility] Product Code [id number] [facility] Blood Expiration Date [id number] [facility] Blood Type 6200 [facility] Blood Type (TEXT) APOS [facility] Other 11/20/2024 9:11 AM CDT 11/20/2024 8:59 AM CDT us Justin Morris MD BLOOD BANK ORDERABLES (BLOOD ADMIN) Edited Result - Final Performing Organization Address City/[facility]/ZIP Co de Phone Number [address] [address] * (ABNORMAL) HEMOGLOBIN (11/20/2024 8:21 AM CDT) Hgb 6.5(AA) 13.1 - 17.5 g/dL [facility] Blood 11/20/2024 8:21 AM CDT 11/20/2024 8:40 AM CDT Narrative [facility] - 11/20/2024 8:59 AM CDT Critical value for hgb electronically reported to and acknowledged by mateus rice md in micu at 11/20/2024 08:59:31 CDT by familia mcdonald [facility] Justin Morris MD LABORATORY Edited Resul t - Final [address] [address] * TRANSFUSE RED BLOOD CELLS (BLOOD ADMIN) (11/20/2024 6:44 AM CDT) us Kelsie Tierney MD BLOOD TRANSFUSION ORDERABLES (BL OOD ADMIN) Final Result * TRANSFUSE RED BLOOD CELLS (BLOOD ADMIN) (11/20/2024 6:44 AM CDT) us Kelsie Tierney MD BLOOD TRANSFUSION ORDERABLES (BL OOD ADMIN) Final Result * POC GLUCOSE (11/20/2024 6:35 AM CDT) POC Glucose 98 70 - 100 mg/dL [facility] Blood 11/20/2024 6:35 AM CDT us Kelsie Tierney MD LABORATORY Final Result Performing Organization Address [facility] Co de Phone Number [facility] [address] [place] [address], * (ABNORMAL) ICU BLOOD GAS (11/20/2024 5:39 AM CDT) PH Art 7.42 7.35 - 7.45 [facility] PCO2 Art 26(L) 35 - 45 mmHG [facility] PO2 Art 137(H) 80 - 100 mmHG [facility] Bicarb Art 17(L) 22 - 26 mEq/L [facility] O2 Sat Art 99 96 - 99 % [facility] Base Exc Art -6.7 -10.0 - 2.0 mmol/L [facility] Blood Arterial 11/20/2024 5: 39 AM CDT 11/20/2024 5:47 AM CDT Justin Morris MD LABORATORY Final Result Performing Organization Address [facility] [place] [address] * RED BLOOD CELLS LEUKOCYTE REDUCED ADULT (BLOOD ADMIN) (11/20/2024 5:38 AM CDT) [facility] Unit Number [id number] [facility] Product Code [id number] [facility] Blood Expiration Date [id number] [facility] Blood Type 6200 [facility] Blood Type (TEXT) APOS [facility] Other 11/20/2024 5:38 AM CDT 11/20/2024 5:31 AM CDT Justin Morris MD BLOOD BANK ORDERABLES (BLOOD ADMIN) Edited Result - Final Performing Organization Address [facility] [place] [address] * (ABNORMAL) CYSTATIN C (11/20/2024 5:11 AM CDT) Cystatin C 2.46(H) 0.61 - 0.95 mg/L [facility] eGFR by Cystatin C 24(L) >=60 ml/min/1.7 3m2 [facility] Comment: Estimated GFR calculated using the CKD-EPI Cystatin C (2012) equation. Stage Description eGFR Range 1.......Normal or increased eGFR.......90 or Greater 2.......Mildly decreased eGFR..........60-89 3.......Moderately decreased eGFR......30-59 4.......Severely decreased eGFR........15-29 5.......Kidney Failure.................Less than 15 Blood 11/20/2024 5:11 AM CDT 11/20/2024 5:56 AM CDT Justin Morris MD LABORATORY Final Result Performing Organization Address City/[facility]/ZIP Co de Phone Number [facility] [place] [phone] * VITAMIN B12 (11/20/2024 5:11 AM CDT) B12 533 211 - 946 pg/mL [facility] Blood 11/20/2024 5:11 AM CDT 11/20/2024 5:56 AM CDT Justin Morris MD LABORATORY Edited Resul t - Final Performing Organization Address City/[facility] Co de Phone Number [facility] [address] [address] * RBC FOLATE (11/20/2024 5:11 AM CDT) RBC Folate 888 >=366 ng/mL [employer] Comment: Performed By: [employer] [address] [place] [id number] Registered Nurse Supervisor: Romie Mak MD, PhD CLIA Number: [id number] Blood 11/20/2024 5:11 AM CDT 11/20/2024 5:56 AM CDT Narrative [facility] - 11/22/2024 8:48 PM CDT HCT:19.6 us Justin Morris MD LABORATORY Final Result Performing Organization Address City/[facility]/ZIP Co de Phone Number [facility] [employer] [address] [place] [address], * (ABNORMAL) TRANSFERRIN (INCLUDES TIBC) (11/20/2024 5:11 AM CDT) Transferrin 221 200 - 360 mg/dL [facility] IBC 329 298 - 536 mcg/dL [facility] Iron Saturation Percent 8(L) 20 - 50 % [facility] Blood 11/20/2024 5:11 AM CDT 11/20/2024 5:56 AM CDT Justin Morris MD LABORATORY Edited Resul t - Final Performing Organization Address [facility] de Phone Number [facility] [address] [address] * FERRITIN (11/20/2024 5:11 AM CDT) Ferritin 36.9 30.0 - 400.0 ng/mL [facility] Comment: Test Performed by: [facility] [address] [place] [address] Blood 11/20/2024 5:11 AM CDT 11/20/2024 5:56 AM CDT us Justin Morris MD LABORATORY Edited Resul t - Final Performing Organization Address [facility] Co de Phone Number [facility] [address] [address] * (ABNORMAL) IRON (11/20/2024 5:11 AM CDT) Iron 25(L) 50 - 150 mcg/dL [facility] Blood 11/20/2024 5:11 AM CDT 11/20/2024 5:56 AM CDT us Justin Morris MD LABORATORY Final Result Performing Organization Address City/[facility]/ZIP Co de Phone Number [facility] [address] [address] * ICU PHOSPHORUS (11/20/2024 5:11 AM CDT) Phosphorus 4.2 2.5 - 4.5 mg/dL [facility] Blood 11/20/2024 5:11 AM CDT 11/20/2024 5:56 AM CDT Justin Morris MD LABORATORY Final Result [facility] [address] [address] * (ABNORMAL) ICU PANEL BASIC METABOLIC (BMP) (11/20/2024 5:11 AM CDT) Sodium 139 135 - 148 mmol/L [facility] Potassium 4.3 3.5 - 5.3 mmol/L [facility] Chloride 111(H) 92 - 108 mmol/L [facility] CO2 15(L) 22 - 30 mmol/L [facility] Glucose 99 70 - 100 mg/dL [facility] BUN 72(H) 6 - 20 mg/dL [facility] Creatinine 3.57(H) 0.70 - 1.25 mg/dL [facility] Calcium 7.4(L) 8.6 - 10.0 mg/dL [facility] AnGap 13 8 - 16 mmol/L [facility] eGFR (2020 CKD-EPI) 20(L) >=60 ml/min/1.7 3m2 [facility] Comment: The estimated glomerular filtration rate (eGFR) was calculated using the CKD-EPI 2020 creatinine equation, which does not include race as a factor. This equation is validated in individuals 18 years of age and older, and eGFR is normalized to a body surface area of 1.73m^2. Blood 11/20/2024 5:11 AM CDT 11/20/2024 5:56 AM CDT us Justin Morris MD LABORATORY Final Result Performing Organization Address City/[facility]/ZIP Co de Phone Number [facility] [address] [address] * ICU MAGNESIUM (11/20/2024 5:11 AM CDT) Pathologist [facility] Magnesium 2.2 1.6 - 2.6 mg/dL [facility] Blood 11/20/2024 5:11 AM CDT 11/20/2024 5:56 AM CDT Justin Morris MD LABORATORY Final Result Performing Organization Address City/[facility]/ZIP Co de Phone Number [facility] [address] [address] * ICU LACTATE (LACTIC ACID) (11/20/2024 5:11 AM CDT) Pathologist [facility] Lactate 0.9 0.7 - 2.1 mmol/L [facility] Blood 11/20/2024 5:11 AM CDT 11/20/2024 6:06 AM CDT Justin Morris MD LABORATORY Final Result Performing Organization Address City/[facility] Co de Phone Number [facility] [address] [address] * (ABNORMAL) ICU CBC WITH PLTS/AUTO DIFF (11/20/2024 5:11 AM CDT) Pathologist [facility] WBC 10.47(H) 4.00 - 10.00 k/cmm [facility] RBC 2.19(L) 4.60 - 6.00 m/cmm [facility] Hgb 4.7(AA) 13.1 - 17.5 g/dL [facility] Hematocrit 15.6(L) 40.0 - 51.0 % [facility] MCV 71.2(L) 80.0 - 100.0 fL [facility] MCH 21.5(L) 25.0 - 32.0 pg [facility] MCHC 30.1(L) 31.0 - 36.0 g/dL [facility] RDW 18.6(H) 11.5 - 14.5 % [facility] Plt 337 150 - 400 k/cmm [facility] MPV 8.6 6.5 - 12.5 fL [facility] Automated Abs Neutrophil 8.24(H) 1.70 - 6.50 k/cmm [facility] Comment:Preliminary ANC, Fin al Result to Follow Abs Immature Granulocyte 0.05 0.00 - 0.09 k/cmm [facility] Comment:The Immature Granulo cyte Absolute count contains metamyelocytes and myelocytes. Abs Neutrophil 8.24(H) 1.70 - 6.50 k/cmm [facility] Abs Lymphocyte 1.00 0.80 - 4.00 k/cmm [facility] Abs Monocyte 1.04(H) 0.20 - 1.00 k/cmm [facility] Abs Eosinophil 0.12 0.00 - 0.60 k/cmm [facility] Abs Basophil 0.02 0.00 - 0.20 k/cmm [facility] Blood 11/20/2024 5:11 AM CDT 11/20/2024 5:56 AM CDT Narrative [facility] - 11/20/2024 6:33 AM CDT Critical value for HGB called to and read back by Reyna Roy RN in MICU 3 at 11/20/2024 06:33:25 CDT by Manda Simon MLS. Justin Morris MD LABORATORY Edited Resul t - Final Performing Organization Address City/[facility]/ZIP Co de Phone Number [facility] [address] [address] * BLOOD AEROBIC/ANAEROBIC CULTURE (11/20/2024 5:11 AM CDT) Final Report No growth after 5 days. [facility] Blood (Peripheral) 11/20/2024 5:11 AM CDT 11/20/2024 8:10 AM CDT Kelsie Tierney MD LAB MICROBIOLOGY Final Result Performing Organization Address City/[facility]/ZIP Co de Phone Number [facility] [address] [address] * (ABNORMAL) HEMOGLOBIN (11/20/2024 4:37 AM CDT) Hgb 5.2(AA) 13.1 - 17.5 g/dL [facility] Blood 11/20/2024 4:37 AM CDT 11/20/2024 4:50 AM CDT Narrative [facility] - 11/20/2024 5:13 AM CDT 1 hr after infusion complete Critical value for HGB called to and read back by Reyna Roy RN in MICU 3 at 11/20/2024 05:13:48 CDT by Manda Simon. Justin Morris MD LABORATORY Edited Resul t - Final Performing Organization Address [facility] de Phone Number [facility] [address] [address] * RESPIRATORY CULTURE (11/20/2024 3:14 AM CDT) Final Report No growth. [facility] Gram Stain Report Less than 10 epithelial cells/low power field. Greater than 25 PMN's/low power field. Few Gram negative cocci Moderate mixed julio. [facility] Sputum 11/20/2024 3:14 AM CDT 11/20/2024 10:21 AM CDT Justin Morris MD LAB MICROBIOLOGY Final Resul t Performing Organization Address [facility] de Phone Number [facility] [address] [address] * VITAMIN B12 (11/20/2024 1:02 AM CDT) B12 465 211 - 946 pg/mL [facility] Blood 11/20/2024 1:02 AM CDT 11/20/2024 2:27 AM CDT Justin Morris MD LABORATORY Edited Resul t - Final Performing Organization Address [facility] Co de Phone Number [facility] [address] [address] * RETIC COUNT (11/20/2024 1:02 AM CDT) Retic Count 1.0 0.5 - 1.8 % [facility] Blood 11/20/2024 1:02 AM CDT 11/20/2024 3:09 AM CDT Justin Morris MD LABORATORY Final Result Performing Organization Address [facility] Co de Phone Number [facility] [address] [address] * (ABNORMAL) IRON (11/20/2024 1:02 AM CDT) Iron 12(L) 50 - 150 mcg/dL [facility] Blood 11/20/2024 1:02 AM CDT 11/20/2024 2:27 AM CDT Justin Morris MD LABORATORY Final Result Performing Organization Address [facility] Co de Phone Number [facility] [address] [address] * FERRITIN (11/20/2024 1:02 AM CDT) Ferritin 32.1 30.0 - 400.0 ng/mL [facility] Comment: Test Performed by: [facility] [address] [place] [address] Blood 11/20/2024 1:02 AM CDT 11/20/2024 2:27 AM CDT Justin Morris MD LABORATORY Edited Resul t - Final Performing Organization Address [facility] Co de Phone Number [facility] [address] [address] * (ABNORMAL) TRANSFERRIN (INCLUDES TIBC) (11/20/2024 1:02 AM CDT) Transferrin 239 200 - 360 mg/dL [facility] IBC 356 298 - 536 mcg/dL [facility] Iron Saturation Percent 3(L) 20 - 50 % [facility] Blood 11/20/2024 1:02 AM CDT 11/20/2024 2:27 AM CDT Justin Morris MD LABORATORY Final Result [facility] [address] [address] * CK, TOTAL (11/20/2024 1:02 AM CDT) CK 92 39 - 308 IU/L [facility] Blood 11/20/2024 1:02 AM CDT 11/20/2024 2:25 AM CDT Justin Morris MD LABORATORY Final Result Performing Organization Address [facility]/ZIP Co de Phone Number [facility] [address] [address] * MRSA SURVEILLANCE SCREEN (11/20/2024 1:02 AM CDT) Pathologist [facility] Final Report No MRSA isolated. [facility] Swab NASAL STRUCTURE / Unknown 11/20/2024 1:02 AM CDT 11/20/2024 3:55 AM CDT Justin Morris MD LAB MICROBIOLOGY Final Resul t Performing Organization Address [facility] Co de Phone Number [facility] [address] [address] * TROP 2H (11/20/2024 1:02 AM CDT) Pathologist [facility] 2H Trop 12 <=35 ng/L [facility] 2H Delta Not Significant Not Significant [facility] Blood 11/20/2024 1:02 AM CDT 11/20/2024 1:13 AM CDT Kelsie Tierney MD LABORATORY Edited Result - Final Performing Organization Address [facility] Co de Phone Number [facility] [address] [address] * RED BLOOD CELLS LEUKOCYTE REDUCED ADULT (BLOOD ADMIN) (11/20/2024 12:26 AM CDT) Unit Number [id number] [facility] Product Code [id number] [facility] Blood Expiration Date [id number] [facility] Blood Type 6200 [facility] Blood Type (TEXT) APOS [facility] Other 11/20/2024 12:2 6 AM CDT 11/19/2024 11:04 PM CDT Kelsie Tierney MD BLOOD BANK ORDERABLES (BLOOD ADM IN) Edited Result - Final Performing Organization Address [facility] Co de Phone Number [address] [address] * (ABNORMAL) BLOOD GASES (11/20/2024 12:20 AM CDT) PH Art 7.23(L) 7.35 - 7.45 [facility] PCO2 Art 40 35 - 45 mmHG [facility] PO2 Art 146(H) 80 - 100 mmHG [facility] Bicarb Art 16(L) 22 - 26 mEq/L [facility] O2 Sat Art 98 96 - 99 % [facility] Base Exc Art -10.3(L) -10.0 - 2.0 mmol/L [facility] Blood Arterial 11/20/2024 12 :20 AM CDT 11/20/2024 12:43 AM CDT us Justin Morris MD LABORATORY Final Result Performing Organization Address [facility] Co de Phone Number [address] [address] * CT OUTSIDE READ SPINE CERVICAL/NECK (11/20/2024 12:04 AM CDT) Anatomical Region Laterality Modality Cervical Spine Computed Tomogra phy 11/20/2024 12:1 3 AM CDT Impressions 11/20/2024 8:44 AM CDT Impression: Evidence suggestive of right-sided mandibular odontogenic infection tracking to the focal subcutaneous soft tissues as well as the soft tissues towards the floor the mouth, concerning for Minesh angina. No appreciable soft tissue abscess. I have personally reviewed the image(s) and initial interpretation, and I agree with the findings as documented by the resident/fellow. Reading Radiologist: Quevedo, Janett Reading Resident: Clint Mcknight 11/20/2024 8:44 AM CDT Indication: Patient transferred from [facility] due to Infection. No initial report accompanied the patient and/or Dr. JUSTIN MORRIS requested an interpretation by me. Technique: CT scan of the cervical spine done on 11/19/2024 with IV contrast. Axial, sagittal and coronal reconstructions reviewed in soft tissue and bone windows, per the local institution's scanning protocols, which may differ from the [facility] trauma protocols. Findings: There is moderate subcutaneous inflammation mainly right-sided in the mandibular-adjacent tensor mandibular region, with inflammation seen to track/extends from the right periventricular region, suggestive of odontogenic infection, with inflammatory change and in the subcutaneous tissues as well as tracking to the floor the mouth, concerning for low-grade angina. There is mild subcutaneous inflammatory changes in the central and minimal right parasagittal subcutaneous tissues. No definite soft tissue abscess. There is no definite periapical abscess, though relatively poor molar dentition. Scattered nonenlarged reactive submandibular and perijugular lymph nodes. Mild inferior left maxillary sinus mucosal thickening, otherwise unremarkable sinuses. Mastoid air cells are clear. Grossly normal orbits. Partially visualized intracranial and is unremarkable. Grossly patent major vasculature of the neck. Grossly normal thyroid. Grossly normal mucosal spaces and tongue base. There are few bilateral punctate pharyngeal tonsil tonsilliths. The tonsils are nonenlarged. Please see CT chest abdomen and pelvis for lung evaluation. Degenerative changes of the visualized spine without suspected acute abnormality. No high-grade spinal canal narrowing. Procedure Note Janett Quevedo MD - 11/20/2024 Indication: Patient transferred from [facility] due toInfection. No initial report accompanied the patient and/or Dr. TELLEZ requested an interpretation by me. Technique: CT scan of the cervical spine done on 11/19/2024 with IVcontrast. Axial, sagittal and coronal reconstructions reviewed in softtissue and bone windows, per the local institution's scanning protocols,which may differ from the [facility] trauma protocols. Findings: There is moderate subcutaneous inflammation mainly right-sidedin the mandibular-adjacent tensor mandibular region, with inflammationseen to track/extends from the right periventricular region, suggestive ofodontogenic infection, with inflammatory change and in the subcutaneoustissues as well as tracking to the floor the mouth, concerning forlow-grade angina. There is mild subcutaneous inflammatory changes in thecentral and minimal right parasagittal subcutaneous tissues. No definitesoft tissue abscess. There is no definite periapical abscess, thoughrelatively poor molar dentition. Scattered nonenlarged reactivesubmandibular and perijugular lymph nodes. Mild inferior left maxillary sinus mucosal thickening, otherwiseunremarkable sinuses. Mastoid air cells are clear. Grossly normal orbits.Partially visualized intracranial and is unremarkable. Grossly patentmajor vasculature of the neck. Grossly normal thyroid. Grossly normalmucosal spaces and tongue base. There are few bilateral punctatepharyngeal tonsil tonsilliths. The tonsils are nonenlarged. Please see CTchest abdomen and pelvis for lung evaluation. Degenerative changes of thevisualized spine without suspected acute abnormality. No high-grade spinalcanal narrowing. IMPRESSION Impression: Evidence suggestive of right-sided mandibular odontogenic infectiontracking to the focal subcutaneous soft tissues as well as the softtissues towards the floor the mouth, concerning for Minesh angina. Noappreciable soft tissue abscess. I have personally reviewed the image(s) and initial interpretation, and Iagree with the findings as documented by the resident/fellow. Reading Radiologist: Janett Quevedo Reading Resident: Clint Mcknight Justin Morris MD RAD CT NEURO Final Result * CT CHEST/ABD/PELVIS W/IV CONT (11/19/2024 11:46 PM CDT) Anatomical Region Laterality Modality Chest Computed Tomogra phy 11/20/2024 12:0 1 AM CDT Impressions 11/20/2024 7:24 AM CDT IMPRESSION: 1. Moderate bilateral dependent streaky atelectasis and mild perivascular groundglass, with possible superimposed aspiration sequela, with noted recent vomiting. Atypical infection is not entirely excluded. 2. There is left lower pole calyceal contrast nonopacification extending to the pelvis, potentially a renal cast, though nonspecific. CT urogram would provide further characterization. 3. No evidence of mediastinal tracking infection with known Minesh angina. 4. Colonic diverticulosis without evidence of acute diverticulitis. Discrepant results: A preliminary interpretation stating the above, but without mention of the renal cast was provided by Dr. Mcknight . Upon review by Staff Radiologist, the final interpretation stating presence of the left lower pole calyceal nonopacification was provided by Dr. Mcknight to Dr. Partida in MICU at 7:06 AM on 11/20/2024. I have personally reviewed the image(s) and initial interpretation, and I agree with the findings as documented by the resident/fellow. Reading Radiologist: Bryson Smith Reading Resident: Clint Mcknight 11/20/2024 7:24 AM CDT Comparison: None Indication: Hematuria, concern for bladder or renal cancer Technique: CT images from the lung apices through the symphysis pubis after the administration of IV contrast. Coronal and sagittal reconstructions obtained. DOSE: Total DLP = 725 mGy.cm. FINDINGS: LUNGS: Endotracheal tube is within the mid thoracic trachea. Moderate bilateral dependent streaky opacities and mild perivascular groundglass. No significant pleural fluid. No pneumothorax. No definite suspicious pulmonary nodule or mass. CHEST/MEDIASTINUM/AXILLAE: No evidence of mediastinal tracking infection with known Minesh angina. Unremarkable partially visualized thyroid. Normal heart size. No pericardial effusion. Clear central pulmonary arteries. Normal diameter of the thoracic aorta. No enlarged lymph nodes. Grossly unremarkable esophagus with coursing gastric tube. ABDOMEN/PELVIS: Liver: Parenchymal attenuation is within normal limits. No focal lesion/mass. No intrahepatic biliary dilatation. Gallbladder: No radiodense gallstone. No gallbladder dilation. Pancreas: Minimal fatty atrophy. No main ductal dilatation. Spleen: Within normal limits. Small accessory splenule. Adrenal glands: No mass or nodule. Kidneys/ureters/bladder: Normal bilateral renal cortical enhancement with bilateral nonspecific mildly lobular cortices and minimal perinephric stranding, and contrast within the collecting system from current scan and likely from prior recent outside imaging in the setting of poor renal function. There is left lower pole calyceal nonopacification extending to the pelvis, potentially a renal cast, though nonspecific. No suspicious renal lesion or mass identified on this single phase of contrast. The ureters are patent and nondilated, and there is no hydronephrosis. The urinary bladder is decompressed with Arnold catheter in place. GI system/bowel/mesentery: Grossly normal lower esophagus and stomach, with gastric tube within the stomach. Normal calibers of the large and small bowel. Colonic diverticulosis without evidence of acute diverticulitis. Normal appendix. Pelvis: No significant pelvic free fluid. No enlarged lymph nodes. BONES AND SOFT TISSUES: No acute or suspicious finding. Chronic-appearing anterior wedge deformity of T6 with approximately 70 % vertebral height loss anteriorly. Likely mild remote superior endplate trauma to T5. Scattered degenerative changes of the spine. Procedure Note Bryson Smith MD - 11/20/2024 Comparison: None Indication: Hematuria, concern for bladder or renal cancer Technique: CT images from the lung apices through the symphysis pubisafter the administration of IV contrast. Coronal and sagittalreconstructions obtained. DOSE: Total DLP = 725 mGy.cm. FINDINGS: LUNGS: Endotracheal tube is within the mid thoracic trachea. Moderatebilateral dependent streaky opacities and mild perivascular groundglass.No significant pleural fluid. No pneumothorax. No definite suspiciouspulmonary nodule or mass. CHEST/MEDIASTINUM/AXILLAE: No evidence of mediastinal tracking infectionwith known Minesh angina. Unremarkable partially visualized thyroid.Normal heart size. No pericardial effusion. Clear central pulmonaryarteries. Normal diameter of the thoracic aorta. No enlarged lymph nodes.Grossly unremarkable esophagus with coursing gastric tube. ABDOMEN/PELVIS: Liver: Parenchymal attenuation is within normal limits. No focallesion/mass. No intrahepatic biliary dilatation. Gallbladder: No radiodense gallstone. No gallbladder dilation. Pancreas: Minimal fatty atrophy. No main ductal dilatation. Spleen: Within normal limits. Small accessory splenule. Adrenal glands: No mass or nodule. Kidneys/ureters/bladder: Normal bilateral renal cortical enhancement withbilateral nonspecific mildly lobular cortices and minimal perinephricstranding, and contrast within the collecting system from current scan andlikely from prior recent outside imaging in the setting of poor renalfunction. There is left lower pole calyceal nonopacification extending tothe pelvis, potentially a renal cast, though nonspecific. No suspiciousrenal lesion or mass identified on this single phase of contrast. Theureters are patent and nondilated, and there is no hydronephrosis. Theurinary bladder is decompressed with Arnold catheter in place. GI system/bowel/mesentery: Grossly normal lower esophagus and stomach,with gastric tube within the stomach. Normal calibers of the large andsmall bowel. Colonic diverticulosis without evidence of acutediverticulitis. Normal appendix. Pelvis: No significant pelvic free fluid. No enlarged lymph nodes. BONES AND SOFT TISSUES: No acute or suspicious finding. Chronic- appearinganterior wedge deformity of T6 with approximately 70 % vertebral heightloss anteriorly. Likely mild remote superior endplate trauma to T5.Scattered degenerative changes of the spine. IMPRESSION IMPRESSION: 1. Moderate bilateral dependent streaky atelectasis and mild perivasculargroundglass, with possible superimposed aspiration sequela, with notedrecent vomiting. Atypical infection is not entirely excluded. 2. There is left lower pole calyceal contrast nonopacification extendingto the pelvis, potentially a renal cast, though nonspecific. CT urogramwould provide further characterization. 3. No evidence of mediastinal tracking infection with known Ludwigangina. 4. Colonic diverticulosis without evidence of acute diverticulitis. Discrepant results: A preliminary interpretation stating the above, but without mention of therenal cast was provided by Dr. Mcknight . Upon review by Staff Radiologist, the final interpretation statingpresence of the left lower pole calyceal nonopacification was provided byDr. Mcknight to Dr. Partida in MICU at 7:06 AM on 11/20/2024. I have personally reviewed the image(s) and initial interpretation, and Iagree with the findings as documented by the resident/fellow. Reading Radiologist: Bryson Smith Reading Resident: Clint Mcknight us Kelsie Tierney MD RAD CT BODY Final Result * Nasopharyngoscopy (11/19/2024 11:42 PM CDT) Narrative Kelsie Tierney MD - 11/19/2024 11:42 PM CDT Kelsie Tierney MD 11/20/2024 2:59 PM Nasopharyngoscopy Performed by: Melissa Collins MD Authorized by: Kelsie Tierney MD Consent: Consent obtained: Verbal Consent given by: Patient Procedure details: Indications: assessment of airway Medication: None Instrument: flexible fiberoptic nasal endoscope Scope location: left nare Mouth: Oropharynx: Comment: mild uvula edema Vallecula: no inflammation Base of tongue: Normal: edema. Epiglottis: no inflammation Throat: Right hypopharynx: normal Left hypopharynx: normal Pyriform sinus: normal False vocal cords: normal True vocal cords: normal Post-procedure details: Patient tolerance of procedure: Tolerated well, no immediate complications Result [facility] Kelsie Tierney MD PROCEDURES Final Result * Intubation (11/19/2024 11:41 PM CDT) Narrative Kelsie Tierney MD - 11/19/2024 11:41 PM CDT Kelsie Tierney MD 11/20/2024 2:59 PM Intubation Performed by: Melissa Collins MD Authorized by: Kelsie Tierney MD Intubation Location: ED Consent: Consent obtained: Emergent situation Pre-procedure details: Indications: airway obstruction Patient status: Awake Look externally: large tongue Obstruction: edema Pharmacologic strategy: RSI Induction agents: Etomidate Paralytics: Succinylcholine Procedure details: Preoxygenation: Nonrebreather mask CPR in progress: no Number of attempts: 2 Successful intubation attempt details: Intubation method: Oral Intubation technique: video assisted Laryngoscope blade: Mac 4 Bougie used: yes Grade view: I Tube size (mm): 7.5 Tube type: Cuffed Tube visualized through cords: yes First unsuccessful intubation attempt details: Intubation method: Oral Intubation technique: Video assisted Laryngoscope blade: Mac 4 Grade view: III Placement assessment: Tube secured with: ETT riojas Placement verification: CXR verification and waveform ETCO2 CXR findings: Appropriate position Post-procedure details: Procedure completion: Tolerated well, no immediate complications Complications comment: Small lip laceration; possibly chipped front left tooth Result [facility] Kelsie Tierney MD PROCEDURES Final Result * URINE DRUG SCREEN (11/19/2024 11:30 PM CDT) Acetaminophen Ur NEG <=10 mcg/mL [facility] Amphetamine Ur POS <=500 ng/mL [facility] Comment:Corrected from PENDI NG ng/mL [NA] on 11/22/24 7:12:27 CDT by Lizett Pierre Barbiturate Ur NEG <=200 ng/mL [facility] Benzodiazipine NEG <=100 ng/mL [facility] Buprenorphine Ur NEG <=5 ng/mL [facility] Cocaine Metab Ur NEG <=300 ng/mL [facility] Fentanyl, Urine NEG <=5 ng/mL [facility] LSD Ur NEG <=500 pg/mL [facility] Methadone Ur NEG <=300 ng/mL [facility] Opiate Ur NEG <=300 ng/mL [facility] Oxycodone Ur NEG <=100 ng/mL [facility] PCP Urine NEG <=25 ng/mL [facility] Propox Ur NEG <=300 ng/mL [facility] Salicylate Ur NEG <=10 mg/dL [facility] Creat Urine 50 >=20 mg/dL [facility] Mass Spectrometry Urine Amphetamine, Methamphetamin e, Naproxen and Ondansetron present. [facility] Urine 11/19/2024 11:3 0 PM CDT 11/21/2024 11:39 PM CDT Justin Morris MD LABORATORY Final Result Performing Organization Address City/[facility] Co de Phone Number [facility] [address] [address] * LEGIONELLA PNEUMOPHILA URINE ANTIGEN (11/19/2024 11:30 PM CDT) Final Report Negative for Legionella pneumophila Serogroup 1 Antigen. [facility] Urine 11/19/2024 11:3 0 PM CDT 11/20/2024 10:21 AM CDT Narrative [facility] - 11/20/2024 11:56 AM CDT This assay was performed using an FDA-cleared direct antigen test. Justin Morris MD LAB MICROBIOLOGY Final Resul t Performing Organization Address City/[facility]/ZIP Co de Phone Number [facility] [address] [address] * (ABNORMAL) PROTEIN TO CREAT RATIO,URINE (11/19/2024 11:30 PM CDT) TPU 65(H) 0 - 11 mg/dL [facility] Creat Urine 49 30 - 125 mg/dL [facility] Protein to Creat Ratio, Ur 1.33(H) 0.00 - 0.06 mg/mg [facility] Urine 11/19/2024 11:3 0 PM CDT 11/20/2024 3:02 AM CDT Justin Morris MD LABORATORY Final Result [facility] [address] [address] * SODIUM,URINE-RANDOM KARISHMA (11/19/2024 11:30 PM CDT) Sodium Urine 64 40 - 200 mmol/L [facility] Urine 11/19/2024 11:3 0 PM CDT 11/20/2024 3:02 AM CDT Justin Morris MD LABORATORY Final Result Performing Organization Address City/[facility] Co de Phone Number [facility] [address] [address] * (ABNORMAL) URINE CULTURE (11/19/2024 11:30 PM CDT) Urine Cult 10,000 - 50,000 organisms/ml Methicillin sensitive Staphylococcus aureus (MSSA) isolated. Methicillin susceptible by PBP2a. Less than 10,000 organisms/ml mixed julio. No further work-up. (POS) [facility] Organism METHICILLIN SENSITIVE STAPHYLOCOCCUS AUREUS (MSSA)(POS) [facility] Urine Midstream. URINE / Unknown 11/20/19 11:30 PM CDT 11/20/2024 12:51 AM CDT Narrative [facility] - 11/22/2024 8:15 AM CDT ED Patient: Yes Organism Antibiotic Method Susceptibility Methicillin-Sensitive Staphylococcus aureus (MSSA) Doxycycline VITEK CHRISTINA 1: Sensitive Methicillin-Sensitive Staphylococcus aureus (MSSA) Levofloxacin VITEK CHRISTINA <=0.12: Sensitive Methicillin-Sensitive Staphylococcus aureus (MSSA) Linezolid VITEK CHRISTINA 2: Sensitive Methicillin-Sensitive Staphylococcus aureus (MSSA) Nitrofurantoin VITEK CHRISTINA 32: Sensitive Methicillin-Sensitive Staphylococcus aureus (MSSA) Oxacillin VITEK CHRISTINA <=0.25: Sensitive Methicillin-Sensitive Staphylococcus aureus (MSSA) Trimethoprim/Sulfamethoxazo le VITEK CHRISTINA <=10: Sensitive Methicillin-Sensitive Staphylococcus aureus (MSSA) Vancomycin VITEK CHRISTINA <=0.5: Sensitive Kelsie Tierney MD LAB MICROBIOLOGY Final Result Performing Organization Address [facility] Co de Phone Number [facility] [address] [address] * (ABNORMAL) URINALYSIS,TOTAL (11/19/2024 11:30 PM CDT) Color YELLOW YELLOW [facility] Appearance TURBID(A) CLEAR [facility] Urine Glucose NEGATIVE NEGATIVE mg/dL [facility] Bili UA NEGATIVE NEGATIVE [facility] Ketones NEGATIVE NEGATIVE [facility] Specific [place] 1.020 1.003 - 1.030 [facility] Blood Ur LARGE(A) Neg-Trace [facility] PH Urine 6.0 5.0 - 7.0 [facility] Protein Ur 50(A) Neg-Trace [facility] Urobilinogen NORMAL NORMAL EU/dL [facility] Nitrite Ur NEGATIVE NEGATIVE [facility] Leuk Est LARGE(A) Neg-Trace [facility] WBC Ur >50(A) 0 - 5 perHPF [facility] RBC Ur >20(A) 0 - 3 perHPF [facility] Urinalysis Performed at: [facility] Urine 11/19/2024 11:3 0 PM CDT 11/19/2024 11:37 PM CDT Kelsie Tierney MD LABORATORY Edited Result - Final Performing Organization Address [facility] Co de Phone Number [facility] [address] [address] * XR CHEST 1 VIEW AP OR PA* (11/19/2024 11:24 PM CDT) Anatomical Region Laterality Modality Chest Computed Radiogr aphy 11/20/2024 12:4 2 AM CDT Impressions 11/20/2024 6:11 AM CDT Impression: Bibasilar prominent streaky opacities, likely atelectasis and possible superimposed aspiration with noted reason vomiting. Atypical infection is not completely excluded. Continued follow-up until clearance. I have personally reviewed the image(s) and initial interpretation, and I agree with the findings as documented by the resident/fellow. Reading Radiologist: Bryson Smith Resident: Clint Mcknight Narrative 11/20/2024 6:11 AM CDT Technique: XR CHEST 1 VIEW AP OR PA* Indication: S/P intubation Comparison: None Findings: Trachea is midline with enteric tube in the midthoracic trachea. Normal cardiac silhouette. No significant pleural effusion. No pneumothorax. Mild bibasilar prominent streaky opacities. No acute osseous abnormality identified. Unremarkable upper abdomen. Enteric tube courses inferiorly out of view. Procedure Note Bryson Smith MD - 11/20/2024 Technique: XR CHEST 1 VIEW AP OR PA* Indication: S/P intubation Comparison: None Findings: Trachea is midline with enteric tube in the midthoracic trachea.Normal cardiac silhouette. No significant pleural effusion. Nopneumothorax. Mild bibasilar prominent streaky opacities. No acute osseousabnormality identified. Unremarkable upper abdomen. Enteric tube coursesinferiorly out of view. IMPRESSION Impression: Bibasilar prominent streaky opacities, likely atelectasis and possiblesuperimposed aspiration with noted reason vomiting. Atypical infection isnot completely excluded. Continued follow-up until clearance. I have personally reviewed the image(s) and initial interpretation, and Iagree with the findings as documented by the resident/fellow. Reading Radiologist: Bryson Smith Resident: Clint Mcknight us Kelsie Tierney MD RAD XRAY Final Result * ED EKG (12-LEAD) (11/19/2024 11:22 PM CDT) 11/19/2024 11:2 2 PM CDT [facility] - 11/19/2024 11:22 PM CDT SINUS RHYTHM INCOMPLETE RIGHT BUNDLE BRANCH BLOCK [90+ ms QRS DURATION, TERMINAL R IN V1/V2, 40+ ms S IN I/aVL/V4/V5/V6] LEFT VENTRICULAR HYPERTROPHY AND ST-T CHANGE [VOLTAGE CRITERIA PLUS ST/T ABNORMALITY] ABNORMAL ECG P-R Interval 140 ms QRS Interval 95 ms QT Interval 367 ms QTC Interval 418 ms P Wilburn 65 QRS Wilburn 13 T Wave Wilburn 73 Narrative Procedure Note Jonas Mcbride MBBS - 11/20/2024 IMPRESSION SINUS RHYTHM INCOMPLETE RIGHT BUNDLE BRANCH BLOCK [90+ ms QRS DURATION, TERMINAL R INV1/V2, 40+ ms S IN I/aVL/V4/V5/V6] LEFT VENTRICULAR HYPERTROPHY AND ST-T CHANGE [VOLTAGE CRITERIA PLUS ST/TABNORMALITY] ABNORMAL ECG P-R Interval 140 ms QRS Interval 95 ms QT Interval 367 ms QTC Interval 418 ms P Wilburn 65 QRS Wilburn 13 T Wave Wilburn 73 Kelsie Tierney MD EKG Final Result Performing Organization Address City/[facility]/ZIP Co de Phone Number [facility] CVIS EKG ORDERS * NG/OG Tube (11/19/2024 11:15 PM CDT) Narrative Kelsie Tierney MD - 11/19/2024 11:15 PM CDT Kelsie Tierney MD 11/19/2024 11:16 PM NG/OG Tube Performed by: Melissa Collins MD Authorized by: Kelsie Tierney MD Consent: The procedure was performed in an emergent situation Pre Procedure Diagnosis: Minesh's angina Post Procedure Diagnosis: Minesh's angina No complications. Confirmed by CXR. The estimated blood loss during this procedure was: 0mL Kelsie Tierney MD PROCEDURES Final Result * BLOOD AEROBIC/ANAEROBIC CULTURE (11/19/2024 10:52 PM CDT) Final Report No growth after 5 days. [facility] Blood (Peripheral) 11/19/2024 10:52 PM CDT 11/20/2024 1:10 AM CDT Kelsie Tierney MD LAB MICROBIOLOGY Final Result [facility] [address] [address] * (ABNORMAL) BUN (UREA NITROGEN) (11/19/2024 10:45 PM CDT) BUN 80(H) 6 - 20 mg/dL [facility] Blood 11/19/2024 10:4 5 PM CDT 11/20/2024 12:07 AM CDT us Kelsie Tierney MD LABORATORY Final Result Performing Organization Address [facility] Co de Phone Number [facility] [address] [address] * PROCALCITONIN (11/19/2024 10:45 PM CDT) Procalcitonin 4.38 ng/mL [facility] Comment: Results <0.50 ng/mL represent a low risk of severe sepsis and/or septic shock. Results >2.0 ng/mL represent a high risk of severe sepsis and/or septic shock. Blood 11/19/2024 10:4 5 PM CDT 11/20/2024 12:07 AM CDT us Kelsie Tierney MD LABORATORY Final Result Performing Organization Address [facility] de Phone Number [facility] [address] [address] * (ABNORMAL) C-REACTIVE PROTEIN (11/19/2024 10:45 PM CDT) C-Reactive Protein 228(H) <=4 mg/L [facility] Blood 11/19/2024 10:4 5 PM CDT 11/20/2024 12:07 AM CDT us Kelsie Tierney MD LABORATORY Final Result Performing Organization Address [facility] Co de Phone Number [facility] [address] [address] * HIV COMBO (11/19/2024 10:45 PM CDT) HIV Antigen-Antibody Nonreactive Nonreactive [facility] Comment:Performance characte ristics have not been established with this test on patients less than 2 years of age. Blood 11/19/2024 10:4 5 PM CDT 11/20/2024 12:05 AM CDT us Kelsie Tierney MD LABORATORY Final Result Performing Organization Address City/[facility]/ZIP Co de Phone Number [facility] [address] [address] * EXTRA TUBE - SST (11/19/2024 10:45 PM CDT) SST TUBE Stored [facility] Comment:SST tubes (Serum Sep arator) are stored in the lab for 3 days from the collection date. Blood 11/19/2024 10:4 5 PM CDT 11/19/2024 10:56 PM CDT Kelsie Tierney MD LABORATORY Final Result Performing Organization Address [facility] Co de Phone Number [facility] [address] [address] * ANTIBODY SCREEN (11/19/2024 10:45 PM CDT) Pathologist [facility] Radha Screen Negative [facility] Blood 11/19/2024 10:4 5 PM CDT 11/19/2024 11:03 PM CDT Kelsie Tierney MD LAB TRANSFUSION SERVICES Final R esult Performing Organization Address [facility] Co de Phone Number [facility] [address] [address] * BLOOD TYPING-ABO/RH (11/19/2024 10:45 PM CDT) ABORHG A POS [facility] Blood 11/19/2024 10:4 5 PM CDT 11/19/2024 11:03 PM CDT Kelsie Tierney MD LAB TRANSFUSION SERVICES Final R esult Performing Organization Address City/[facility]/ZIP Co de Phone Number [facility] [address] [address] * HS TROPONIN (11/19/2024 10:45 PM CDT) Pathologist [facility] HS Troponin I 12 <=35 ng/L [facility] Blood 11/19/2024 10:4 5 PM CDT 11/19/2024 10:52 PM CDT Narrative [facility] - 11/20/2024 12:15 AM CDT First Occurrence of the Troponin order is to be drawn Stat by Nursing staff on the unit. us Kelsie Tierney MD LABORATORY Final Result Performing Organization Address [facility] de Phone Number [address] [address] * ETHANOL (ETOH) LEVEL, BLOOD (11/19/2024 10:45 PM CDT) [facility] Ethanol Negative Negative g/dL [facility] Blood 11/19/2024 10:4 5 PM CDT 11/19/2024 11:10 PM CDT us Kelsie Tierney MD LABORATORY Final Result Performing Organization Address [facility] de Phone Number [address] [address] * PTT (APTT) (11/19/2024 10:45 PM CDT) [facility] APTT 32.7 25.0 - 37.0 sec [facility] Blood 11/19/2024 10:4 5 PM CDT 11/19/2024 11:10 PM CDT us Kelsie Tierney MD LABORATORY Final Result Performing Organization Address [facility] de Phone Number [address] [address] * (ABNORMAL) ED INR (11/19/2024 10:45 PM CDT) [facility] ED INR 1.3(H) 0.8 - 1.1 [facility] Comment: Warfarin Therapeutic Range: Standard Intensity: 2.0 - 3.0 High Intensity: 2.5 - 3.5 This is a rapid INR screening test which uses whole blood; results may infrequently differ from plasma INR results. If medication adjustments/dosing are required a PT/INR test ([id number]) should be ordered and performed in the main laboratory. Blood 11/19/2024 10:4 5 PM CDT 11/19/2024 10:52 PM CDT Kelsie Tierney MD LABORATORY Final Result Performing Organization Address [facility]/ZIP Co de Phone Number [facility] [address] [address] * LACTATE (LACTIC ACID) (11/19/2024 10:45 PM CDT) [facility] Lactate 1.2 0.7 - 2.1 mmol/L [facility] Blood 11/19/2024 10:4 5 PM CDT 11/19/2024 10:53 PM CDT Narrative [facility] - 11/19/2024 11:01 PM CDT Send specimen on ice! Kelsie Tierney MD LABORATORY Final Result Performing Organization Address [facility] Co de Phone Number [address] [address] * (ABNORMAL) FIBRINOGEN (11/19/2024 10:45 PM CDT) [facility] Fibrinogen 494(H) 200 - 400 mg/dL [facility] Blood 11/19/2024 10:4 5 PM CDT 11/19/2024 11:10 PM CDT Kelsie Tierney MD LABORATORY Final Result Performing Organization Address [facility] Co de Phone Number [address] [address] * (ABNORMAL) PANEL HEPATIC FUNCTION (11/19/2024 10:45 PM CDT) [facility] Total Protein 7.3 6.4 - 8.3 g/dL [facility] Albumin 3.2(L) 3.8 - 5.1 g/dL [facility] Bili Total 0.2 <=1.2 mg/dL [facility] Bili Direct 0.1 <=0.3 mg/dL [facility] Alk Phos 65 40 - 129 IU/L [facility] Comment:No reference range e stablished for patients <18 years old. ALT (SGPT) 11 <=41 IU/L [facility] AST(SGOT) 15 5 - 40 IU/L [facility] Blood 11/19/2024 10:4 5 PM CDT 11/19/2024 11:10 PM CDT Kelsie Tierney MD LABORATORY Final Result Performing Organization Address [facility] Co de Phone Number [address] [address] * (ABNORMAL) ED HEMOGLOBIN TOTAL (ED ONLY) (11/19/2024 10:45 PM CDT) Hgb 6.4(AA) 13.1 - 17.5 g/dL [facility] Comment:Critical Result Low Blood 11/19/2024 10:4 5 PM CDT 11/19/2024 10:53 PM CDT Narrative [facility] - 11/19/2024 11:03 PM CDT Critical value for Hemoglobin called to and read back by Melissa Collins MD in STAB Room at 11/19/2024 23:03:50 CDT by Carly Valentine MLS. Kelsie Tierney MD LABORATORY Edited Result - Final Performing Organization Address [facility]/ZIP Co de Phone Number [facility] [address] [address] * (ABNORMAL) ED CHEMISTRY LABS(NA,K,CL,CO2,GLU,CREAT,CA-IONIZED,ANION GAP) (11/19/2024 10:45 PM CDT) Sodium 141 135 - 148 mmol/L [facility] Potassium 4.3 3.5 - 5.3 mmol/L [facility] Chloride 110(H) 92 - 108 mmol/L [facility] AnGap 16 8 - 16 mmol/L [facility] Glucose 117(H) 70 - 100 mg/dL [facility] ICA, Actual 4.58 4.40 - 5.20 mg/dL [facility] ICA, pH Corrected 4.43 4.40 - 5.20 mg/dL [facility] Creatinine 4.55(H) 0.70 - 1.25 mg/dL [facility] BICARB 15(L) 22 - 26 mEq/L [facility] eGFR (2020 CKD-EPI) 15(L) >=60 ml/min/1.7 3m2 [facility] Comment: The estimated glomerular filtration rate (eGFR) was calculated using the CKD-EPI 2020 creatinine equation, which does not include race as a factor. This equation is validated in individuals 18 years of age and older, and eGFR is normalized to a body surface area of 1.73m^2. Blood 11/19/2024 10:4 5 PM CDT 11/19/2024 10:53 PM CDT us Kelsie Tierney MD LABORATORY Final Result [facility] [address] [address] * (ABNORMAL) CBC WITH PLTS/AUTO DIFF (11/19/2024 10:45 PM CDT) WBC 15.26(H) 4.00 - 10.00 k/cmm [facility] RBC 2.91(L) 4.60 - 6.00 m/cmm [facility] Hgb 6.0(AA) 13.1 - 17.5 g/dL [facility] Hematocrit 20.1(L) 40.0 - 51.0 % [facility] MCV 69.1(L) 80.0 - 100.0 fL [facility] MCH 20.6(L) 25.0 - 32.0 pg [facility] MCHC 29.9(L) 31.0 - 36.0 g/dL [facility] RDW 17.8(H) 11.5 - 14.5 % [facility] Plt 419(H) 150 - 400 k/cmm [facility] MPV 8.6 6.5 - 12.5 fL [facility] Automated Abs Neutrophil 12.54(H) 1.70 - 6.50 k/cmm [facility] Comment:Preliminary ANC, Fin al Result to Follow Abs Immature Granulocyte 0.08 0.00 - 0.09 k/cmm [facility] Comment:The Immature Granulo cyte Absolute count contains metamyelocytes and myelocytes. Abs Neutrophil 12.54(H) 1.70 - 6.50 k/cmm [facility] Abs Lymphocyte 0.97 0.80 - 4.00 k/cmm [facility] Abs Monocyte 1.54(H) 0.20 - 1.00 k/cmm [facility] Abs Eosinophil 0.10 0.00 - 0.60 k/cmm [facility] Abs Basophil 0.03 0.00 - 0.20 k/cmm [facility] Hypochromasi Moderate [facility] Stonewall Cell Moderate [facility] Elliptocyte Moderate [facility] Blood 11/19/2024 10:4 5 PM CDT 11/19/2024 11:10 PM CDT Narrative [facility] - 11/19/2024 11:52 PM CDT Critical value for HGB called to and read back by Jose M Muñoz RN in STAB 1 at 11/19/2024 23:39:37 CDT by Manda Simon. us Kelsie Tierney MD LABORATORY Edited Result - Final [facility] [address] [address] * (ABNORMAL) BLOOD GASES (11/19/2024 10:45 PM CDT) PH Rio 7.34 7.32 - 7.42 [facility] PCO2 Rio 29(L) 41 - 51 mmHG [facility] PO2 Rio 69(H) 25 - 40 mmHG [facility] Bicarb Rio 15(L) 24 - 28 mEq/L [facility] O2 Sat Rio 92 % [facility] Base Exc Rio -9.8 -10.0 - 2.0 mmol/L [facility] Blood Venous 11/19/2024 10:4 5 PM CDT 11/19/2024 10:55 PM CDT us Kelsie Tierney MD LABORATORY Final Result [facility] [address] [place] [address] * ED US CRITICAL CARE (11/19/2024 10:37 PM CDT) Anatomical Region Laterality Modality Ultrasound Narrative 11/19/2024 11:21 PM CDT ED Cardiac Ultrasound Body Areas Imaged: Heart and Chest Wall/Lungs Indications:Evaluate Volume Status Window: Parasternal Short Wilburn, Parasternal Long Wilburn, and Bilateral Lungs Findings: The left ventricular ejection fraction appears: Grossly preserved No pericardial effusion identified. RV Dilation present/absent: No significant right ventricular dilation appreciated Lung sliding present bilaterally, A-line predominance The IVC was not imaged Impression: The left ventricular ejection fraction appears: Grossly preserved No pericardial effusion identified. RV Dilation present/absent: No significant right ventricular dilation appreciated A-Line predominance consistent with normal lung aeration Findings suggest euvolemia Kelsie Tierney MD, 11/19/2024 11:20 PM Kelsie Tierney MD RAD ED ULT Final Result documented in this encounter Visit Diagnoses Diagnosis Minesh angina- Primary Anemia, unspecified type Elevated serum creatinine Other nonspecific findings on examination of blood Hematuria, unspecified type Neck swelling Swelling, mass, or lump in head and neck Encounter for dental examination Dental examination Neck swelling Swelling, mass, or lump in head and neck Anemia, unspecified type Hematuria, unspecified type documented in this encounter Admitting Diagnoses Diagnosis Neck swelling Swelling, mass, or lump in head and neck Anemia, unspecified type Hematuria, unspecified type documented in this encounter Administered Medications Inactive Administered Medications - up to 3 most recent administrations Medication Order MAR Action Action Date Dose Rate Site acetaminophen (TYLENOL) tablet 975 mg 975 mg, Oral, TID, First dose on Thu11/20/24 at 0800, Until Discontinued Given 11/23/2024 4:24 PM CDT 975 mg Given 11/23/2024 9:04 AM CDT 975 mg Given 11/22/2024 8:02 PM CDT 975 mg amLODIPine (NORVASC) tablet 5 mg 5 mg, Oral, DAILY, First dose on Thu11/23/24 at 1125, Until Discontinued Given 11/23/2024 4:23 PM CDT 5 mg amoxicillin-clavulanate (AUGMENTIN) 500-125 mg per tablet 1 tablet 1 tablet, Indication (Select One): Infection - Confirmed, SITE (Select all that apply): ENT/Dental, Cultures Ordered? No, Oral, BID, 14 doses, First dose on Thu11/23/24 at 2000, Last dose on Thu11/30/24 at 0800 ampicillin-sulbactam (UNASYN) 3 g in NaCl 0.9% 100 mL IVPB 3 g, Indication (Select One): Infection - Confirmed, SITE (Select all that apply): Skin/Soft Tissue, Cultures Ordered? Yes, Intravenous, Q6H, First dose on Thu11/20/24 at 0200, Until Discontinued New Bag 11/21/2024 8:16 AM CDT 3 g 200 mL /hr New Bag 11/21/2024 2:05 AM CDT 3 g 200 mL/hr New Bag 11/20/2024 8:22 PM CDT 3 g 200 mL/hr ampicillin-sulbactam (UNASYN) 3 g in NaCl 0.9% 100 mL IVPB 3 g, Indication (Select One): Infection - Confirmed, SITE (Select all that apply): Skin/Soft Tissue, Cultures Ordered? Yes, Intravenous, Q 8H, First dose (after last modification) on Thu11/21/24 at 1400, Until Discontinued New Bag 11/23/2024 4:24 PM CDT 3 g 200 mL/hr New Bag 11/23/2024 6:50 AM CDT 3 g 200 mL/hr New Bag 11/22/2024 11:08 PM CDT 3 g 200 mL/hr chlorhexidine (PERIDEX) 0.12% solution 15 mL 15 mL, Swish & Spit, BID, First dose on Thu11/20/24 at 2000, Until Discontinued Given 11/23/2024 7:39 AM CDT 15 mL Given 11/22/2024 8:02 PM CDT 15 mL Given 11/22/2024 8:07 AM CDT 15 mL DC MED REC REVIEW BY PHARMACY Discharge Date: 11/23/2024, Discharge Location: Home, Anticipated Discharge Time: After 2 pm, Discharge Medication Orders: DC Med Orders Final, Does not apply, PROTOCOL, Starting on Thu11/23/24 at 1624, Until Thu11/23/24 at 2220 dexamethasone (DECADRON) 20 mg/ 5mL injection 8 mg 8 mg, IV Push, Q 8H, First dose on Thu11/20/24 at 202, Until Discontinued Given 11/21/2024 1:52 PM CDT 8 mg Given 11/21/2024 6:34 AM CDT 8 mg Given 11/20/2024 9:16 PM CDT 8 mg dexmedetomidine (PRECEDEX) 400 mcg in NaCl 0.9% 100 mL infusion (premixed) 0.1-1.5 mcg/kg/hr 107 kg (2.675-40.125 mL/hr, rounded to 2.7-40.1 mL/hr), Start infusion at (mcg/kg/hr): 0.3, Titration? Titrate to Goal RASS, Intravenous, CONTINUOUS, Starting on Thu11/20/24 at 0755, Until Thu11/23/24 at 1121 Rate changed 11/22/2024 10:18 AM CDT 0.2 mcg/kg/hr 5.4 mL/hr Infusing 11/22/2024 10:00 AM CDT 0.5 mcg/kg/hr 13.4 mL/h r Rate changed 11/22/2024 9:47 AM CDT 0.5 mcg/kg/hr 13.4 mL/ hr dextrose 10% infusion 30 mL/hr, Intravenous, CONTINUOUS, Starting on Thu11/20/24 at 1840, Until Thu11/21/24 at 1344 Infusing 11/21/2024 1:00 PM CDT 30 mL/hr 30 mL/hr Infusing 11/21/2024 12:00 PM CDT 30 mL/hr 30 mL/hr Infusing 11/21/2024 11:00 AM CDT 30 mL/hr 30 mL/hr diazePAM (VALIUM) 5 mg/mL injection 10 mg 10 mg, IV Push, ONE TIME, 1 dose, On 11/21/24 at 2045 Given 11/21/2024 10:04 PM CDT 10 mg etomidate (AMIDATE) 2 mg/mL injection 30 mg 30 mg, IV Push, ONE TIME, 1 dose, On 11/19/24 at 2310 Given 11/19/2024 11:09 PM CDT 30 mg famotidine (PEPCID) tablet 20 mg 20 mg, Feeding Tube, BID, First dose on Thu11/21/24 at 2000, Until Discontinued Given 11/22/2024 7:56 AM CDT 20 mg Given 11/21/2024 8:13 PM CDT 20 mg famotidine (PF) (PEPCID) 10 mg/mL injection 20 mg 20 mg, IV Push, Q24H, First dose on Thu11/20/24 at 0005, Until Discontinued Given 11/21/2024 12:21 AM CDT 20 mg Given 11/20/2024 1:02 AM CDT 20 mg heparin 5000 UNIT/0.5ML injection 5,000 UNITS 5,000 UNITS, Subcutaneous, Q 8H, First dose on Thu11/21/24 at 1400, Until Discontinued Given 11/23/2024 6:50 AM CDT 5,000 UNITS Abdominal Tissue Given 11/22/2024 11:07 PM CDT 5,000 UNITS Abdominal Tissue Given 11/22/2024 1:45 PM CDT 5,000 UNITS L eft Lower Quadrant Abdomen HYDROmorphone PF (DILAUDID) 1 mg/mL injection 1 mg 1 mg, IV Push, ONE TIME, 1 dose, On 11/19/24 at 2245 Given 11/19/2024 10:44 PM CDT 1 mg iohexol (OMNIPAQUE) 350 mg/mL injection IV Push, RAD ONE TIME AUTO ACKNOWLEDGE, 1 dose, On [facility] 11/19/24 at 2350 Given 11/19/2024 11:47 PM CDT 100 mL Left Arm iohexol (OMNIPAQUE) 350 mg/mL injection IV Push, RAD ONE TIME AUTO ACKNOWLEDGE, 1 dose, On [facility] 11/20/24 at 1050 Given 11/20/2024 10:45 AM CDT 60 mL Right Arm iron sucrose (VENOFER) 200 mg in NaCl 0.9% 100 mL IVPB 200 mg, Intravenous, DAILY, First dose (after last modification) on Thu11/21/24 at 1210, Last dose on Thu11/25/24 at 0800 New Bag 11/21/2024 12:53 PM CDT 200 mg iron sucrose (VENOFER) 200 mg in NaCl 0.9% 100 mL IVPB 200 mg, Intravenous, DAILY, First dose (after last modification) on Thu11/22/24 at 0800, Last dose on Thu11/22/24 at 0800 New Bag 11/22/2024 9:14 AM CDT 200 mg lactated ringers 1,000 mL bolus Intravenous, Administer over 60 Minutes, IV BOLUS, 1 dose, On 11/20/24 at 0230 New Bag 11/20/2024 2:47 AM CDT 1000 mL/hr lidocaine (LMX) 4 % cream 5 g 5 g, Topical, ONE TIME, 1 dose, On 11/19/24 at 2250 Given 11/19/2024 10:55 PM CDT 5 g OLANZapine (ZyPREXA) injection 5 mg 5 mg, IV Push, Q2H PRN, Starting on 11/21/24 at 1004, Until Thu11/22/24 at 1126, Moderate Agitation Given 11/22/2024 12:19 AM CDT 5 mg Given 11/21/2024 8:31 PM CDT 5 mg Given 11/21/2024 5:25 PM CDT 5 mg propofol (DIPRIVAN) 10 mg/mL BOLUS from infusion 50 mg 50 mg (0.5 mg/kg 100 kg Order-specific weight), Intravenous, BOLUS FROM INFUSION, Starting on Thu11/20/24 at 0007, Until Thu11/21/24 at 1823, Other (specify), q10min PRN Life threatening agitation Bolus from Infusion 11/21/2024 11:59 AM CDT 50 mg 30 mL/hr Bolus from Infusion 11/21/2024 11:12 AM CDT 50 mg 30 mL/hr Bolus from Infusion 11/21/2024 8:54 AM CDT 50 mg 30 m L/hr propofol 10 mg/mL Infusion Start infusion at (mcg/kg/min): 40, Vasques Agitation Sedation Scale: -2 Light Sedation, CONTINUOUS, Starting on 11/19/24 at 2310, Until Thu11/20/24 at 0007, Intravenous Rate changed 11/19/2024 11:24 PM CDT 60 mcg/kg/min 36 mL/hr New Bag 11/19/2024 11:12 PM CDT 40 mcg/kg/min 24 mL/hr propofol 10 mg/mL Infusion Start infusion at (mcg/kg/min): 5, Titration? Titrate to Goal RASS, CONTINUOUS, Starting on 11/20/24 at 0015, Until Thu11/21/24 at 1823, Intravenous Rate changed 11/21/2024 2:17 PM CDT 10 mcg/kg/min 6 mL/hr Rate changed 11/21/2024 2:07 PM CDT 20 mcg/kg/min 12 mL/hr Infusing 11/21/2024 2:00 PM CDT 30 mcg/kg/min 18 mL/hr sodium chloride 0.9% bolus 1,000 mL 1,000 mL, Intravenous, Administer over 30 Minutes, IV BOLUS, 1 dose, On Thu11/19/24 at 2250 New Bag 11/19/2024 10:45 PM CDT 1,000 mL 2000 mL/hr succinylcholine chloride (ANECTINE) 20 mg/mL injection 200 mg 200 mg, IV Push, ONE TIME, 1 dose, On Thu11/19/24 at 2310 Given 11/19/2024 11:09 PM CDT 200 mg thiamine (VITAMIN B1) 500 mg in 50mL NS IVPB 500 mg, Intravenous, TID, Administer over 60 Minutes, First dose on Thu11/21/24 at 2235, Last dose on Thu11/23/24 at 1400 New Bag 11/22/2024 8:05 AM CDT 500 mg New Bag 11/22/2024 12:00 AM CDT 500 mg VTE - Low Risk Low Risk Reason: Ambulating greater than 200m Twice Daily, Does not apply, PROTOCOL, Starting on Thu11/23/24 at 1124, Until Thu11/23/24 at 2220 documented in this encounter Active and Recently Administered Medications Times are shown in CDT. Scheduled Medication Order 11/21/2024 11/22/2024 11/23/2024 acetaminophen (TYLENOL) tablet 975 mg 975 mg, Oral, TID, First dose on Thu11/20/24 at 0800, Until Discontinued 0815 (Given - Provider: Danny Fong RN)1345 (Given - Provider: Danny Fong RN)2012 (Given - Provider: Tyree Scott RN) 0756 (Given - Provider: Danny Fong RN)1346 (Given - Provider: Danny Fong RN)1653 (Given - Provider: Danny Fong RN - Comment: Complaining of headache. MD notified, ok with tylenol given early)2001 (Given - Provider: Irena Casarez RN) 09 (Given - Provider: Kayla Lucas, HECTOR - Comment: pt reports headache, MD notified)142 (Delayed (keeps Due time) - Provider: Kayla Lucas, HECTOR - Reason: Patient not in room - Comment: Pt in procedure)162 (Given - Provider: Irena Casarez RN) amLODIPine (NORVASC) tablet 5 mg 5 mg, Oral, DAILY, First dose on Thu11/23/24 at 1125, Until Discontinued 162 (Given - Provider: Irena Casarez RN) amoxicillin-clavulanate (AUGMENTIN) 500-125 mg per tablet 1 tablet 1 tablet, Indication (Select One): Infection - Confirmed, SITE (Select all that apply): ENT/Dental, Cultures Ordered? No, Oral, BID, 14 doses, First dose on Thu11/23/24 at 2000, Last dose on Thu11/30/24 at 0800 ampicillin-sulbactam (UNASYN) 3 g in NaCl 0.9% 100 mL IVPB (CANCELED) 3 g, Indication (Select One): Infection - Confirmed, SITE (Select all that apply): Skin/Soft Tissue, Cultures Ordered? Yes, Intravenous, Q6H, First dose on Thu11/20/24 at 0200, Until Discontinued 0205 (New Bag - Provider: Charlotte Enriquez RN)0235 (Infusion completed - Provider: Charlotte Enriquez RN)0816 (New Bag - Provider: Danny Fong RN)0846 (Infusion completed - Provider: Danny Fong RN) ampicillin-sulbactam (UNASYN) 3 g in NaCl 0.9% 100 mL IVPB (CANCELED) 3 g, Indication (Select One): Infection - Confirmed, SITE (Select all that apply): Skin/Soft Tissue, Cultures Ordered? Yes, Intravenous, Q 8H, First dose (after last modification) on Thu11/21/24 at 1400, Until Discontinued 1431 (New Bag - Provider: Danny Fong RN)1501 (Infusion completed - Provider: Danny Fong RN)2204 (New Bag - Provider: Tyree Scott RN)2246 (Infusion completed - Provider: Tyree Scott RN) 0631 (New Bag - Provider: Juanita Li RN)0701 (Infusion completed - Provider: Danny Fong RN)1345 (New Bag - Provider: Danny Fong RN)1415 (Infusion completed - Provider: Danny Fong RN)2308 (New Bag - Provider: Irena Casarez, RN)2338 (Infusion completed - Provider: Irena Casarez RN) 0650 (New Bag - Provider: Irena Casarez RN)0739 (Infusion completed - Provider: Kayla Lucas, RN)1425 (Delayed (keeps Due time) - Provider: Kayla Lucas RN - Reason: Patient not in room - Comment: Pt at procedure)1624 (New Bag - Provider: Irena Casarez RN)1656 (Infusion completed - Provider: Irena Casarez RN) chlorhexidine (PERIDEX) 0.12% solution 15 mL 15 mL, Swish & Spit, BID, First dose on Thu11/20/24 at 2000, Until Discontinued 0815 (Given - Provider: Danny Fong RN)2133 (Not Given (removes Due time) - Provider: Tyree Scott RN - Reason: Patient refused) 08 (Given - Provider: Danny Fong RN)2001 (Given - Provider: Irena Casarez RN) 0739 (Given - Provider: Kayla Lucas RN) DC MED REC REVIEW BY PHARMACY(Linked Group 1) Discharge Date: 11/23/2024, Discharge Location: Home, Anticipated Discharge Time: After 2 pm, Discharge Medication Orders: DC Med Orders Final, Does not apply, PROTOCOL, Starting on Thu11/23/24 at 1624, Until Thu11/23/24 at 2220 dexamethasone (DECADRON) 20 mg/ 5mL injection 8 mg (CANCELED) 8 mg, IV Push, Q 8H, First dose on Thu11/20/24 at 2024, Until Discontinued 0634 (Given - Provider: Charlotte Enriquez RN)1352 (Given - Provider: Danny Fong RN) diazePAM (VALIUM) 5 mg/mL injection 10 mg (COMPLETED) 10 mg, IV Push, ONE TIME, 1 dose, On Thu11/21/24 at 2045 2204 (Given - Provider: Tyree Scott RN) famotidine (PEPCID) tablet 20 mg (CANCELED) 20 mg, Feeding Tube, BID, First dose on Thu11/21/24 at 2000, Until Discontinued 2013 (Given - Provider: Tyree Scott RN) 0756 (Given - Provider: Danny Fong RN) famotidine (PF) (PEPCID) 10 mg/mL injection 20 mg (CANCELED) 20 mg, IV Push, Q24H, First dose on Thu11/20/24 at 0005, Until Discontinued 0021 (Given - Provider: Charlotte Enriquez RN) heparin 5000 UNIT/0.5ML injection 5,000 UNITS (CANCELED) 5,000 UNITS, Subcutaneous, Q 8H, First dose on Thu11/21/24 at 1400, Until Discontinued 1405 (Given - Provider: Danny Fong RN)2204 (Given - Provider: Tyree Scott RN) 0631 (Given - Provider: Juanita Li RN)1345 (Given - Provider: Danny Fong RN)2307 (Given - Provider: Irena Casarez, HECTOR) 0650 (Given - Provider: Irena Casarez RN) iron sucrose (VENOFER) 200 mg in NaCl 0.9% 100 mL IVPB (CANCELED) 200 mg, Intravenous, DAILY, First dose (after last modification) on Thu11/21/24 at 1210, Last dose on Thu11/25/24 at 0800 1253 (New Bag - Provider: Danny Fong RN) iron sucrose (VENOFER) 200 mg in NaCl 0.9% 100 mL IVPB (COMPLETED) 200 mg, Intravenous, DAILY, First dose (after last modification) on Thu11/22/24 at 0800, Last dose on Thu11/22/24 at 0800 0914 (New Bag - Provider: Danny Fong RN) thiamine (VITAMIN B1) 500 mg in 50mL NS IVPB (CANCELED)(Linked Group 2) 500 mg, Intravenous, TID, Administer over 60 Minutes, First dose on Thu11/21/24 at 2235, Last dose on Thu11/23/24 at 1400 0000 (New Bag - Provider: Juanita Li RN)0100 (Infusion completed - Provider: Juanita Li RN)0805 (New Bag - Provider: Danny Fong RN)0905 (Infusion completed - Provider: Danny Fong RN) VTE - Low Risk(Linked Group 3) Low Risk Reason: Ambulating greater than 200m Twice Daily, Does not apply, PROTOCOL, Starting on Thu11/23/24 at 1124, Until Thu11/23/24 at 2220 Continuous Medication Order 11/21/2024 11/22/2024 11/23/2024 dexmedetomidine (PRECEDEX) 400 mcg in NaCl 0.9% 100 mL infusion (premixed) (CANCELED) 0.1-1.5 mcg/kg/hr 107 kg (2.675-40.125 mL/hr, rounded to 2.7-40.1 mL/hr), Start infusion at (mcg/kg/hr): 0.3, Titration? Titrate to Goal RASS, Intravenous, CONTINUOUS, Starting on Thu11/20/24 at 0755, Until Thu11/23/24 at 1121 0920 (New Bag - Provider: Danny Fong RN)0923 (Dual Sign-Off - Provider: Danny Fong RN)1000 (Infusing - Provider: Danny Fong RN)1012 (Rate changed - Provider: Danny Fong RN)1100 (Infusing - Provider: Danny Fong RN)1112 (Rate changed - Provider: Danny Fong RN)1130 (Rate changed - Provider: Danny Fong RN)1200 (Infusing - Provider: Danny Fong RN)1300 (Infusing - Provider: Danny Fong RN)1324 (Rate changed - Provider: Danny Fong RN)1344 (New Bag - Provider: Danny Fong RN)1400 (Infusing - Provider: Danny Fong RN)1427 (Rate changed - Provider: Danny Fong RN)1439 (Rate changed - Provider: Danny Fong RN)1500 (Infusing - Provider: Danny Fong RN)1514 (Rate changed - Provider: Tyree Scott RN)1535 (Stopped - Provider: Tyree Scott RN)2228 (New Bag - Provider: Tyree Scott RN)2234 (Dual Sign-Off - Provider: Tyree Scott RN)2300 (Rate changed - Provider: Tyree Scott RN) 0000 (Rate changed - Provider: Juanita Li RN)0047 (Rate changed - Provider: Juanita Li RN)0100 (Infusing - Provider: Juanita Li RN)0137 (New Bag - Provider: Juanita Li RN)0200 (Infusing - Provider: Juanita Li RN)0300 (Infusing - Provider: Juanita Li RN)0400 (Infusing - Provider: Juanita Li RN)0410 (New Bag - Provider: Juanita Li RN)0500 (Infusing - Provider: Juanita Li RN)0600 (Infusing - Provider: Juanita Li RN)0631 (New Bag - Provider: Juanita Li RN)0755 (Rate changed - Provider: Danny Fong RN)0800 (Infusing - Provider: Danny Fong RN)0847 (Rate changed - Provider: Danny Fong RN)0900 (Infusing - Provider: Danny Fong RN)0911 (New Bag - Provider: Kayla Lucas RN)0917 (Rate changed - Provider: Danny Fong RN)0947 (Rate changed - Provider: Danny Fong RN)1000 (Infusing - Provider: Danny Fong RN)1018 (Rate changed - Provider: Danny Fong RN)1030 (Stopped - Provider: Danny Fong RN) dextrose 10% infusion (CANCELED) 30 mL/hr, Intravenous, CONTINUOUS, Starting on Thu11/20/24 at 1840, Until Thu11/21/24 at 1344 0000 (Infusing - Provider: Charlotte Enrqiuez RN)0100 (Infusing - Provider: Charlotte Enriquez RN)0200 (Infusing - Provider: Charlotte Enriquez RN)0300 (Infusing - Provider: Cahrlotte Enriquez RN)0400 (Infusing - Provider: Charlotte Enriquez RN)0500 (Infusing - Provider: Charlotte Enriquez RN)0600 (Infusing - Provider: Charlotte Enriquez RN)0700 (Infusing - Provider: Charlotte Enriquez RN)0800 (Infusing - Provider: Danny Fong, RN)0900 (Infusing - Provider: Danny Fong, RN)1000 (Infusing - Provider: Danny Fong, RN)1100 (Infusing - Provider: Danny Fong RN)1200 (Infusing - Provider: Danny Fong, RN)1300 (Infusing - Provider: Danny Fong, RN)1349 (Stopped - Provider: Danny Fong RN - Comment: [Order ends at this time. Document the following action when infusion is complete: Stopped]) propofol 10 mg/mL Infusion (CANCELED)(Linked Group 4) Start infusion at (mcg/kg/min): 5, Titration? Titrate to Goal RASS, CONTINUOUS, Starting on Thu11/20/24 at 0015, Until Thu11/21/24 at 1823, Intravenous 0000 (Infusing - Provider: Charlotte Enriquez RN)0021 (New Bag - Provider: Charlotte Enriquez RN)0100 (Infusing - Provider: Charlotte Enriquez RN)0200 (Infusing - Provider: Charlotte Enriquez RN)0300 (Infusing - Provider: Charlotte Enriquez RN)0325 (New Bag - Provider: Charlotte Enriquez RN)0400 (Infusing - Provider: Charlotte Enriquez RN)0500 (Infusing - Provider: Charlotte Enriquez RN)0548 (New Bag - Provider: Charlotte Enriquez, RN)0600 (Infusing - Provider: Charlotte Enriquez, RN)0700 (Infusing - Provider: Charlotte Enriquez RN)0800 (Infusing - Provider: Danny Fong RN)0825 (New Bag - Provider: Danny Fong RN)0855 (Rate changed - Provider: Danny Fong RN)0900 (Infusing - Provider: Danny Fong RN)0951 (Rate changed - Provider: Danny Fong RN)1000 (Infusing - Provider: Danny Fong RN)1012 (Rate changed - Provider: Danny Fong RN)1046 (Rate changed - Provider: Danny Fong RN)1100 (Infusing - Provider: Danny Fong RN)1112 (New Bag - Provider: Danny Fong RN)1200 (Rate changed - Provider: Danny Fong RN)1255 (Rate changed - Provider: Danny Fong RN)1300 (Infusing - Provider: Danny Fong RN)1318 (Rate changed - Provider: Danny Fong RN)1355 (Rate changed - Provider: Danny Fong RN)1400 (Infusing - Provider: Danny Fong RN)1407 (Rate changed - Provider: Danny Fong RN)1417 (Rate changed - Provider: Danny Fong RN)1421 (Stopped - Provider: Danny Fong RN) PRN Medication Order 11/21/2024 11/22/2024 11/23/2024 OLANZapine (ZyPREXA) injection 5 mg (CANCELED) 5 mg, IV Push, Q2H PRN, Starting on Thu11/21/24 at 1004, Until Thu11/22/24 at 1126, Moderate Agitation 1114 (Given - Provider: Danny Fong RN)1725 (Given - Provider: Tyree Scott, HECTOR)2031 (Given - Provider: Tyree Scott RN) 0019 (Given - Provider: Hailey Rojas RN) propofol (DIPRIVAN) 10 mg/mL BOLUS from infusion 50 mg (CANCELED)(Linked Group 4) 50 mg (0.5 mg/kg 100 kg Order-specific weight), Intravenous, BOLUS FROM INFUSION, Starting on Thu11/20/24 at 0007, Until Thu11/21/24 at 1823, Other (specify), q10min PRN Life threatening agitation 0844 (Bolus from Infusion - Provider: Danny Fong RN)0854 (Bolus from Infusion - Provider: Danny Fong RN)1112 (Bolus from Infusion - Provider: Danny Fong RN)1159 (Bolus from Infusion - Provider: Danny Fong RN) Linked Groups Order Group 1: DC MED REC REVIEW BY PHARMACYJump to med Discharge Date: 11/23/2024, Discharge Location: Home, Anticipated Discharge Time: After 2 pm, Discharge Medication Orders: DC Med Orders Final, Does not apply, PROTOCOL, Starting on Thu11/23/24 at 1624, Until Thu11/23/24 at 2220 And Discharge Med Rec Final Review by Pharmacy (COMPLETED) Routine, Order to be placed by provider after medications have been entered for discharge and are ready for review by Pharmacist. This order can be placed multiple times if changes or additions have been made to medications for discharge. Choose the Preliminary DC Med Rec review when placing orders prior to the day of discharge. Choose Final DC Med Rec when all medication changes have been entered. If DC Med Rec needed now, please page the Pharmacist covering the patient to inform them., Discharge Date: 11/23/2024, Discharge Location: Home, Anticipated Discharge Time: After 2 pm Group 2: thiamine (VITAMIN B1) 500 mg in 50mL NS IVPB (CANCELED)Jump to med 500 mg, Intravenous, TID, Administer over 60 Minutes, First dose on Thu11/21/24 at 2235, Last dose on Thu11/23/24 at 1400 And thiamine (VITAMIN B1) 250 mg in NaCl 0.9% 50 mL IVPB (CANCELED) 250 mg, Intravenous, DAILY, Administer over 60 Minutes, First dose on Thu11/24/24 at 0800, Last dose on Thu11/28/24 at 0800 And multivitamin + minerals (CEROVITE SENIOR) 1 tablet (CANCELED) 1 tablet, Oral, DAILY, First dose on Thu11/24/24 at 0800, Until Discontinued Group 3: VTE - Low RiskJump to med Low Risk Reason: Ambulating greater than 200m Twice Daily, Does not apply, PROTOCOL, Starting on Thu11/23/24 at 1124, Until Thu11/23/24 at 2220 And VTE - Low Risk Communication (CANCELED) ONCE, On Thu11/23/24 at 1125, For 1 occurrence, Low Risk Reason: Ambulating greater than 200m Twice Daily, Patient at low risk for VTE; neither mechanical nor chemical prophylaxis is required Group 4: propofol 10 mg/mL Infusion (CANCELED)Jump to med Start infusion at (mcg/kg/min): 5, Titration? Titrate to Goal RASS, CONTINUOUS, Starting on Thu11/20/24 at 0015, Until Thu11/21/24 at 1823, Intravenous And propofol (DIPRIVAN) 10 mg/mL BOLUS from infusion 50 mg (CANCELED)Jump to med 50 mg (0.5 mg/kg 100 kg Order-specific weight), Intravenous, BOLUS FROM INFUSION, Starting on Thu11/20/24 at 0007, Until Thu11/21/24 at 182, Other (specify), q10min PRN Life threatening agitation And ICU TRIGYCERIDE (CANCELED) Routine, Lab Collect, Q72H, First occurrence on Thu11/22/24 at 0600, Until Specified And ICU CK, TOTAL (CANCELED) Routine, Lab Collect, Q72H, First occurrence on Thu11/22/24 at 0600, Until Specified documented in this encounter
--- OUTSIDE RECORDS SUMMARY | 2024-11-23 13:00 | XMS_ITS | Encounter Summary ---
Author Organization [facility] Address [address] [place] [address] Phone Care Team Providers Care Mine Supervisor Name Role Phone Unavailable Primary Care Provider Unavailabl e Reason for Visit * Reason Comments Follow-up CC: none Encounter Details Date Type Department Care Team (Late st Contact Info) Description 11/23/2024 1:00 PM CDT [facility] [address] [phone] Gentry Bob, DDS [address] [address], Omfs Procedure [address] [place] [address] Encounter for dental examination (Primary Dx); Abscess Discharge Disposition: Discharged to home or self care Social History Tobacco Use Types Packs/Day Years Used Date Smoking Tobacco: Never Passive Smoke Exposure: Never Smokeless Tobacco: Never Alcohol Use Standard [...] Sign Reading Time Taken Comments Blood Pressure 159/89 11/23/2024 1:06 PM CDT Pulse 94 11/23/2024 1:06 PM CDT Temperature - - Respiratory Rate - - Oxygen Saturation - - Inhaled Oxygen Concentration - - Weight 108.9 kg (240 lb 1.3 oz) 11/23/2024 1:06 PM CDT Height 182.9 cm (6' 0.01) 11/23/2024 1:06 PM CD T Body Mass Index 32.55 11/23/2024 1:06 PM CDT documented in this encounter Procedure Notes * Jae Gross DDS - 11/23/2024 1:00 PM CDTAssociated Order(s): Dental Extraction Post-Procedure Diagnose(s): Abscess Images from the original note were not included. Dental Extraction Date/Time: 11/23/2024 3:19 PM Performed by: Jae Gross DDS Authorized by: Gentry Bob DDS Consent: Verbal consent obtained. Written consent obtained Risks and benefits: risks, benefits and alternatives were discussed Consent given by: patient Patient understanding: patient states understanding of the procedure being performed Patient consent: the patient's understanding of the procedure matches consent given Procedure consent: procedure consent matches procedure scheduled Relevant documents: relevant documents present and verified Test results: test results available and properly labeled Site marked: the operative site was marked Imaging studies: imaging studies available Required items: required blood products, implants, devices, and special equipment available Patient identity confirmed: verbally with patient and hospital-assigned identification number Time out: Immediately prior to procedure a time out was called to verify the correct patient, procedure, equipment, arch support technician and site/side marked as required. Local anesthesia used: yes Anesthesia: nerve block Anesthesia: Local anesthesia used: yes Local Anesthetic: lidocaine 2% with epinephrine Sedation: Patient sedated: no Pharyngeal shield was utilized. Hemostasis: achieved Oral & Maxillofacial Surgery Pre-Procedure H&P Note Dominick Lozoya : 1970 Sex: male Dominick Lozoya is a 54 y.o. male with PMH significant for SAD, RULA, HTN, Anemia and hematuria who presents for evaluation of facial cellulitis and indicated extractions. The patient reports pain and swelling to lower right jaw. The patient currently denies dyspnea, dysphagia, foul taste, swelling, dysesthesia, or paraesthesia. Medical/Surgical History : No past medical history on file. No past surgical history on file. Problem List: Patient Active Problem List Diagnosis Date Noted Neck swelling 11/19/2024 Anemia, unspecified type 11/19/2024 Hematuria, unspecified type 11/19/2024 Medications: Current Facility-Administered Medications on File Prior to Visit Medication Dose Route Frequency Provider Last Rate Last Admin amLODIPine (NORVASC) tablet 5 mg 5 mg Oral daily Jourdan Naranjo MD VTE - Low Risk Does not apply protocol Jourdan Naranjo MD ampicillin-sulbactam (UNASYN) 3 g in NaCl 0.9% 100 mL IVPB 3 g Intravenous q 8h Benito, Dariel Keita Infusion completed at 11/23/24 0739 acetaminophen (TYLENOL) tablet 975 mg 975 mg Oral tid Ping Ferguson MBBS 975 mg at 11/23/24 0904 chlorhexidine (PERIDEX) 0.12% solution 15 mL 15 mL Swish & Spit bid Mateus Rice MD 15 mL at 11/23/24 0701 Current Outpatient Medications on File Prior to Visit Medication Sig Dispense Refill naproxen sodium (ALEVE) 220 mg oral tablet Take 1 tablet (220 mg) by mouth every 12 hours as needed(pain). Allergies: No Known Drug Allergies Review of Systems General: no weight change or fever Skin: no rashes or skin changes Head: no headaches or dizziness Eyes: no vision loss or pain Ears: no hearing loss or ringing Nose and sinuses: no discharge or pain Mouth and throat: dental pain, fractured teeth, intraoral edema Neck: swelling Respiratory: no shortness of breath or cough Cardiac: no chest pain or palpitations Gastrointestinal: no abdominal pain or change in bowel habits Musculoskeletal: no joint pain or weakness Peripheral vascular: no leg cramps or varicose veins Neurological: no weakness or headache Psychiatric: no anxiety, depression Endocrine: no diabetes, no thyroid disease Hematologic: anemia All other systems are reviewed and are negative except as noted in HPI. Physical Exam: General: WD/WN, NAD HEENT: NC/AT, symmetric. EOMI, PERRLA, sclera white. Cardiovascular: Warm and well-perfused Pulmonary: Breathing comfortably on room air Musculoskeletal: CHIANG Neuro: AAOx4, CN II-XII intact bilaterally Psych: Appropriate mood and affect Extraoral Exam: No extraoral masses, lesions, or tenderness to palpation. No cervical or submandibular lymphadenopathy. Inferior border of mandible palpable bilaterally. No TMJ pain/crepitus/clicking. Intraoral Exam: Tooth #31 carious and tender to percussion. Fractured tooth #30. Retained root tips#32. Gingiva coral pink. Mucous membranes moist. Poor oral hygiene. Right mandibular vestibule edema. Floor of mouth soft, non-tender, non- distended other than. Tongue is pink and moist, without ulceration, and in anatomic position. Uvula midline, oropharynx clear. Occlusion is stable and reproducible. Mallampati Class: 2 Rhea Class: 2 JEANNIE: 45 mm Imaging Radiographic Imaging Type: OPG obtained on 11/23/24, independently reviewed. Radiographic Findings: Condyles : unable to appreciate. Maxillary sinuses radiolucent bilaterally. Inferior border of mandible continuous bilaterally without steps or defects. Missing teeth #13, 16. Coronal radiolucencies teeth #15, 30, 31. Tooth #1 complete bony impacted (> 50% of the clinical crown is covered by bone). Tooth #17 retained root tip. Tooth #32 retained root tip. Assessment 54 y/o M admitted 11/19/24 with right mandibular cellulitis associated with carious teeth #30, 31, 32. - Extraction of teeth #30, 31, 32 today with local anesthetic - Discussed risks, benefits and alternative of surgery with the patient. Risks discussed include but are not limited to pain, swelling, bleeding, infection, damage to adjacent teeth, temporary/permanent V3 lingual/inferior alveolar nerve numbness, dry socket, and need for further procedures. - Questions invited and answered. The patient elects to proceed. Jae Gross DDS Oral Surgery Procedure Note Procedure: Extraction - Erupt/Exposed and Surgical Removal Erupted Tooth Tooth Number(s): 30, 31, and 32 Immediately prior to administration of medications the patient was re-assessed for adequacy to receive medications. Timeout. Procedure Local Anesthesia: 20% Benzocaine, 3.4 mL 2% Lidocaine with 1:100,000 Epinephrine, 1.7 mL 4% Articaine HCL with 1:100,000 Epinephrine, 1.7 mL 0.5 % Bupivicaine HCL with 1:200:000 Epinephrine, and 1.7 mL Mepivicaine HCL 3% plain Administered as OSCAR, LBN blocks and local in filtrations. Articaine was used for local infiltrations only. N2O: Not Used Pharyngeal Shield: 4x4 gauze drape. Dental Mobilization / Delivery: Surgical extraction of tooth #30 15 blade used to make a sulcular incision adjacent to teeth #30, 31, 32. A FTMP flap was established with a mucoperiosteal elevator to the inferior border of the mandible. A fissure bur on a high-speed handpiece with copious irrigation was used to create buccal trough adjacent to tooth #30. The tooth was mobilized with Luxators, elevated, and delivered using 150 Forceps. Simple Extraction of teeth #31, 32 A mucoperiosteal elevator was used to sever the gingival attachment of tooth #31 and root tip #32. Elevated with straight elevators and luxators. Delivered teeth #31 and #32 using 150 forceps. Purulence encountered upon removal of tooth #31 (~2 cc's). Sockets curetted and irrigated. Curette used tobreak up loclulations along mandibular border. More purulence encountered (~5 cc's). Re-suspended gi ngiva near tooth #29 with 3-0 gut chromic suture in simple interrupted fashion. Left rest of flap to close by secondary intention to introduce oxygen into area of infection. Hemostasis: Achieved with gauze compression. Pertinent Negatives / Findings: Approximately 7 cc of purulent drainage obtained. Complications / Unexpected Events: None. Post Procedure Patient discharged in stable baseline condition Post-op Home Care Discussed: Discussed and dispensed. Discharged Medications: Medication List Notice This visit is during an admission. Changes to the med list made in this visit will be reflected in the After Visit Summary of the admission. Plan: -Continue IV Unasyn while inpatient; transition to PO augmentin 875/125 for 7 days on dc - Will scheduled follow up in clinic if patient discharges - Soft cold diet / no spitting / no straws - Head to face, no ice - Pain management per primary Lan ENMA Gross OMFS PGY1 Jae Gross DDS, 11/23/2024 3:18 PM Cosigned by Gentry Bob DDS at 12/07/2024 2:42 PM CDT Associated attestation - Gentry Bob DDS - 12/07/2024 2:42 PM CDT Faculty Note I have personally reviewed the image(s) and initial interpretation, and I agree with the findings as documented by the Resident. I have reviewed the indications for the procedure. My signature attests that I was present for the suarez or critical portion of this procedure. I was immediately available or had arranged immediate staff availability for all the non-critical or non-suarez portions of the entire procedure. Gentry Bob DDS, 12/07/2024 2:42 PM documented in this encounter Plan of Treatment Upcoming Encounters Date Type Department Care Team (Late st Contact Info) Description 12/08/2024 8:30 AM CDT [facility] [address] [id number], [facility] Post Op [address] [place] [address] Scheduled Discharge Disposition: Discharged to home or self care Scheduled Procedures Name Priority Associated Diagnoses Date/Ti me URETEROSCOPY, FLEXIBLE Semi-Urgent (< 2 wks) Renal mass, left documented as of this encounter Procedures Procedure Name Priority Date/Time Associated Diagnosis Comments DENTAL EXTRACTION Routine 11/23/2024 3:1 9 PM CDT Abscess 30 DC SURGICAL EXT ERUPTED TOOTH Routine 11/23/2024 1:00 PM CDT 32 DC EXTRACT ERUPTED TOOTH OR EXPOSED ROOT Routine 11/23/2024 1:00 PM CDT 31 DC EXTRACT ERUPTED TOOTH OR EXPOSED ROOT Routine 11/23/2024 1:00 PM CDT DC LIMITED ORAL EVALUATION - PROBLEM FOCUSED Routine 11/23/2024 1:00 PM CDT documented in this encounter Results * Dental Extraction (11/23/2024 3:19 PM CDT) Narrative Gentry Bob DDS - 11/23/2024 3:19 PM CDT Gentry Bob DDS 12/07/2024 2:42 PM Dental Extraction Date/Time: 11/23/2024 3:19 PM Performed by: Jae Gross DDS Authorized by: Gentry Bob DDS Consent: Verbal consent obtained. Written consent obtained Risks and benefits: risks, benefits and alternatives were discussed Consent given by: patient Patient understanding: patient states understanding of the procedure being performed Patient consent: the patient's understanding of the procedure matches consent given Procedure consent: procedure consent matches procedure scheduled Relevant documents: relevant documents present and verified Test results: test results available and properly labeled Site marked: the operative site was marked Imaging studies: imaging studies available Required items: required blood products, implants, devices, and special equipment available Patient identity confirmed: verbally with patient and hospital-assigned identification number Time out: Immediately prior to procedure a time out was called to verify the correct patient, procedure, equipment, arch support technician and site/side marked as required. Local anesthesia used: yes Anesthesia: nerve block Anesthesia: Local anesthesia used: yes Local Anesthetic: lidocaine 2% with epinephrine Sedation: Patient sedated: no Pharyngeal shield was utilized. Hemostasis: achieved us Gentry Bob DDS PROCEDURES Final R esult * DEN XRAY DIG AND PANOREX (11/23/2024 1:57 PM CDT) Narrative User, [id number] - 11/23/2024 1:57 PM CDT This dental x-ray was obtained to evaluate and treat. Please look in Chart Review under Notes/Trans tab for the Procedure Notes for this visit. us Gentry Bob DDS DENTAL XRAY Final R esult * DEN XRAY DIG AND PANOREX (11/23/2024 1:17 PM CDT) Narrative User, [id number] - 11/23/2024 1:17 PM CDT This dental x-ray was obtained to evaluate and treat. Please look in Chart Review under Notes/Trans tab for the Procedure Notes for this visit. us Gentry Bob DDS DENTAL XRAY Final R esult documented in this encounter Visit Diagnoses Diagnosis Encounter for dental examination- Primary Dental examination Abscess Cellulitis and abscess of unspecified site documented in this encounter
--- OUTSIDE RECORDS SUMMARY | 2024-11-25 08:00 | XMS_ITS | Encounter Summary ---
Author Organization [facility] Address [address] [place] [address] Phone Care Team Providers Care Resident Inspector Name Role Phone Unavailable Primary Care Provider Unavailabl e Reason for Visit * Reason Comments Follow-up LR swelling follow u p Encounter Details Date Type Department Care Team (Late st Contact Info) Description 11/25/2024 8:00 AM CDT [facility] [address] [address] Mil Petersen, DDS [address] [id number], [facility] Op [address] [place] [address] Abscess (Primary Dx) Discharge Disposition: Discharged to home or self [...] Sign Reading Time Taken Comments Blood Pressure 153/91 11/25/2024 8:02 AM CDT Pulse 98 11/25/2024 8:02 AM CDT Temperature - - Respiratory Rate - - Oxygen Saturation - - Inhaled Oxygen Concentration - - Weight - - Height - - Body Mass Index - - documented in this encounter Plan of Treatment Upcoming Encounters Date Type Department Care Team (Late st Contact Info) Description 12/08/2024 8:30 AM CDT [facility] [address] [address] , [facility] Post Op [address] [place] [id number] Scheduled Discharge Disposition: Discharged to home or self care Scheduled Procedures Name Priority Associated Diagnoses Date/Ti me URETEROSCOPY, FLEXIBLE Semi-Urgent (< 2 wks) Renal mass, left documented as of this encounter Procedures Procedure Name Priority Date/Time Associated Diagnosis Comments DC LIMITED ORAL EVALUATION - PROBLEM FOCUSED Routine 11/25/2024 8:00 AM CDT documented in this encounter Visit Diagnoses Diagnosis Abscess- Primary Cellulitis and abscess of unspecified site documented in this encounter
--- OUTSIDE RECORDS SUMMARY | 2024-11-29 08:00 | XMS_ITS | Encounter Summary ---
Author Organization [facility] Address [address] [place] [address] Phone Care Team Providers Care Closet Builder Name Role Phone Unavailable Primary Care Provider Unavailabl e Reason for Visit * Reason Comments Follow-up OS follow up per sta ff from 11-25-2024 Encounter Details Date Type Department Care Team (Late st Contact Info) Description 11/29/2024 8:00 AM CDT [facility] [address] [address] Dimitrios Lara DDS [facility] [address] [place] [phone] 15, [facility] [address] [place] [address] Abscess (Primary Dx) Discharge Disposition: Discharged to [...] Sign Reading Time Taken Comments Blood Pressure 154/92 11/29/2024 8:01 AM CDT Pulse 98 11/29/2024 8:01 AM CDT Temperature - - Respiratory Rate - - Oxygen Saturation - - Inhaled Oxygen Concentration - - Weight - - Height - - Body Mass Index - - documented in this encounter Plan of Treatment Upcoming Encounters Date Type Department Care Team (Late st Contact Info) Description 12/08/2024 8:30 AM CDT [facility] [address] [phone] 15, [facility] [address] [place] [phone] Scheduled Discharge Disposition: Discharged to home or self care Scheduled Procedures Name Priority Associated Diagnoses Date/Ti me URETEROSCOPY, FLEXIBLE Semi-Urgent (< 2 wks) Renal mass, left documented as of this encounter Procedures Procedure Name Priority Date/Time Associated Diagnosis Comments DC POST OP Routine 11/29/2024 8:00 AM CDT documented in this encounter Visit Diagnoses Diagnosis Abscess- Primary Cellulitis and abscess of unspecified site documented in this encounter
--- OUTSIDE RECORDS SUMMARY | 2024-12-06 08:30 | XMS_ITS | Encounter Summary ---
Author Organization [facility] Address [address] [place] [address] Phone Care Team Providers Care Fruit Press Operator Name Role Phone Unavailable Primary Care Provider Unavailabl e Reason for Visit * Reason Comments Follow-up FU Encounter Details Date Type Department Care Team ([facility] st Contact Info) Description 12/06/2024 8:30 AM CDT [facility] [address] [phone] Dimitrios Lara, [facility] [address] [place] [phone] 15, [facility] [address] [place] [address] Abscess (Primary Dx) Discharge Disposition: Discharged to [...] Sign Reading Time Taken Comments Blood Pressure 131/74 12/06/2024 7:50 AM CDT Pulse 93 12/06/2024 7:50 AM CDT Temperature - - Respiratory Rate - - Oxygen Saturation - - Inhaled Oxygen Concentration - - Weight 108.9 kg (240 lb) 12/06/2024 7:50 AM CDT Height 182.9 cm (6') 12/06/2024 7:50 AM CDT Body Mass Index 32.55 12/06/2024 7:50 AM CDT documented in this encounter Plan of Treatment Upcoming Encounters Date Type Department Care Team (Late st Contact Info) Description 12/08/2024 8:30 AM CDT [facility] [address] [phone] 15, [facility] [address] [place] [address] Scheduled Discharge Disposition: Discharged to home or self care Pending Results Name Type Priority Associated Diagnoses Date /Time I&D Procedures Routine Abscess 12/06/2024 8:14 AM CDT Scheduled Procedures Name Priority Associated Diagnoses Date/Ti me URETEROSCOPY, FLEXIBLE Semi-Urgent (< 2 wks) Renal mass, left documented as of this encounter Procedures Procedure Name Priority Date/Time Associated Diagnosis Comments DENTAL EXTRACTION Routine 12/06/2024 8:14 AM CDT Abscess documented in this encounter Visit Diagnoses Diagnosis Abscess- Primary Cellulitis and abscess of unspecified site documented in this encounter
[2024-12-07] VITALS (20 sets, daily range): BP systolic 84–157; BP diastolic 53–92; PULSE 68–105; RESP 12–32; TEMP 36.6; O2SAT 94–100
--- OUTSIDE RECORDS SUMMARY | 2024-12-07 10:30 | XMS_ITS | Encounter Summary ---
Author Organization [facility] Address [address] [place] [address] Phone Care Team Providers Care District Branch Manager Name Role Phone Unavailable Primary Care Provider Unavailabl e Reason for Visit * Reason Onset Date Comments Erroneous encounter-disregard 12/07/2024 Discuss Surgery Encounter Details Date Type Department Care Team (Late st Contact Info) Description 12/07/2024 10:30 AM CDT [facility] [address] [phone] Lex Rubalcaav, PLASTICS TOOLING ENGINEER, DATA ENTRY REPRESENTATIVE [address] [facility] [place] [address] [place] [address] Hematuria, unspecified type (Primary Dx) Discharge Disposition: Discharged to home [...] on file documented as of this encounter Progress Notes * Lex Rubalcava, PLASTICS TOOLING ENGINEER, DATA ENTRY REPRESENTATIVE - 12/07/2024 10:00 AM CDT [facility] Dominick Lozoya : 1970 Sex: male Medical Decision Making: Assessment & Plan Hematuria, unspecified type CT findings are likely 2/2 filling defect, but there is some concern for TCC. Less likely blood clot or renal papillar necrosis. Surgery teaching completed today. Patient now [place]. Will message our surgery scheduled so diagnostic ureteroscopy can be schedule. Urine studies sent. Orders: URINE CULTURE URINALYSIS,TOTAL CYTOLOGY NON-PAPER COLORER; Future CYTOLOGY NON-PAPER COLORER SPECIMEN Assessment & Plan Return for diagnostic ureteroscopy - next available . Subjective History of Present Illness The patient is a 54-year-old individual who was seen during a recent hospital admission on 11/20/2024. The patient was admitted for right neck swelling, which was concerning for Ludwigs angina. Urology was consulted during that stay after the patient reported a 2-year history of gross hematuria. Urine was clear yellow during the visit, but a CT scan showed a filling defect with some concern for TC C. The patient was scheduled for a telephone visit today to review the plan for surgery. It was recommended that they be scheduled for an outpatient diagnostic ureteroscopy. The surgical case was ordered on 11/30/2024 and the patient was instructed to meet with our financial department. Patient report having intermittent pink to red tinged urine with clots for a few years. Denies any tobacco use or chemical exposure. Denies family history of urologic cancers. Currently has [place]. Objective There were no vitals filed for this visit. Estimated body mass index is 32.55 kg/m?? as calculated from the following: Height as of 12/06/24: 1.829 m (6'). Weight as of 12/06/24: 108.9 kg (240 lb). No family history of urologic cancers. Physical Exam Alert and oriented x3 Non labored breathing Skin is warm, dry Results 11/19/24 CT CAP IMPRESSION: 1. Moderate bilateral dependent streaky atelectasis [...] 4. Colonic diverticulosis without evidence of acute diverticulitis Attestation Today's visit was securely recorded for purposes of note generation via artificial intelligence (AI). Verbal consent was obtained from the patient or parent/guardian. Lex Barry APRN, GWEN, have reviewed the draft documentation generated by AI and appropriate revisions for the final version have been made by me. documented in this encounter Miscellaneous Notes * Assessment & Plan Note - Lex Rubalcava APRN, CNP - 12/07/2024 10:30 AM CDT Associated Problem(s): Hematuria, unspecified type CT findings are likely 2/2 filling defect, but there is some concern for TCC. Less likely blood clot or renal papillar necrosis. Surgery teaching completed today. Patient now [place]. Will message our surgery scheduled so diagnostic ureteroscopy can be schedule. Urine studies sent. Orders: URINE CULTURE URINALYSIS,TOTAL CYTOLOGY NON-PAPER COLORER; Future CYTOLOGY NON-PAPER COLORER SPECIMEN * Addendum Note - Lex Rubalcava APRN, CNP - 12/07/2024 10:30 AM CDTAddended by: LEX RUBALCAVA on: 12/07/2024 10:44 AM Modules accepted: Orders, Level of Service documented in this encounter Plan of Treatment Upcoming Encounters Date Type Department Care Team (Late st Contact Info) Description 12/08/2024 8:30 AM CDT [facility] [address] [phone], [facility] Post Op [address] [place] [address] Scheduled Discharge Disposition: Discharged to home or self care Pending Results Name Type Priority Associated Diagnoses Date /Time URINALYSIS,TOTAL Lab-Non blood Routine Hematuria, unspecified type 12/07/2024 1:00 PM CDT Scheduled Orders Name Type Priority Associated Diagnoses Orde r Schedule URINE CULTURE Microbiology Routine Hematuria, unspecified type Ordered: 12/07/2024 CYTOLOGY NON-PAPER COLORER Pathology STAT Hematuria, unspecified type 1 Occurrences starting 12/07/2024 until 03/09/2025 Scheduled Procedures Name Priority Associated Diagnoses Date/Ti me URETEROSCOPY, FLEXIBLE Semi-Urgent (< 2 wks) Renal mass, left documented as of this encounter Procedures Procedure Name Priority Date/Time Associated Diagnosis Comments CYTOLOGY NON-PAPER COLORER SPECIMEN Routine 12/07/2024 1:00 PM CDT Hematuria, unspecified type documented in this encounter Results * CYTOLOGY NON-PAPER COLORER SPECIMEN (12/07/2024 1:00 PM CDT) Cytology Non-Black Leather Buffer Specimen Refrigerated [facility] Urine 12/07/2024 1:00 PM CDT 12/07/2024 2:28 PM CDT Comment:CYTOLOGY NON-PAPER COLORER SPE CIMEN Narrative [facility] - 12/07/2024 2:28 PM CDT Both orders are required to process Cytology/Non-PAPER COLORER panel. Please do not discontinue either order. 1. Cytology Non-PAPER COLORER 2. Cytology Non-PAPER COLORER Specimen Indicate if this cytology tests is needed.->SILVERSTAIN FOR FUNGUS/PCP and OIL RED O STAIN n/a Laterality->N/A us Lex Rubalcava APRN, DATA ENTRY REPRESENTATIVE LAB PATHOLOGY Final Result [facility] [address] [place] [address] documented in this encounter Visit Diagnoses Diagnosis Hematuria, unspecified type- Primary documented in this encounter
--- OUTSIDE RECORDS SUMMARY | 2024-12-07 14:44 | XMS_ITS | Encounter Summary ---
Author Organization [facility] Address [address] [place] [address] Phone Care Team Providers Care Email Designer Name Role Phone Unavailable Primary Care Provider Unavailabl e Encounter Details Date Type Department Care Team (Late st Contact Info) Description 11/20/2024 Orders Only Unspecified Department [place] Unknown, Provider Social History Tobacco Use Types Packs/Day Years [...] on file documented as of this encounter Plan of Treatment Upcoming Encounters Date Type Department Care Team (Late st Contact Info) Description 12/08/2024 8:30 AM CDT [facility] [address] [phone], [facility] [address] [place] [address] Scheduled Discharge Disposition: Discharged to home or self care Scheduled Procedures Name Priority Associated Diagnoses Date/Ti me URETEROSCOPY, FLEXIBLE Semi-Urgent (< 2 wks) Renal mass, left documented as of this encounter Procedures Procedure Name Priority Date/Time Associated Diagnosis Comments TELEMETRY STRIPS 11/20/2024 7:44 AM CDT documented in this encounter Results * TELEMETRY STRIPS (11/20/2024 7:44 AM CDT) Narrative 11/20/2024 7:44 AM CDT Ordered by an unspecified provider. us Provider Unknown RAD ECHO Final Result documented in this encounter Visit Diagnoses Not on filedocumented in this encounter
--- OUTSIDE RECORDS SUMMARY | 2024-12-07 14:44 | XMS_ITS | Encounter Summary ---
Author Organization [facility] Address [address] [place] [address] Phone Care Team Providers Care Assistant Director Of Plant Operations Name Role Phone Unavailable Primary Care Provider Unavailabl e Encounter Details Date Type Department Care Team (Late st Contact Info) Description 11/23/2024 Orders Only Unspecified Department [place] Unknown, Provider [...] [facility] [address] [phone], [facility] [address] [place] [address] Scheduled Discharge Disposition: Discharged to home or self care Scheduled Procedures Name Priority Associated Diagnoses Date/Ti me URETEROSCOPY, FLEXIBLE Semi-Urgent (< 2 wks) Renal mass, left documented as of this encounter Procedures Procedure Name Priority Date/Time Associated Diagnosis Comments TELEMETRY STRIPS 11/23/2024 8:03 AM CDT documented in this encounter Results * TELEMETRY STRIPS (11/23/2024 8:03 AM CDT) Narrative 11/23/2024 8:03 AM CDT Ordered by an unspecified provider. us Provider Unknown RAD ECHO Final Result documented in this encounter Visit Diagnoses Not on filedocumented in this encounter
--- OUTSIDE RECORDS SUMMARY | 2024-12-07 14:44 | XMS_ITS | Encounter Summary ---
Author Organization [facility] Address [address] [place] [address] Phone Care Team Providers Care Hard Metals Engraver Hand Name Role Phone Unavailable Primary Care Provider Unavailabl e Encounter Details Date Type Department Care Team (Latest Contact Info) Description 11/29/2024 Travel Social History Tobacco Use Types Packs/Day Years [...] [facility] [address] [phone], [facility] [address] [place] [address] Scheduled Discharge Disposition: Discharged to home or self care Scheduled Procedures Name Priority Associated Diagnoses Date/Ti me URETEROSCOPY, FLEXIBLE Semi-Urgent (< 2 wks) Renal mass, left documented as of this encounter Visit Diagnoses Not on filedocumented in this encounter
--- OUTSIDE RECORDS SUMMARY | 2024-12-07 14:44 | XMS_ITS | Referral Summary ---
Author Organization [facility] Address [address] [place] [address] Phone Care Team Providers Care Flight Operations Dispatch Clerk Name Role Phone Unavailable Primary Care Provider Unavailabl e Source Comments [employer] is fully rolled out on [employer]. Last update 12/08/08.Hector Lukkin Encounters Date Type Department Care Team Description 12/07/2024 Travel 12/07/2024 10:30 AM CDT [facility] [address] [place] [phone] Kaitlin Rubalcava, PADDED PRODUCTS FINISHER, [employer] [employer] Hematuria, unspecified type (Primary Dx) Discharge Disposition: Discharged to home or self care 12/06/2024 Travel 12/06/2024 8:30 AM CDT [facility] [address] [place] [phone] Dimitrios Lara, DDS 15, Omfs Post Op Abscess (Primary Dx) Discharge Disposition: Discharged to home or self care 11/30/2024 Telephone [facility] [address] [place] [phone] Kylah Minaya, MARY Schedule Surgery 11/29/2024 Travel 11/29/2024 8:00 AM CDT [facility] [address] [place] [phone] Dimitrios Lara DDS 15, Omfs Post Op Abscess (Primary Dx) Discharge Disposition: Discharged to home or self care 11/25/2024 Travel 11/25/2024 8:00 AM CDT [facility] [address] [place] [phone] Mil Petersen DDS 15, Omfs Post Op Abscess (Primary Dx) Discharge Disposition: Discharged to home or self care 11/23/2024 1:00 PM CDT [facility] [address] [place] [address] Gentry Bob, DDS 30, Omfs Procedure Encounter for dental examination (Primary Dx); Abscess Discharge Disposition: Discharged to home or self care 11/23/2024 Orders Only Unspecified Department [place] Unknown, Provider 11/19/2024 10:36 PM CDT - 11/23/2024 5:15 PM CDT Hospital Encounter [facility] Medical ICU-3 [id number] [place] [address] Kelsie Tierney MD Shapiro, MD Eduardo Amato, Freda Gutierrez MD Neck swelling Discharge Disposition: Discharged to home or self care 11/22/2024 Orders Only Unspecified Department [place] Unknown, Provider 11/22/2024 Orders Only Unspecified Department [place] Unknown, Provider 11/21/2024 Orders Only Unspecified Department [place] Unknown, Provider 11/21/2024 Orders Only Unspecified Department [place] Unknown, Provider 11/20/2024 Orders Only Unspecified Department [place] Unknown, Provider 11/20/2024 Orders Only Unspecified Department [place] Unknown, Provider 11/20/2024 Orders Only Unspecified Department [place] Unknown, Provider 11/20/2024 Travel from Last 3 Months Allergies No known active allergies Medications * Be aware that medications may not be up to date as of this document. Always verify current medications with patient. amLODIPine (NORVASC) 5 mg oral TABS Take 1 tablet (5 mg) by mouth daily. 30 tablet 1 5:09 PM CDT 11/24/19 25 Active chlorhexidine (PERIDEX) 0.12% mouth/throat solutionIndicat ions:Extraction Prophylaxis Swish and spit 15 mL by mouth twice daily for 30 seconds for 8 days as directed. Do not eat, drink or spit 30 minutes after use. 473 mL 9:29 AM CDT 11/26/19 25 06/08/2 025 Active rosuvastatin (CRESTOR) 10 mg oral tablet Take 1 tablet (10 mg) by mouth at bedtime. 12/03/19 25 Active metoprolol succinate (TOPROL XL) 25 mg oral XL tablet Take 1 tablet (25 mg) by mouth daily. 12/01/19 25 Active acetaminophen (TYLENOL) 325 mg oral tablet Take 2 tablets (650 mg) by mouth every 6 hours as needed for Mild Pain or Moderate Pain. 56 tablet 12/07/19 25 025 Active ibuprofen (MOTRIN;ADVIL) 600 mg oral tablet Take 1 tablet (600 mg) by mouth every 6 hours as needed for Pain. 28 tablet 12/07/19 25 025 Active oxyCODONE (ROXICODONE) 5 mg oral tablet Take 1 tablet (5 mg) by mouth every 6 hours as needed for Pain. 4 tablet 12/07/19 25 025 Active amoxicillin-pot assium clavulanate (AUGMENTIN) 875-125 mg oral tablet Take 1 tablet by mouth twice daily for 7 days. 14 tablet 12/07/19 25 025 Active naproxen sodium (ALEVE) 220 mg oral tablet Take 1 tablet (220 mg) by mouth every 12 hours as needed (pain). 025 Discontinued acetaminophen (TYLENOL) 325 mg oral tablet Take 2 tablets (650 mg) by mouth every 6 hours as needed for Moderate Pain. 90 tablet 5 5:09 PM CDT 11/24/19 025 Discontinued(Re order) amoxicillin-cla vulanate (AUGMENTIN) 500-125 mg oral TABS Take 1 tablet by mouth twice daily for 14 doses. 14 tablet 5 5:09 PM CDT 11/25/19 25 025 Active Problems Problem Noted Date Diagnosed Date Abscess 11/26/2024 Neck swelling 11/19/2024 Anemia, unspecified type 11/19/2024 Hematuria, unspecified type 11/19/2024 Assessment & Plan (12/07/2024 10:58 AM CDT): CT findings are likely 2/2 filling defect, but there is some concern for TCC. Less likely blood clot or renal papillar necrosis. Surgery teaching completed today. Patient now [place]. Will message our surgery scheduled so diagnostic ureteroscopy can be schedule. Urine studies sent. Orders: URINE CULTURE URINALYSIS,TOTAL CYTOLOGY NON-DIECAST MACHINE OPERATOR; Future CYTOLOGY NON-DIECAST MACHINE OPERATOR SPECIMEN Social History Tobacco Use Types Packs/Day Years [...] on file Sexual Orientation Not on file Last Filed Vital Signs Vital Sign Reading Time Taken Comments Blood Pressure 131/74 12/06/2024 7:50 AM CDT Pulse 93 12/06/2024 7:50 AM CDT Temperature 36.5 C (97.7 F) 11/23/2024 4:00 PM CDT Respiratory Rate 24 11/23/2024 1:00 PM CDT Oxygen Saturation 94% 11/23/2024 1:00 PM CDT Inhaled Oxygen Concentration - - Weight 108.9 kg (240 lb) 12/06/2024 7:50 AM CDT Height 182.9 cm (6') 12/06/2024 7:50 AM CDT Body Mass Index 32.55 12/06/2024 7:50 AM CDT Plan of Treatment Upcoming Encounters Date Type Department Care Team (Late st Contact Info) Description 12/08/2024 8:30 AM CDT [facility] [address] [phone] , [facility] Post Op [address] [place] [phone] Scheduled Discharge Disposition: Discharged to home or self care Scheduled Procedures Name Priority Associated Diagnoses Date/Ti me URETEROSCOPY, FLEXIBLE Semi-Urgent (< 2 wks) Renal mass, left Procedures Procedure Name Priority Date/Time Associated Diagnosis Comments CYTOLOGY NON-DIECAST MACHINE OPERATOR SPECIMEN Routine 2024 1:00 PM CDT Hematuria, unspecified type DENTAL EXTRACTION Routine 12/06/2024 8:1 4 AM CDT Abscess DC POST OP Routine 11/29/2024 8:00 AM CDT DC LIMITED ORAL EVALUATION - PROBLEM FOCUSED Routine 11/25/2024 8:00 AM CDT DENTAL EXTRACTION Routine 11/23/2024 3:1 9 PM CDT Abscess DEN XRAY DIG AND PANOREX Routine 025 1:57 PM CDT Encounter for dental examination DEN XRAY DIG AND PANOREX Routine 025 1:17 PM CDT Encounter for dental examination 32 DC EXTRACT ERUPTED TOOTH OR EXPOSED ROOT Routine 11/23/2024 1:00 PM CDT 31 DC EXTRACT ERUPTED TOOTH OR EXPOSED ROOT Routine 11/23/2024 1:00 PM CDT 30 DC SURGICAL EXT ERUPTED TOOTH Routine 11/23/2024 1:00 PM CDT DC LIMITED ORAL EVALUATION - PROBLEM FOCUSED Routine 11/23/2024 1:00 PM CDT POC GLUCOSE Routine 11/23/2024 12:07 PM CDT TELEMETRY STRIPS 11/23/2024 8:03 AM CDT POC GLUCOSE Routine 11/23/2024 5:36 AM CDT PC LAB PHOSPHOROUS SERUM Routine 025 5:10 AM CDT PC LAB BASIC METABOLIC PANEL Routine 11/23/2024 5:10 AM CDT PC LAB MAGNESIUM Routine 11/23/2024 5:10 AM CDT PC LAB CBC W/DIFF & PLT Routine 11/24/19 25 5:10 AM CDT TC LAB BLOOD DRAW BY VENIPUNCTURE Routine 11/23/2024 5:10 AM CDT POC GLUCOSE Routine 11/23/2024 12:11 AM CDT TELEMETRY STRIPS 11/22/2024 8:26 PM CDT POC GLUCOSE Routine 11/22/2024 5:59 PM CDT POC GLUCOSE Routine 11/22/2024 11:06 AM CDT PC LAB MB MRSA SURVEILLANCE SCREEN Routine 11/22/2024 9:46 AM CDT TELEMETRY STRIPS 11/22/2024 7:27 AM CDT PC LAB BLOOD GASES Routine 11/22/2024 6: 45 AM CDT POC GLUCOSE Routine 11/22/2024 5:55 AM CDT PC LAB PHOSPHOROUS SERUM Routine 025 4:52 AM CDT PC LAB BASIC METABOLIC PANEL Routine 11/22/2024 4:52 AM CDT PC LAB MAGNESIUM Routine 11/22/2024 4:52 AM CDT TC LAB BLOOD DRAW BY VENIPUNCTURE Routine 11/22/2024 4:52 AM CDT POC GLUCOSE Routine 11/21/2024 11:51 PM CDT EKG ADULT (12-LEAD) Routine 11/21/2024 9 :22 PM CDT POC GLUCOSE Routine 11/21/2024 6:11 PM CDT TELEMETRY STRIPS 11/21/2024 1:20 PM CDT POC GLUCOSE Routine 11/21/2024 12:05 PM CDT PC LAB BLOOD GASES Routine 11/21/2024 7: 02 AM CDT PANEL HEPATIC FUNCTION Routine 7:01 AM CDT PC LAB HEMOGLOBIN; GLYCOSYLATED (A1C) Routine 11/21/2024 7:01 AM CDT PC LAB PHOSPHOROUS SERUM Routine 025 7:01 AM CDT PC LAB BASIC METABOLIC PANEL Routine 11/21/2024 7:01 AM CDT PC LAB MAGNESIUM Routine 11/21/2024 7:01 AM CDT TC LAB BLOOD DRAW BY VENIPUNCTURE Routine 11/21/2024 7:01 AM CDT TELEMETRY STRIPS 11/21/2024 6:56 AM CDT POC GLUCOSE Routine 11/21/2024 6:07 AM CDT POC GLUCOSE Routine 11/20/2024 11:46 PM CDT POTASSIUM Timed 11/20/2024 11:19 PM CDT HEMOGLOBIN Timed 11/20/2024 11:19 PM CDT MAGNESIUM Timed 11/20/2024 7:09 PM CDT PANEL BASIC METABOLIC (BMP) Timed 11/20/2024 7:09 PM CDT POC GLUCOSE [...] CDT HEMOGLOBIN Timed 11/20/2024 8:21 AM CDT TELEMETRY STRIPS 11/20/2024 7:44 AM CDT TELEMETRY STRIPS 11/20/2024 7:44 AM CDT TELEMETRY STRIPS 11/20/2024 7:44 AM CDT POC GLUCOSE Routine 11/20/2024 6:35 AM CDT TRANSFUSE RED BLOOD CELLS (BLOOD ADMIN) Routine 11/20/2024 5:44 AM CDT PC LAB BLOOD GASES Routine 11/20/2024 5: 39 AM CDT RED BLOOD CELLS LEUKOCYTE REDUCED ADULT (BLOOD ADMIN) Routine 11/20/2024 5:38 AM CDT PC LAB CULTURE, BACTERIAL; BLOOD, AEROBIC AND ANAEROBIC STAT 11/20/2024 5:11 AM CDT PC LAB CYSTATIN C Routine 11/20/2024 5:1 1 AM CDT VITAMIN B12 Routine 11/20/2024 5:11 AM CDT RBC FOLATE Routine 11/20/2024 5:11 AM CDT TRANSFERRIN (INCLUDES TIBC) Routine 11/20/2024 5:11 AM CDT FERRITIN Routine 11/20/2024 5:11 AM CDT IRON Routine 11/20/2024 5:11 AM CDT PC LAB PHOSPHOROUS SERUM Routine 025 5:11 AM CDT PC LAB BASIC METABOLIC PANEL Routine 11/20/2024 5:11 AM CDT PC LAB MAGNESIUM Routine 11/20/2024 5:11 AM CDT PC LAB LACTATE (LACTIC ACID) Routine 11/20/2024 5:11 AM CDT PC LAB CBC W/DIFF & PLT Routine 11/21/19 5:11 AM CDT HEMOGLOBIN Timed 11/20/2024 4:37 AM CDT PC LAB SMEAR, PRIMARY SOURCE; GRAM OR GIEMSA Routine 11/20/2024 3:14 AM CDT PC LAB MB MRSA SURVEILLANCE SCREEN Routine 11/20/2024 1:02 AM CDT VITAMIN B12 Routine 11/20/2024 1:02 AM CDT RETIC COUNT Routine 11/20/2024 1:02 AM CDT IRON Routine 11/20/2024 1:02 AM CDT FERRITIN Routine 11/20/2024 1:02 AM CDT TRANSFERRIN (INCLUDES TIBC) Routine 11/20/2024 1:02 AM CDT CK, TOTAL Routine 11/20/2024 1:02 AM CDT PC TROPONIN QUANTITATIVE Timed 025 1:02 AM CDT TRANSFUSE RED BLOOD CELLS [...] ENDOTRACH AIRWAY Routine 11/19/2024 11:41 PM CDT URINE DRUG SCREEN Routine 11/19/2024 11: 30 PM CDT PC LAB PROTEIN, TOTAL, URINE Routine 11/19/2024 11:30 PM CDT PC LAB SODIUM; URINE Routine 11/19/2024 11:30 PM CDT PC LAB URINALYSIS , BY DIPSTICK, AUTOMATED WITH MICROSCOPY STAT 11/19/2024 11:30 PM CDT PC LAB LEGIONELLA PNEUMOPHILA ANTIGEN Routine 11/19/2024 11:30 PM CDT URINE CULTURE STAT 11/19/2024 11:30 PM CDT XR CHEST 1 VIEW AP OR PA* STAT 2024 11:24 PM CDT ED EKG (12-LEAD) Routine 11/19/2024 11:2 2 PM CDT NG/OG TUBE Routine 11/19/2024 11:15 PM CDT PC LAB CULTURE, BACTERIAL; BLOOD, AEROBIC AND ANAEROBIC STAT 11/19/2024 10:52 PM CDT BUN (UREA NITROGEN) Routine 11/19/2024 1 0:45 PM CDT PC LAB PROCALCITONIN Routine 11/19/2024 10:45 PM CDT C-REACTIVE PROTEIN Routine 11/19/2024 10 :45 PM CDT PC LAB HIV-1 ANTIGENS, WITH HIV-1 AND HIV-2 ANTIBODIES, SINGLE RESULT Routine 11/19/2024 10:45 PM CDT TC LAB BLOOD DRAW BY VENIPUNCTURE Routine 11/19/2024 10:45 PM CDT PC LAB ANTIBODY SCREEN, RBC STAT 11/19/2024 10:45 PM CDT PC LAB RH TYPE GEL STAT 11/19/2024 10 :45 PM CDT PC TROPONIN QUANTITATIVE STAT 025 10:45 PM CDT ETHANOL (ETOH) LEVEL, BLOOD STAT 11/19/2024 10:45 PM CDT PC LAB THROMBOPLASTIN TIME, PARTIAL PTT STAT 11/19/2024 10:45 PM CDT PC LAB ED INR STAT 11/19/2024 10:45 PM CDT PC LAB LACTATE (LACTIC ACID) STAT 11/19/2024 10:45 PM CDT FIBRINOGEN STAT 11/19/2024 10:45 PM CDT PANEL HEPATIC FUNCTION STAT 10:45 PM CDT TC LAB ER STAT TOTAL HGB STAT 025 10:45 PM CDT PC LAB ELECTROLYTE PANEL STAT 025 10:45 PM CDT PC LAB CBC W/DIFF & PLT STAT 11/20/19 25 10:45 PM CDT PC LAB BLOOD GASES STAT 11/19/2024 10 :45 PM CDT ED US CRITICAL CARE STAT 11/19/2024 1 0:37 PM CDT from Last 3 Months Results * CYTOLOGY NON-DIECAST MACHINE OPERATOR SPECIMEN (12/07/2024 1:00 PM CDT) Cytology Non-Microbiology Supervisor Specimen Refrigerated [facility] Urine 12/07/2024 1:00 PM CDT 12/07/2024 2:28 PM CDT Comment:CYTOLOGY NON-DIECAST MACHINE OPERATOR SPE CIMEN Narrative [facility] - 12/07/2024 2:28 PM CDT Both orders are required to process Cytology/Non-DIECAST MACHINE OPERATOR panel. Please do not discontinue either order. 1. Cytology Non-DIECAST MACHINE OPERATOR 2. Cytology Non-DIECAST MACHINE OPERATOR Specimen Indicate if this cytology tests is needed.->SILVERSTAIN FOR FUNGUS/PCP and OIL RED O STAIN n/a Laterality->N/A Kaitlin Rubalcava APRN, CNP LAB PATHOLOGY Final Result [facility] [address] [id number] * Dental Extraction (11/23/2024 3:19 PM CDT) [...] to verify the correct patient, procedure, equipment, system support administrator and site/side marked as required. Local anesthesia used: yes Anesthesia: nerve block Anesthesia: Local anesthesia used: yes Local Anesthetic: lidocaine 2% with epinephrine Sedation: Patient sedated: no Pharyngeal shield was utilized. Hemostasis: achieved Getnry Bob DDS PROCEDURES Final R esult * DEN XRAY DIG AND PANOREX (11/23/2024 1:57 PM CDT) Only the most recent of2 resultswithin the time period is included. Narrative User, [id number] - 11/23/2024 1:57 PM CDT This dental x-ray was obtained to evaluate and treat. Please look in Chart Review under Notes/Trans tab for the Procedure Notes for this visit. Gentry J Bob DDS DENTAL XRAY Final R esult * (ABNORMAL) POC GLUCOSE (11/23/2024 12:07 PM CDT) Only the most recent of14 resultswithin the time period is included. POC Glucose 112(H) 70 - 100 mg/dL [facility] Blood 11/23/2024 12:0 7 PM CDT Kelsie Tierney MD LABORATORY Final Result Performing Organization Address [facility] Co de Phone Number [facility] [address] [place] [phone], [place] * TELEMETRY STRIPS (11/23/2024 8:03 AM CDT) Only the most recent of8 resultswithin the time period is included. Narrative 11/23/2024 8:03 AM CDT Ordered by an unspecified provider. Provider Unknown RAD ECHO Final Result * ICU MAGNESIUM (11/23/2024 5:10 AM CDT) Only the most recent of4 resultswithin the time period is included. Magnesium 2.4 1.6 - 2.6 mg/dL [facility] Blood 11/23/2024 5:10 AM CDT 11/23/2024 5:22 AM CDT Justin Morris MD LABORATORY Final Result Performing Organization Address [facility] Co de Phone Number [facility] [address] [place] [phone] * ICU PHOSPHORUS (11/23/2024 5:10 AM CDT) Only the most recent of4 resultswithin the time period is included. Phosphorus 4.5 2.5 - 4.5 mg/dL [facility] Blood 11/23/2024 5:10 AM CDT 11/23/2024 5:22 AM CDT Justin Morris MD LABORATORY Final Result [facility] [address] [address] * (ABNORMAL) ICU CBC WITH PLTS/AUTO DIFF (11/23/2024 5:10 AM CDT) Only the most recent of4 resultswithin the time period is included. WBC 20.60(H) 4.00 - 10.00 k/cmm [facility] RBC 3.56(L) 4.60 - 6.00 m/cmm [facility] Hgb 7.9(L) 13.1 - 17.5 g/dL [facility] Hematocrit 25.5(L) 40.0 - 51.0 % [facility] MCV 71.6(L) 80.0 - 100.0 fL [facility] MCH 22.2(L) 25.0 - 32.0 pg [facility] MCHC 31.0 31.0 - 36.0 g/dL [facility] RDW 20.1(H) 11.5 - 14.5 % [facility] Plt 338 150 - 400 k/cmm [facility] MPV 8.8 6.5 - 12.5 fL [facility] Automated Abs Neutrophil 15.24(H) 1.70 - 6.50 k/cmm [facility] Comment:Preliminary ANC, Fin al Result to Follow Abs Immature Granulocyte 0.94(H) 0.00 - 0.09 k/cmm [facility] Comment:The Immature Granulo cyte Absolute count contains metamyelocytes and myelocytes. Abs Neutrophil 15.24(H) 1.70 - 6.50 k/cmm [facility] Abs Lymphocyte 2.47 0.80 - 4.00 k/cmm [facility] Abs Monocyte 1.85(H) 0.20 - 1.00 k/cmm [facility] Abs Eosinophil 0.03 0.00 - 0.60 k/cmm [facility] Abs Basophil 0.07 0.00 - 0.20 k/cmm [facility] Blood 11/23/2024 5:10 AM CDT 11/23/2024 5:22 AM CDT Justin Morris MD LABORATORY Edited Resul t - Final Performing Organization Address [facility] Co de Phone Number [facility] [address] [address] * (ABNORMAL) ICU PANEL BASIC METABOLIC (BMP) (11/23/2024 5:10 AM CDT) Only the most recent of4 resultswithin the time period is included. CO2 15(L) 22 - 30 mmol/L [facility] Glucose 98 70 - 100 mg/dL [facility] BUN 68(H) 6 - 20 mg/dL [facility] Creatinine 3.17(H) 0.70 - 1.25 mg/dL [facility] Calcium 8.2(L) 8.6 - 10.0 mg/dL [facility] Sodium 141 135 - 148 mmol/L [facility] Potassium 4.2 3.5 - 5.3 mmol/L [facility] Chloride 112(H) 92 - 108 mmol/L [facility] eGFR (2020 CKD-EPI) 23(L) >=60 ml/min/1.7 3m2 [facility] Comment: The estimated glomerular filtration rate (eGFR) was calculated using the CKD-EPI 2020 creatinine equation, which does not include race as a factor. This equation is validated in individuals 18 years of age and older, and eGFR is normalized to a body surface area of 1.73m^2. AnGap 14 8 - 16 mmol/L [facility] Blood 11/23/2024 5:10 AM CDT 11/23/2024 5:22 AM CDT Justin Morris MD LABORATORY Final Result Performing Organization Address [facility] Co de Phone Number [facility] [address] [address] * (ABNORMAL) CYSTATIN C (11/23/2024 5:10 AM CDT) Only the most recent of2 resultswithin the time period is included. Cystatin C 2.57(H) 0.61 - 0.95 mg/L [facility] eGFR by Cystatin C 23(L) >=60 ml/min/1.7 3m2 [facility] Comment: Estimated GFR calculated using the CKD-EPI Cystatin C (2012) equation. Stage Description eGFR Range 1.......Normal or increased eGFR.......90 or Greater 2.......Mildly decreased eGFR..........60-89 3.......Moderately decreased eGFR......30-59 4.......Severely decreased eGFR........15-29 5.......Kidney Failure.................Less than 15 Blood 11/23/2024 5:10 AM CDT 11/23/2024 7:17 AM CDT Freda Clark MD LABORATORY Final Result Performing Organization Address [facility]/ZIP Co de Phone Number [facility] [address] [address] * MRSA SURVEILLANCE SCREEN (11/22/2024 9:46 AM CDT) Only the most recent of2 resultswithin the time period is included. Final Report No MRSA isolated. [facility] Swab NASAL STRUCTURE / Unknown 11/22/2024 9:46 AM CDT 11/22/2024 11:59 AM CDT Narrative [facility] - 11/24/2024 10:47 AM CDT Weekly Monitoring while in ICU - Discontinue MRSA order if patient becomes positive or is no longer in ICU. Kelsie Tierney MD LAB MICROBIOLOGY Final Result Performing Organization Address [facility]/ZIP Co de Phone Number [facility] [address] [address] * (ABNORMAL) ICU BLOOD GAS (11/22/2024 6:45 AM CDT) Only the most recent of2 resultswithin the time period is included. PH Art 7.33(L) 7.35 - 7.45 [facility] PCO2 Art 31(L) 35 - 45 mmHG [facility] PO2 Art 260(H) 80 - 100 mmHG [facility] Bicarb Art 16(L) 22 - 26 mEq/L [facility] O2 Sat Art 99 96 - 99 % [facility] Base Exc Art -8.3 -10.0 - 2.0 mmol/L [facility] Blood Arterial 11/22/2024 6: 45 AM CDT 11/22/2024 6:58 AM CDT Justin Morris MD LABORATORY Final Result Performing Organization Address [facility] Co de Phone Number [facility] [address] [address] * EKG ADULT (12-LEAD) (11/21/2024 9:22 PM CDT) 11/21/2024 9:22 PM CDT Impressions [facility] CVIS EKG ORDERS - 11/21/2024 9:22 PM [...] 388 ms QTC Interval 435 ms P [place] -1 QRS [place] 58 T Wave [place] -19 Narrative Procedure Note Mickey Jenkins III, [...] 388 ms QTC Interval 435 ms P [place] -1 QRS [place] 58 T Wave [place] -19 Jsutin Morris MD EKG Final Result Performing Organization Address [facility] Co de Phone Number [facility] CVIS EKG ORDERS * (ABNORMAL) BLOOD GASES (11/21/2024 7:02 AM CDT) Only the most recent of3 resultswithin the time period is included. PH [place] 7.27(L) 7.32 - 7.42 [facility] PCO2 [place] 40(L) 41 - 51 mmHG [facility] PO2 [place] 68(H) 25 - 40 mmHG [facility] Bicarb [place] 18(L) 24 - 28 mEq/L [facility] O2 Sat [place] 87 % [facility] Base Exc [place] -8.2 -10.0 - 2.0 mmol/L [facility] Blood Venous 11/21/2024 7:02 AM CDT 11/21/2024 7:24 AM CDT Justin Morris MD LABORATORY Final Result Performing Organization Address [facility] Co de Phone Number [address] [phone] * (ABNORMAL) PANEL HEPATIC FUNCTION (11/21/2024 7:01 AM CDT) Only the most recent of2 resultswithin the time period is included. Pathologist [facility] Total Protein 7.1 6.4 - 8.3 g/dL [facility] Albumin 3.0(L) 3.8 - 5.1 g/dL [facility] Bili Total 0.3 <=1.2 mg/dL [facility] Bili Direct 0.2 <=0.3 mg/dL [facility] Alk Phos 75 40 - 129 IU/L [facility] Comment:No reference range e stablished for patients <18 years old. ALT (SGPT) 13 <=41 IU/L [facility] AST(SGOT) 19 5 - 40 IU/L [facility] Blood 11/21/2024 7:01 AM CDT 11/21/2024 11:23 PM CDT Justin Morris MD LABORATORY Final Result Performing Organization Address [facility] Co de Phone Number [address] [phone] * (ABNORMAL) GLYCOSYLATED HGB - A1C (11/21/2024 7:01 AM CDT) Hemoglobin A1C 6.2(H) 4.0 - 5.6 % [facility] Comment: Increased risk for diabetes (prediabetes): [...] Average Glucose 131(H) 68 - 114 mg/dL [facility] Comment: The estimated Average Glucose (eAG) [...] MD LABORATORY Final Result Performing Organization Address [facility] Co de Phone Number [address] [address] * POTASSIUM (11/20/2024 11:19 PM CDT) Potassium 4.8 3.5 - 5.3 mmol/L [facility] Blood 11/20/2024 11:1 9 PM CDT 11/20/2024 11:23 PM CDT Justin Morris MD LABORATORY Final Result Performing Organization Address City/State/[facility] Co de Phone Number [address] [address] * (ABNORMAL) HEMOGLOBIN (11/20/2024 11:19 PM CDT) Only the most recent of4 resultswithin the time period is included. Hgb 7.7(L) 13.1 - 17.5 g/dL [facility] Blood 11/20/2024 11:1 9 PM CDT 11/20/2024 11:23 PM CDT Justin Morris MD LABORATORY Final Result Performing Organization Address [facility] de Phone Number [facility] [address] [address] * (ABNORMAL) PANEL BASIC METABOLIC (BMP) (11/20/2024 7:09 PM CDT) Sodium 140 135 - 148 mmol/L [facility] Potassium 4.4 3.5 - 5.3 mmol/L [facility] Chloride 113(H) 92 - 108 mmol/L [facility] CO2 16(L) 22 - 30 mmol/L [facility] Glucose 88 70 - 100 mg/dL [facility] BUN 67(H) 6 - 20 mg/dL [facility] Creatinine 3.50(H) 0.70 - 1.25 mg/dL [facility] Calcium 8.3(L) 8.6 - 10.0 mg/dL [facility] AnGap 11 8 - 16 mmol/L [facility] eGFR (2020 CKD-EPI) 20(L) >=60 ml/min/1.7 3m2 [facility] Comment: The estimated glomerular filtration rate (eGFR) was calculated using the CKD-EPI 2020 creatinine equation, which does not include race as a factor. This equation is validated in individuals 18 years of age and older, and eGFR is normalized to a body surface area of 1.73m^2. Blood 11/20/2024 7:09 PM CDT 11/20/2024 7:17 PM CDT Justin Morris MD LABORATORY Edited Resul t - Final Performing Organization Address [facility] Co de Phone Number [facility] [address] [address] * MAGNESIUM (11/20/2024 7:09 PM CDT) Magnesium 2.3 1.6 - 2.6 mg/dL [facility] Blood 11/20/2024 7:09 PM CDT 11/20/2024 7:17 PM CDT Justin Morris MD LABORATORY Final Result Performing Organization Address City/[facility]/ZIP Co de Phone Number [facility] [address] [address] * TRANSFUSE RED BLOOD CELLS (BLOOD ADMIN) [...] Radiologist: Edy Gutierrez Reading Resident: Richmond Avilez Narrative 11/29/2024 12:11 PM CDT Exam: CT neck [...] CELLS (BLOOD ADMIN) (11/20/2024 9:24 AM CDT) us Justin Morris MD BLOOD TRANSFUSION ORDERABLES (BLOOD ADMIN) Final Result * RED BLOOD CELLS LEUKOCYTE REDUCED ADULT (BLOOD ADMIN) (11/20/2024 9:11 AM CDT) Only the most recent of3 resultswithin the time period is included. Unit Number [id number] [facility] Product Code [id number] [facility] Blood Expiration Date [id number] [facility] Blood Type 6200 [facility] Blood Type (TEXT) APOS [facility] Other 11/20/2024 9:11 AM CDT 11/20/2024 8:59 AM CDT Justin Morris MD BLOOD BANK ORDERABLES (BLOOD ADMIN) Edited Result - Final Performing Organization Address City/[facility]/[place]IP [place] [address] * TRANSFUSE RED BLOOD CELLS (BLOOD ADMIN) (11/20/2024 6:44 AM CDT) Result [facility] Kelsie Tierney MD BLOOD TRANSFUSION ORDERABLES (BL OOD ADMIN) Final Result * ICU LACTATE (LACTIC ACID) (11/20/2024 5:11 AM CDT) Lactate 0.9 0.7 - 2.1 mmol/L [facility] Blood 11/20/2024 5:11 AM CDT 11/20/2024 6:06 AM CDT us Justin Morris MD LABORATORY Final Result [place] [phone] * RBC FOLATE (11/20/2024 5:11 AM CDT) RBC Folate 888 >=366 ng/mL [employer] Comment: Performed By: [facility] [address] [place] [address] Pillowcase Cutter: Romie Mak MD, PhD CLIA Number: [id number] Blood 11/20/2024 5:11 AM CDT 11/20/2024 5:56 AM CDT Narrative [facility] - 11/22/2024 8:48 PM CDT HCT:19.6 us Justin Morris MD LABORATORY Final Result [facility] [employer] [address] [place] [address], * (ABNORMAL) TRANSFERRIN (INCLUDES TIBC) (11/20/2024 5:11 AM CDT) Only the most recent of2 resultswithin the time period is included. Transferrin 221 200 - 360 mg/dL [facility] IBC 329 298 - 536 mcg/dL [facility] Iron Saturation Percent 8(L) 20 - 50 % [facility] Blood 11/20/2024 5:11 AM CDT 11/20/2024 5:56 AM CDT us Justin Morris MD LABORATORY Edited Resul t - Final Performing Organization Address [facility] Co de Phone Number [facility] [address] [address] * (ABNORMAL) IRON (11/20/2024 5:11 AM CDT) Only the most recent of2 resultswithin the time period is included. Iron 25(L) 50 - 150 mcg/dL [facility] Blood 11/20/2024 5:11 AM CDT 11/20/2024 5:56 AM CDT us Justin Morris MD LABORATORY Final Result Performing Organization Address City/[facility]/ZIP Co de Phone Number [facility] [address] [address] * FERRITIN (11/20/2024 5:11 AM CDT) Only the most recent of2 resultswithin the time period is included. Ferritin 36.9 30.0 - 400.0 ng/mL [facility] Comment: Test Performed by: [facility] [address] [place] [id number] Blood 11/20/2024 5:11 AM CDT 11/20/2024 5:56 AM CDT Justin Morris MD LABORATORY Edited Resul t - Final Performing Organization Address [facility] Co de Phone Number [facility] [address] [address] * BLOOD AEROBIC/ANAEROBIC CULTURE (11/20/2024 5:11 AM CDT) Only the most recent of2 resultswithin the time period is included. Final Report No growth after 5 days. [facility] Blood (Peripheral) 11/20/2024 5:11 AM CDT 11/20/2024 8:10 AM CDT Kelsie Tierney MD LAB MICROBIOLOGY Final Result Performing Organization Address [facility] Co de Phone Number [facility] [address] [address] * VITAMIN B12 (11/20/2024 5:11 AM CDT) Only the most recent of2 resultswithin the time period is included. B12 533 211 - 946 pg/mL [facility] Blood 11/20/2024 5:11 AM CDT 11/20/2024 5:56 AM CDT us Justin Morris MD LABORATORY Edited Resul t - Final Performing Organization Address [facility] Co de Phone Number [facility] [address] [address] * RESPIRATORY CULTURE (11/20/2024 3:14 AM CDT) Final Report No growth. [facility] Gram Stain Report Less than 10 epithelial cells/low power field. Greater than 25 PMN's/low power field. Few Gram negative cocci Moderate mixed julio. [facility] Sputum 11/20/2024 3:14 AM CDT 11/20/2024 10:21 AM CDT us Justin Morris MD LAB MICROBIOLOGY Final Resul t Performing Organization Address City/[facility]/ZIP Co de Phone Number [facility] [address] [address] * TROP 2H (11/20/2024 1:02 AM CDT) 2H Trop 12 <=35 ng/L [facility] 2H Delta Not Significant Not Significant [facility] Blood 11/20/2024 1:02 AM CDT 11/20/2024 1:13 AM CDT Kelsie Tierney MD LABORATORY Edited Result - Final Performing Organization Address [facility] Co de Phone Number [facility] [address] [address] * RETIC COUNT (11/20/2024 1:02 AM CDT) Retic Count 1.0 0.5 - 1.8 % [facility] Blood 11/20/2024 1:02 AM CDT 11/20/2024 3:09 AM CDT Justin Morris MD LABORATORY Final Result Performing Organization Address City/[facility]/ZIP Co de Phone Number [facility] [address] [address] * CK, TOTAL (11/20/2024 1:02 AM CDT) CK 92 39 - 308 IU/L [facility] Blood 11/20/2024 1:02 AM CDT 11/20/2024 2:25 AM CDT Justin Morris MD LABORATORY Final Result [facility] [address] [address] * CT OUTSIDE READ SPINE CERVICAL/NECK (11/20/2024 [...] by the resident/fellow. Reading Radiologist: Janett Quevedo Resident: Clint Mcknight 11/20/2024 8:44 AM CDT Indication: Patient transferred from [facility] due to Infection. No initial report accompanied the patient and/or Dr. JUSTIN MORRIS requested an interpretation by me. Technique: CT scan of the cervical spine done on 11/19/2024 with IV contrast. Axial, sagittal and coronal reconstructions reviewed in soft tissue and bone windows, per the local institution's scanning protocols, which may differ from the [facility] trauma protocols. Findings: There is moderate subcutaneous [...] MD - 11/20/2024 Indication: Patient transferred from [facility] due toInfection. No initial report accompanied the patient and/or Dr. TELLEZ requested an interpretation by me. Technique: CT scan of the cervical spine done on 11/19/2024 with IVcontrast. Axial, sagittal and coronal reconstructions reviewed in softtissue and bone windows, per the local institution's scanning protocols,which may differ from the [facility] trauma protocols. Findings: There is moderate subcutaneous [...] Radiologist: Janett Quevedo Reading Resident: Clint Mcknight us Justin Morris MD RAD CT NEURO Final [...] hydronephrosis. The urinary bladder is decompressed with Ortez catheter in place. GI system/bowel/mesentery: Grossly normal [...] no hydronephrosis. Theurinary bladder is decompressed with Ortez catheter in place. GI system/bowel/mesentery: Grossly normal [...] resident/fellow. Reading Radiologist: Bryson Smith Reading Resident: Mcknight, Clint us Kelsie R Niall MD RAD CT BODY Final Result * Nasopharyngoscopy (11/19/2024 11:42 PM CDT) Kelsie Bach MD - 11/19/2024 11:42 PM CDT Kelsie [...] procedure: Tolerated well, no immediate complications Result [facility] Kelsie Tierney MD PROCEDURES Final Result * Intubation (11/19/2024 11:41 PM CDT) Kelsie Bach MD - 11/19/2024 11:41 PM CDT Kelsie [...] lip laceration; possibly chipped front left tooth Kelsie Tierney MD PROCEDURES Final Result * LEGIONELLA PNEUMOPHILA URINE ANTIGEN (11/19/2024 11:30 PM CDT) Final Report Negative for Legionella pneumophila Serogroup 1 Antigen. [facility] Urine 11/19/2024 11:3 0 PM CDT 11/20/2024 10:21 AM CDT Narrative [facility] - 11/20/2024 11:56 AM CDT This assay was performed using an FDA-cleared direct antigen test. Justin Morris MD LAB MICROBIOLOGY Final Resul t Performing Organization Address City/[facility]/ZIP Co de Phone Number [facility] [address] [address] * (ABNORMAL) PROTEIN TO CREAT RATIO,URINE (11/19/2024 11:30 PM CDT) TPU 65(H) 0 - 11 mg/dL [facility] Creat Urine 49 30 - 125 mg/dL [facility] Protein to Creat Ratio, Ur 1.33(H) 0.00 - 0.06 mg/mg [facility] Urine 11/19/2024 11:3 0 PM CDT 11/20/2024 3:02 AM CDT Justin Morris MD LABORATORY Final Result Performing Organization Address City/[facility]/ZIP Co de Phone Number [facility] [address] [address] * URINE DRUG SCREEN (11/19/2024 11:30 PM CDT) Acetaminophen Ur NEG <=10 mcg/mL [facility] Amphetamine Ur POS <=500 ng/mL [facility] Comment:Corrected from PENDI NG ng/mL [NA] on 11/22/24 7:12:27 CDT by Lizett Pierre Barbiturate Ur NEG <=200 ng/mL [facility] Benzodiazipine NEG <=100 ng/mL [facility] Buprenorphine Ur NEG <=5 ng/mL [facility] Cocaine Metab Ur NEG <=300 ng/mL [facility] Fentanyl, Urine NEG <=5 ng/mL [facility] LSD Ur NEG <=500 pg/mL [facility] Methadone Ur NEG <=300 ng/mL [facility] Opiate Ur NEG <=300 ng/mL [facility] Oxycodone Ur NEG <=100 ng/mL [facility] PCP Urine NEG <=25 ng/mL [facility] Propox Ur NEG <=300 ng/mL [facility] Salicylate Ur NEG <=10 mg/dL [facility] Creat Urine 50 >=20 mg/dL [facility] Mass Spectrometry Urine Amphetamine, Methamphetamin e, Naproxen and Ondansetron present. [facility] Urine 11/19/2024 11:3 0 PM CDT 11/21/2024 11:39 PM CDT Justin Morris MD LABORATORY Final Result Performing Organization Address City/State/[facility] Co de Phone Number [facility] [address] [address] * (ABNORMAL) URINE CULTURE (11/19/2024 11:30 PM CDT) Urine Cult 10,000 - 50,000 organisms/ml Methicillin sensitive Staphylococcus aureus (MSSA) isolated. Methicillin susceptible by PBP2a. Less than 10,000 organisms/ml mixed julio. No further work-up. (POS) [facility] Organism METHICILLIN SENSITIVE STAPHYLOCOCCUS AUREUS (MSSA)(POS) [facility] Urine Midstream. URINE / Unknown 11/20/19 11:30 PM CDT 11/20/2024 12:51 AM CDT Narrative [facility] - 11/22/2024 8:15 AM CDT ED [...] MICROBIOLOGY Final Result Performing Organization Address [facility] de Phone Number [facility] [address] [address] * (ABNORMAL) URINALYSIS,TOTAL (11/19/2024 11:30 PM CDT) Pathologist [facility] Color YELLOW YELLOW [facility] Appearance TURBID(A) CLEAR [facility] Urine Glucose NEGATIVE NEGATIVE mg/dL [facility] Bili UA NEGATIVE NEGATIVE [facility] Ketones NEGATIVE NEGATIVE [facility] Specific [place] 1.020 1.003 - 1.030 [facility] Blood Ur LARGE(A) Neg-Trace [facility] PH Urine 6.0 5.0 - 7.0 [facility] Protein Ur 50(A) Neg-Trace [facility] Urobilinogen NORMAL NORMAL EU/dL [facility] Nitrite Ur NEGATIVE NEGATIVE [facility] Leuk Est LARGE(A) Neg-Trace [facility] WBC Ur >50(A) 0 - 5 perHPF [facility] RBC Ur >20(A) 0 - 3 perHPF [facility] Urinalysis Performed at: [facility] Urine 11/19/2024 11:3 0 PM CDT 11/19/2024 11:37 PM CDT Kelsie Tierney MD LABORATORY Edited Result - Final Performing Organization Address [facility] Co de Phone Number [facility] [address] [address] * SODIUM,URINE-RANDOM KARISHMA (11/19/2024 11:30 PM CDT) [facility] [place] [facility] Sodium Urine 64 40 - 200 mmol/L [facility] Urine 11/19/2024 11:3 0 PM CDT 11/20/2024 3:02 AM CDT Justin Morris MD LABORATORY Final Result [facility] [address] [place] [address] * XR CHEST 1 VIEW AP OR [...] Reading Radiologist: Bryson Smith Reading Resident: Clint cMknight 11/20/2024 6:11 AM CDT Technique: XR CHEST [...] Radiologist: Bryson Smith Reading Resident: Clint Mcknight Kelsie Tierney MD RAD XRAY Final Result * ED EKG (12-LEAD) (11/19/2024 11:22 PM CDT) 11/19/2024 11:2 2 PM CDT Impressions [facility] CVIS EKG ORDERS - 11/19/2024 11:22 PM CDT SINUS RHYTHM INCOMPLETE RIGHT BUNDLE BRANCH BLOCK [90+ ms QRS DURATION, TERMINAL R IN V1/V2, 40+ ms S IN I/aVL/V4/V5/V6] LEFT VENTRICULAR HYPERTROPHY AND ST-T CHANGE [VOLTAGE CRITERIA PLUS ST/T ABNORMALITY] ABNORMAL ECG P-R Interval 140 ms QRS Interval 95 ms QT Interval 367 ms QTC Interval 418 ms P [place] 65 QRS [place] 13 T Wave [place] 73 Narrative Procedure Note Jonas Mcbride [facility] - 11/20/2024 IMPRESSION SINUS RHYTHM INCOMPLETE RIGHT BUNDLE BRANCH BLOCK [90+ ms QRS DURATION, TERMINAL R INV1/V2, 40+ ms S IN I/aVL/V4/V5/V6] LEFT VENTRICULAR HYPERTROPHY AND ST-T CHANGE [VOLTAGE CRITERIA PLUS ST/TABNORMALITY] ABNORMAL ECG P-R Interval 140 ms QRS Interval 95 ms QT Interval 367 ms QTC Interval 418 ms P [place] 65 QRS [place] 13 T Wave [place] 73 Kelsie Tierney MD EKG Final Result [facility] CVIS EKG ORDERS * NG/OG Tube (11/19/2024 [...] Kelsie Tierney MD PROCEDURES Final Result * (ABNORMAL) ED INR (11/19/2024 10:45 PM CDT) [facility] [place] [facility] ED INR 1.3(H) 0.8 - 1.1 [facility] Comment: Warfarin Therapeutic Range: Standard Intensity: 2.0 - 3.0 High Intensity: 2.5 - 3.5 This is a rapid INR screening test which uses whole blood; results may infrequently differ from plasma INR results. If medication adjustments/dosing are required a PT/INR test ([id number]) should be ordered and performed in the main laboratory. Blood 11/19/2024 10:4 5 PM CDT 11/19/2024 10:52 PM CDT us Kelsie Tierney MD LABORATORY Final Result Performing Organization Address [facility] de Phone Number [facility] [address] [address] * PROCALCITONIN (11/19/2024 10:45 PM CDT) [facility] [place] [facility] Procalcitonin 4.38 ng/mL [facility] Comment: Results <0.50 ng/mL represent a low risk of severe sepsis and/or septic shock. Results >2.0 ng/mL represent a high risk of severe sepsis and/or septic shock. Blood 11/19/2024 10:4 5 PM CDT 11/20/2024 12:07 AM CDT us Kelsie Tierney MD LABORATORY Final Result Performing Organization Address [facility] Co de Phone Number [facility] [address] [address] * EXTRA TUBE - SST (11/19/2024 10:45 PM CDT) [facility] SST TUBE Stored [facility] Comment:SST tubes (Serum Sep arator) are stored in the lab for 3 days from the collection date. Blood 11/19/2024 10:4 5 PM CDT 11/19/2024 10:56 PM CDT us Kelsie Tierney MD LABORATORY Final Result [facility] [address] [address] * HIV COMBO (11/19/2024 10:45 PM CDT) Pathologist [facility] HIV Antigen-Antibody Nonreactive Nonreactive [facility] Comment:Performance characte ristics have not been established with this test on patients less than 2 years of age. Blood 11/19/2024 10:4 5 PM CDT 11/20/2024 12:05 AM CDT us Kelsie Tierney MD LABORATORY Final Result Performing Organization Address [facility] Co de Phone Number [facility] [address] [address] * HS TROPONIN (11/19/2024 10:45 PM CDT) [facility] HS Troponin I 12 <=35 ng/L [facility] Blood 11/19/2024 10:4 5 PM CDT 11/19/2024 10:52 PM CDT Narrative [facility] - 11/20/2024 12:15 AM CDT First Occurrence of the Troponin order is to be drawn Stat by Nursing staff on the unit. us Kelsie Tierney MD LABORATORY Final Result Performing Organization Address [facility] Co de Phone Number [facility] [address] [address] * (ABNORMAL) ED CHEMISTRY LABS(NA,K,CL,CO2,GLU,CREAT,CA-IONIZED,ANION GAP) (11/19/2024 10:45 PM CDT) Pathologist [facility] Sodium 141 135 - 148 mmol/L [facility] Potassium 4.3 3.5 - 5.3 mmol/L [facility] Chloride 110(H) 92 - 108 mmol/L [facility] AnGap 16 8 - 16 mmol/L [facility] Glucose 117(H) 70 - 100 mg/dL [facility] ICA, Actual 4.58 4.40 - 5.20 mg/dL [facility] ICA, pH Corrected 4.43 4.40 - 5.20 mg/dL [facility] Creatinine 4.55(H) 0.70 - 1.25 mg/dL [facility] BICARB 15(L) 22 - 26 mEq/L [facility] eGFR (2020 CKD-EPI) 15(L) >=60 ml/min/1.7 3m2 [facility] Comment: The estimated glomerular filtration rate [...] us Kelsie Tierney MD LABORATORY Final Result [facility] [address] [address] * (ABNORMAL) CBC WITH PLTS/AUTO DIFF (11/19/2024 10:45 PM CDT) WBC 15.26(H) 4.00 - 10.00 k/cmm [facility] RBC 2.91(L) 4.60 - 6.00 m/cmm [facility] Hgb 6.0(AA) 13.1 - 17.5 g/dL [facility] Hematocrit 20.1(L) 40.0 - 51.0 % [facility] MCV 69.1(L) 80.0 - 100.0 fL [facility] MCH 20.6(L) 25.0 - 32.0 pg [facility] MCHC 29.9(L) 31.0 - 36.0 g/dL [facility] RDW 17.8(H) 11.5 - 14.5 % [facility] Plt 419(H) 150 - 400 k/cmm [facility] MPV 8.6 6.5 - 12.5 fL [facility] Automated Abs Neutrophil 12.54(H) 1.70 - 6.50 k/cmm [facility] Comment:Preliminary ANC, Fin al Result to Follow Abs Immature Granulocyte 0.08 0.00 - 0.09 k/cmm [facility] Comment:The Immature Granulo cyte Absolute count contains metamyelocytes and myelocytes. Abs Neutrophil 12.54(H) 1.70 - 6.50 k/cmm [facility] Abs Lymphocyte 0.97 0.80 - 4.00 k/cmm [facility] Abs Monocyte 1.54(H) 0.20 - 1.00 k/cmm [facility] Abs Eosinophil 0.10 0.00 - 0.60 k/cmm [facility] Abs Basophil 0.03 0.00 - 0.20 k/cmm [facility] Hypochromasi Moderate [facility] Caitlin Cell Moderate [facility] Elliptocyte Moderate [facility] Blood 11/19/2024 10:4 5 PM CDT 11/19/2024 11:10 PM CDT Narrative [facility] - 11/19/2024 11:52 PM CDT Critical value for HGB called to and read back by Jose M Muñoz RN in STAB 1 at 11/19/2024 23:39:37 CDT by Manda Simon. Kelsie Tierney MD LABORATORY Edited Result - Final Performing Organization Address [facility] Co de Phone Number [address] [address] * (ABNORMAL) ED HEMOGLOBIN TOTAL (ED ONLY) (11/19/2024 10:45 PM CDT) Hgb 6.4(AA) 13.1 - 17.5 g/dL [facility] Comment:Critical Result Low Blood 11/19/2024 10:4 5 PM CDT 11/19/2024 10:53 PM CDT Narrative [facility] - 11/19/2024 11:03 PM CDT Critical value for Hemoglobin called to and read back by Melissa Collins MD in STAB Room at 11/19/2024 23:03:50 CDT by Carly Valentine MLS. Kelsie Tierney MD LABORATORY Edited Result - Final Performing Organization Address City/[facility]/ZIP Co de Phone Number [facility] [address] [address] * (ABNORMAL) BUN (UREA NITROGEN) (11/19/2024 10:45 PM CDT) BUN 80(H) 6 - 20 mg/dL [facility] Blood 11/19/2024 10:4 5 PM CDT 11/20/2024 12:07 AM CDT Kelsie Tierney MD LABORATORY Final Result Performing Organization Address City/[facility]/ZIP Co de Phone Number [facility] [address] [address] * LACTATE (LACTIC ACID) (11/19/2024 10:45 PM CDT) Lactate 1.2 0.7 - 2.1 mmol/L [facility] Blood 11/19/2024 10:4 5 PM CDT 11/19/2024 10:53 PM CDT Narrative [facility] - 11/19/2024 11:01 PM CDT Send specimen on ice! Kelsie Tierney MD LABORATORY Final Result Performing Organization Address [facility] Co de Phone Number [address] [address] * (ABNORMAL) FIBRINOGEN (11/19/2024 10:45 PM CDT) Fibrinogen 494(H) 200 - 400 mg/dL [facility] Blood 11/19/2024 10:4 5 PM CDT 11/19/2024 11:10 PM CDT Kelsie Tierney MD LABORATORY Final Result Performing Organization Address [facility] Co de Phone Number [facility] [address] [address] * ETHANOL (ETOH) LEVEL, BLOOD (11/19/2024 10:45 PM CDT) Ethanol Negative Negative g/dL [facility] Blood 11/19/2024 10:4 5 PM CDT 11/19/2024 11:10 PM CDT us Kelsie Tierney MD LABORATORY Final Result Performing Organization Address City/[facility]/ZIP Co de Phone Number [address] [address] * (ABNORMAL) C-REACTIVE PROTEIN (11/19/2024 10:45 PM CDT) C-Reactive Protein 228(H) <=4 mg/L [facility] Blood 11/19/2024 10:4 5 PM CDT 11/20/2024 12:07 AM CDT us Kelsie Tierney MD LABORATORY Final Result Performing Organization Address [facility] Co de Phone Number [address] [address] * ANTIBODY SCREEN (11/19/2024 10:45 PM CDT) Radha Screen Negative [facility] Blood 11/19/2024 10:4 5 PM CDT 11/19/2024 11:03 PM CDT us Kelsie Tierney MD LAB TRANSFUSION SERVICES Final R esult Performing Organization Address [facility] Co de Phone Number [address] [address] * PTT (APTT) (11/19/2024 10:45 PM CDT) APTT 32.7 25.0 - 37.0 sec [facility] Blood 11/19/2024 10:4 5 PM CDT 11/19/2024 11:10 PM CDT us Kelsie Tierney MD LABORATORY Final Result Performing Organization Address [facility]/ZIP Co de Phone Number [address] [address] * BLOOD TYPING-ABO/RH (11/19/2024 10:45 PM CDT) ABORHG A POS [facility] Blood 11/19/2024 10:4 5 PM CDT 11/19/2024 11:03 PM CDT Kelsie Tierney MD LAB TRANSFUSION SERVICES Final R esult [facility] [address] [address] * ED US CRITICAL CARE (11/19/2024 10:37 PM CDT) Anatomical Region Laterality Modality Ultrasound Narrative 11/19/2024 11:21 PM CDT ED Cardiac Ultrasound Body Areas Imaged: Heart and Chest Wall/Lungs Indications:Evaluate Volume Status Window: Parasternal Short [place], Parasternal Long [place], and Bilateral Lungs Findings: The left ventricular [...] Tierney MD RAD ED ULT Final Result from Last 3 Months Advance Directives For more information, please contact: [phone] * Full Code (Latest Code Status on File) Date Activated Date Inactivated Comments 11/19/2024 11:57 PM 11/23/2024 10:25 PM Question Answer Comments Does the Patient have prefer ences regarding life sustaining measures (these options only apply when the patient has a pulse): No Discussed Code Status With Whom? Not discussed
--- OUTSIDE RECORDS SUMMARY | 2024-12-07 14:44 | XMS_ITS | Encounter Summary ---
Author Organization [facility] Address [address] [place] [address] Phone Care Team Providers Care Big Data Platform Architect Name Role Phone Unavailable Primary Care Provider Unavailabl e Encounter Details Date Type Department Care Team (Late st Contact Info) Description 11/21/2024 Orders Only Unspecified Department [place] Unknown, [...] [facility] [address] [address] 15, [facility] [address] [place] [address] Scheduled Discharge Disposition: Discharged to home or self care Scheduled Procedures Name Priority Associated Diagnoses Date/Ti me URETEROSCOPY, FLEXIBLE Semi-Urgent (< 2 wks) Renal mass, left documented as of this encounter Procedures Procedure Name Priority Date/Time Associated Diagnosis Comments TELEMETRY STRIPS 11/21/2024 1:20 PM CDT documented in this encounter Results * TELEMETRY STRIPS (11/21/2024 1:20 PM CDT) Narrative 11/21/2024 1:20 PM CDT Ordered by an unspecified provider. us Provider Unknown RAD ECHO Final Result documented in this encounter Visit Diagnoses Not on filedocumented in this encounter
--- OUTSIDE RECORDS SUMMARY | 2024-12-07 14:44 | XMS_ITS | Encounter Summary ---
Author Organization [facility] Address [address] [place] [address] Phone Care Team Providers Care Brass Roller Name Role Phone Unavailable Primary Care Provider [...] [facility] [address] [address], [facility] [address] [place] [address] Scheduled Discharge Disposition: Discharged to home or self care Scheduled Procedures Name Priority Associated Diagnoses Date/Ti me URETEROSCOPY, FLEXIBLE Semi-Urgent (< 2 wks) Renal mass, left documented as of this encounter Procedures Procedure Name Priority Date/Time Associated Diagnosis Comments TELEMETRY STRIPS 11/21/2024 6:56 AM CDT documented in this encounter Results * TELEMETRY STRIPS (11/21/2024 6:56 AM CDT) Narrative 11/21/2024 6:56 AM CDT Ordered by an unspecified provider. us Provider Unknown RAD ECHO Final Result documented in this encounter Visit Diagnoses Not on filedocumented in this encounter
--- OUTSIDE RECORDS SUMMARY | 2024-12-07 14:44 | XMS_ITS | Encounter Summary ---
Author Organization [facility] Address [address] [place] [address] Phone Care Team Providers Care Epic Cadence Specialists Name Role Phone Unavailable Primary Care Provider Unavailabl e Reason for Visit * Reason Onset Date Comments Schedule Surgery 11/30/2024 Encounter Details Date Type Department Care Team (Late st Contact Info) Description 11/30/2024 Telephone [facility] [address] [address] Kylah Minaya, MARY [address] [address] Schedule Surgery Social History Tobacco Use Types Packs/Day Years [...] on file documented as of this encounter Miscellaneous Notes * Telephone Encounter - Kylah Minaya RNFA - 11/30/2024 12:46 PM CDT Surgical case has been ordered for Pt. Case will need to be reviewed and approved prior to assigning a surgery date to the case. Pt will be informed to speak with our [facility] dept. By the urology clinic staff. documented in this encounter Plan of Treatment Upcoming Encounters Date Type Department Care Team (Late st Contact Info) Description 12/08/2024 8:30 AM CDT Office Visit [facility] [address] [address], [facility] [address] [place] [address] Scheduled Discharge Disposition: Discharged to home or self care Scheduled Procedures Name Priority Associated Diagnoses Date/Ti me URETEROSCOPY, FLEXIBLE Semi-Urgent (< 2 wks) Renal mass, left documented as of this encounter Visit Diagnoses Not on filedocumented in this encounter
--- OUTSIDE RECORDS SUMMARY | 2024-12-07 14:45 | XMS_ITS | Encounter Summary ---
Author Organization [facility] Address [address] [place] [address] Phone Care Team Providers Care Anesthesiologist Assistant Certified Name Role Phone Unavailable Primary Care Provider [...] [facility] [address] [address], [facility] [address] [place] [address] Scheduled Discharge Disposition: Discharged to home or [...]
--- OUTSIDE RECORDS SUMMARY | 2024-12-07 14:45 | XMS_ITS | Encounter Summary ---
Author Organization [facility] Address [address] [place] [address] Phone Care Team Providers Care Bottom Ironer Name Role Phone Unavailable Primary Care Provider Unavailabl e Encounter Details Date Type Department Care Team (Late st Contact Info) Description 11/22/2024 Orders Only Unspecified Department [place] Unknown, [...] [facility] [address] [address], [facility] [address] [place] [address] Scheduled Discharge Disposition: Discharged to home or self care Scheduled Procedures Name Priority Associated Diagnoses Date/Ti me URETEROSCOPY, FLEXIBLE Semi-Urgent (< 2 wks) Renal mass, left documented as of this encounter Procedures Procedure Name Priority Date/Time Associated Diagnosis Comments TELEMETRY STRIPS 11/22/2024 8:26 PM CDT documented in this encounter Results * TELEMETRY STRIPS (11/22/2024 8:26 PM CDT) Narrative 11/22/2024 8:26 PM CDT Ordered by an unspecified provider. us Provider Unknown RAD ECHO Final Result documented in this encounter Visit Diagnoses Not on filedocumented in this encounter
--- OUTSIDE RECORDS SUMMARY | 2024-12-07 14:45 | XMS_ITS | Clinical Summary ---
Author Organization [facility] Address [address] [place] [address] Care Team Providers Care Bean Picker Name Role Phone Fabiola El DO Primary Care Provider [phone] Allergies No known active allergies Medications chlorhexidine 0.12 % solution Apply 15 mL to the lining of the mouth. 5 12/12/19 25 Active acetaminophen 325 mg tablet Take 650 mg by mouth. 5 Active metoprolol succinate (Toprol XL) 25 mg Sustained-Release tabletIndications: Tachycardia Take 1 Tablet (25 mg) by mouth once daily. 30 Tablet 1 5 Active amLODIPine 10 mg tabletIndications: Essential hypertension Take 1 Tablet (10 mg) by mouth once daily. 90 Tablet 3 5 Active miscellaneous medical supply (Blood Pressure Cuff) miscIndications:Es sential hypertension As directed. 1 Each 5 Active rosuvastatin 10 mg tabletIndications: Essential hypertension,Hyper lipidemia, unspecified hyperlipidemia type Take 1 Tablet (10 mg) by mouth at bedtime. 90 Tablet 3 5 Active amoxicillin-clavul anate 500-125 mg tablet Take 1 Tablet by mouth. 5 12/02/19 25 amLODIPine 5 mg tablet Take 5 mg by mouth once daily. 5 12/01/19 25 Discontinu ed(*Medica tion adjustment ) Active Problems Problem Noted Date Diagnosed Date JW (acute kidney injury) 12/01/2024 Prediabetes 12/01/2024 Essential hypertension 12/01/2024 Venous insufficiency 02/11/2012 Encounters Date Type Department Care Team Description 12/01/2024 12:31 PM CDT - 12/01/2024 11:59 PM CDT Hospital Encounter [facility] [address] [place] [address] Fabiola El, Hussain Perdue (dyspnea on exertion) 12/01/2024 Telephone [facility] [address] [place] [address] Fabiola El, Results 11/30/2024 8:55 AM CDT Office Visit [facility] [address] [place] [address] Fabiola El, Establish Care; Breathing Problem (SOB with any type of exertion x1 year, lightheadedness); Fast Heartbeat (Tachycardia with exertion); Esophageal Reflux (Dry heaving/gagging after eating - reports bad heartburn); Urinary Problem (Urinary frequency all day/night every 30-60 min) 11/30/2024 Travel 11/29/2024 Nurse Triage [facility] [address] [place] [address] Fabiola El, Appointment Request (Mouth infection,High blood pressure, other concerns ); Blood Pressure; Fatigue; Weak; Shortness Of Breath from Last 3 Months Social History Tobacco Use Types Packs/Day Years Used Date Smoking Tobacco: Never Smokeless Tobacco: Never Alcohol Use Standard Drinks/Week Comments Yes 0 (1 standard drink = 0.6 oz pur e alcohol) Social Connections Answer Date Recorded Do you often feel lonely or isolated from those around you? 0 11/30/2024 Financial Resource Strain Answer Date R ecorded Difficulty of Paying Living Expenses 3 11/30/2024 Difficulty of Paying Living Expenses Not on file 11/30/2024 Food Insecurity Answer Date Recorded Do you worry your food will run out before you are able to buy more? 1 11/30/2024 Transportation Needs Answer Date Record ed Does lack of transportation keep you from medica l appointments? 1 11/30/2024 Does lack of transportation keep you from work, meetings or getting things that you need? 1 11/30/2024 Housing Stability Answer Date Recorded What is your housing situation today? 1 11/30/2024 Utilities Answer Date Recorded Do you have trouble paying f or utilities (for example, heat, electricity, water, phone)? 1 11/30/2024 Sex and Gender Information Value Date Recorded Sex Assigned at Not on file Legal Sex Male 7:57 AM [employer] Gender Identity Not on file Sexual Orientation Not on file Obstetrics History Last Filed Vital Signs Vital Sign Reading Time Taken Comments Blood Pressure 180/80 11/30/2024 10:23 AM CDT Pulse 95 11/30/2024 5:18 PM CDT Temperature 36.5 C (97.7 F) 08/31/2013 8:30 PM [employer] Respiratory Rate 18 08/31/2013 8:45 PM [employer] Oxygen Saturation 97% 11/30/2024 9:05 AM CDT Inhaled Oxygen Concentration - - Weight 101.2 kg (223 lb 1.6 oz) 11/30/2024 9:05 AM CDT Height 182.9 cm (6') 08/31/2013 8:39 AM [employer] Body Mass Index - - Plan of Treatment Upcoming Encounters Date Type Department Care Team (Late st Contact Info) Description 12/09/2024 10:10 AM CDT Office Visit [facility] [address] [place] [address] Fabiola El DO [address] [place] [address] 12/20/2024 2:00 PM CDT Nurse/Clinic Staff Only [facility] [address] [place] [address] 12/21/2024 7:30 AM CDT Nurse/Clinic Staff Only [facility] [address] [place] [address] 12/22/2024 10:00 AM CDT Office Visit [facility] [address] [place] [address] Elder Boateng MD [address] [place] [address] 01/11/2025 1:00 PM CDT Office Visit [facility] [address] [facility] [place] [address] Oswaldo Tejada MD [address] [place] [address] 01/11/2025 1:45 PM CDT Office Visit [facility] [address] [place] [address] Fabiola El, DO [address] [facility] [address] Health Maintenance Due Date Last Done Comments Tdap 1983 Depression screening for age 12+ 1984 HIV for age 15-65 1987 BMI (ht and wt on same day) for age 18+ 1990 Hepatitis C screening for age 18-79 1990 Hepatitis B series for 19+ ( 1 of 3 - 19+ 3-dose series) 1991 Pneumococcal series for age 50+ (1 of 2 - PCV) 991 Tetanus booster 1992 Colonoscopy through age 75 2017 Zoster (shingles) series for age 50+ (1 of 2) 03/23/20 22 COVID-19 vaccine series ( - season) Influenza Vaccine (Season Ended) 2025 Lipids for age 45-75 11/30/2029 11/30/2024 Medical Devices Implanted Type Area Lead Sharepoint Developer Device Identifier Shelf Expiration Date Model / Serial / Lot Plate Hand Rt 1.7mm 6 Hole L-Plate - [id number] Implanted:Qty: 1 on 08/31/2013 at [facility] Right: Finger [employer] [id number] / / Screw Hand 1.7x12mm [employer] Hand Slf Tppng - [id number] Implanted:Qty: 1 on 08/31/2013 at [facility] Right: [employer]inger [employer] [id number]# / / Screw Hand 1.7x6mm [employer] Hand Slf Tppng - [id number] Implanted:Qty: 1 on 08/31/2013 at [facility] Right: [employer]inger [employer] [id number]# / / Screw Hand 1.7x9mm [employer] Hand Slf Tppng - [id number] Implanted:Qty: 1 on 08/31/2013 at [facility] Right: [employer]inger [employer] [id number]# / / Screw Hand 1.7x13mm [employer] Hand Slf Tppng - [id number] Implanted:Qty: 1 on 08/31/2013 at [facility] Right: [employer]inger [employer] [id number]# / / Screw Hand 1.7x12mm [employer] Hand Slf Tppng Lock - [id number] Implanted:Qty: 1 on 08/31/2013 at [facility] Right: [employer]inger [employer] [id number]# / / Screw Hand 1.7x11mm [employer] Hand Slf [employer]pp[employer] Lock - [id number] Implanted:Qty: 1 on 08/31/2013 at [facility] Right: [employer]inger [employer] [id number]# / / Screw Hand 1.7x14mm [employer] Hand Slf [employer]pp[employer] Lock - [id number] Implanted:Qty: 1 on 08/31/2013 at [facility] Right: [employer]inger [employer] [id number]# / / Procedures Procedure Name Priority Date/Time Associated Diagnosis Comments ECHO STRESS EXRCSE W CONTRAST IMAGE ONLY W COLOR W LTD DOPPLER STAT 12/01/2024 3:26 PM CDT DAIGLE (dyspnea on exertion) BASIC METABOLIC PANEL Routine 11/30/2024 11:03 AM CDT Proteinuria, unspecified type CBC W PLT NO DIFF Routine 11/30/2024 11: 03 AM CDT Anemia of unknown etiology LIPID PANEL W REFLEX MEASURED LDL Routine 11/30/2024 11:03 AM CDT Screening cholesterol level URINALYSIS MICROSCOPIC Routine 11/30/2024 10:35 AM CDT Urinary frequency URINE CULTURE Routine 11/30/2024 10:35 AM CDT Urinary frequency PROTEIN/CREAT RATIO,URINE Routine 11/30/2024 10:35 AM CDT Proteinuria, unspecified type URINALYSIS MACROSCOPIC - [facility] ONLY POC DIP ([facility]) Routine 11/30/2024 10:35 AM CDT Urinary frequency from Last 3 Months Results * ECHO STRESS EXRCSE W CONTRAST IMAGE ONLY W COLOR W LTD DOPPLER (12/01/2024 3:26 PM CDT) LVEDD 4.6 cm EJECTION FRACTION 55 - 60% Anatomical Region Laterality Modality Ultrasound 12/01/2024 1:41 PM CDT Narrative 12/01/2024 4:15 PM CDT STRESS ECHOCARDIOGRAM JAE WARD : 1970 54 years Study Date: 12/01/2024 1:41:53 PM Gender: M BP: 144/90 mmHg Height: 183.00 cm BSA: 2.23 m Weight: 101.00 kg Tech: [facility] Referring MD: FABIOLA EL Site: [facility] Reading Location: ANW STRESS Patient Location: Outpatient. Procedure: Stress Echo, Contrast, Limited 2D , Color Doppler and Limited Spectral Doppler. Calixto stress echo. Indication for study: DAIGLE Cardiac Rhythm: Normal sinus.Study quality: Good. Final Impressions: 1. Post stress, normal left ventricular size, normal global systolic function with an estimated EF of 70 to 75%. 2. LV wall thickness not well visualized: ~ mildly increased. 3. Maximum stress test with 87.3% of age predicted maximum heart rate achieved. 4. Negative stress echo for ischemia. 5. There were no ischemic changes by EKG during stress. 6. During stress exam the patient developed shortness of breath. 7. Right ventricular cavity size is normal, global systolic RV function is normal. 8. The aortic valve is not well visualized, no stenosis and no regurgitation. 9. Echo contrast was administered to enhance visualization of all left ventricular segments. Stress Data: HR Systolic Diastolic Time Duration Minutes Seconds Baseline 107 bpm 144 90 mmHg 4 :16 Peak 146 bpm 194 90 mmHg Max Pred HR 167 % of Max 87% Fletcher Treadmill Score 4 Double Product [id number] Echo Findings:This is a negative stress echo test for ischemia. Post stress, normal left ventricular size, normal global systolic function with an estimated EF of 70 to 75%. LV regional wall motion abnormalities are not present post exercise. EKG:During exercise, the patient developed normal sinus, with premature ventricular contractions and with premature atrial contractions rhythm with normal conduction. There were no ischemic changes by EKG during stress. Exam Protocol:The patient presents with no significant symptoms at baseline. The patient exercised 4 min 16 sec to stage II according to the Calixto stress echo protocol. Test terminated due to shortness of breath. 7.0 METS were achieved. The patient achieved a heart rate of 146 bpm which is 87.3% of maximum predicted heart rate. Maximum systolic blood pressure was 194 [place] [address]. Maximum stress test with 87.3% of age predicted maximum heart rate achieved. The blood pressure response was normal. The patient developed shortness of breath during the stress exam. Low (less than 1% annual mortality rate) non invasive risk stratification. Exercise stress test Fletcher Treadmill Score of 4. Chamber Sizes and Function Normal left ventricular size, normal global systolic function with an estimated EF of 55 - 60%. LV regional wall motion abnormalities are not present. Right ventricular cavity size is normal, global systolic RV function is normal. RV wall thickness is normal. Valves, RV Pressures and Diastolic Function The aortic valve is not well visualized , no stenosis and no regurgitation. The mitral valve is normal in structure, mild mitral regurgitation. The tricuspid valve is normal in structure, trace tricuspid regurgitation. MEASUREMENTS AND CALCULATIONS 2-D Measurements and LV Function: LVID (d) 4.6 cm LV FS% (2D) 37 % LVID (s) 2.9 cm LVOT diameter 2.2 cm IVS (d) 0.9 cm HR 107 bpm LVPW (d) 1.1 cm Ao Sinus ULN 4.1 cm * Asc Ao 3.5 cm Asc Ao ULN 4.0 cm * * Input BSA outside of range, reported values correspond to BSA = 2.1 Tricuspid Valve and estimated PA pressures: TAPSE 2.0 cm Contrast documentation: 2 ml diluted Definity, lot #[id number], [facility]# [id number] was administered peripherally to enhance visualization of all left ventricular segments. . This study was interpreted by an [facility] accredited facility. Final Procedure Note Bennie Rushing MD - 12/01/2024 STRESS ECHOCARDIOGRAM JAE WARD : 1970 54 years Study Date: 12/01/2024 1:41:53 PM Gender: M BP: 144/90 mmHg Height: 183.00 cm BSA: 2.23 m Weight: 101.00 kg Tech: [facility] Referring MD: FABIOLA EL Site: [facility] Reading Location: ANW STRESS Patient Location: Outpatient. Procedure: Stress Echo, Contrast, Limited 2D , Color Doppler and LimitedSpectral Doppler. Calixto stress echo. Indication for study: DAIGLE Cardiac Rhythm: Normal sinus.Study quality: Good. Final Impressions: 1. Post stress, normal left ventricular size, normal global systolicfunction with an estimated EF of 70 to 75%. 2. LV wall thickness not well visualized: ~ mildly increased. 3. Maximum stress test with 87.3% of age predicted maximum heart rateachieved. 4. Negative stress echo for ischemia. 5. There were no ischemic changes by EKG during stress. 6. During stress exam the patient developed shortness of breath. 7. Right ventricular cavity size is normal, global systolic RV functionis normal. 8. The aortic valve is not well visualized, no stenosis and noregurgitation. 9. Echo contrast was administered to enhance visualization of all leftventricular segments. Stress Data: HR Systolic Diastolic Time Duration Minutes Seconds Baseline 107 bpm 144 90 mmHg 4 :16 Peak 146 bpm 194 90 mmHg Max Pred HR 167 % of Max 87% Fletcher Treadmill Score 4 Double Product [id number] Echo Findings:This is a negative stress echo test for ischemia. Poststress, normal left ventricular size, normal global systolic function withan estimated EF of 70 to 75%. LV regional wall motion abnormalities arenot present post exercise. EKG:During exercise, the patient developed normal sinus, with prematureventricular contractions and with premature atrial contractions rhythmwith normal conduction. There were no ischemic changes by EKG duringstress. Exam Protocol:The patient presents with no significant symptoms atbaseline. The patient exercised 4 min 16 sec to stage II according to [facility] stress echo protocol. Test terminated due to shortness of breath.7.0 METS were achieved. The patient achieved a heart rate of 146 bpm whichis 87.3% of maximum predicted heart rate. Maximum systolic blood pressurewas 194 mmHg [place] [address]. Maximum stress testwith 87.3% of age predicted maximum heart rate achieved. The bloodpressure response was normal. The patient developed shortness of breathduring the stress exam. Low (less than 1% annual mortality rate) noninvasive risk stratification. Exercise stress test Fletcher Treadmill Score of4. Chamber Sizes and Function Normal left ventricular size, normal global systolic function with anestimated EF of 55 - 60%. LV regional wall motion abnormalities are notpresent. Right ventricular cavity size is normal, global systolic RVfunction is normal. RV wall thickness is normal. Valves, RV Pressures and Diastolic Function The aortic valve is not well visualized , no stenosis and noregurgitation. The mitral valve is normal in structure, mild mitralregurgitation. The tricuspid valve is normal in structure, trace tricuspidregurgitation. MEASUREMENTS AND CALCULATIONS 2-D Measurements and LV Function: LVID (d) 4.6 cm LV FS% (2D)37 % LVID (s) 2.9 cm LVOT diameter2.2 cm IVS (d) 0.9 cm HR107 bpm LVPW (d) 1.1 cm Ao Sinus ULN 4.1 cm * Asc Ao 3.5 cm Asc Ao ULN 4.0 cm * * Input BSA outside of range, reported values correspond to BSA = 2.1 Tricuspid Valve and estimated PA pressures: TAPSE 2.0 cm Contrast documentation: 2 ml diluted Definity, lot #[id number], [facility]#[id number] was administered peripherally to enhance visualization of allleft ventricular segments. . This study was interpreted by an [facility] accredited facility. Final us Fabiola Clare Sienna DO ECHO ORD Final Result * (ABNORMAL) LIPID PANEL W REFLEX MEASURED LDL (11/30/2024 11:03 AM CDT) CHOLESTEROL, TOTAL 242(H) <200 mg/dL [facility] HDL CHOLESTEROL 30(L) > OR = 40 mg/dL [facility] TRIGLYCERIDES 375(H) <150 mg/dL [facility] Comment: If a non-fasting specimen was collected, consider repeat triglyceride testing on a fasting specimen if clinically indicated. Jack et al. J. of Clin. Lipidol. 2015;9:129-169. LDL-CHOLESTEROL 154(H) mg/dL (calc) [facility] Comment: Reference range: <100 Desirable range <100 mg/dL for primary prevention; <70 mg/dL for patients with CHD or diabetic patients with > or = 2 CHD risk factors. LDL-C is now calculated using the Rory calculation, which is a validated novel method providing better accuracy than the Friedewald equation in the estimation of LDL-C. Carlton SS et al. OSCAR. 2013;310(19): 2033-7512 (http://education.Baxano/faq/LYH741) CHOL/HDLC RATIO 8.1(H) <5.0 (calc) [facility] NON HDL CHOLESTEROL 212(H) <130 mg/dL (calc) [facility] Comment: For patients with diabetes plus 1 major ASCVD risk factor, treating to a non-HDL-C goal of <100 mg/dL (LDL-C of <70 mg/dL) is considered a therapeutic option. Blood BLOOD SPECIMEN / Unknown 11/30/2024 11:03 AM CDT 11/30/2024 11:08 AM CDT Fabiola El DO CHEMISTRY Final Result [facility] [address] [place] [address], [facility] [address] [place] [address] * (ABNORMAL) CBC W PLT NO DIFF (11/30/2024 11:03 AM CDT) WHITE BLOOD CELL COUNT 11.8(H) 3.8 - 10.8 Thousand/u L [facility] RED BLOOD CELL COUNT 4.40 4.20 - 5.80 Million/uL [facility] HEMOGLOBIN 10.0(L) 13.2 - 17.1 g/dL [facility] HEMATOCRIT 33.3(L) 38.5 - 50.0 % [facility] MCV 75.7(L) 80.0 - 100.0 fL [facility] MCH 22.7(L) 27.0 - 33.0 pg [facility] MCHC 30.0(L) 32.0 - 36.0 g/dL [facility] Comment: For adults, a slight decrease in the calculated MCHC value (in the range of 30 to 32 g/dL) is most likely not clinically significant; however, it should be interpreted with caution in correlation with other red cell parameters and the patient's clinical condition. RDW 20.2(H) 11.0 - 15.0 % [facility] PLATELET COUNT 586(H) 140 - 400 Thousand/u L [facility] MPV 11.1 7.5 - 12.5 fL [facility] Blood BLOOD SPECIMEN / Unknown 11/30/2024 11:03 AM CDT 11/30/2024 11:08 AM CDT us Fabiola El DO HEMATOLOGY Final Result [facility] [address] [place] [address], [facility] [address] [place] [address] * (ABNORMAL) BASIC METABOLIC PANEL (11/30/2024 11:03 AM CDT) [facility] GLUCOSE 89 65 - 99 mg/dL [facility] Comment: Fasting reference interval UREA NITROGEN (BUN) 58(H) 7 - 25 mg/dL [facility] CREATININE 3.32(H) 0.70 - 1.30 mg/dL [facility] EGFR 21(L) > OR = 60 mL/min/1.7 3m2 [facility] BUN/CREATININE RATIO 17 6 - 22 (calc) [facility] SODIUM 138 135 - 146 mmol/L [facility] POTASSIUM 4.3 3.5 - 5.3 mmol/L [facility] CHLORIDE 107 98 - 110 mmol/L [facility] CARBON DIOXIDE 18(L) 20 - 32 mmol/L [facility] ELECTROLYTE BALANCE 13 7 - 17 mmol/L (calc) [facility] CALCIUM 9.0 8.6 - 10.3 mg/dL [facility] Blood BLOOD SPECIMEN / Unknown 11/30/2024 11:03 AM CDT 11/30/2024 11:08 AM CDT Fabiola El DO CHEMISTRY Final Result [facility] [address] [place] [address], [facility] [address] * (ABNORMAL) POCT Urinalysis Dipstick Only [[id number]] (11/30/2024 10:35 AM CDT) PH 5.5 5.0 - 8.0 [facility] SPECIFIC GRAVITY 1.020 1.001 - 1.035 [facility] GLUCOSE NEGATIVE NEGATIVE [facility] BILIRUBIN NEGATIVE NEGATIVE [facility] KETONES NEGATIVE NEGATIVE [facility] OCCULT BLOOD 2+(A) NEGATIVE [facility] PROTEIN 2+(A) NEGATIVE [facility] NITRITE NEGATIVE NEGATIVE [facility] LEUKOCYTE ESTERASE 1+(A) NEGATIVE [facility] Urine URINE SPECIMEN / Unknown 11/30/2024 10:35 AM CDT 11/30/2024 10:36 AM CDT Fabiola El DO URINE Final Result [facility] [address] [place] [address], [place] [phone] [facility] [address] [place] [address] * (ABNORMAL) URINALYSIS MICROSCOPIC [96070.1] - routine (11/30/2024 10:35 AM CDT) RBC 26-50(A) 0-2, None Seen /HPF 11/30/2024 5:14 PM CDT [facility] WBC >100(A) 0-2, 3-5, None Seen /HPF 11/30/2024 5:14 PM CDT [facility] BACTERIA Few None Seen, Rare, Few Bacteria/ HPF 11/30/2024 5:14 PM CDT [facility] EPITHELIAL CELLS None Seen None Seen, Few Epi/HPF 11/30/2024 5:14 PM CDT [facility] HYALINE CASTS 11-25(A) 0-2, 3-5 /LPF 11/30/2024 5:14 PM CDT [facility] GRANULAR CASTS 0-2(A) (none) /LPF 11/30/2024 5:14 PM CDT [facility] Urine URINE SPECIMEN / Unknown Non-Blood / Unknown 11/30/2024 10:35 AM CDT 11/30/2024 10:35 AM CDT Fabiola El DO URINE Final Result [facility] [address] [place] [address], * (ABNORMAL) PROTEIN/CREAT RATIO,URINE (11/30/2024 10:35 AM CDT) PROTEIN QUANT,RAND URINE 44(H) 1 - 14 mg/dL 11/30/2024 4:59 PM CDT [facility] CREAT,RANDOM URINE 76.7 39.0 - 259.0 mg/dL 11/30/2024 4:59 PM CDT [facility] PROT/CREAT RATIO,UR 0.6(H) <0.2 11/30/2024 4:59 PM CDT [facility] Urine URINE SPECIMEN / Unknown Non-Blood / Unknown 11/30/2024 10:35 AM CDT 11/30/2024 10:35 AM CDT Fabiola El DO URINE Final Result Performing Organization Address [facility] Co de Phone Number [facility] [address] [place] [address], * URINE CULTURE [[id number]] (11/30/2024 10:35 AM CDT) Pathologist [facility] CULTURE No growth (<1,000 CFU/mL) 12/01/2024 3:12 PM CDT [facility] Urine URINE SPECIMEN / Unknown Non-Blood / Unknown 11/30/2024 10:35 AM CDT 11/30/2024 10:35 AM CDT Fabiola El DO MICROBIOLOGY Final Result Performing Organization Address City/[facility]/ZIP Co de Phone Number [facility] [address] [place] [address], from Last 3 Months Insurance [facility] Member Subscriber Plan / Payer (Ef fective 2024-Present) Name:Jae Ward Relation to Subscriber:Self Name:Jae Ward Payer ID:Not on file Group ID:Not on file Type:Not on file Address: FOR [facility] Advance Directives * Full Code (Latest Code Status on File) Date Activated Date Inactivated Comments 08/31/2013 12:07 AM 09/01/2013 12:43 AM Care Teams Bean Picker Relationship Specialty Start Date End Date Fabiola [place] [address] PCP - General Family Practice 12/01/24
--- OUTSIDE RECORDS SUMMARY | 2024-12-07 14:45 | XMS_ITS | Encounter Summary ---
Author Organization [facility] Address [address] [place] [address] Phone Care Team Providers Care Occupational Therapy Manager Name Role Phone Unavailable Primary Care Provider Unavailabl e Encounter Details Date Type Department Care Team (Latest Contact Info) Description 12/06/2024 Travel Social History Tobacco Use Types Packs/Day [...] [facility] [address] [address], [facility] [address] [place] [address] Scheduled Discharge Disposition: Discharged to home or self care Scheduled Procedures Name Priority Associated Diagnoses Date/Ti me URETEROSCOPY, FLEXIBLE Semi-Urgent (< 2 wks) Renal mass, left documented as of this encounter Visit Diagnoses Not on filedocumented in this encounter
--- OUTSIDE RECORDS SUMMARY | 2024-12-07 14:45 | XMS_ITS | Encounter Summary ---
Author Organization [facility] Address [address] [place] [address] Phone Care Team Providers Care Phosphoric Acid Supervisor Name Role Phone Unavailable Primary Care Provider Unavailabl e Encounter Details Date Type Department Care Team (Latest Contact Info) Description 11/20/2024 Travel Social History Tobacco Use Types Packs/Day [...] [facility] [address] [id number], [facility] [address] [place] [address] Scheduled Discharge Disposition: Discharged to home or self care Scheduled Procedures Name Priority Associated Diagnoses Date/Ti me URETEROSCOPY, FLEXIBLE Semi-Urgent (< 2 wks) Renal mass, left documented as of this encounter Visit Diagnoses Not on filedocumented in this encounter
--- OUTSIDE RECORDS SUMMARY | 2024-12-07 14:45 | XMS_ITS | Encounter Summary ---
Author Organization [facility] Address [address] [place] [address] Phone Care Team Providers Care Auto Air Conditioning Installer Name Role Phone Unavailable Primary Care Provider [...] [facility] [address] [address], [facility] [address] [place] [address] Scheduled Discharge Disposition: Discharged to home or self care Scheduled Procedures Name Priority Associated Diagnoses Date/Ti me URETEROSCOPY, FLEXIBLE Semi-Urgent (< 2 wks) Renal mass, left documented as of this encounter Procedures Procedure Name Priority Date/Time Associated Diagnosis Comments TELEMETRY STRIPS 11/22/2024 7:27 AM CDT documented in this encounter Results * TELEMETRY STRIPS (11/22/2024 7:27 AM CDT) Narrative 11/22/2024 7:27 AM CDT Ordered by an unspecified provider. us Provider Unknown RAD ECHO Final Result documented in this encounter Visit Diagnoses Not on filedocumented in this encounter
--- OUTSIDE RECORDS SUMMARY | 2024-12-07 14:45 | XMS_ITS | Encounter Summary ---
Author Organization [facility] Address [address] [place] [address] Phone Care Team Providers Care Terrazzo Worker Helper Name Role Phone Unavailable Primary Care Provider [...] [facility] [address] [address], [facility] [address] [place] [address] Scheduled Discharge Disposition: Discharged to home or [...]
--- OUTSIDE RECORDS SUMMARY | 2024-12-07 14:45 | XMS_ITS | Encounter Summary ---
Author Organization [facility] Address [address] [place] [address] Phone Care Team Providers Care Market President Name Role Phone Unavailable Primary Care Provider Unavailabl e Encounter Details Date Type Department Care Team (Latest Contact Info) Description 12/07/2024 Travel Social History Tobacco Use Types Packs/Day [...] [facility] [address] [address], [facility] [address] [place] [address] Scheduled Discharge Disposition: Discharged to home or self care Scheduled Procedures Name Priority Associated Diagnoses Date/Ti me URETEROSCOPY, FLEXIBLE Semi-Urgent (< 2 wks) Renal mass, left documented as of this encounter Visit Diagnoses Not on filedocumented in this encounter
--- OUTSIDE RECORDS SUMMARY | 2024-12-07 14:45 | XMS_ITS | Encounter Summary ---
Author Organization [facility] Address [address] [place] [address] Phone Care Team Providers Care Waistline Joiner Lockstitch Name Role Phone Unavailable Primary Care Provider Unavailabl e Encounter Details Date Type Department Care Team (Latest Contact Info) Description 11/25/2024 Travel Social History Tobacco Use Types Packs/Day [...] [facility] [address] [address], [facility] [address] [place] [address] Scheduled Discharge Disposition: Discharged to home or self care Scheduled Procedures Name Priority Associated Diagnoses Date/Ti me URETEROSCOPY, FLEXIBLE Semi-Urgent (< 2 wks) Renal mass, left documented as of this encounter Visit Diagnoses Not on filedocumented in this encounter
--- OUTSIDE RECORDS SUMMARY | 2024-12-07 14:46 | XMS_ITS | Clinical Summary ---
Author Organization [employer] Address [address] [place] [address] Phone Care Team Providers Care [employer] Name Role Phone Unavailable Primary Care Provider Unavailabl e Source Comments [employer] is fully rolled out on [employer]. Last update 12/08/08.[employer] Allergies No known active allergies Medications * Be aware that medications may not be up to date as of this document. Always verify current medications with patient. amLODIPine (NORVASC) 5 mg oral TABS Take 1 tablet (5 mg) by mouth daily. 30 tablet 1 5 5:09 PM CDT 11/24/19 25 Active chlorhexidine (PERIDEX) 0.12% mouth/throat solutionIndicat ions:Extraction Prophylaxis Swish and spit 15 mL by mouth twice daily for 30 seconds for 8 days as directed. Do not eat, drink or spit 30 minutes after use. 473 mL 5 9:29 AM CDT 11/26/19 25 025 Active rosuvastatin (CRESTOR) 10 mg oral [...] 90 tablet 5 5:09 PM CDT 11/24/19 25 025 Discontinued(Re order) amoxicillin-cla vulanate (AUGMENTIN) 500-125 [...] studies sent. Orders: URINE CULTURE URINALYSIS,TOTAL CYTOLOGY NON-DIRECTOR OF COMMUNITY EDUCATION; Future CYTOLOGY NON-DIRECTOR OF COMMUNITY EDUCATION SPECIMEN Encounters Date Type Department Care Team Description 12/07/2024 10:30 AM CDT [facility] [address] [place] [phone] Kaitlin Rubalcava APRN, MOTOR VEHICLE ASSEMBLER Hematuria, unspecified type (Primary Dx) Discharge Disposition: Discharged to home or self care 12/07/2024 Travel 12/06/2024 8:30 AM CDT [facility] [address] [place] [phone] Dimitrios Lara, DDS 15, Omfs Post Op Abscess (Primary Dx) Discharge Disposition: Discharged to home or self care 12/06/2024 Travel 11/30/2024 Telephone [facility] [address] [place] [phone] JavonceciKylah RNFA Schedule Surgery 11/29/2024 8:00 AM CDT [facility] [address] [place] [phone] Dimitrios Lara, DDS 15, Omfs Post Op Abscess (Primary Dx) Discharge Disposition: Discharged to home or self care 11/29/2024 Travel 11/25/2024 8:00 AM CDT [facility] [address] [place] [address] Mil Petersen, DDS 15, Omfs Post Op Abscess (Primary Dx) Discharge Disposition: Discharged to home or self care 11/25/2024 Travel 11/23/2024 1:00 PM CDT [facility] [address] [place] [address] Gentry Bob, DDS 30, Omfs Procedure Encounter [...] Unspecified Department [place] Unknown, Provider 11/20/2024 Travel 11/19/2024 10:36 PM CDT - 11/23/2024 5:15 PM CDT Hospital Encounter [facility] Medical ICU-3 [address] [place] [address] Kelsie Tierney MD Shapiro, MD Eduardo Amato Sydney J, MD Neck swelling Discharge Disposition: Discharged to home or self care from Last 3 Months Social History Tobacco [...] [facility] [address] [phone] , Omfs Post Op [address] [place] [phone] Scheduled Discharge Disposition: Discharged to home or self care Scheduled Procedures Name Priority Associated Diagnoses Date/Ti me URETEROSCOPY, FLEXIBLE Semi-Urgent (< 2 wks) Renal mass, left Health Maintenance Due Date Last Done Comments CT Colonography 1972 Colonoscopy 1972 Colorectal Cancer Screening 1972 Dental Oral Exam 1972 Dental Prophylaxis 1972 Dental X-Ray: Bitewings 1972 FIT/Cologuard 1972 Sigmoidoscopy 1972 iFOB/FIT 1972 Imm: COVID-19 (#1) 1977 Periodontal Maintenance 1986 Imm: DTaP/Tdap (2 - Tdap) 1991 09/16/1977 Imm: HepB (1 of 3 - 19+ 3-do se series) 1991 Imm: Pneumonia 50 years and older (1 of 2 - PCV) 1991 Imm: Zoster (1 of 2) 1991 Imm: Flu (#1) 03/06/2024 Lipid Screening 11/30/2029 11/30/2024 HIV Screening Completed 11/19/2024 Imm: HPV Aged Out No longer eligi ble based on patient's age to complete this topic Imm: HepA Aged Out No longer eligi ble based on patient's age to complete this topic Imm: Hib Aged Out No longer eligi ble based on patient's age to complete this topic Imm: Meningitis Aged Out No longer el igible based on patient's age to complete this topic Procedures Procedure Name Priority Date/Time Associated Diagnosis Comments CYTOLOGY NON-DIRECTOR OF COMMUNITY EDUCATION SPECIMEN Routine 2024 1:00 PM CDT Hematuria, [...] & PLT Routine 11/24/19 5:10 AM CDT TC LAB BLOOD DRAW [...] from Last 3 Months Results * CYTOLOGY NON-DIRECTOR OF COMMUNITY EDUCATION SPECIMEN (12/07/2024 1:00 PM CDT) Cytology Non-[employer] Specimen Refrigerated [facility] Urine 12/07/2024 1:00 PM CDT 12/07/2024 2:28 PM CDT Comment:CYTOLOGY NON-DIRECTOR OF COMMUNITY EDUCATION SPE CIMEN Narrative [facility] - 12/07/2024 2:28 PM CDT Both orders are required to process Cytology/Non-DIRECTOR OF COMMUNITY EDUCATION panel. Please do not discontinue either order. 1. Cytology Non-DIRECTOR OF COMMUNITY EDUCATION 2. Cytology Non-DIRECTOR OF COMMUNITY EDUCATION Specimen Indicate if this cytology tests is needed.->SILVERSTAIN FOR FUNGUS/PCP and OIL RED O STAIN n/a Laterality->N/A us Kaitlin Rubalcava APRN, MOTOR VEHICLE ASSEMBLER LAB PATHOLOGY Final Result [facility] [address] [address] * Dental Extraction (11/23/2024 3:19 PM CDT) [...] to verify the correct patient, procedure, equipment, java support engineer and site/side marked as required. Local anesthesia [...] the time period is included. Narrative User, [id number] - 11/23/2024 1:57 PM CDT This dental [...] POC Glucose 112(H) 70 - 100 mg/dL [facility] Blood 11/23/2024 12:0 7 PM CDT us Kelsie Tierney MD LABORATORY Final Result [facility] [address] [place] [address], [place] * TELEMETRY STRIPS (11/23/2024 8:03 AM CDT) Only the most recent of8 resultswithin the time period is included. Narrative 11/23/2024 8:03 AM CDT Ordered by an unspecified provider. Provider Unknown RAD ECHO Final Result * ICU MAGNESIUM (11/23/2024 5:10 AM CDT) Only the most recent of4 resultswithin the time period is included. Magnesium 2.4 1.6 - 2.6 mg/dL [facility] Blood 11/23/2024 5:10 AM CDT 11/23/2024 5:22 AM CDT Justin Morris MD LABORATORY Final Result Performing Organization Address City/[facility]/ZIP Co de Phone Number [facility] [address] [address] * ICU PHOSPHORUS (11/23/2024 5:10 AM CDT) Only the most recent of4 resultswithin the time period is included. Phosphorus 4.5 2.5 - 4.5 mg/dL [facility] Blood 11/23/2024 5:10 AM CDT 11/23/2024 5:22 AM CDT Justin Morris MD LABORATORY Final Result Performing Organization Address [facility]/ZIP Co de Phone Number [facility] [address] [address] * (ABNORMAL) ICU CBC WITH PLTS/AUTO DIFF (11/23/2024 5:10 AM CDT) Only the most recent of4 resultswithin the time period is included. WBC 20.60(H) 4.00 - 10.00 k/cmm [facility] RBC 3.56(L) 4.60 - 6.00 m/cmm [facility] Hgb 7.9(L) 13.1 - 17.5 g/dL [facility] Hematocrit 25.5(L) 40.0 - 51.0 % [facility] MCV 71.6(L) 80.0 - 100.0 fL [facility] MCH 22.2(L) 25.0 - 32.0 pg [facility] MCHC 31.0 31.0 - 36.0 g/dL [facility] RDW 20.1(H) 11.5 - 14.5 % [facility] Plt 338 150 - 400 k/cmm [facility] MPV 8.8 6.5 - 12.5 fL [facility] Automated Abs Neutrophil 15.24(H) 1.70 - 6.50 k/cmm [facility] Comment:Preliminary ANC, Fin al Result to Follow Abs Immature Granulocyte 0.94(H) 0.00 - 0.09 k/cmm [facility] Comment:The Immature Granulo cyte Absolute count contains metamyelocytes and myelocytes. Abs Neutrophil 15.24(H) 1.70 - 6.50 k/cmm [facility] Abs Lymphocyte 2.47 0.80 - 4.00 k/cmm [facility] Abs Monocyte 1.85(H) 0.20 - 1.00 k/cmm [facility] Abs Eosinophil 0.03 0.00 - 0.60 k/cmm [facility] Abs Basophil 0.07 0.00 - 0.20 k/cmm [facility] Blood 11/23/2024 5:10 AM CDT 11/23/2024 5:22 AM CDT us Justin Morris MD LABORATORY Edited Resul t - Final [facility] [address] [address] * (ABNORMAL) ICU PANEL BASIC METABOLIC (BMP) (11/23/2024 5:10 AM CDT) Only the most recent of4 resultswithin the time period is included. CO2 15(L) 22 - 30 mmol/L [facility] Glucose 98 70 - 100 mg/dL [facility] BUN 68(H) 6 - 20 mg/dL [facility] Creatinine 3.17(H) 0.70 - 1.25 mg/dL [facility] Calcium 8.2(L) 8.6 - 10.0 mg/dL [facility] Sodium 141 135 - 148 mmol/L [facility] Potassium 4.2 3.5 - 5.3 mmol/L [facility] Chloride 112(H) 92 - 108 mmol/L [facility] eGFR (2020 CKD-EPI) 23(L) >=60 ml/min/1.7 3m2 [facility] Comment: The estimated glomerular filtration rate (eGFR) was calculated using the CKD-EPI 2020 creatinine equation, which does not include race as a factor. This equation is validated in individuals 18 years of age and older, and eGFR is normalized to a body surface area of 1.73m^2. AnGap 14 8 - 16 mmol/L [facility] Blood 11/23/2024 5:10 AM CDT 11/23/2024 5:22 AM CDT us Justin Morris MD LABORATORY Final Result [facility] [address] [address] * (ABNORMAL) CYSTATIN C (11/23/2024 5:10 AM CDT) Only the most recent of2 resultswithin the time period is included. Cystatin C 2.57(H) 0.61 - 0.95 mg/L [facility] eGFR by Cystatin C 23(L) >=60 ml/min/1.7 3m2 [facility] Comment: Estimated GFR calculated using the CKD-EPI Cystatin C (2012) equation. Stage Description eGFR Range 1.......Normal or increased eGFR.......90 or Greater 2.......Mildly decreased eGFR..........60-89 3.......Moderately decreased eGFR......30-59 4.......Severely decreased eGFR........15-29 5.......Kidney Failure.................Less than 15 Blood 11/23/2024 5:10 AM CDT 11/23/2024 7:17 AM CDT us Freda Clark MD LABORATORY Final Result [address] [address] * MRSA SURVEILLANCE SCREEN (11/22/2024 9:46 AM CDT) Only the most recent of2 resultswithin the time period is included. Final Report No MRSA isolated. [facility] Swab NASAL STRUCTURE / Unknown 11/22/2024 9:46 AM CDT 11/22/2024 11:59 AM CDT Narrative [facility] - 11/24/2024 10:47 AM CDT Weekly Monitoring while in ICU - Discontinue MRSA order if patient becomes positive or is no longer in ICU. Kelsie Tierney MD LAB MICROBIOLOGY Final Result Performing Organization Address [facility]/ZIP Co de Phone Number [address] [address] * (ABNORMAL) ICU BLOOD GAS (11/22/2024 6:45 AM CDT) Only the most recent of2 resultswithin the time period is included. PH Art 7.33(L) 7.35 - 7.45 [facility] PCO2 Art 31(L) 35 - 45 mmHG [facility] PO2 Art 260(H) 80 - 100 mmHG [facility] Bicarb Art 16(L) 22 - 26 mEq/L [facility] O2 Sat Art 99 96 - 99 % [facility] Base Exc Art -8.3 -10.0 - 2.0 mmol/L [facility] Blood Arterial 11/22/2024 6: 45 AM CDT 11/22/2024 6:58 AM CDT us Justin Morris MD LABORATORY Final Result [address] [address] * EKG ADULT (12-LEAD) (11/21/2024 9:22 PM CDT) 11/21/2024 9:22 PM CDT Impressions [facility] CVIS EKG ORDERS - 11/21/2024 9:22 PM [...] 388 ms QTC Interval 435 ms P [place] -1 QRS [place] 58 T Wave [place] -19 Narrative Procedure Note Mickey Jenkins III, [...] 388 ms QTC Interval 435 ms P [place] -1 QRS [place] 58 T Wave [place] -19 Justin Morris MD EKG Final Result Performing Organization Address [facility] Co de Phone Number [facility] CVIS EKG ORDERS * (ABNORMAL) BLOOD GASES (11/21/2024 7:02 AM CDT) Only the most recent of3 resultswithin the time period is included. PH [place] 7.27(L) 7.32 - 7.42 [facility] PCO2 [place] 40(L) 41 - 51 mmHG [facility] PO2 [place] 68(H) 25 - 40 mmHG [facility] Bicarb [place] 18(L) 24 - 28 mEq/L [facility] O2 Sat [place] 87 % [facility] Base Exc [place] -8.2 -10.0 - 2.0 mmol/L [facility] Blood Venous 11/21/2024 7:02 AM CDT 11/21/2024 7:24 AM CDT Justin Morris MD LABORATORY Final Result Performing Organization Address [facility]/ZIP Co de Phone Number [facility] [address] [address] * (ABNORMAL) PANEL HEPATIC FUNCTION (11/21/2024 7:01 AM CDT) Only the most recent of2 resultswithin the time period is included. Total Protein 7.1 6.4 - 8.3 g/dL [facility] Albumin 3.0(L) 3.8 - 5.1 g/dL [facility] Bili Total 0.3 <=1.2 mg/dL [facility] Bili Direct 0.2 <=0.3 mg/dL [facility] Alk Phos 75 40 - 129 IU/L [facility] Comment:No reference range e stablished for patients <18 years old. ALT (SGPT) 13 <=41 IU/L [facility] AST(SGOT) 19 5 - 40 IU/L [facility] Blood 11/21/2024 7:01 AM CDT 11/21/2024 11:23 PM CDT Justin Morris MD LABORATORY Final Result [facility] [address] [address] * (ABNORMAL) GLYCOSYLATED HGB - A1C (11/21/2024 7:01 AM CDT) Hemoglobin A1C 6.2(H) 4.0 - 5.6 % [facility] Comment: Increased risk for diabetes (prediabetes): [...] Average Glucose 131(H) 68 - 114 mg/dL [facility] Comment: The estimated Average Glucose (eAG) was calculated using an equation derived from a study of 507 adults with type 1, type 2, or no diabetes. Minority populations were underrepresented and children were not included. The eAG is not equivalent to a fasting glucose concentration. Blood 11/21/2024 7:01 AM CDT 11/21/2024 7:25 AM CDT Justin Morris MD LABORATORY Final Result [facility] [address] [address] * POTASSIUM (11/20/2024 11:19 PM CDT) Potassium 4.8 3.5 - 5.3 mmol/L [facility] Blood 11/20/2024 11:1 9 PM CDT 11/20/2024 11:23 PM CDT Justin Morris MD LABORATORY Final Result Performing Organization Address [facility] Co de Phone Number [facility] [address] [address] * (ABNORMAL) HEMOGLOBIN (11/20/2024 11:19 PM CDT) Only the most recent of4 resultswithin the time period is included. Hgb 7.7(L) 13.1 - 17.5 g/dL [facility] Blood 11/20/2024 11:1 9 PM CDT 11/20/2024 11:23 PM CDT Justin Morris MD LABORATORY Final Result Performing Organization Address [facility] Co de Phone Number [facility] [address] [address] * (ABNORMAL) PANEL BASIC METABOLIC (BMP) (11/20/2024 7:09 PM CDT) Sodium 140 135 - 148 mmol/L [facility] Potassium 4.4 3.5 - 5.3 mmol/L [facility] Chloride 113(H) 92 - 108 mmol/L [facility] CO2 16(L) 22 - 30 mmol/L [facility] Glucose 88 70 - 100 mg/dL [facility] BUN 67(H) 6 - 20 mg/dL [facility] Creatinine 3.50(H) 0.70 - 1.25 mg/dL [facility] Calcium 8.3(L) 8.6 - 10.0 mg/dL [facility] AnGap 11 8 - 16 mmol/L [facility] eGFR (2020 CKD-EPI) 20(L) >=60 ml/min/1.7 3m2 [facility] Comment: The estimated glomerular filtration rate [...] Resul t - Final Performing Organization Address [facility]/ZIP Co de Phone Number [address] [address] * MAGNESIUM (11/20/2024 7:09 PM CDT) Magnesium 2.3 1.6 - 2.6 mg/dL [facility] Blood 11/20/2024 7:09 PM CDT 11/20/2024 7:17 PM CDT us Justin Morris MD LABORATORY Final Result Performing Organization Address [facility] Co de Phone Number [address] [address] * TRANSFUSE RED BLOOD CELLS (BLOOD ADMIN) [...] the time period is included. Unit Number [id number] [facility] Product Code [id number] [facility] Blood Expiration Date [id number] [facility] Blood Type 6200 [facility] Blood Type (TEXT) APOS [facility] Other 11/20/2024 9:11 AM CDT 11/20/2024 8:59 AM CDT Justin Morris MD BLOOD BANK ORDERABLES (BLOOD ADMIN) Edited Result - Final Performing Organization Address [facility] [place] [address] * TRANSFUSE RED BLOOD CELLS (BLOOD ADMIN) (11/20/2024 6:44 AM CDT) Kelsie Tierney MD BLOOD TRANSFUSION ORDERABLES (BL OOD ADMIN) Final Result * ICU LACTATE (LACTIC ACID) (11/20/2024 5:11 AM CDT) Lactate 0.9 0.7 - 2.1 mmol/L [facility] Blood 11/20/2024 5:11 AM CDT 11/20/2024 6:06 AM CDT Justin Morris MD LABORATORY Final Result Performing Organization Address [facility] [place] [address] * RBC FOLATE (11/20/2024 5:11 AM CDT) RBC Folate 888 >=366 ng/mL [employer] Comment: Performed By: [employer] [address] [place] [address] Rackman: Romie Mak MD, PhD CLIA Number: [id number] Blood 11/20/2024 5:11 AM CDT 11/20/2024 5:56 AM CDT Narrative [facility] - 11/22/2024 8:48 PM CDT HCT:19.6 Justin Morris MD LABORATORY Final Result Performing Organization Address [facility] de Phone Number [employer] [address] [place] [address], * (ABNORMAL) TRANSFERRIN (INCLUDES TIBC) (11/20/2024 5:11 AM CDT) Only the most recent of2 resultswithin the time period is included. Transferrin 221 200 - 360 mg/dL [facility] IBC 329 298 - 536 mcg/dL [facility] Iron Saturation Percent 8(L) 20 - 50 % [facility] Blood 11/20/2024 5:11 AM CDT 11/20/2024 5:56 AM CDT us Justin Morris MD LABORATORY Edited Resul t - Final Performing Organization Address [facility] Co de Phone Number [facility] [address] [address] * (ABNORMAL) IRON (11/20/2024 5:11 AM CDT) Only the most recent of2 resultswithin the time period is included. Iron 25(L) 50 - 150 mcg/dL [facility] Blood 11/20/2024 5:11 AM CDT 11/20/2024 5:56 AM CDT us Justin Morris MD LABORATORY Final Result Performing Organization Address [facility] de Phone Number [facility] [address] [address] * FERRITIN (11/20/2024 5:11 AM CDT) Only the most recent of2 resultswithin the time period is included. Ferritin 36.9 30.0 - 400.0 ng/mL [facility] Comment: Test Performed by: [facility] [address] [place] [address] Blood 11/20/2024 5:11 AM CDT 11/20/2024 5:56 AM CDT us Justin Morris MD LABORATORY Edited Resul t - Final Performing Organization Address [facility] Co de Phone Number [facility] [address] [address] * BLOOD AEROBIC/ANAEROBIC CULTURE (11/20/2024 5:11 AM CDT) Only the most recent of2 resultswithin the time period is included. Final Report No growth after 5 days. [facility] Blood (Peripheral) 11/20/2024 5:11 AM CDT 11/20/2024 8:10 AM CDT Kelsie Tierney MD LAB MICROBIOLOGY Final Result Performing Organization Address [facility] Co de Phone Number [facility] [address] [address] * VITAMIN B12 (11/20/2024 5:11 AM CDT) Only the most recent of2 resultswithin the time period is included. B12 533 211 - 946 pg/mL [facility] Blood 11/20/2024 5:11 AM CDT 11/20/2024 5:56 AM CDT Justin Morris MD LABORATORY Edited Resul t - Final Performing Organization Address [facility] Co de Phone Number [facility] [address] [address] * RESPIRATORY CULTURE (11/20/2024 3:14 AM CDT) Final Report No growth. [facility] Gram Stain Report Less than 10 epithelial cells/low power field. Greater than 25 PMN's/low power field. Few Gram negative cocci Moderate mixed julio. [facility] Sputum 11/20/2024 3:14 AM CDT 11/20/2024 10:21 AM CDT Justin Morris MD LAB MICROBIOLOGY Final Resul t Performing Organization Address [facility] Co de Phone Number [facility] [address] [address] * TROP 2H (11/20/2024 1:02 AM CDT) 2H Trop 12 <=35 ng/L [facility] 2H Delta Not Significant Not Significant [facility] Blood 11/20/2024 1:02 AM CDT 11/20/2024 1:13 AM CDT Kelsie Tierney MD LABORATORY Edited Result - Final Performing Organization Address [facility] Co de Phone Number [address] [address] * RETIC COUNT (11/20/2024 1:02 AM CDT) Retic Count 1.0 0.5 - 1.8 % [facility] Blood 11/20/2024 1:02 AM CDT 11/20/2024 3:09 AM CDT Justin Morris MD LABORATORY Final Result Performing Organization Address [facility] Co de Phone Number [address] [address] * CK, TOTAL (11/20/2024 1:02 AM CDT) CK 92 39 - 308 IU/L [facility] Blood 11/20/2024 1:02 AM CDT 11/20/2024 2:25 AM CDT Justin Morris MD LABORATORY Final Result Performing Organization Address [facility] Co de Phone Number [facility] [address] [address] * CT OUTSIDE READ SPINE CERVICAL/NECK (11/20/2024 [...] Radiologist: Janett Quevedo Reading Resident: Clint Mcknight 11/20/2024 8:44 AM CDT Indication: Patient transferred from [facility] due to Infection. No initial report accompanied the patient and/or Dr. JUSTIN MORRIS requested an interpretation by me. Technique: CT scan of the cervical spine done on 11/19/2024 with IV contrast. Axial, sagittal and coronal reconstructions reviewed in soft tissue and bone windows, per the local institution's scanning protocols, which may differ from the [facility] trauma protocols. Findings: There is moderate subcutaneous [...] MD - 11/20/2024 Indication: Patient transferred from [facility] due toInfection. No initial report accompanied the patient and/or Dr. TELLEZ requested an interpretation by me. Technique: CT scan of the cervical spine done on 11/19/2024 with IVcontrast. Axial, sagittal and coronal reconstructions reviewed in softtissue and bone windows, per the local institution's scanning protocols,which may differ from the [facility] trauma protocols. Findings: There is moderate subcutaneous [...] of procedure: Tolerated well, no immediate complications Kelsie Tierney MD PROCEDURES Final Result * [...] Negative for Legionella pneumophila Serogroup 1 Antigen. [facility] Urine 11/19/2024 11:3 0 PM CDT 11/20/2024 10:21 AM CDT Narrative [facility] - 11/20/2024 11:56 AM CDT This assay was performed using an FDA-cleared direct antigen test. Justin Morris MD LAB MICROBIOLOGY Final Resul t [facility] [address] [address] * (ABNORMAL) PROTEIN TO CREAT RATIO,URINE (11/19/2024 11:30 PM CDT) TPU 65(H) 0 - 11 mg/dL [facility] Creat Urine 49 30 - 125 mg/dL [facility] Protein to Creat Ratio, Ur 1.33(H) 0.00 - 0.06 mg/mg [facility] Urine 11/19/2024 11:3 0 PM CDT 11/20/2024 3:02 AM CDT Justin Morris MD LABORATORY Final Result [facility] [address] [place] [id number] * URINE DRUG SCREEN (11/19/2024 11:30 PM CDT) Acetaminophen Ur NEG <=10 mcg/mL [facility] Amphetamine Ur POS <=500 ng/mL [facility] Comment:Corrected from PENDI NG ng/mL [NA] on 11/22/24 7:12:27 CDT by Lizett Pierre Barbiturate Ur NEG <=200 ng/mL [facility] Benzodiazipine NEG <=100 ng/mL [facility] Buprenorphine Ur NEG <=5 ng/mL [facility] Cocaine Metab Ur NEG <=300 ng/mL [facility] Fentanyl, Urine NEG <=5 ng/mL [facility] LSD Ur NEG <=500 pg/mL [facility] Methadone Ur NEG <=300 ng/mL [facility] Opiate Ur NEG <=300 ng/mL [facility] Oxycodone Ur NEG <=100 ng/mL [facility] PCP Urine NEG <=25 ng/mL [facility] Propox Ur NEG <=300 ng/mL [facility] Salicylate Ur NEG <=10 mg/dL [facility] Creat Urine 50 >=20 mg/dL [facility] Mass Spectrometry Urine Amphetamine, Methamphetamin e, Naproxen and Ondansetron present. [facility] Urine 11/19/2024 11:3 0 PM CDT 11/21/2024 11:39 PM CDT Justin Morris MD LABORATORY Final Result Performing Organization Address [facility] Co de Phone Number [facility] [address] [address] * (ABNORMAL) URINE CULTURE (11/19/2024 11:30 PM CDT) Urine Cult 10,000 - 50,000 organisms/ml Methicillin sensitive Staphylococcus aureus (MSSA) isolated. Methicillin susceptible by PBP2a. Less than 10,000 organisms/ml mixed julio. No further work-up. (POS) [facility] Organism METHICILLIN SENSITIVE STAPHYLOCOCCUS AUREUS (MSSA)(POS) [facility] Urine Midstream. URINE / Unknown 11/20/19 11:30 PM CDT 11/20/2024 12:51 AM CDT Narrative [facility] - 11/22/2024 8:15 AM CDT ED [...] LAB MICROBIOLOGY Final Result Performing Organization Address [facility]/ZIP Co de Phone Number [facility] [address] [address] * (ABNORMAL) URINALYSIS,TOTAL (11/19/2024 11:30 PM CDT) Pathologist [facility] Color YELLOW YELLOW [facility] Appearance TURBID(A) CLEAR [facility] Urine Glucose NEGATIVE NEGATIVE mg/dL [facility] Bili UA NEGATIVE NEGATIVE [facility] Ketones NEGATIVE NEGATIVE [facility] Specific [place] 1.020 1.003 - 1.030 [facility] Blood Ur LARGE(A) Neg-Trace [facility] PH Urine 6.0 5.0 - 7.0 [facility] Protein Ur 50(A) Neg-Trace [facility] Urobilinogen NORMAL NORMAL EU/dL [facility] Nitrite Ur NEGATIVE NEGATIVE [facility] Leuk Est LARGE(A) Neg-Trace [facility] WBC Ur >50(A) 0 - 5 perHPF [facility] RBC Ur >20(A) 0 - 3 perHPF [facility] Urinalysis Performed at: [facility] Urine 11/19/2024 11:3 0 PM CDT 11/19/2024 11:37 PM CDT Kelsie Tierney MD LABORATORY Edited Result - Final Performing Organization Address [facility]/ZIP Co de Phone Number [facility] [address] [address] * SODIUM,URINE-RANDOM KARISHMA (11/19/2024 11:30 PM CDT) Sodium Urine 64 40 - 200 mmol/L [facility] Urine 11/19/2024 11:3 0 PM CDT 11/20/2024 3:02 AM CDT us Justin Morris MD LABORATORY Final Result Performing Organization Address [facility] Co de Phone Number [facility] [address] [address] * XR CHEST 1 VIEW AP OR [...] Radiologist: Bryson Smith Reading Resident: Clint Mcknight Narrative 11/20/2024 6:11 AM [...] resident/fellow. Reading Radiologist: Bryson Smith Reading Resident: lCint Mcknight us Kelsie Tierney MD RAD XRAY Final Result * ED EKG (12-LEAD) (11/19/2024 11:22 PM CDT) 11/19/2024 11:2 2 PM CDT Impressions [facility] CVIS EKG ORDERS - 11/19/2024 11:22 PM CDT SINUS RHYTHM INCOMPLETE RIGHT BUNDLE BRANCH BLOCK [90+ ms QRS DURATION, TERMINAL R IN V1/V2, 40+ ms S IN I/aVL/V4/V5/V6] LEFT VENTRICULAR HYPERTROPHY AND ST-T CHANGE [VOLTAGE CRITERIA PLUS ST/T ABNORMALITY] ABNORMAL ECG P-R Interval 140 ms QRS Interval 95 ms QT Interval 367 ms QTC Interval 418 ms P [place] 65 QRS [place] 13 T Wave [place] 73 Narrative Procedure Note Jonas Mcbride MBBS - 11/20/2024 IMPRESSION SINUS RHYTHM INCOMPLETE RIGHT BUNDLE BRANCH BLOCK [90+ ms QRS DURATION, TERMINAL R INV1/V2, 40+ ms S IN I/aVL/V4/V5/V6] LEFT VENTRICULAR HYPERTROPHY AND ST-T CHANGE [VOLTAGE CRITERIA PLUS ST/TABNORMALITY] ABNORMAL ECG P-R Interval 140 ms QRS Interval 95 ms QT Interval 367 ms QTC Interval 418 ms P [place] 65 QRS [place] 13 T Wave [place] 73 Kelsie Tierney MD EKG Final Result Performing Organization Address [facility]/ZIP Co de Phone Number [facility] CVIS EKG ORDERS * NG/OG Tube (11/19/2024 [...] blood loss during this procedure was: 0mL us Kelsie Tierney MD PROCEDURES Final Result * (ABNORMAL) ED INR (11/19/2024 10:45 PM CDT) [facility] ED INR 1.3(H) 0.8 - 1.1 [facility] Comment: Warfarin Therapeutic Range: Standard Intensity: 2.0 - 3.0 High Intensity: 2.5 - 3.5 This is a rapid INR screening test which uses whole blood; results may infrequently differ from plasma INR results. If medication adjustments/dosing are required a PT/INR test ([id number]) should be ordered and performed in the main laboratory. Blood 11/19/2024 10:4 5 PM CDT 11/19/2024 10:52 PM CDT Result [facility] Kelsie Tierney MD LABORATORY Final Result Performing Organization Address City/[facility]/ZIP Co de Phone Number [facility] [address] [address] * PROCALCITONIN (11/19/2024 10:45 PM CDT) Procalcitonin 4.38 ng/mL [facility] Comment: Results <0.50 ng/mL represent a low risk of severe sepsis and/or septic shock. Results >2.0 ng/mL represent a high risk of severe sepsis and/or septic shock. Blood 11/19/2024 10:4 5 PM CDT 11/20/2024 12:07 AM CDT us Kelsie Tierney MD LABORATORY Final Result Performing Organization Address City/[facility]/ZIP Co de Phone Number [facility] [address] [address] * EXTRA TUBE - SST (11/19/2024 10:45 PM CDT) [facility] SST TUBE Stored [facility] Comment:SST tubes (Serum Sep arator) are stored in the lab for 3 days from the collection date. Blood 11/19/2024 10:4 5 PM CDT 11/19/2024 10:56 PM CDT us Kelsie Tierney MD LABORATORY Final Result Performing Organization Address City/[facility]/ZIP Co de Phone Number [address] [address] * HIV COMBO (11/19/2024 10:45 PM CDT) [facility] HIV Antigen-Antibody Nonreactive Nonreactive [facility] Comment:Performance characte ristics have not been established with this test on patients less than 2 years of age. Blood 11/19/2024 10:4 5 PM CDT 11/20/2024 12:05 AM CDT us Kelsie Tierney MD LABORATORY Final Result Performing Organization Address [facility]/ZIP Co de Phone Number [address] [address] * HS TROPONIN (11/19/2024 10:45 PM CDT) Pathologist [facility] HS Troponin I 12 <=35 ng/L [facility] Blood 11/19/2024 10:4 5 PM CDT 11/19/2024 10:52 PM CDT Narrative [facility] - 11/20/2024 12:15 AM CDT First Occurrence of the Troponin order is to be drawn Stat by Nursing staff on the unit. Kelsie Tierney MD LABORATORY Final Result Performing Organization Address [facility]/ZIP Co de Phone Number [facility] [address] [address] * (ABNORMAL) ED CHEMISTRY LABS(NA,K,CL,CO2,GLU,CREAT,CA-IONIZED,ANION GAP) (11/19/2024 10:45 PM CDT) Pathologist [facility] Sodium 141 135 - 148 mmol/L [facility] Potassium 4.3 3.5 - 5.3 mmol/L [facility] Chloride 110(H) 92 - 108 mmol/L [facility] AnGap 16 8 - 16 mmol/L [facility] Glucose 117(H) 70 - 100 mg/dL [facility] ICA, Actual 4.58 4.40 - 5.20 mg/dL [facility] ICA, pH Corrected 4.43 4.40 - 5.20 mg/dL [facility] Creatinine 4.55(H) 0.70 - 1.25 mg/dL [facility] BICARB 15(L) 22 - 26 mEq/L [facility] eGFR (2020 CKD-EPI) 15(L) >=60 ml/min/1.7 3m2 [facility] Comment: The estimated glomerular filtration rate [...] Final Result Performing Organization Address City/[facility]/ZIP Co de Phone Number [facility] [address] [address] * (ABNORMAL) CBC WITH PLTS/AUTO DIFF (11/19/2024 10:45 PM CDT) WBC 15.26(H) 4.00 - 10.00 k/cmm [facility] RBC 2.91(L) 4.60 - 6.00 m/cmm [facility] Hgb 6.0(AA) 13.1 - 17.5 g/dL [facility] Hematocrit 20.1(L) 40.0 - 51.0 % [facility] MCV 69.1(L) 80.0 - 100.0 fL [facility] MCH 20.6(L) 25.0 - 32.0 pg [facility] MCHC 29.9(L) 31.0 - 36.0 g/dL [facility] RDW 17.8(H) 11.5 - 14.5 % [facility] Plt 419(H) 150 - 400 k/cmm [facility] MPV 8.6 6.5 - 12.5 fL [facility] Automated Abs Neutrophil 12.54(H) 1.70 - 6.50 k/cmm [facility] Comment:Preliminary ANC, Fin al Result to Follow Abs Immature Granulocyte 0.08 0.00 - 0.09 k/cmm [facility] Comment:The Immature Granulo cyte Absolute count contains metamyelocytes and myelocytes. Abs Neutrophil 12.54(H) 1.70 - 6.50 k/cmm [facility] Abs Lymphocyte 0.97 0.80 - 4.00 k/cmm [facility] Abs Monocyte 1.54(H) 0.20 - 1.00 k/cmm [facility] Abs Eosinophil 0.10 0.00 - 0.60 k/cmm [facility] Abs Basophil 0.03 0.00 - 0.20 k/cmm [facility] Hypochromasi Moderate [facility] Caitlin Cell Moderate [facility] Elliptocyte Moderate [facility] Blood 11/19/2024 10:4 5 PM CDT 11/19/2024 11:10 PM CDT Narrative [facility] - 11/19/2024 11:52 PM CDT Critical value for HGB called to and read back by Jose M Muñoz RN in STAB 1 at 11/19/2024 23:39:37 CDT by Manda Simon. us Kelsie Tierney MD LABORATORY Edited Result - Final Performing Organization Address City/[facility]/ZIP Co de Phone Number [facility] [address] [address] * (ABNORMAL) ED HEMOGLOBIN TOTAL (ED ONLY) (11/19/2024 10:45 PM CDT) Hgb 6.4(AA) 13.1 - 17.5 g/dL [facility] Comment:Critical Result Low Blood 11/19/2024 10:4 5 PM CDT 11/19/2024 10:53 PM CDT Narrative [facility] - 11/19/2024 11:03 PM CDT Critical value for Hemoglobin called to and read back by Melissa Collins MD in STAB Room at 11/19/2024 23:03:50 CDT by Carly Valentine MLS. us Kelsie Tierney MD LABORATORY Edited Result - Final Performing Organization Address [facility] Co de Phone Number [facility] [address] [address] * (ABNORMAL) BUN (UREA NITROGEN) (11/19/2024 10:45 PM CDT) BUN 80(H) 6 - 20 mg/dL [facility] Blood 11/19/2024 10:4 5 PM CDT 11/20/2024 12:07 AM CDT us Kelsie Tierney MD LABORATORY Final Result Performing Organization Address [facility]/ZIP Co de Phone Number [facility] [address] [address] * LACTATE (LACTIC ACID) (11/19/2024 10:45 PM CDT) Lactate 1.2 0.7 - 2.1 mmol/L [facility] Blood 11/19/2024 10:4 5 PM CDT 11/19/2024 10:53 PM CDT Narrative [facility] - 11/19/2024 11:01 PM CDT Send specimen on ice! us Kelsie Tierney MD LABORATORY Final Result Performing Organization Address [facility] Co de Phone Number [address] [address] * (ABNORMAL) FIBRINOGEN (11/19/2024 10:45 PM CDT) Fibrinogen 494(H) 200 - 400 mg/dL [facility] Blood 11/19/2024 10:4 5 PM CDT 11/19/2024 11:10 PM CDT us Kelsie Tierney MD LABORATORY Final Result Performing Organization Address [facility] de Phone Number [address] [address] * ETHANOL (ETOH) LEVEL, BLOOD (11/19/2024 10:45 PM CDT) Ethanol Negative Negative g/dL [facility] Blood 11/19/2024 10:4 5 PM CDT 11/19/2024 11:10 PM CDT us Kelsie Tierney MD LABORATORY Final Result Performing Organization Address [facility] Co de Phone Number [address] [address] * (ABNORMAL) C-REACTIVE PROTEIN (11/19/2024 10:45 PM CDT) C-Reactive Protein 228(H) <=4 mg/L [facility] Blood 11/19/2024 10:4 5 PM CDT 11/20/2024 12:07 AM CDT us Kelsie Tierney MD LABORATORY Final Result Performing Organization Address [facility]/ZIP Co de Phone Number [address] [address] * ANTIBODY SCREEN (11/19/2024 10:45 PM CDT) Radha Screen Negative [facility] Blood 11/19/2024 10:4 5 PM CDT 11/19/2024 11:03 PM CDT Kelsie Tierney MD LAB TRANSFUSION SERVICES Final R esult Performing Organization Address [facility]/ZIP Co de Phone Number [address] [address] * PTT (APTT) (11/19/2024 10:45 PM CDT) Pathologist [facility] APTT 32.7 25.0 - 37.0 sec [facility] Blood 11/19/2024 10:4 5 PM CDT 11/19/2024 11:10 PM CDT Kelsie Tierney MD LABORATORY Final Result Performing Organization Address [facility]/ZIP Co de Phone Number [address] [address] * BLOOD TYPING-ABO/RH (11/19/2024 10:45 PM CDT) ABORHG A POS [facility] Blood 11/19/2024 10:4 5 PM CDT 11/19/2024 11:03 PM CDT Kelsie Tierney MD LAB TRANSFUSION SERVICES Final R esult Performing Organization Address [facility]/ZIP Co de Phone Number [address] [address] * ED US CRITICAL CARE (11/19/2024 10:37 PM CDT) Anatomical Region Laterality Modality Ultrasound Narrative 11/19/2024 11:21 PM CDT ED Cardiac Ultrasound Body Areas Imaged: Heart and Chest Wall/Lungs Indications:Evaluate Volume Status Window: Parasternal Short [place], Parasternal Long [place], and Bilateral Lungs Findings: The left ventricular [...] euvolemia Kelsie Tierney MD, 11/19/2024 11:20 PM us Kelsie Tierney MD RAD ED ULT Final Result from Last 3 Months Advance Directives For more information, please contact: [phone] * Full Code (Latest Code Status on File) Date Activated Date Inactivated Comments 11/19/2024 11:57 PM 11/23/2024 10:25 PM Question Answer Comments Does the Patient have prefer ences regarding life sustaining measures (these options only apply when the patient has a pulse): No Discussed Code Status With Whom? Not discussed
--- NOTE | 2024-12-07 15:03 | CRLHL7_ITS ---
For Patients: As a result of the Cures Act, medical imaging exams and procedure reports are released immediately into your electronic medical record. You may view this report before your referring provider. If you have questions, please contact your health care provider. INDICATION: : CHEST PAIN COMPARISON: None TECHNIQUE: One view(s) of the chest FINDINGS: The cardiomediastinal silhouette and pulmonary vasculature are unremarkable. There is no focal airspace consolidation, pleural effusion, or pneumothorax. No displaced fractures. IMPRESSION: No acute cardiopulmonary process. Dictated by Jacob Betancur MD @ 12/07/2024 4:39:46 PM (Electronically Signed)
--- NOTE | 2024-12-07 15:06 | ED.CHESTPAIN ---
HPI - Chest Pain General Date Seen: 12/07/24 Chief Complaint: Chest Pain Stated Complaint: Chest pain Time Seen by Provider: 12/07/24 14:44 Source: patient and EMS Mode of arrival: EMS Limitations: no limitations History of Present Illness HPI narrative: Patient is a 54-year-old male presenting to the emergency department for chest pain. He was recently seen in this ED for tooth infection there was concern about M[place]h angina so [place] [facility] [place] 3 teeth removed and placed on antibiotics but did not require any intubation or further surgeries. Was discharged and has been getting outpatient follow-up since then. Went to the clinic to drop some stuff off and we was walking back to his car after walking about 4 blocks he was having chest pressure. Describes it as a dull ache. Can not specifically say if it feels like someone is standing on his chest or not. Pain is not radiate anywhere else. Denies having pain like this before. States it is hard to take a deep breath. EMS showed sinus tachycardia and he was given a nitro. After the nitro his blood pressure dropped quite a bit. It has since improved after laying in the bed the emergency department. States the only time he got lightheaded was when he got the Nitrol. No longer feels lightheaded at this time. Has had some chills but denies any fevers. Denies headache, abdominal pain, diarrhea, constipation, weakness, numbness. Has had a echocardiogram and stress test done at [facility] last week. Echo results from 12/01/2024: 1. Post stress, normal left ventricular size, normal global systolic function with an estimated EF of 70 to 75%. 2. LV wall thickness not well visualized: ~ mildly increased. 3. Maximum stress test with 87.3% of age predicted maximum heart rate achieved. 4. Negative stress echo for ischemia. 5. There were no ischemic changes by EKG during stress. 6. During stress exam the patient developed shortness of breath. 7. Right ventricular cavity size is normal, global systolic RV function is normal. 8. The aortic valve is not well visualized, no stenosis and no regurgitation. 9. Echo contrast was administered to enhance visualization of all left ventricular segments. Related Data Home Medications ?Medication ?Instructions ?Recorded ?Confirmed acetaminophen 325 mg tablet mg PO 12/07/24 amlodipine 10 mg tablet 10 mg PO DAILY 12/07/24 12/07/24 ibuprofen 600 mg tablet 1,200 mg PO BID 12/07/24 12/07/24 metoprolol succinate 25 mg 25 mg PO DAILY 12/07/24 12/07/24 tablet,extended release 24 hr rosuvastatin 10 mg tablet 10 mg PO QPM 12/07/24 12/07/24 Allergies Allergy/AdvReac Type Severity Reaction Status Date / Time No Known Drug Allergies Allergy Verified 12/07/24 17:08 Review of Systems Status of ROS Reports: 10 or more systems reviewed and unremarkable except as noted in History and below PFSH PFS Social History Smoking Status: Never smoker Do you use any of these nicotine containing products: None Second hand tobacco smoke exposure: No How often do you have a drink containing alcohol: never AUDIT-C Alcohol total score: 0 Non-prescribed substance use: denies use Exam Narrative Exam Narrative: Const: Well-nourished, Well-developed, in moderate distress Eyes: PERRL, no conjunctival injection, and symmetrical lids HENT: Atraumatic external nose and ears. Moist mucous membranes. Neck: Symmetric, trachea midline, No thyromegaly. CVS: RRR, No murmurs or gallops. Peripheral pulses 2+ and equal in all extremities RESP: Unlabored respiratory effort. Clear to auscultation bilaterally. GI: Nontender/Nondistended, No rebound or guarding. MSK:Extremities w/o deformity, Normal Active ROM Skin: Warm, Dry. No rashes or lesions. Neuro: Normal Muscle tone, No focal neurological deficits. Psych: Awake, Alert, & Oriented x3. Appropriate mood and affect. Const Vital Signs, click to edit/add: Vital Signs - 24 hr 12/07/24 14:53 12/07/24 14:53 12/07/24 14:54 Temperature 97.8 F Pulse Rate 92 91 Pulse Rate [Pulse Oximeter] 68 Respiratory Rate 16 Blood Pressure 104/67 Blood Pressure [Left Upper Arm] 84/53 L Pulse Oximetry 96 94 95 Oxygen Delivery Method Room Air 12/07/24 15:00 12/07/24 15:02 12/07/24 15:15 Temperature Pulse Rate 90 88 Pulse Rate [Pulse Oximeter] Respiratory Rate 18 20 27 H Blood Pressure 122/84 Blood Pressure [Left Upper Arm] Pulse Oximetry 100 98 Oxygen Delivery Method 12/07/24 15:16 12/07/24 15:17 12/07/24 15:30 Temperature Pulse Rate Pulse Rate [Pulse Oximeter] Respiratory Rate 30 H 18 18 Blood Pressure 107/73 Blood Pressure [Left Upper Arm] Pulse Oximetry Oxygen Delivery Method 12/07/24 15:32 12/07/24 15:45 12/07/24 15:47 Temperature Pulse Rate 95 95 96 Pulse Rate [Pulse Oximeter] Respiratory Rate 12 16 32 H Blood Pressure 125/92 H 127/85 Blood Pressure [Left Upper Arm] Pulse Oximetry 97 98 99 Oxygen Delivery Method 12/07/24 16:00 12/07/24 16:01 12/07/24 16:17 Temperature Pulse Rate 95 96 Pulse Rate [Pulse Oximeter] Respiratory Rate 19 32 H 30 H Blood Pressure 133/89 Blood Pressure [Left Upper Arm] Pulse Oximetry 98 99 Oxygen Delivery Method 12/07/24 16:28 12/07/24 16:30 12/07/24 16:32 Temperature Pulse Rate 98 99 Pulse Rate [Pulse Oximeter] Respiratory Rate 27 H 14 Blood Pressure 157/85 H 153/90 H Blood Pressure [Left Upper Arm] Pulse Oximetry 97 98 Oxygen Delivery Method 12/07/24 17:11 12/07/24 17:15 12/07/24 18:02 Temperature Pulse Rate 105 H 99 Pulse Rate [Pulse Oximeter] Respiratory Rate 22 Blood Pressure 119/75 Blood Pressure [Left Upper Arm] Pulse Oximetry 97 99 98 Oxygen Delivery Method Course Vital Signs Vital signs: Initial Vital Signs Temperature 97.8 F 12/07/24 14:53 Temperature Source Temporal Artery Scan 12/07/24 14:53 Pulse Rate 92 12/07/24 14:53 Respiratory Rate 16 12/07/24 14:53 Blood Pressure 104/67 12/07/24 14:53 Blood Pressure Mean 79 12/07/24 14:53 Pulse Oximetry 96 12/07/24 14:53 Oxygen Delivery Method Room Air 12/07/24 14:53 Vital Signs Temperature 97.8 F 12/07/24 14:53 Pulse Rate 92 12/07/24 14:53 Respiratory Rate 16 12/07/24 14:53 Blood Pressure 104/67 12/07/24 14:53 Pulse Oximetry 96 12/07/24 14:53 Oxygen Delivery Method Room Air 12/07/24 14:53 Temperature 97.8 F 12/07/24 14:53 Pulse Rate 99 12/07/24 17:15 Respiratory Rate 22 12/07/24 18:02 Blood Pressure 119/75 12/07/24 18:02 Pulse Oximetry 98 12/07/24 18:02 Oxygen Delivery Method Room Air 12/07/24 14:53 Medications Administered Medications: Discontinued Medications Generic Name Dose Route Start Last Admin Trade Name Freq PRN Reason Stop Dose Admin Aspirin 324 mg 12/07/24 15:12 12/07/24 16:03 Aspirin 81 Mg Tab.Chew PO 12/07/24 15:13 Not Given ONCE ONE MDM - Chest Pain MDM Narrative Medical decision making narrative: Patient is a 54-year-old male presenting for chest pain. The differential diagnosis of chest pain is broad and includes common etiologies such as musculoskeletal strain, GERD, pneumonia, etc. More serious etiologies considered include PE, coronary artery disease, pneumothorax, aortic dissection, aortic aneurysm. Will check a D-dimer for signs of PE. EKG and troponin also ordered. He did just have a relatively normal echo also chance of this being a valvular or STEMI seems less likely. He was hypotensive when he arrived via EMS but this was not long after he got the nitro. Patient has since had 2 further blood pressures take in since his arrival and most recent was 122/84. At this time I do believe his hypotension was from. Patient's CBC returned showing no concerning abnormalities. Hemoglobin is improved to previously. Is D-dimer is elevated 1.68 and he has a creatinine 3.0. It was 4.5 here a weeks ago was 3.32 on 11/30/24. Considering chest pain shortness of breath in the episode of hypotension and his poor medical history concerned about a PE. I considered doing or extremity ultrasounds 1st but he is not having any lower extremity swelling any if these are positive this is not tell me if he has a massive PE and needs to be hospitalized or not. Concern of this her do believe he will be more beneficial to do a PE study and then give him fluids. EKG, troponin, delta troponin all showed no concerning findings CTA returned showing no acute intrathoracic abnormality but there is bilateral hydronephrosis. Recommends further assessment CT abdomen pelvis with renal protocol but this time I do not want to give this patient another dose of contrast. Due to that I will do a renal ultrasound. Renal ultrasound showed the bilateral hydronephrosis and a 270 mL postvoid residual scan. Patient had a urology appointment this morning and states he is aware the bilateral hydronephrosis but was unaware of the urinary retention. Does state he is peeing more frequently in small amounts recently. He states he has been told he may need surgery for the hydronephrosis. I informed him that a Arnold catheter is recommended due to his postvoid residual scan but at this time he declines and would like to follow-up outpatient. I explained to him the risks of not doing though arnold and he states he understands On my review vital signs are stable throughout time in in the emergency department. Oximetry stayed in the mid to high 90s. monitoring tech showed no concerning arrhythmias. Patient will be discharged Lab Data Labs: Lab Results 12/07/24 12/07/24 12/07/24 Range/Units 15:18 15:23 15:25 WBC 9.95 (4.50-11.00) K/uL RBC 3.94 L (4.30-5.90) m/uL Hgb 9.3 L (13.5-17.5) gm/dL Hct 30.0 L (37.0-53.0) % MCV 76 L (80-100) fL MCH 24 L (26-34) pg MCHC 31 L (32-36) gm/dL RDW Coeff of Michelle 22.1 H (11.5-15.5) % Plt Count 493 H (140-440) K/uL Neut % (Auto) 73.7 H (42.0-72.0) % Lymph % (Auto) 10.8 L (20-44) % [place] % (Auto) 8.3 (0.0-11.0) % Eos % (Auto) 4.9 (0.0-7.0) % Baso % (Auto) 1.0 (0.0-3.0) % Neut # (Auto) 7.30 H (1.7-7.0) K/uL Lymph # (Auto) 1.10 (0.90-2.90) K/uL [place] # (Auto) 0.80 (0.00-0.90) K/UL Eos # (Auto) 0.49 (0.00-0.50) K/uL Baso # (Auto) 0.10 (0.00-0.30) K/uL Abs Immat Gran (auto) 0.13 (0.00-0.30) K/uL Imm/Tot Granulo (auto) 1.3 % D-Dimer Quant (PE/DVT) 1.68 H (0.00-0.50) ug/ml Sodium 138 (135-149) mmol/L Potassium 3.9 (3.6-5.1) mmol/L Chloride 110 (96-114) mmol/L Carbon Dioxide 17 L (20-32) mmol/L Anion Gap 11 (7-15) mEq/L BUN 48 H (7-30) mg/dL Creatinine 3.0 H (0.5-1.5) mg/dL Estimated GFR 24 ml/min Glucose 123 H (60-115) mg/dL Calcium 9.0 (8.4-10.6) mg/dL Magnesium 1.7 (1.5-2.6) mg/dL Troponin I < 0.01 (0.01-0.04) ng/mL NT-Pro-B Natriuret Pep 292 (See Note) pg/mL SARS-CoV-2 (PCR) Negative SARS-CoV-2 (Negative) Influenza Type A (PCR) Negative PCR FLU A (Negative) Influenza Type B (PCR) Negative PCR FLU B (Negative) RSV (PCR) Negative PCR RSV (Negative) POC Troponin I 0.07 H (0.01-0.04) ng/ml 12/07/24 Range/Units 17:58 WBC (4.50-11.00) K/uL RBC (4.30-5.90) m/uL Hgb (13.5-17.5) gm/dL Hct (37.0-53.0) % MCV (80-100) fL MCH (26-34) pg MCHC (32-36) gm/dL RDW Coeff of Michelle (11.5-15.5) % Plt Count (140-440) K/uL Neut % (Auto) (42.0-72.0) % Lymph % (Auto) (20-44) % [place] % (Auto) (0.0-11.0) % Eos % (Auto) (0.0-7.0) % Baso % (Auto) (0.0-3.0) % Neut # (Auto) (1.7-7.0) K/uL Lymph # (Auto) (0.90-2.90) K/uL [place] # (Auto) (0.00-0.90) K/UL Eos # (Auto) (0.00-0.50) K/uL Baso # (Auto) (0.00-0.30) K/uL Abs Immat Gran (auto) (0.00-0.30) K/uL Imm/Tot Granulo (auto) % D-Dimer Quant (PE/DVT) (0.00-0.50) ug/ml Sodium (135-149) mmol/L Potassium (3.6-5.1) mmol/L Chloride (96-114) mmol/L Carbon Dioxide (20-32) mmol/L Anion Gap (7-15) mEq/L BUN (7-30) mg/dL Creatinine (0.5-1.5) mg/dL Estimated GFR ml/min Glucose (60-115) mg/dL Calcium (8.4-10.6) mg/dL Magnesium (1.5-2.6) mg/dL Troponin I < 0.01 (0.01-0.04) ng/mL NT-Pro-B Natriuret Pep (See Note) pg/mL SARS-CoV-2 (PCR) (Negative) Influenza Type A (PCR) (Negative) Influenza Type B (PCR) (Negative) RSV (PCR) (Negative) POC Troponin I (0.01-0.04) ng/ml Imaging Data Chest x-ray: Attestation: I have reviewed the pertinent imaging results. Radiologist's impression: No acute cardiopulmonary process. Dictated by Jacob Betancur MD @ 12/07/2024 4:39:46 PM CTA chest: Attestation: I have reviewed the pertinent imaging results. Radiologist's impression: 1. No CT evidence of an acute process involving the thorax; specifically, no pulmonary embolism. 2. The imaged upper demonstrates suspected hydronephrosis bilaterally. This can be further assessed with a CT abdomen/pelvis with a renal protocol. Please note that all CT scans at this facility use dose modulation, iterative reconstruction, and/or weight-based dosing when appropriate to reduce radiation dose to as low as reasonably achievable. Dictated by Jacob Betancur MD @ 12/07/2024 5:59:01 PM Renal ultrasound: Attestation: I have reviewed the pertinent imaging results. Radiologist's impression: Moderate bilateral hydronephrosis. Elevated postvoid residual bladder volume measuring 270 milliliters. Dictated by Jr Blackmon MD @ 12/07/2024 7:23:49 PM ECG Data Attestation: I personally reviewed and interpreted this ECG as follows: Prior ECG tracings: not available for review Interpretation: Normal sinus rhythm with a rate of 90 beats per minute, normal intervals, normal axis, no ST or T-wave abnormalities. Discharge Plan Discharge Clinical Impression: Atypical chest pain, Acute urinary retention, Bilateral hydronephrosis Patient Disposition: Home, Self-Care Condition: Improved Instructions: Urinary Retention in Men (ED) Additional Instructions: I do not see any abnormalities that would be causing you chest pain at this time. Return to emergency department for new or worsening symptoms and follow-up with your primary care provider. Your having bilateral dilated kidneys. Your also having urinary retention. With the amount of urinary retention your having a Arnold catheter a is recommended. At this time he declined 1 by do recommend you call your urologist tomorrow and tell them about the urinary retention. You had a residual volume of 270 mL Prescriptions: No Action acetaminophen 325 mg tablet PO amlodipine 10 mg tablet 10 mg PO DAILY metoprolol succinate 25 mg tablet extended release 24 hr 25 mg PO DAILY ibuprofen 600 mg tablet 1,200 mg PO BID rosuvastatin 10 mg tablet 10 mg PO QPM Follow Up/Referrals: Provider,Not a Local [Primary Care Provider, Family Practice] Stand Alone Forms: [employer] Info Instructions
[2024-12-07 15:32] LABS: Troponin, Point-of-Care* 0.07 ng/ml (0.01-0.04)
[2024-12-07 15:33] LABS: Eosinophils Absolute Auto 0.49 K/uL (0.00-0.50); Eosinophils Percent Auto 4.9 % (0.0-7.0); Hemoglobin* 9.3 gm/dL (13.5-17.5); Immature Granulocytes Abs Auto 0.13 K/uL (0.00-0.30); Immature Granulocytes Pct Auto 1.3 %; Lymphocytes Percent Auto 10.8 % (20-44); Mean Corpuscular HGB Conc 31 gm/dL (32-36); Mean Corpuscular Hemoglobin 24 pg (26-34); Mean Corpuscular Volume 76 fL (80-100); Monocytes Percent Auto 8.3 % (0.0-11.0); Neutrophils Percent Auto 73.7 % (42.0-72.0); Platelet Count* 493 K/uL (140-440); RDW Coefficient of Variation % 22.1 % (11.5-15.5); Red Blood Count 3.94 m/uL (4.30-5.90); White Blood Count* 9.95 K/uL (4.50-11.00)
[2024-12-07 15:41] LABS: Slide Review Reflex No
[2024-12-07 15:53] LABS: Chloride* 110 mmol/L (96-114); Sodium* 138 mmol/L (135-149)
[2024-12-07 15:54] LABS: Potassium* 3.9 mmol/L (3.6-5.1)
[2024-12-07 15:56] LABS: Blood Urea Nitrogen* 48 mg/dL (7-30); Estimated Glomerular Filt Rate 24 ml/min
[2024-12-07 15:57] LABS: Anion Gap 11 mEq/L (7-15); Carbon Dioxide* 17 mmol/L (20-32); Glucose* 123 mg/dL (60-115); Magnesium* 1.7 mg/dL (1.5-2.6)
[2024-12-07 15:59] LABS: D Dimer Quantitative* 1.68 ug/ml (0.00-0.50)
--- NOTE | 2024-12-07 16:08 | CRLHL7_ITS ---
For Patients: As a result of the Century Cures Act, medical imaging exams and procedure reports are released immediately into your electronic medical record. You may view this report before your referring provider. If you have questions, please contact your health care provider. Indication: SOB, ELEVATED D-DIMER Technique: CTA chest, pulmonary embolism protocol, utilizing 95 mL Isovue 370 Comparison: None Findings: No thyroid nodules. No thoracic lymphadenopathy. The heart is normal in size. No CT evidence of right heart strain. No pericardial effusion. No coronary artery calcifications. The thoracic aorta and pulmonary artery are normal in caliber. No pulmonary embolism. No focal airspace consolidation, pleural effusion, or pneumothorax. Trace dependent and basilar atelectasis. No suspicious pulmonary nodules or masses. The airways are clear. The imaged upper demonstrates suspected hydronephrosis bilaterally. Remote T6 vertebral body compression fracture deformity with anterior wedging. Impression: 1. No CT evidence of an acute process involving the thorax; specifically, no pulmonary embolism. 2. The imaged upper demonstrates suspected hydronephrosis bilaterally. This can be further assessed with a CT abdomen/pelvis with a renal protocol. Please note that all CT scans at this facility use dose modulation, iterative reconstruction, and/or weight-based dosing when appropriate to reduce radiation dose to as low as reasonably achievable. Dictated by Jacob Betancur MD @ 12/07/2024 5:59:01 PM (Electronically Signed)
[2024-12-07 16:12] LABS: NT Pro B Type NatriureticPept* 292 pg/mL (See Note); Troponin I* < 0.01 ng/mL (0.01-0.04)
[2024-12-07 16:14] LABS: PCR FLU A Negative PCR FLU A (Negative); PCR FLU B Negative PCR FLU B (Negative); PCR RSV Negative PCR RSV (Negative); SARS PCR* Negative SARS-CoV-2 (Negative)
--- NOTE | 2024-12-07 18:00 | CRLHL7_ITS ---
For Patients: As a result of the Century Cures Act, medical imaging exams and procedure reports are released immediately into your electronic medical record. You may view this report before your referring provider. If you have questions, please contact your health care provider. INDICATION: Possible bilateral hydronephrosis on same-day CT COMPARISON: None. TECHNIQUE: Sonographic evaluation of the kidneys and bladder was performed utilizing lynne-scale and color Doppler imaging techniques. FINDINGS: Right kidney measures 11.7 centimeters. Left kidney measures 11.7 centimeters. Moderate bilateral hydronephrosis. Possible dilation of the bilateral distal ureter. No focal suspicious renal lesion is identified. Prevoid bladder volume measures 355 milliliters. Postvoid bladder volume measures 270 milliliters. Bilateral bladder jets are detected. Normal bladder morphology. IMPRESSION: Moderate bilateral hydronephrosis. Elevated postvoid residual bladder volume measuring 270 milliliters. Dictated by Jr Blackmon MD @ 12/07/2024 7:23:49 PM (Electronically Signed)
[2024-12-07 18:41] LABS: Troponin I* < 0.01 ng/mL (0.01-0.04)
== END 2024-12-07 19:57 | disposition home or self-care (01) ==
PROVIDERS: Emergency Provider Student in an Organized Health Care Education/Training Program
DX: R07.9 Chest pain, unspecified (principal); R33.9 Retention of urine, unspecified; N13.2 Hydronephrosis with renal and ureteral calculous obstruction
CPT/HCPCS: 36415; 71045; 71275; 76770; 80048; 83735; 83880; 84484; 85025; 85379; 87631; 93005; 99285; Q9967

== ENCOUNTER 2024-12-25 20:47 | Outpatient (CLI) | payer MEDICAID, SELFPAY ==
--- OUTSIDE RECORDS SUMMARY | 2024-12-26 00:06 | XMS_ITS | Clinical Summary ---
Author Organization [facility] Address [address] [place] [address] Care Team Providers Care Post Graduate Intern Name Role Phone Fabiola El DO Primary Care Provider [phone] Allergies No known active allergies Medications acetaminophen 325 mg tablet Take 650 mg [...] at bedtime. 90 Tablet 3 5 Active ferrous sulfate 325 mg delayed release tabletIndications: Anemia of unknown etiology Take 1 Tablet (325 mg) by mouth once daily with a meal. 90 Tablet 3 5 Active amoxicillin-clavul anate 500-125 mg tablet Take 1 Tablet by mouth. 5 12/02/19 25 chlorhexidine 0.12 % solution Apply 15 mL to the lining of the mouth. 5 12/12/19 25 amLODIPine 5 mg tablet Take 5 mg by mouth once daily. 5 12/01/19 25 Discontinu ed(*Medica tion adjustment ) Active Problems Problem Noted Date Diagnosed Date Iron deficiency anemia due to chronic blood loss 12/22/2024 History of gross hematuria 12/22/2024 JW (acute kidney injury) 12/01/2024 Prediabetes 12/01/2024 Essential hypertension 12/01/2024 Diverticulosis of colon without diverticulitis 0 11/19/2024 Venous insufficiency 02/11/2012 Encounters Date Type Department Care Team Description 12/22/2024 10:00 AM CDT [facility] Visit [facility] [address] [place] [address] Elder Boateng MD Consult 12/22/2024 Telephone [facility] [address] [place] [address] Elder Boateng MD Results 12/21/2024 10:35 AM CDT Office Visit [facility] [address] [place] [address] Josué Dasilva DO Pre-Op Exam (Ureteroscopy 12/27/24 ) 12/21/2024 Travel 12/10/2024 Telephone [facility] [address] [place] [address] Fabiola El, Prior Authorization 12/09/2024 10:10 AM CDT Office Visit [facility] [address] [place] [address] Fabiola El, ER Follow up (chest pain, SOB on 12/07/24) 12/09/2024 Travel 12/01/2024 12:31 PM CDT - 12/01/2024 11:59 PM CDT Hospital Encounter [facility] [address] [place] [address] Fabiola El DO Cross, Sarice M DOE (dyspnea on exertion) 12/01/2024 Telephone [facility] [address] [place] [address] Fabiola El, Results 11/30/2024 8:55 AM CDT Office Visit [facility] [address] [place] [address] Fabiola El, Establish Care; Breathing Problem (SOB with any type of exertion x1 year, lightheadedness); Fast Heartbeat (Tachycardia with exertion); Esophageal Reflux (Dry heaving/gagging after eating - reports bad heartburn); Urinary Problem (Urinary frequency all day/night every 30-60 min) 11/30/2024 Travel 11/29/2024 Nurse Triage [facility] [address] [place] [address] Fabiola El DO Appointment Request (Mouth infection,High blood pressure, other concerns ); Blood Pressure; Fatigue; Weak; Shortness Of Breath from Last 3 Months Immunizations Immunization Administration Dates Next Due DTaP 09/16/1977 Polio Virus, Unspecified 09/16/1977 Family History Medical History Relation Name Comments Heart Disease Brother No Known Problems Father Heart attack Mother Relation Name Status Comments Brother Alive Father Alive Mother Alive Social History Tobacco Use Types Packs/Day Years Used Date Smoking Tobacco: Never Smokeless Tobacco: Never Tobacco Cessation:Counseling Given: Yes Alcohol Use Standard Drinks/Week Comments Yes 0 (1 standard drink = 0.6 oz pur e alcohol) rare, 1-2/month Social Connections Answer Date Recorded Do you [...] on file 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 Gender Identity Not on file Sexual Orientation Not on file Obstetrics History Last Filed Vital Signs Vital Sign Reading Time Taken Comments Blood Pressure 131/74 12/22/2024 9:33 AM CDT Pulse 87 12/22/2024 9:33 AM CDT Temperature 36.8 C (98.2 F) 12/21/2024 10:32 AM CDT Respiratory Rate 18 08/31/2013 8:45 PM 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 Oxygen Saturation 98% 12/21/2024 10:32 AM CDT Inhaled Oxygen Concentration - - Weight 98.9 kg (218 lb) 12/22/2024 9:33 AM CDT Height 182.9 cm (6') 12/22/2024 9:33 AM CDT Body Mass Index 29.57 12/22/2024 9:33 AM CDT Plan of Treatment Upcoming Encounters Date Type Department Care Team (Late st Contact Info) Description 01/09/2025 10:10 AM CDT Office Visit [facility] [address] [place] [address] Fabiola El DO [address] [place] [address] 01/11/2025 1:00 PM CDT Office Visit [facility] [address] [place] [address] Oswaldo Tejada MD [address] [place] [address] 01/11/2025 1:45 PM CDT Office Visit [facility] [address] [place] [address] Faibola El, DO [address] [place] [address] Health Maintenance Due Date Last Done Comments Tdap 1983 Depression screening for age 12+ 1984 HIV for age 15-65 1987 Hepatitis C screening for age 18-79 1990 Hepatitis B series for 19+ ( 1 of 3 - 19+ 3-dose series) 1991 Pneumococcal series for age 50+ (1 of 2 - PCV) 991 Tetanus booster 1992 Colonoscopy through age 75 2017 Zoster (shingles) series for age 50+ (1 of 2) 03/23/20 22 COVID-19 vaccine series (2023- season) Influenza Vaccine (Season Ended) 2025 BMI (ht and wt on same day) for age 18+ 12/22/2025 0 12/22/2024 Lipids for age 45-75 11/30/2029 11/30/2024 Medical Devices Implanted Type Area Temperature Inspector Device Identifier Shelf Expiration Date Model / Serial / Lot Plate Hand Rt 1.7mm 6 Hole L-Plate - [id number] Implanted:Qty: 1 on 08/31/2013 at [facility] Right: [employer] [id number] / / Screw Hand 1.7x12mm Variax Hand Slf Tppng - [id number] Implanted:Qty: 1 on 08/31/2013 at [facility] Right: [employer] [id number]# / / Screw Hand 1.7x6mm [employer] Hand Slf Tppng - [id number] Implanted:Qty: 1 on 08/31/2013 at [facility] Right: [employer] [id number]# / / Screw Hand 1.7x9mm [employer] Hand Slf Tppng - [id number] Implanted:Qty: 1 on 08/31/2013 at [facility] Right: [employer] [id number]# / / Screw Hand 1.7x13mm Variax Hand Slf Tppng - [id number] Implanted:Qty: 1 on 08/31/2013 at [facility] Right: [employer] [id number]# / / Screw Hand 1.7x12mm [employer]x Hand Slf Tppng Lock - [id number] Implanted:Qty: 1 on 08/31/2013 at [facility] Right: [employer] [id number]# / / Screw Hand 1.7x11mm V[employer]x Hand Slf Tppng Lock - [id number] Implanted:Qty: 1 on 08/31/2013 at [facility] Right: [employer] [id number]# / / Screw Hand 1.7x14mm Variax Hand Slf Tppng Lock - [id number] Implanted:Qty: 1 on 08/31/2013 at [facility] Right: [employer] [id number]# / / Procedures Procedure Name Priority Date/Time Associated Diagnosis Comments URINALYSIS MICROSCOPIC Routine 10:11 AM CDT JW (acute kidney injury) URINE ALBUMIN TO CREATININE RATIO, RANDOM Routine 12/22/2024 10:11 AM CDT JW (acute kidney injury) PROTEIN/CREAT RATIO,URINE Routine 12/22/2024 10:11 AM CDT JW (acute kidney injury) UA W/ SEDIMENT EXAM REFLEXED PER CRITERIA Routine 12/22/2024 10:11 AM CDT JW (acute kidney injury) BASIC METABOLIC PANEL Routine 12/21/2024 11:23 AM CDT IRON PLUS IRON BINDING CAP Routine 12/21/2024 11:23 AM CDT PHOSPHORUS Routine 12/21/2024 11:23 AM CDT HEPATIC FUNCTION PANEL Routine 11:23 AM CDT BUN Routine 12/21/2024 11:23 AM CDT Preop general physical exam CREATININE Routine 12/21/2024 11:23 AM CDT Preop general physical exam CBC WITH AUTO DIFFERENTIAL Routine 12/21/2024 11:23 AM CDT Preop general physical exam PROTIME-INR Routine 12/21/2024 11:16 AM CDT Preop general physical exam RETICULOCYTES Add On 12/21/2024 12:00 AM CDT JW (acute kidney injury) ECHO STRESS EXRCSE W CONTRAST IMAGE ONLY [...] CDT Screening cholesterol level URINALYSIS MICROSCOPIC Routine 10:35 AM CDT Urinary frequency URINE CULTURE Routine 11/30/2024 10:35 AM CDT Urinary frequency PROTEIN/CREAT RATIO,URINE Routine 11/30/2024 10:35 AM CDT Proteinuria, unspecified type [facility]COPIC [facility] POC DIP ([facility]) Routine 11/30/2024 10:35 AM CDT Urinary frequency from Last 3 Months Results * (ABNORMAL) URINALYSIS MICROSCOPIC (12/22/2024 10:11 AM CDT) Only the most recent of2 resultswithin the time period is included. RBC 26-50(A) 0-2, None Seen /HPF 12/22/2024 10:35 AM CDT [facility] WBC >100(A) 0-2, 3-5, None Seen /HPF 12/22/2024 10:35 AM CDT [facility] BACTERIA None Seen None Seen, Rare, Few Bacteria/ HPF 12/22/2024 10:35 AM CDT [facility] EPITHELIAL CELLS None Seen None Seen, Few Epi/HPF 12/22/2024 10:35 AM CDT [facility] HYALINE CASTS 0-2 0-2, 3-5 /LPF 12/22/2024 10:35 AM CDT [facility] Urine URINE SPECIMEN / Unknown Non-Blood / Unknown 12/22/2024 10:11 AM CDT 12/22/2024 10:11 AM CDT Elder Boateng MD URINE Final Resul t Performing Organization Address City/[facility]/ZIP Co de Phone Number [facility] SENDOUT INTERNAL ZIP [address] [place] [phone] * (ABNORMAL) PROTEIN/CREAT RATIO,URINE (12/22/2024 10:11 AM CDT) Only the most recent of2 resultswithin the time period is included. PROTEIN QUANT,RAND URINE 57(H) 1 - 14 mg/dL 12/22/2024 10:45 AM CDT [facility] CREAT,RANDOM URINE 77.9 39.0 - 259.0 mg/dL 12/22/2024 10:45 AM CDT [facility] PROT/CREAT RATIO,UR 0.7(H) <0.2 12/22/2024 10:45 AM CDT [facility] Urine URINE SPECIMEN / Unknown Non-Blood / Unknown 12/22/2024 10:11 AM CDT 12/22/2024 10:11 AM CDT Elder Boateng MD URINE Final Resul t Performing Organization Address City/[facility]/ZIP Co de Phone Number [facility] SENDOUT INTERNAL ZIP [phone] [place] [phone] * (ABNORMAL) URINE ALBUMIN TO CREATININE RATIO, RANDOM (12/22/2024 10:11 AM CDT) ALB RAND URINE 197.0 mg/L 12/22/2024 11:08 PM CDT [facility] CREATININE,URIN E 0.76 g/L 12/22/2024 11:08 PM CDT [facility] ALBUMIN TO CREATININE RATIO,RAND UR 259.2(H) <30.0 mg/g creat 12/22/2024 11:08 PM CDT [facility] Urine URINE SPECIMEN / Unknown Non-Blood / Unknown 12/22/2024 10:11 AM CDT 12/22/2024 10:11 AM CDT Narrative [facility] - 12/22/2024 11:08 PM CDT If Albumin to Creatinine Ratio is elevated, consider the following: Elevations seen with incipient nephropathy associated with diabetes mellitus or hypertension. Stress, exercise,hematuria, and urinary tract infection may also produce elevated results. If clinically indicated, confirm with 24 Hour Albumin to Creatinine Ratio. Elder Boateng MD URINE Final Resul t [facility] [address] [place] [address], [place] * (ABNORMAL) UA W/ SEDIMENT EXAM REFLEXED PER CRITERIA (12/22/2024 10:11 AM CDT) COLOR Yellow Yellow Color 12/22/2024 10:[address] [facility] CLARITY Cloudy(A) Clear Clarity 12/22/2024 10:[address] [facility] SPECIFIC GRAVITY,URINE 1.010 1.010, 1.015, 1.020, 1.025 12/22/2024 10:[address] [facility] PH,URINE 6.5 6.0, 7.0, 8.0, 5.5, 6.5, 7.5, 8.5 12/22/2024 10:[address] [facility] UROBILINOGEN, QUALITATIVE Normal Normal EU/dl 12/22/2024 10:[address] [facility] PROTEIN, URINE 100(A) Negative mg/dL 12/22/2024 10:[address] [facility] GLUCOSE, URINE Negative Negative mg/dL 12/22/2024 10:[address] [facility] KETONES,URINE Negative Negative mg/dL 12/22/2024 10:[address] [facility] BILIRUBIN,URI NE Negative Negative 12/22/2024 10:[address] [facility] OCCULT BLOOD,URINE Moderate(A) Negative 12/22/2024 10:[address] [facility] NITRITE Negative Negative 12/22/2024 10:[address] [facility] LEUKOCYTE ESTERASE Large(A) Negative 12/22/2024 10:[address] [facility] Urine URINE SPECIMEN / Unknown Non-Blood / Unknown 12/22/2024 10:11 AM CDT 12/22/2024 10:11 AM CDT Elder Boateng MD URINE Final Resul t [facility] SENDOUT INTERNAL ZIP [phone] [place] [address] * IRON PLUS IRON BINDING CAP (12/21/2024 11:23 AM CDT) IRON, TOTAL 90 50 - 180 mcg/dL [facility] IRON BINDING CAPACITY 289 250 - 425 mcg/dL (calc) [facility] % SATURATION 31 20 - 48 % (calc) [facility] 12/21/2024 11:2 3 AM CDT 12/21/2024 11:24 AM CDT Josué Dasilva DO CHEMISTRY Final Result Performing Organization Address [facility]/ZIP Co de Phone Number [facility] [employer] [facility] [address] [place] [address], [place] [phone] [facility] [address] [place] [address] * (ABNORMAL) BUN (12/21/2024 11:23 AM CDT) UREA NITROGEN (BUN) 43(H) 7 - 25 mg/dL [facility] Blood BLOOD SPECIMEN / Unknown 12/21/2024 11:23 AM CDT 12/21/2024 11:24 AM CDT Josué Dasilva DO CHEMISTRY Final Result [employer] [facility] [address] [place] [address], [place] [phone] [facility] [address] [place] [address] * (ABNORMAL) CREATININE (12/21/2024 11:23 AM CDT) Pathologist [facility] CREATININE 3.03(H) 0.70 - 1.30 mg/dL [facility] EGFR 24(L) > OR = 60 mL/min/1.73 m2 [facility] Blood BLOOD SPECIMEN / Unknown 12/21/2024 11:23 AM CDT 12/21/2024 11:24 AM CDT Josué Dasilva DO CHEMISTRY Final Result [facility] [employer] [facility] [address] [place] [address], [employer] [address] [place] [address] * (ABNORMAL) CBC AND DIFFERENTIAL (12/21/2024 11:23 AM CDT) Pathologist [facility] WHITE BLOOD CELL COUNT 8.8 3.8 - 10.8 Thousand/u L [facility] RED BLOOD CELL COUNT 4.16(L) 4.20 - 5.80 Million/uL [facility] HEMOGLOBIN 10.1(L) 13.2 - 17.1 g/dL [facility] HEMATOCRIT 33.6(L) 38.5 - 50.0 % [facility] MCV 80.8 80.0 - 100.0 fL [facility] MCH 24.3(L) 27.0 - 33.0 pg [facility] MCHC 30.1(L) 32.0 - 36.0 g/dL [facility] Comment: For adults, a slight decrease in the calculated MCHC value (in the range of 30 to 32 g/dL) is most likely not clinically significant; however, it should be interpreted with caution in correlation with other red cell parameters and the patient's clinical condition. RDW 22.7(H) 11.0 - 15.0 % [facility] PLATELET COUNT 360 140 - 400 Thousand/u L [facility] MPV 11.4 7.5 - 12.5 fL [facility] ABSOLUTE NEUTROPHILS 5,940 1,500 - 7,800 cells/uL [facility] ABSOLUTE LYMPHOCYTES 1,646 850 - 3,900 cells/uL [facility] ABSOLUTE MONOCYTES 598 200 - 950 cells/uL [facility] ABSOLUTE EOSINOPHILS 528(H) 15 - 500 cells/uL [facility] ABSOLUTE BASOPHILS 88 0 - 200 cells/uL [facility] NEUTROPHILS 67.5 % [facility] LYMPHOCYTES 18.7 % [facility] MONOCYTES 6.8 % [facility] EOSINOPHILS 6.0 % [facility] BASOPHILS 1.0 % [facility] CBC (INCLUDES DIFF/PLT) COMMENTS [facility] Comment: Review of peripheral smear confirms automated results. Blood BLOOD SPECIMEN / Unknown 12/21/2024 11:23 AM CDT 12/21/2024 11:24 AM CDT us Josué Dasilva DO HEMATOLOGY Final Result Performing Organization Address City/[facility]/ZIP Co de Phone Number [employer] [address] [address], [place] [phone] [employer] [address] * PHOSPHORUS (12/21/2024 11:23 AM CDT) PHOSPHATE ( PHOSPHORUS) 4.4 2.5 - 4.5 mg/dL [facility] 12/21/2024 11:2 3 AM CDT 12/21/2024 11:24 AM CDT us Josué Dasilva DO CHEMISTRY Final Result [employer] [address] [address], [place] [phone] [facility] [address] [place] [address] * HEPATIC FUNCTION PANEL (12/21/2024 11:23 AM CDT) Pathologist [facility] PROTEIN, TOTAL TNP g/dL [facility] Comment: TEST NOT PERFORMED The additional test requested cannot be performed due to age of the specimen. 12/21/2024 11:2 3 AM CDT 12/21/2024 11:24 AM CDT Josué Dasilva DO CHEMISTRY Final Result [employer] [facility] [address] [place] [address], [facility] [address] [place] [address] * (ABNORMAL) BASIC METABOLIC PANEL (12/21/2024 11:23 AM CDT) Only the most recent of2 resultswithin the time period is included. [facility] GLUCOSE 81 65 - 99 mg/dL [facility] Comment: Fasting reference interval UREA NITROGEN (BUN) 43(H) 7 - 25 mg/dL [facility] CREATININE 3.03(H) 0.70 - 1.30 mg/dL [facility] EGFR 24(L) > OR = 60 mL/min/1.7 3m2 [facility] BUN/CREATININE RATIO 14 6 - 22 (calc) [facility] SODIUM 139 135 - 146 mmol/L [facility] POTASSIUM 4.0 3.5 - 5.3 mmol/L [facility] CHLORIDE 112(H) 98 - 110 mmol/L [facility] CARBON DIOXIDE 11(L) 20 - 32 mmol/L [facility] Comment: Analysis performed on aliquoted specimen, CO2 may be decreased due to greater exposure of specimen to air. ELECTROLYTE BALANCE 16 7 - 17 mmol/L (calc) [facility] CALCIUM 9.4 8.6 - 10.3 mg/dL [facility] 12/21/2024 11:2 3 AM CDT 12/21/2024 11:24 AM CDT Josué Dasilva DO CHEMISTRY Final Result Performing Organization Address [facility] Co de Phone Number [employer] [facility] [address] [place] [address], [facility] [address] [place] [address] * (ABNORMAL) PROTIME-INR (12/21/2024 11:16 AM CDT) Pathologist [facility] INR 1.1 <1.3 12/21/2024 3:09 PM CDT [facility] PROTIME 12.5(H) 10.6 - 12.4 sec 12/21/2024 3:09 PM CDT [facility] Blood BLOOD SPECIMEN / Unknown [facility] / Unknown 12/21/2024 11:16 AM CDT 12/21/2024 11:30 AM CDT Narrative [facility] - 12/21/2024 3:09 PM CDT Therapeutic Range 2.0-3.0 for most anticoagulated patients 2.5-3.5 or 4.0 for high risk patients The INR is only used for patients on stable oral anticoagulant therapy. It makes no significant contribution to the diagnosis or treatment of patients whose Protime is prolonged for other reasons. INR results are increased when heparin levels exceed 1.0 U/mL, which corresponds to an aPTT >125 seconds if the patient is on UFH. us Josué Dasilva DO HEMATOLOGY Final Result Performing Organization Address [facility]/ZIP Co de Phone Number [facility] [address] [place] [address], [place] * (ABNORMAL) RETICULOCYTES (12/21/2024 12:00 AM CDT) RETICULOCYTE COUNT, AUTOMATED 0.5 % [facility] RETICULOCYTE, ABSOLUTE 20,700(L) 25,000 - 90,000 cells/uL [facility] Blood BLOOD SPECIMEN / Unknown 12/21/2024 12/22/2024 1:09 PM CDT us Elder Boateng MD HEMATOLOGY Final Resul t [facility] [address] [place] [address], [facility] [address] [place] [address] * ECHO STRESS EXRCSE W CONTRAST IMAGE [...] BSA: 2.23 m Weight: 101.00 kg Tech: [facility] Referring MD: FABIOLA EL Site: [facility] Reading Location: W STRESS Patient Location: Outpatient. Procedure: Stress Echo, [...] 87% Fletcher Treadmill Score 4 Double Product 84898 Echo Findings:This is a negative stress echo [...] [place] [address]. Maximum stress test with 87.3% of age [...] documentation: 2 ml diluted Definity, lot #[id number], [facility]# [id number] was administered peripherally to enhance visualization of all left ventricular segments. . This study was interpreted by an [facility] accredited facility. Final Procedure Note Bennie Rushing MD - 12/01/2024 STRESS ECHOCARDIOGRAM AJE WARD : 1970 54 years Study Date: 12/01/2024 1:41:53 PM Gender: M BP: 144/90 mmHg Height: 183.00 cm BSA: 2.23 m Weight: 101.00 kg Tech: [facility] Referring MD: FABIOLA EL Site: [facility] Reading Location: W STRESS Patient Location: Outpatient. Procedure: Stress Echo, [...] 87% Fletcher Treadmill Score 4 Double Product 45715 Echo Findings:This is a negative stress echo [...] 16 sec to stage II according to [facility] stress echo protocol. Test terminated due to shortness of breath.7.0 METS were achieved. The patient achieved a heart rate of 146 bpm whichis 87.3% of maximum predicted heart rate. Maximum systolic blood pressurewas 194 [place] [address]. Maximum stress testwith 87.3% of age predicted [...] documentation: 2 ml diluted Definity, lot #[id number], [facility]#[id number] was administered peripherally to enhance visualization of allleft ventricular segments. . This study was interpreted by an [facility] accredited facility. Final us Fabiola Clare Sienna DO ECHO ORD Final Result * (ABNORMAL) LIPID PANEL W REFLEX MEASURED LDL (11/30/2024 11:03 AM CDT) CHOLESTEROL, TOTAL 242(H) <200 mg/dL [facility] HDL CHOLESTEROL 30(L) > OR = 40 mg/dL [facility] TRIGLYCERIDES 375(H) <150 mg/dL [facility] Comment: If a non-fasting specimen was collected, consider repeat triglyceride testing on a fasting specimen if clinically indicated. Jack et al. J. of Clin. Lipidol. 2015;9:129-169. LDL-CHOLESTEROL 154(H) mg/dL (calc) [facility] Comment: Reference range: <100 Desirable range <100 mg/dL for primary prevention; <70 mg/dL for patients with CHD or diabetic patients with > or = 2 CHD risk factors. LDL-C is now calculated using the Carlton-Jose calculation, which is a validated novel method providing better accuracy than the Friedewald equation in the estimation of LDL-C. Carlton HATCH et al. OSCAR. 2013;310(19): 9740-3119 (http://education.Samesurf.Octavian/faq/PDL661) CHOL/HDLC RATIO 8.1(H) <5.0 (calc) [facility] NON HDL CHOLESTEROL 212(H) <130 mg/dL (calc) [facility] Comment: For patients with diabetes plus 1 major ASCVD risk factor, treating to a non-HDL-C goal of <100 mg/dL (LDL-C of <70 mg/dL) is considered a therapeutic option. Blood BLOOD SPECIMEN / Unknown 11/30/2024 11:03 AM CDT 11/30/2024 11:08 AM CDT Fabiola Sparks Sienna CLEMENTS CHEMISTRY Final Result [employer] [facility] [address] [place] [address], [facility] [address] [facility] [place] [address] * (ABNORMAL) CBC W PLT NO DIFF (11/30/2024 11:03 AM CDT) WHITE BLOOD CELL COUNT 11.8(H) 3.8 - 10.8 Thousand/u L [facility] RED BLOOD CELL COUNT 4.40 4.20 - [...] 586(H) 140 - 400 Thousand/u L [facility] MPV 11.1 7.5 - 12.5 fL [facility] Blood BLOOD SPECIMEN / Unknown 11/30/2024 11:03 AM CDT 11/30/2024 11:08 AM CDT us Fabiola El DO HEMATOLOGY Final Result [facility] [address] [place] [address], [facility] [address] [facility] [place] [address] * (ABNORMAL) POCT Urinalysis Dipstick Only [[id number]] (11/30/2024 10:35 AM CDT) PH 5.5 5.0 - 8.0 [facility] SPECIFIC GRAVITY 1.020 1.001 - 1.035 [facility] GLUCOSE NEGATIVE NEGATIVE [facility] BILIRUBIN NEGATIVE NEGATIVE [facility] KETONES NEGATIVE NEGATIVE [facility] OCCULT BLOOD 2+(A) NEGATIVE [facility] PROTEIN 2+(A) NEGATIVE [facility] NITRITE NEGATIVE NEGATIVE [facility] LEUKOCYTE ESTERASE 1+(A) NEGATIVE [facility] Urine URINE SPECIMEN / Unknown 11/30/2024 10:35 AM CDT 11/30/2024 10:36 AM CDT us Fabiola Clare Karlqra DO URINE Final Result [facility] [address] [place] [address], [facility] [address] [place] [address] * URINE CULTURE [31235.2] (11/30/2024 10:35 AM CDT) CULTURE No growth (<1,000 CFU/mL) 12/01/2024 3:12 PM CDT [facility] Urine URINE SPECIMEN / Unknown Non-Blood / Unknown 11/30/2024 10:35 AM CDT 11/30/2024 10:35 AM CDT us Fabiola Clare Karlqra DO MICROBIOLOGY Final Result [facility] [address] [place] [address], from Last 3 Months Insurance [id number] [place] [facility] [place] [address] [facility] Member Subscriber Plan / Payer (Ef fective 2024-Present) Name:Jae Ward Relation to Subscriber:Self Name:Devora Jae Alas Payer ID:Not on file Group ID:Not on file Type:Not on file Address: [employer] MEDICAID [id number] [facility] [place] [address] [facility] Advance Directives * Full Code (Latest Code Status on File) Date Activated Date Inactivated Comments 08/31/2013 12:07 AM 09/01/2013 12:43 AM Care Teams Post Graduate Intern Relationship Specialty Start Date End Date Fabiola El [place] [place] [address] PCP - General Family Practice 12/01/24
== END 2024-12-25 20:48 | disposition home or self-care (01) ==
LOC: SLEEP 20:49
PROVIDERS: PCP Family Medicine; Visit Provider Internal Medicine
DX: G47.33 Obstructive sleep apnea (adult) (pediatric) (principal); R09.02 Hypoxemia; G47.31 Primary central sleep apnea
CPT/HCPCS: 95810